=== PATIENT | male | born 1945 | race Caucasian/White ===

== ENCOUNTER → 2016-12-20 | Outpatient (CLI) | payer BC ==
[~2016-12-20] MED LIST: ASCO500T16 PO; ASPI-435 PO; ATV5X PO; CALC600T36 PO; CINN500T PO; CLON0.3D5 TOP; CTP/1 PO; CYAN100020 PO; FLUO10TA3 PO; ISOS60TA25 PO; KLN5X PO; KRIL1000 PO; LPT/20 PO; LSX40 PO; MELA1TAB54; MINO1TAB PO; MULTTAB58 PO; NTRGSL/4 UT; PROB1TAB16 PO; PRT/40 PO; SAW450CA5 PO; [UNRECOGNIZED DRUG - CODE] PO; vit d PO
[2016-12-20 12:29] LABS: BLOOD UREA NITROGEN 12 mg/dl (7-18); CREATININE 0.85 mg/dl (0.60-1.40); GLUCOSE 96 mg/dl (70-99)
[2016-12-20 12:30] LABS: ALT/SGPT 38 U/L (12-78); BUN/CREATININE RATIO 14.2 (10-20); CALCIUM 9.4 mg/dl (8.5-10.1); CARBON DIOXIDE 26 mmol/L (21-32); CHLORIDE 99 mmol/L (98-107); POTASSIUM 4.3 mmol/L (3.5-5.1); SODIUM 131 mmol/L (136-145)
[2016-12-20 12:32] LABS: ALB/GLOB RATIO 1.1 (0.9-2); ALKALINE PHOSPHATASE 158 U/L (45-117); AST/SGOT 35 U/L (15-37)
== END | disposition home or self-care (01) ==
LOC: C.LAB1850 11:04
PROVIDERS: ATTEND Internal Medicine Cardiovascular Disease
DX: I25.10 Atherosclerotic heart disease of native coronary artery without angina pectoris (principal)

== ENCOUNTER 2016-12-29 11:30 | Observation (INO) | payer BC ==
[~2016-12-29] VITALS: Ht 162.6 cm; Wt 54.2 kg
[~2016-12-29 11:30] MED LIST changes: -CTP/1 PO; -KRIL1000 PO
--- NOTE | 2016-12-29 11:58 | DIAGNOSTIC IMAGING REPORT ---
CHEST ONE VIEW PORTABLE CLINICAL HISTORY: chest pain dyspnea COMPARISON STUDY: 09/04/2016 FINDINGS: Moderate stable cardiomegaly. Prior median sternotomy. Mild chronic elevation right hemidiaphragm. Lungs are clear. IMPRESSION: Chronic and postoperative change. No acute process. Electronically signed by: Marcin Najera M.D. 12/29/2016 11:57 AM Dictated Date/Time: 12/29/2016 11:56 AM
[2016-12-29 11:59] LABS: HEMATOCRIT 36.1 % (42-52); MEAN CELL VOLUME 84.3 fL (80-100); MEAN CORPUSCULAR HEMOGLOBIN 28.7 pg (25-34); MEAN CORPUSCULAR HGB CONC 34.1 g/dl (32-36); MEAN PLATELET VOLUME 9.8 fL (7.4-10.4); PLATELET COUNT 231 K/uL (130-400); RED BLOOD COUNT 4.28 M/uL (4.7-6.1); WHITE BLOOD COUNT 5.09 K/uL (4.8-10.8)
[2016-12-29] MEDS ORDERED: CTP/1 PO (12:19)
[2016-12-29] MEDS ORDERED: KRIL1000 PO (12:19)
--- NOTE | 2016-12-29 12:20 | EMERGENCY ROOM VISIT NOTE ---
History Report prepared by Marilyn: Mary Luis Under the Supervision of: Dr. Kalina Ghosh D.O. 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 Today he had an appt. with Brandie Matthews, his PCP for a scheduled appt. While there today, he c/o CP. 2/10. At the PCP they gave him 1 nitro, and 325 ASA. He states relief with that, and was 0/10 upon ALS arrival. Pt. denies any cardiac symptoms upon arrival. History of Present Illness The patient is a 71 year old male who presents to the Emergency Room with complaints of resolved chest pain that began this morning around 0700. He currently states that he is in minimal discomfort, but states that his pain was a 2/10 earlier today. The patient states that Monday he had his typical yearly check up with his barrer and tacker. He states that yesterday he did a lot of heavy lifting while volunteering. The patient states that this morning he noticed a light pressure around his heart. He states that he went back to rest after experiencing the pain. The patient states that he had an appointment today with his PCP at 0900 and states that he had an EKG done there. He notes that while at his PCP's office, he began to experience vision changes, lightheaded, and chest pain. The patient denies the pain radiating to his jaw, neck, arm or back. Per nursing notes, the patient was given 1 nitro and 325 of aspirin prior to arrival which alleviated his symptoms. The patient denies any worsening factors. He notes that he has had previous stress tests and echocardiograms. The patient notes that he is a previous smoker. He denies any numbness or tingling in his extremities, shortness of breath, diaphoresis, abdominal pain, or swelling to his lower extremities. The patient notes a family history of heart disease. He notes that he is a previous smoker. The patient notes that he has had previous acid reflux, but denies his symptoms today feeling similar. Source of History: patient, nursing staff Onset: 0700 this morning Position: chest Symptom Intensity: minimal Quality: pressure Timing: resolved Modifying Factors (Relieving): other (nitro and aspirin) Associated Symptoms: No SOB, No abdominal pain, No back pain, No diaphoresis , No neck pain, No numbness Note: Associated Symptoms: lightheaded, change in vision Review of Systems See HPI for pertinent positives & negatives. A total of 10 systems reviewed and were otherwise negative. 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 (13) Iron deficiency anemia (14) Light-headed (15) PANIC DISORDER WITHOUT AGORAPHOBIA (16) PURE HYPERCHOLESTEROLEM Family History Diabetes mellitus Heart disease Kidney disease Social History Smoking Status: Former Smoker Alcohol Use: none Drug Use: none Marital Status: Housing Status: lives with family Occupation Status: retired Current/Historical Medications Scheduled Ascorbic Acid (Ascorbic Acid), 500 MG PO QAM Aspirin (Aspirin 81), 81 MG PO BID Atorvastatin (Atorvastatin Calcium), 20 MG PO DAILY Calcium W/ Vitamin D (Calcium), 1 TAB PO BID Cinnamon (Cinnamon), 500 MG PO QAM Clonazepam (Clonazepam), 0.5 MG PO HS Clonidine Hcl (Clonidine Hcl), 1 PATCH TOP WK Clonidine Hcl (Catapres), 1-2 TAB PO HS Cyanocobalamin (Vitamin B12), 1,000 MCG PO DAILY Fluoxetine Hcl (Fluoxetine Hcl), 10 MG PO HS Furosemide (Furosemide), 40 MG PO DAILY Isosorbide Mononitrate Ext Rel (Imdur Ext Rel), 30 MG PO QAM Krill Oil (Krill Oil), Unknown Dose PO UD Minoxidil (Minoxidil), 10 MG PO QPM Minoxidil (Minoxidil), 5 MG PO QAM Multiple Vitamin (Multivitamin), 1 TAB PO DAILY Pantoprazole (Pantoprazole Sodium), 40 MG PO DAILY Saw [place] (Serenoa Repens) (Saw [place]), 900 MG PO BID [vit d], PO DAILY Scheduled PRN Nitroglycerin (Nitrostat), 0.4 MG UT UD PRN for Chest Pain Miscellaneous Medications Melatonin (Melatonin) Allergies Coded Allergies: Gluten (Verified Allergy, Unknown, CELIAC DISEASE, 12/29/16) Physical Exam Vital Signs Date Time Temp Pulse Resp B/P Pulse Ox O2 Delivery O2 Flow Rate FiO2 12/29/16 14:53 200/92 12/29/16 14:51 62 18 199/88 98 Room Air 12/29/16 14:20 54 19 96 12/29/16 14:15 53 16 95 12/29/16 14:10 51 18 12/29/16 14:05 52 19 12/29/16 14:00 50 18 145/71 12/29/16 13:55 60 19 12/29/16 13:50 58 10 12/29/16 13:45 74 18 12/29/16 13:40 50 17 96 12/29/16 13:35 53 22 97 12/29/16 13:30 55 15 163/78 93 12/29/16 13:25 55 14 12/29/16 13:20 51 17 98 12/29/16 13:15 53 17 98 12/29/16 13:10 54 17 98 12/29/16 13:08 184/82 12/29/16 12:35 61 15 12/29/16 12:30 56 17 162/73 96 12/29/16 12:25 56 13 98 12/29/16 12:20 51 14 97 12/29/16 12:15 52 13 151/67 12/29/16 12:10 52 19 97 12/29/16 12:05 51 16 97 12/29/16 12:00 50 19 136/64 12/29/16 11:59 55 12/29/16 11:55 50 17 97 12/29/16 11:50 61 19 12/29/16 11:48 184/84 12/29/16 11:47 16 98 Room Air 12/29/16 11:45 54 20 99 12/29/16 11:38 98 Room Air 12/29/16 11:38 36.6 54 18 179/83 100 Room Air 12/29/16 11:36 179/83 Physical Exam GENERAL: alert, well appearing, well nourished, no distress, non-toxic EYE EXAM: normal conjunctiva, PERRL and EOM's grossly intact OROPHARYNX: no exudate, no erythema, lips, buccal mucosa, and tongue normal and mucous membranes are moist NECK: supple, no nuchal rigidity, no adenopathy, non-tender CHEST WALL: No reproducible tenderness LUNGS: Clear to auscultation. Normal chest wall mechanics HEART: no murmurs, S1 normal and S2 normal ABDOMEN: abdomen soft, non-tender, normo-active bowel sounds, no masses, no rebound or guarding. BACK: Back is symmetrical on inspection and there is no deformity, no midline tenderness, no CVA tenderness. SKIN: no rashes and no bruising UPPER EXTREMITIES: upper extremities are grossly normal. LOWER EXTREMITIES: No pitting edema. NEURO EXAM: Normal sensorium, cranial nerves II-XII grossly intact, normal speech, no gross weakness of arms, no gross weakness of legs. Medical Decision & Procedures ER Provider Diagnostic Interpretation: Xray results per the radiologist and my interpretation. Other results have been interpreted by the radiologist and reviewed by me. CHEST ONE VIEW PORTABLE CLINICAL HISTORY: chest pain dyspnea COMPARISON STUDY: 09/04/2016 FINDINGS: Moderate stable cardiomegaly. Prior median sternotomy. Mild chronic elevation right hemidiaphragm. Lungs are clear. IMPRESSION: Chronic and postoperative change. No acute process. Electronically signed by: Marcin Najera M.D. 12/29/2016 11:57 AM Dictated Date/Time: 12/29/2016 11:56 AM Laboratory Results 12/29/16 11:30 12/29/16 11:30 Test 12/29/16 11:30 12/29/16 11:47 Red Blood Count 4.28 M/uL (4.7-6.1) Mean Corpuscular Volume 84.3 fL (80-100) Mean Corpuscular Hemoglobin 28.7 pg (25-34) Mean Corpuscular Hemoglobin Concent 34.1 g/dl (32-36) RDW Standard Deviation 42.4 fL (36.4-46.3) RDW Coefficient of Variation 13.7 % (11.5-14.5) Mean Platelet Volume 9.8 fL (7.4-10.4) Prothrombin Time 11.1 SECONDS (9.0-12.0) Prothromb Time International Ratio 1.0 (0.9-1.1) Activated Partial Thromboplast Time 26.1 SECONDS (21.0-31.0) Partial Thromboplastin Ratio 1.0 Anion Gap 8.0 mmol/L (3-11) Est Creatinine Clear Calc Drug Dose 57.9 ml/min Estimated GFR () 89.5 Estimated GFR (Non- 77.3 BUN/Creatinine Ratio 12.4 (10-20) Calcium Level 9.5 mg/dl (8.5-10.1) Total Bilirubin 0.6 mg/dl (0.2-1) Aspartate Amino Transf (AST/SGOT) 40 U/L (15-37) Alanine Aminotransferase (ALT/SGPT) 43 U/L (12-78) Alkaline Phosphatase 145 U/L (45-117) Total Creatine Kinase 187 U/L (39-308) Creatine Kinase MB 3.1 ng/ml (0.5-3.6) Creatine Kinase MB Ratio 1.7 (0-3.0) Total Protein 7.5 gm/dl (6.4-8.2) Albumin 4.0 gm/dl (3.4-5.0) Globulin 3.5 gm/dl (2.5-4.0) Albumin/Globulin Ratio 1.1 (0.9-2) Bedside Troponin I 0.010 ng/ml (0-0.045) Laboratory results per my review. ECG Indication: chest pain Rate (beats per minute): 53 Rhythm: sinus bradycardia Findings: 1st degree AV block, no ectopy, other (normal axis, normal intervals) Comparison ECG Date: 09/04/16 Change: no significant change ED Course 1223: The patient was evaluated in room C12B. A complete history and physical examination was performed. 1300: Upon reevaluation, the patient is resting comfortably.I discussed my findings with the patient and he understands and agrees with the treatment plan. Based on the patients age, coexisting illnesses, exam and lab findings the decision to treat as an inpatient was made. The patient remained stable while under my care. The patient will be evaluated for further management. 1447: I discussed the patients case with CEDRIC Garcia. He is going to evaluate the patient for further treatment. Medical Decision The patient is a 71 year old male who presents to the ED with complaints of resolved chest pain. Differential diagnosis include ACS, CHF, anxiety, pneumonia, GERD, dissection. Patient with prior history of ACS in the status post CABG. Despite recent routine cardiology evaluation, patient now with no concerning symptoms given age, prior history, risk factors. No evidence to suggest pneumonia/effusion. No widening mediastinum suggestive of dissection on chest x-ray and patient's symptoms had resolved by the time of my evaluation. Patient with underlying history of anxiety as well as reflux although states presentation today not consistent with those. Patient's well- appearing here and vital signs stable. EKG unchanged from prior. Patient noted for continued monitoring, serial cardiac enzymes, possible cardiology evaluation. Consults Time Called: 1321 Consulting Physician: CEDRIC Garcia Returned Call: [phone] I discussed the patients case with CEDRIC Garcia. He is going to evaluate the patient for further treatment. Impression Primary Impression: Left sided chest pain Additional Impression: Dizziness Scribe Attestation The scribe's documentation has been prepared under my direction and personally reviewed by me in its entirety. I confirm that the note above accurately reflects all work, treatment, procedures, and medical decision making performed by me. Departure Information Dispostion Being Evaluated By Hospitalist Referrals Brandie Matthews D.O. (PCP) Problem Qualifiers
[2016-12-29 12:34] LABS: PROTHROMBIN TIME (PATIENT) 11.1 SECONDS (9.0-12.0)
[2016-12-29 12:38] LABS: BUN/CREATININE RATIO 12.4 (10-20); CALCIUM 9.5 mg/dl (8.5-10.1); CREATININE 0.98 mg/dl (0.60-1.40); POTASSIUM 3.9 mmol/L (3.5-5.1)
[2016-12-29 12:42] LABS: ALB/GLOB RATIO 1.1 (0.9-2); CKMB/CK RATIO 1.7 (0-3.0)
[2016-12-29] MEDS ORDERED: NITROGLYCERIN 0.4 MG SL PER TAB CHARGE SL PRN (14:30)
[2016-12-29] MEDS ORDERED: MoRPHine SULFATE 2 MG/ML CARP IV PRN (14:30)
[2016-12-29] MEDS ORDERED: POLYETHYLENE (MIRALAX) 17 GM PACK PO PRN (14:30)
[2016-12-29] MEDS ORDERED: ALUMINUM/MAGNESIUM/SIMETH (MAALOX MAX) 30 ML UDC PO PRN (14:30)
[2016-12-29] MEDS ORDERED: ONDANSETRON INJ 2 MG/ML 2 ML VIAL IV PRN (14:30)
[2016-12-29] MEDS ORDERED: ACETAMINOPHEN 325 MG TAB PO PRN (14:30)
[2016-12-29] MEDS ORDERED: MAGNESIUM HYDROXIDE SUSP 30 ML UDC PO PRN (14:30)
[2016-12-29] MEDS ORDERED: IV FLUIDS COMPLETED PRN (15:15)
--- NOTE | 2016-12-29 15:53 | History and Physical ---
History & Physical Date & Time of Service: Dec 29, 2016 at 15:09 Chief Complaint: Chest Pain Primary Care Physician: Brandie Matthews D.O. History of Present Illness Source: patient 71 y/o M Hx CAD, HTN, Hpl. Pt had an episode of CP this AM which resolved spontaneously. He was then at his MDs office and again developed some central CP - this time accompanied by light-headedness and what he describes as "visual dimming". He was instructed to attend the ER therefore. His chest pain was described as central tightness. He was mildly SOB and denied nausea/vomiting or diaphoresis. The pt was admitted for syncope and a troponin elevation 09/07 attributed to demand ischemia. He has known labile hypertension and his BP has ranged from 165 - 200 systolic while in the ER. He is CP-free at the time of admission. Past Medical/Surgical History Medical Problems: (1) AC MYOCARDIAL INFARCT,SUBENDO INFARCT,INITIAL EPIS Status: Chronic (2) ANXIETY STATE NOS Status: Chronic (3) AORTOCORONARY BYPASS Permanent Comment: Oct 14 1999 CABG x3 @ [facility] [place] Status: Chronic (4) ASTHMA, UNSPECIFIED Status: Chronic (5) B12 deficiency Status: Chronic (6) CALCULUS OF KIDNEY Status: Chronic (7) CORONARY ATHEROSCLEROSIS OF [place] CORONARY VESSEL Status: Chronic (8) ESOPHAGEAL REFLUX Status: Chronic (9) HYPERLIPIDEMIA NEC/NOS Status: Chronic (10) HYPERTENSION NOS Status: Chronic (11) HYPERTROPHY (BENIGN) OF PROSTATE W/O URINARY OBST & OTH LUTS Status: Chronic (12) Iron deficiency anemia Status: Chronic (13) PANIC DISORDER WITHOUT AGORAPHOBIA Status: Chronic (14) PURE HYPERCHOLESTEROLEM Status: Chronic Family History Diabetes mellitus Heart disease Kidney disease Social History Quit smoking over 40 yrs ago - no ETOH Smoking Status: Former Smoker Drug Use: none Marital Status: Housing status: lives with family Occupational Status: retired Immunizations History of Influenza Vaccine: Yes History of Tetanus Vaccine?: Unk History of Pneumococcal: No History of Hepatitis B Vaccine: No Multi-Drug Resistant Organisms History of MDRO: No Allergies Coded Allergies: Gluten (Verified Allergy, Unknown, CELIAC DISEASE, 12/29/16) Home Medications Scheduled Ascorbic Acid (Ascorbic Acid), 500 MG PO QAM Aspirin (Aspirin 81), 81 MG PO BID Atorvastatin (Atorvastatin Calcium), 20 MG PO DAILY Calcium W/ Vitamin D (Calcium), 1 TAB PO BID Cinnamon (Cinnamon), 500 MG PO QAM Clonazepam (Clonazepam), 0.5 MG PO HS Clonidine Hcl (Clonidine Hcl), 1 PATCH TOP WK Clonidine Hcl (Catapres), 1-2 TAB PO HS Cyanocobalamin (Vitamin B12), 1,000 MCG PO DAILY Fluoxetine Hcl (Fluoxetine Hcl), 10 MG PO HS Furosemide (Furosemide), 40 MG PO DAILY Isosorbide Mononitrate Ext Rel (Imdur Ext Rel), 30 MG PO QAM Krill Oil (Krill Oil), Unknown Dose PO UD Minoxidil (Minoxidil), 10 MG PO QPM Minoxidil (Minoxidil), 5 MG PO QAM Multiple Vitamin (Multivitamin), 1 TAB PO DAILY Pantoprazole (Pantoprazole Sodium), 40 MG PO DAILY Saw [place] (Serenoa Repens) (Saw [place]), 900 MG PO BID [vit d], PO DAILY Scheduled PRN Nitroglycerin (Nitrostat), 0.4 MG UT UD PRN for Chest Pain Miscellaneous Medications Melatonin (Melatonin) Review of Systems Constitutional: No chills, No fever, No sweats Eyes: + worsening of vision, No eye pain ENT: No hearing loss, No nasal symptoms, No unusual epistaxis Respiratory: No cough, No sputum, No wheezing Cardiovascular: + chest pain, No PND, No orthopnea Abdomen: No nausea, No pain, No vomiting Musculoskeletal: No joint pain, No muscle pain Genitourinary - Male: No dysuria, No hematuria, No urinary frequency, No urinary urgency Neurologic: + problem reported (Light-headed with visual changes), No memory loss, No paralysis, No weakness Psychiatric: No depression symptoms Endocrine: No fatigue Hematologic / Lymphatic: No abnormal bleeding/bruising Integumentary: No rash Allergic / Immunologic: No environmental allergies, No seasonal allergies Physical Exam Vital Signs Date Time Temp Pulse Resp B/P Pulse Ox O2 Delivery O2 Flow Rate FiO2 12/29/16 14:53 200/92 12/29/16 14:51 62 18 199/88 98 Room Air 12/29/16 14:20 54 19 96 12/29/16 14:15 53 16 95 12/29/16 14:10 51 18 12/29/16 14:05 52 19 12/29/16 14:00 50 18 145/71 12/29/16 13:55 60 19 12/29/16 13:50 58 10 12/29/16 13:45 74 18 12/29/16 13:40 50 17 96 12/29/16 13:35 53 22 97 12/29/16 13:30 55 15 163/78 93 12/29/16 13:25 55 14 12/29/16 13:20 51 17 98 12/29/16 13:15 53 17 98 12/29/16 13:10 54 17 98 12/29/16 13:08 184/82 12/29/16 12:35 61 15 12/29/16 12:30 56 17 162/73 96 12/29/16 12:25 56 13 98 12/29/16 12:20 51 14 97 12/29/16 12:15 52 13 151/67 12/29/16 12:10 52 19 97 12/29/16 12:05 51 16 97 12/29/16 12:00 50 19 136/64 12/29/16 11:59 55 12/29/16 11:55 50 17 97 12/29/16 11:50 61 19 12/29/16 11:48 184/84 12/29/16 11:47 16 98 Room Air 12/29/16 11:45 54 20 99 12/29/16 11:38 98 Room Air 12/29/16 11:38 36.6 54 18 179/83 100 Room Air 12/29/16 11:36 179/83 General Appearance: WD/WN, no apparent distress Head: normocephalic, atraumatic Eyes: normal inspection, PERRL, EOMI ENT: normal ENT inspection, hearing grossly normal, TMs normal, pharynx normal Neck: supple, no JVD Respiratory/Chest: chest non-tender, lungs clear, normal breath sounds Cardiovascular: regular rate, rhythm, no edema, no gallop, + systolic murmur Abdomen/GI: normal bowel sounds, non tender, soft Back: normal inspection, no CVA tenderness, no muscle spasm Extremities/Musculoskelatal: normal inspection, no calf tenderness, normal capillary refill, no pedal edema, normal range of motion Neurologic/Psych: manager car II-XII nml as tested, no motor/sensory deficits, alert, normal mood/affect, normal reflexes, oriented x 3 Skin: normal color, warm/dry, no rash Diagnostics Laboratory Results Results Past 24 Hours Test 12/29/16 11:30 12/29/16 11:47 Range/Units White Blood Count 5.09 4.8-10.8 K/uL Red Blood Count 4.28 4.7-6.1 M/uL Hemoglobin 12.3 14.0-18.0 g/dL Hematocrit 36.1 42-52 % Mean Corpuscular Volume 84.3 80-100 fL Mean Corpuscular Hemoglobin 28.7 25-34 pg Mean Corpuscular Hemoglobin Concent 34.1 32-36 g/dl RDW Standard Deviation 42.4 36.4-46.3 fL RDW Coefficient of Variation 13.7 11.5-14.5 % Platelet Count 231 130-400 K/uL Mean Platelet Volume 9.8 7.4-10.4 fL Prothrombin Time 11.1 9.0-12.0 SECONDS Prothromb Time International Ratio 1.0 0.9-1.1 Activated Partial Thromboplast Time 26.1 21.0-31.0 SECONDS Partial Thromboplastin Ratio 1.0 Sodium Level 134 136-145 mmol/L Potassium Level 3.9 3.5-5.1 mmol/L Chloride Level 100 98-107 mmol/L Carbon Dioxide Level 26 21-32 mmol/L Anion Gap 8.0 3-11 mmol/L Blood Urea Nitrogen 12 7-18 mg/dl Creatinine 0.98 0.60-1.40 mg/dl Est Creatinine Clear Calc Drug Dose 57.9 ml/min Estimated GFR () 89.5 Estimated GFR (Non- 77.3 BUN/Creatinine Ratio 12.4 10-20 Random Glucose 113 70-99 mg/dl Calcium Level 9.5 8.5-10.1 mg/dl Total Bilirubin 0.6 0.2-1 mg/dl Aspartate Amino Transf (AST/SGOT) 40 15-37 U/L Alanine Aminotransferase (ALT/SGPT) 43 12-78 U/L Alkaline Phosphatase 145 45-117 U/L Total Creatine Kinase 187 39-308 U/L Creatine Kinase MB 3.1 0.5-3.6 ng/ml Creatine Kinase MB Ratio 1.7 0-3.0 Total Protein 7.5 6.4-8.2 gm/dl Albumin 4.0 3.4-5.0 gm/dl Globulin 3.5 2.5-4.0 gm/dl Albumin/Globulin Ratio 1.1 0.9-2 Bedside Troponin I 0.010 0-0.045 ng/ml EKG Sinus evelyn 53BPM - 1st ' AV - no change from a geo EKG Impression Assessment and Plan 71 y/o M Hx CAD, HTN, Hpl. Pt had an episode of CP this AM which resolved spontaneously. He was then at his MDs office and again developed some central CP - this time accompanied by light-headedness and what he describes as "visual dimming". His chest pain was described as central tightness. He was mildly SOB and denied nausea/vomiting or diaphoresis. He has known labile hypertension and his BP has ranged from 165 - 200 systolic while in the ER. 1) CP w/neuro symptoms - Will monitor on telemetry and trend troponin levels. As pt had a syncopal episode with troponin elevation 09/07 and neuro symptoms with his CP today, he may benefit from ambulatory monitoring. He has requested to see his lockstitch sleeve setter so we will defer the decision on further workup to their service. He had a normal echo 09/07 which did not show any significant valvular disease despite a loud systolic murmur on exam. Cont ASA, Atorvastatin , Imdur - HR would not tolerate a B teresa 2) HTN - has been difficult to manage per pt - we will continue his Clonidine and Minoxidil and may supplement with NTG and Hydralazine if needed. 3) HPL - cont statin Full code - Heparin prophylaxis Total time for this admit including review of labs, EKG, medications and records - discussion with pt and ER MD - 36 min Level of Care Telemetry Resuscitation Status FULL RESUSCITATION VTE Prophylaxis VTE Risk Assessment Done? Y/N: Yes Risk Level: Moderate Given or contraindicated: Unfractionated heparin SQ
[2016-12-29 16:00] VITALS: BP 208/84; PULSE 59; TEMP 36.9; O2SAT 98; Ht 162.6 cm; Wt 54.2 kg
[2016-12-29] MEDS: CHECK CLONIDINE PATCH PLACEMENT SCH ×2 (16:34→23:42)
[2016-12-29] MEDS ORDERED: CLONAZEPAM 0.5 MG TAB PO SCH ×2 (17:00→21:00)
[2016-12-29] MEDS ORDERED: FLUOXETINE HCL 10 MG CAP PO SCH ×2 (17:00→21:00)
[2016-12-29] MEDS ORDERED: HydrALAZINE HCL 20 MG/ML VIAL IV. ONE (17:00)
[2016-12-29] MEDS ORDERED: MINOXIDIL 2.5 MG TAB PO SCH ×2 (17:00→21:00)
[2016-12-29] MEDS ORDERED: NITROGLYCERIN 0.4 MG/HR PATCH TD SCH (17:30)
[2016-12-29 18:00] VITALS: BP 219/90
[2016-12-29 18:01] VITALS: BP 219/81
[2016-12-29 18:02] VITALS: BP 221/92
[2016-12-29 19:07] VITALS: BP 205/86; PULSE 61; TEMP 37.2; O2SAT 98
[2016-12-29] MEDS ORDERED: ATORVASTATIN 20 MG TAB PO SCH (21:00)
[2016-12-29] MEDS ORDERED: ASPIRIN 81 MG ECTAB PO SCH (21:00)
[2016-12-29] MEDS: ASPIRIN 81 MG ECTAB PO SCH (22:05)
[2016-12-29] MEDS: HEPARIN SOD 5000 UNIT/0.5 ML CARP SQ SCH (22:06)
[2016-12-29 23:34] VITALS: BP 179/84; PULSE 63; TEMP 36.4; O2SAT 96
[2016-12-30 03:57] VITALS: BP 145/75; PULSE 59; TEMP 36.7; O2SAT 97
[2016-12-30] MEDS: HEPARIN SOD 5000 UNIT/0.5 ML CARP SQ SCH ×2 (06:25→13:22)
[2016-12-30 08:26] VITALS: BP 184/82; PULSE 70; TEMP 36.4; O2SAT 96
[2016-12-30] MEDS: CHECK CLONIDINE PATCH PLACEMENT SCH (08:26)
[2016-12-30] MEDS: ASPIRIN 81 MG ECTAB PO SCH (08:28)
[2016-12-30] MEDS ORDERED: NURSING VERBAL MED ORDER ONE (08:45)
[2016-12-30] MEDS ORDERED: CLONIDINE HCL 0.1 MG TAB PO SCH (09:00)
[2016-12-30] MEDS ORDERED: ISOSORBIDE MONONITRATE 30 MG TABCR PO SCH (09:00)
[2016-12-30] MEDS ORDERED: CLONAZEPAM 0.5 MG TAB PO SCH (09:00)
[2016-12-30] MEDS ORDERED: MINOXIDIL 2.5 MG TAB PO SCH (09:00)
[2016-12-30] MEDS ORDERED: PANTOprazole SOD 40 MG TAB PO SCH (09:00)
[2016-12-30] MEDS ORDERED: ATORVASTATIN 20 MG TAB PO SCH (09:00)
[2016-12-30] MEDS ORDERED: CYANOCOBALAMIN 500 MCG TAB (VIT B-12) PO SCH (09:00)
[2016-12-30] MEDS ORDERED: FUROSEMIDE 40 MG TAB PO SCH (09:00)
--- NOTE | 2016-12-30 12:19 | Discharge Instructions ---
Discharge Instructions Date of Service Dec 30, 2016. Admission Reason for Admission: Chest Pain Discharge Discharge Diagnosis / Problem: Chest pain Discharge Goals Goal(s): Decrease discomfort, Improve function, Diagnostic testing, Therapeutic intervention Activity Recommendations Activity Limitations: resume your previous activity . Instructions / Follow-Up Instructions / Follow-Up You were admitted to the hospital for overnight observation with chest pain and lightheadedness. Your symptoms did spontaneously resolve. You were admitted for a cardiac work up to rule out any acute event. Cardiac monitoring showed that you remained in a regular, sinus rhythm overnight. Your cardiac enzymes, which become elevated when there is damage to your heart, were all negative. You recently had an echocardiogram (ultrasound of the heart) in August of 2016 , which was normal. You were seen by Dr. Gaviria from cardiology, and he has cleared you for discharge. Medications: *You have been given a prescription for Diprolene cream to apply to your ankle rash twice a day as needed for itching. *Please resume all of your home medications as prescribed. Follow up: *Please follow up with your primary care provider in 1 week regarding your hospital stay. *Please continue your routine cardiology follow ups with Dr. Ramos. Please seek medical attention if you experience fevers, chills, sweats, lightheadedness, loss of consciousness, changes in vision, chest pain, shortness of breath, nausea, vomiting, numbness or tingling. Current Hospital Diet Patient's current hospital diet: Gluten Free Diet Discharge Diet Recommended Diet: Gluten Free Diet Pending Studies Studies pending at discharge: no Medical Emergencies . Who to Call and When: Medical Emergencies: If at any time you feel your situation is an emergency, please call 911 immediately. . Non-Emergent Contact Non-Emergency issues call your: Primary Care Provider, Nail Assembly Machine Operator Call Non-Emergent contact if: you have a fever, your pain is worsening, your pain is unusual for you, your pain is concerning you, you have any medication questions . Past History Medical & Surgical History: (1) Chest pain (2) Light-headed . "Provider Documentation" section prepared by Claire Newby. VTE Core Measure Inpt VTE Proph given/why not?: Unfractionated heparin SQ, T.E.D. Stockings, SCD 's
[2016-12-30 12:23] VITALS: BP 168/76; PULSE 94; TEMP 36.7; O2SAT 94
[2016-12-30 12:41] VITALS: BP 168/76; PULSE 94; TEMP 36.7; O2SAT 94
--- NOTE | 2016-12-30 13:06 | Discharge Summary ---
Discharge Summary Date of Service Dec 30, 2016. (Claire Newby PA-C) Discharge Summary Admission Date: Dec 29, 2016 at 14:24 Discharge Date: Dec 30, 2016 Discharge Disposition: Home Principal Diagnosis: Chest pain Immunizations: Have You Had Influenza Vaccine: Yes History of Tetanus Vaccine?: Unk History of Pneumococcal: No History of Hepatitis B Vaccine: No (Claire Newby PA-C) Medication Reconciliation Continued Medications: Ascorbic Acid (Ascorbic Acid) 500 Mg Tab 500 MG PO QAM, TAB Aspirin (Aspirin 81) 81 Mg Tab 81 MG PO BID Atorvastatin (Atorvastatin Calcium) 20 Mg Tab 20 MG PO DAILY Calcium W/ Vitamin D (Calcium) 1 Tab Tab 1 TAB PO BID Cinnamon (Cinnamon) 500 Mg Tab 500 MG PO QAM Clonazepam (Clonazepam) 0.5 Mg Tab 0.5 MG PO HS Clonidine Hcl (Clonidine Hcl) 0.3 Mg/24 Hr Dis 1 PATCH TOP WK CHANGE PATCH EVERY MONDAY. Clonidine Hcl (Catapres) 0.1 Mg Tab 1-2 TAB PO HS, TAB Cyanocobalamin (Vitamin B12) 1,000 Mcg Tab 1000 MCG PO DAILY Fluoxetine Hcl (Fluoxetine Hcl) 10 Mg Tab 10 MG PO HS Furosemide (Furosemide) 40 Mg Tab 40 MG PO DAILY Isosorbide Mononitrate Ext Rel (Imdur Ext Rel) 60 Mg Ertab 30 MG PO QAM Krill Oil (Krill Oil) 1 Cap Cap Unknown Dose PO UD Melatonin (Melatonin) 5 Mg Tab Minoxidil (Minoxidil) 10 Mg Tab 10 MG PO QPM, 0 Refills Minoxidil (Minoxidil) 10 Mg Tab 5 MG PO QAM Multiple Vitamin (Multivitamin) 1 Tab Tab 1 TAB PO DAILY, TAB Nitroglycerin (Nitrostat) 0.4 Mg Tab 0.4 MG UT UD PRN for Chest Pain, [address] ONE TABLET UNDER THE TONGUE EVERY 5 MINUTES FOR UP TO 3 DOSES IF NEEDED FOR CHEST PAIN. Pantoprazole (Pantoprazole Sodium) 40 Mg Tab 40 MG PO DAILY TAKE THIS MEDICATION ONCE DAILY 30 MINUTES BEFORE FIRST MEAL OF THE DAY. Saw Vickery (Serenoa Repens) (Saw Vickery) 450 Mg Cap 900 MG PO BID [vit d] () PO DAILY Referrals At Discharge Follow up Referrals: Physician Referral - Within 1 Week with Grine, Brandie M.,D.O. Discharge Exam Patient reports feeling well. His chest pain, lightheadedness, shortness of breath and vision changes have resolved. He has been cleared for discharge by cardiology. The patient denies fevers, chills, sweats, chest pain, palpitations , claudication, cough, wheezing, shortness of breath, nausea, vomiting, abdominal pain, dysuria, hematuria, urinary retention, paralysis, weakness, numbness and tingling. Review of Systems: Constitutional: No chills, No fever, No sweats Eyes: No diplopia, No eye pain, No worsening of vision ENT: No hearing loss, No sore throat, No trouble swallowing Respiratory: No cough, No shortness of breath, No wheezing Cardiovascular: No chest pain, No claudication, No palpitations Abdomen: No nausea, No pain, No vomiting Musculoskeletal: No calf pain, No joint pain, No muscle pain Genitourinary - Male: No dysuria, No hematuria, No urinary retention Neurologic: No numbness/tingling, No paralysis, No weakness Integumentary: + rash (dry scaly rash on medial aspect of left ankle), No color change, No itch Physical Exam: General Appearance: WD/WN, no apparent distress Eyes: normal inspection, PERRL, EOMI ENT: normal ENT inspection, hearing grossly normal, pharynx normal Neck: supple, no JVD, trachea midline Respiratory/Chest: lungs clear, normal breath sounds, no respiratory distress Cardiovascular: regular rate, rhythm, no gallop, + systolic murmur Abdomen / GI: normal bowel sounds, non tender, soft Extremities: normal inspection, no calf tenderness, no pedal edema Neurologic/Psychiatric: alert, normal mood/affect, oriented x 3 Skin: normal color, warm/dry, + rash (dry scaly hyperpigemented rash on medial aspect left ankle) (Claire Newby, ROCKY) Hospital Course 71 y/o male with a history of CAD, CABG in 1998, h/o [place], labile HTN, HLD, anxiety, BPH, and GERD who presented to the ED with chest pain prior to arrival that had spontaneously resolved. The patient then went to see his doctor and developed chest pain again, along with lightheadedness, changes in vision and shortness of breath. The patient was recently hospitalized in August 2016 for syncope which was felt to be vasovagal and an elevated troponin which was felt to be secondary to demand ischemia. Patient arrived to the ED hypertensive , however, he is noted to have labile hypertension which has been difficult to control. EKG showed no acute ischemic changes. CXR showed no acute disease. First set cardiac enzymes negative. Chest pain with lightheadedness and changes in vision--symptoms have resolved by themselves. Patient reports having a bowel movement shortly after onset of symptoms. May be related to a vasovagal episode -Admitted to telemetry for cardiac monitoring. No events overnight, patient remained in sinus bradycardia with first-degree AV block -Normal echocardiogram August 2016 -Cardiology consulted: Dr. Gaviria has cleared patient for discharge -Serial troponins negative 3 CAD -Continue ASA 81 mg PO qd and isosorbide 30 mg PO qd HTN--labile with SBP ranging from 130s to 200s -Continue clonidine 0.1 mg PO qhs, clonidine patch, and minoxidil 5 mg PO qam and 10 mg PO qhs -Pt follows regularly with Dr. Ramos HLD -Continue atorvastatin 20 mg PO qd Anxiety -Continue fluoxetine 10 mg PO qd GERD -Continue pantoprazole 40 mg PO qd Ankle rash--pt reports persistent dry, scaly, hyperpigmented rash on ankles that seems to respond to steroid cream -Diprolene cream BID prn itching DVT prophylaxis -Heparin 5000 units SC q8h -JOSR mcdowell and SCDs Code Status -Level I, FULL RESUSCITATION STATUS Dispo -Pt medically stable for discharge per cardiology -F/u with PCP in 1 week Total Time Spent: Greater than 30 minutes This includes examination of the patient, discharge planning, medication reconciliation, and communication with other providers. (Claire Newby ., PA-C) I personally evaluated this patient and performed a physical exam. I reviewed the medications. I read this note performed by Claire Newby PA-C and agree with its contents. (Ravi Macias, DO) Discharge Instructions Please refer to the electronic Patient Visit Report (Discharge Instructions) for additional information. (Claire Newby, KAREEMC) Additional Copies To Brandie Matthews D.O.
--- NOTE | 2016-12-30 15:02 | CARDIOLOGY CONSULTATION ---
DATE OF CONSULTATION: 12/30/2016 PERTINENT HISTORY: Mr. Rolle is a 71-year-old white male, admitted yesterday with a chest pain syndrome. This consultation was ordered to assist in his cardiac management. Of note, the patient follows with Dr. Ramos in the outpatient setting. The patient was in his usual state of health until Monday, when he was seen in a cardiology appointment by Dr. Ramos. The patient was doing well at that time and no changes were made in his medical regimen. The following day, December 28, the patient worked vigorously at the [employer], lifting and moving many heavy boxes. While working, he said that his "body told him to stop." He had no exertional angina pectoris during that activity. However, several hours later, he noticed a vague sensation in his mid chest. There was no tenderness to palpation. There are no other associated symptoms such as radiation of discomfort, nausea, vomiting, diaphoresis, or shortness of breath. His symptoms continued throughout the night on the . He was seen on December 29 by Sarah Loo. He mentioned the vague sensation in his chest. She obtained the EKG, which was unchanged from prior tracings. However, he began to complain of some visual changes and looked pale according to his report. He was then sent to the Emergency Room for further care. The patient has a longstanding history of coronary artery disease and underwent a 3-vessel bypass in September 1999. Unfortunately, this revascularization improved his left ventricular systolic function from a previously noted ischemic cardiomyopathy. The patient did have a Cardiolite stress test performed in October 2014, which noted an inferior and inferolateral infarction with some emilee-infarction ischemia. The patient has had a hospitalization in August 2016 after an episode of vasovagal syncope. An echocardiogram performed during that hospitalization noted normal biventricular systolic function. He had mild mitral and tricuspid regurgitation. There was borderline left ventricular hypertrophy. Currently, the patient is resting comfortably in bed without complaints. PAST MEDICAL HISTORY: 1. Coronary artery disease. 2. Status post CABG x3 - September 1999. 3. Ischemic cardiomyopathy - resolved. 4. Hypertension. 5. Hypercholesterolemia. 6. Mild mitral regurgitation. 7. Mild tricuspid regurgitation. 8. Borderline left ventricular hypertrophy. 9. GERD. 10. Nephrolithiasis. 11. Celiac disease. 12. Sjogren syndrome. 13. BPH. 14. Anxiety. ALLERGIES: GLUTEN. MEDICATIONS: 1. Minoxidil 5 mg q.a.m. 2. Clonidine 0.1 mg daily. 3. Imdur 30 mg per day. 4. Lasix 40 mg daily. 5. Clonidine patch 0.3 mg per 24 hours every Monday. 6. Heparin 5000 units subQ q. 8 hours. 7. Protonix 40 mg per day. 8. Klonopin 0.5 mg b.i.d. 9. Vitamin B12, 1000 mcg daily. 10. Lipitor 20 mg at bedtime. 11. Aspirin 81 mg per day. 12. Prozac 10 mg daily. 13. Minoxidil 10 mg at bedtime. SOCIAL HISTORY: The patient is and lives with his . He stopped tobacco use 40 years ago. Does not use alcohol. FAMILY HISTORY: No early coronary artery disease. REVIEW OF SYSTEMS: Ten-point review of systems is negative except for that described above. PHYSICAL EXAMINATION: GENERAL: This is a well-developed and well-nourished white male in no acute distress. VITAL SIGNS: Blood pressure is 145/75 with a regular pulse of 70 and respiratory is 18. The patient is afebrile at 36.4 degree Celsius. Saturation is 96% on room air. HEENT: Negative. NECK: Supple with full carotid upstrokes. There are no carotid bruits. Jugular venous pressure is flat at 90 degrees. There is no thyromegaly. CARDIOVASCULAR: Reveals a regular rhythm with normal S1 and S2. A 2/6 systolic murmur is heard along the left sternal border. A 1/6 apical holosystolic murmur is also noted. No S3 or S4. LUNGS: Clear without rales, rhonchi, or wheeze. ABDOMEN: Soft and nontender without bruits. EXTREMITIES: Reveal intact radial artery pulses and posterior tibial pulses bilaterally. There is no peripheral edema. DATA: CBC notes hemoglobin of 13.3, hematocrit 36.1, white count 5.0, and platelet count 231,000. Electrolytes note a sodium of 134, potassium 3.9, chloride 100, bicarbonate 26, BUN 12, creatinine 0.9, and glucose 113. Initial troponin was 0.01 with a followup value of 0.039 and 0.039 again. CK is 187 with a normal MB fraction of 3.1. INR is normal at 1.0. EKG notes sinus bradycardia with first degree AV block and a prominent U wave. This is unchanged from tracings done on 12/29/2016 and 09/04/2016. Chest x-ray shows no acute disease. IMPRESSION: Mr. Rolle was admitted with atypical chest discomfort. I suspect this was musculoskeletal in origin, although symptoms are not reproduced at this time. He gives no history consistent with classic exertional angina pectoris. The patient's cardiac enzymes are normal and his EKG shows no acute changes and stable compared to prior tracings. No need for stress testing at this time. PLAN: 1. Continue usual outpatient cardiac medications. 2. Would ambulate in the hallways. 3. Stable, could discharge from hospital later today. 4. No need for stress testing at this time.
[2016-12-31] MEDS ORDERED: CLONIDINE HCL 0.3 MG/24 HR TRANSDERM SYS TD SCH (09:00)
== END 2016-12-30 14:16 | disposition home or self-care (01) ==
LOC: ENRESERVTM → ENRESERVDT → EDBD 11:30 → C.EDC 11:32 → C.2T 14:24
PROVIDERS: ADMIT Internal Medicine; ATTEND Internal Medicine
DX: R07.89 Other chest pain (principal); R42 Dizziness and giddiness; I25.10 Atherosclerotic heart disease of native coronary artery without angina pectoris; I10 Essential (primary) hypertension; E78.00 Pure hypercholesterolemia, unspecified; I08.1 Rheumatic disorders of both mitral and tricuspid valves; K21.9 Gastro-esophageal reflux disease without esophagitis; N40.0 Benign prostatic hyperplasia without lower urinary tract symptoms; J45.909 Unspecified asthma, uncomplicated; I44.0 Atrioventricular block, first degree; K90.0 Celiac disease; M35.00 Sjogren syndrome, unspecified; I25.2 Old myocardial infarction; Z95.1 Presence of aortocoronary bypass graft; Z79.82 Long term (current) use of aspirin; Z87.891 Personal history of nicotine dependence; Z82.49 Family history of ischemic heart disease and other diseases of the circulatory system; Z83.3 Family history of diabetes mellitus; Z84.1 Family history of disorders of kidney and ureter

== ENCOUNTER → 2017-02-08 | Outpatient (CLI) | payer BC ==
[~2017-02-08] MED LIST changes: -ATV5X PO; +CTP/1 PO; +KRIL1000 PO; +PANT40TA2 PO; -PROB1TAB16 PO; -PRT/40 PO
== END | disposition home or self-care (01) ==
LOC: C.LAB 14:19
PROVIDERS: ATTEND Urology
DX: Z12.5 Encounter for screening for malignant neoplasm of prostate (principal); N20.0 Calculus of kidney

== ENCOUNTER → 2017-08-14 | Outpatient (CLI) | payer BC ==
[2017-08-14 10:36] LABS: BASO % 0.2 %; BASO ABS # 0.01 K/uL (0-0.2); EOS % 2.1 %; HEMATOCRIT 37.5 % (42-52); LYMPH % 18.5 %; MEAN CELL VOLUME 85.6 fL (80-100); MEAN CORPUSCULAR HEMOGLOBIN 29.2 pg (25-34); MEAN PLATELET VOLUME 9.8 fL (7.4-10.4); MONO % 12.9 %; NEUT % 66.3 %; PLATELET COUNT 216 K/uL (130-400); RED BLOOD COUNT 4.38 M/uL (4.7-6.1); WHITE BLOOD COUNT 4.87 K/uL (4.8-10.8)
[2017-08-14 11:00] LABS: ALB/GLOB RATIO 1.1 (0.9-2); ALKALINE PHOSPHATASE 151 U/L (45-117); ALT/SGPT 39 U/L (12-78); AST/SGOT 38 U/L (15-37); BLOOD UREA NITROGEN 9 mg/dl (7-18); BUN/CREATININE RATIO 10.6 (10-20); CALCIUM 9.6 mg/dl (8.5-10.1); CARBON DIOXIDE 29 mmol/L (21-32); CHLORIDE 101 mmol/L (98-107); CREATININE 0.89 mg/dl (0.60-1.40); GLUCOSE 119 mg/dl (70-99); POTASSIUM 4.1 mmol/L (3.5-5.1); SODIUM 135 mmol/L (136-145)
[2017-08-14 11:06] LABS: COMPLETE YES; MEAN CORPUSCULAR HGB CONC 34.1 g/dl (32-36)
[2017-08-15 11:49] LABS: C-REACTIVE PROT HIGHSEN 0.7 MG/L
--- NOTE | 2017-08-18 11:36 | CODING QUERY MEDICAL NECESSITY ---
SUPPORTING DIAGNOSIS NEEDED A supporting diagnosis is required for the test/procedure performed on this patient in order for us to be reimbursed by the patient's insurance. Please provide a supporting diagnosis for the following test/procedure listed below next to the test name along with your signature. *If there is no additional diagnosis for this patient that would support the following test/procedure please document that below next to the test/procedure. Test(s)/Procedure(s) that require a supporting diagnosis: * C-REACT PROT HIGHSENS (CARDIO) DIAGNOSIS: Provider Signature: Date: Thank you Renae Success [employer] Information Management Once completed, please kindly fax back to [phone] For questions please call [phone]
== END | disposition home or self-care (01) ==
LOC: C.LAB1850 10:00
PROVIDERS: ATTEND Student in an Organized Health Care Education/Training Program
DX: R07.9 Chest pain, unspecified (principal)

== ENCOUNTER → 2017-10-12 | Outpatient (CLI) | payer BC ==
--- NOTE | 2017-10-12 10:59 | DIAGNOSTIC IMAGING REPORT ---
ABDOMINAL ULTRASOUND, RIGHT UPPER QUADRANT HISTORY: Elevated alkaline phosphatase. COMPARISON: CT of the abdomen and pelvis January 13, 2014. FINDINGS: The liver is sonographically normal. There is no biliary ductal dilatation. Common bile measures 5 mm in caliber. The gallbladder is normal. There are no gallstones. The pancreatic body is normal. The head and tail are partially obscured. There is no right hydronephrosis. There is no right upper quadrant ascites. IMPRESSION: No significant abnormality within the right upper quadrant by sonography. No gallstones or biliary ductal dilatation. Electronically signed by: Alex Calhoun M.D. 10/12/2017 10:58 AM Dictated Date/Time: 10/12/2017 10:56 AM
== END | disposition home or self-care (01) ==
LOC: C.ULTR 10:15
PROVIDERS: ATTEND Internal Medicine Gastroenterology
DX: R74.8 Abnormal levels of other serum enzymes (principal)

== ENCOUNTER 2018-01-14 11:18 | Emergency (ER) | payer BC ==
[~2018-01-14] VITALS: Ht 152.4 cm; Wt 60.0 kg
[~2018-01-14 11:18] MED LIST changes: -LPT/20 PO; +LPT20 PO
[2018-01-14 11:23] VITALS: TEMP 36.9; Ht 152.4 cm; Wt 60.0 kg
[2018-01-14] MEDS ORDERED: SODIUM CHLORIDE 0.9% 1000ML 1,000 ML IV STA (11:36)
[2018-01-14] MEDS ORDERED: KETOROLAC TROMETHAMINE 30 MG/ML VIAL IV STA (11:36)
[2018-01-14] MEDS ORDERED: ONDANSETRON INJ 2 MG/ML 2 ML VIAL IV STA (11:36)
[2018-01-14 12:03] LABS: BASO % 0.3 %; BASO ABS # 0.02 K/uL (0-0.2); HEMATOCRIT 38.2 % (42-52); HEMOGLOBIN 13.3 g/dL (14.0-18.0); IG# 0.01 K/uL (0.00-0.02); LYMPH % 11.1 %; LYMPH ABS # 0.76 K/uL (1.2-3.4); MEAN CELL VOLUME 84.3 fL (80-100); MEAN CORPUSCULAR HEMOGLOBIN 29.4 pg (25-34); MEAN CORPUSCULAR HGB CONC 34.8 g/dl (32-36); MEAN PLATELET VOLUME 9.4 fL (7.4-10.4); MONO % 10.8 %; MONO ABS # 0.74 K/uL (0.11-0.59); NEUT % 77.7 %; NEUT ABS # 5.32 K/uL (1.4-6.5); PLATELET COUNT 237 K/uL (130-400); RED CELL DISTRIBUTION WIDTH SD 42.9 fL (36.4-46.3); WHITE BLOOD COUNT 6.85 K/uL (4.8-10.8)
[2018-01-14] MEDS ORDERED: FLUO20CA35 PO (12:05)
[2018-01-14] MEDS ORDERED: POLYSOL4 OP (12:05)
[2018-01-14 12:13] LABS: PTT PATIENT 26.6 SECONDS (21.0-31.0)
--- NOTE | 2018-01-14 12:19 | DIAGNOSTIC IMAGING REPORT ---
CHEST ONE VIEW PORTABLE CLINICAL HISTORY: 72 years-old Male presenting with ABDOMINAL PAIN/GI. TECHNIQUE: Portable upright AP view of the chest was obtained. COMPARISON: 12/29/2016. FINDINGS: Median sternotomy wires and mediastinal surgical clips unchanged. Atherosclerosis of aortic arch. Vertex silhouette mildly enlarged, unchanged. Mild prominence of pulmonary vasculature, unchanged. Eventration or elevation of the right hemidiaphragm, which is chronic. No focal opacity. No large effusion or pneumothorax. Degenerative changes of the thoracic spine. Surgical clips project over the epigastrium. IMPRESSION: 1. Cardiomegaly with possible mild volume overload. No ishaan pulmonary edema or other convincing evidence of acute cardiopulmonary disease. Electronically signed by: Clayton Ceja M.D. 01/14/2018 12:18 PM Dictated Date/Time: 01/14/2018 12:16 PM
[2018-01-14 12:32] LABS: ALBUMIN 4.5 gm/dl (3.4-5.0); CALCIUM 10.1 mg/dl (8.5-10.1); CREATININE 0.93 mg/dl (0.60-1.40)
[2018-01-14 12:38] LABS: TOTAL PROTEIN 8.6 gm/dl (6.4-8.2)
--- NOTE | 2018-01-14 13:14 | EMERGENCY ROOM VISIT NOTE ---
History Report prepared by Marilyn: Abel Blackmon Under the Supervision of: Dr. Hernesto Baeza D.O. First contact with patient: 11:25 Chief Complaint: ABDOMINAL PAIN Stated Complaint: HEAD AND STOMACH UPSET Nursing Triage Summary: abdominal pain intermittent x3 days History of Present Illness The patient is a 72 year old male who presents to the Emergency Room with complaints of intermittent abdominal pain beginning four to five days ago. The patient states he developed abdominal pain the other day after eating bologna and hot pepper sausage. He reports he used to be able to eat jalapeno peppers and other spicy foods when he was younger, but now he develops diarrhea. The patient notes he experienced diarrhea after eating the food and expected his pain to be resolved. He states his diarrhea has resolved but his abdominal pain has not. The patient reports he has been drinking water and milk to try and alleviate his symptoms. He notes he was moving sawdust around his house yesterday for 30 minutes and developed a sudden sweating episode and a tingling sensation in his head and neck. The patient states his sweating episode and tingling resolved. He reports he was in taoism this morning and started sweating , experiencing abdominal pain, and experiencing his tingling sensation again. The patient notes he had three bowel movements this morning that were soft but not diarrhea. He currently denies nausea. Source of History: patient Onset: four to five days ago Position: abdomen Timing: intermittent Associated Symptoms: + diarrhea (resolved), No nausea Note: Associated symptoms: sweating, tingling to the head and neck Review of Systems See HPI for pertinent positives & negatives. A total of 10 systems reviewed and were otherwise negative. Past Medical & Surgical Medical Problems: (1) AC MYOCARDIAL INFARCT,SUBENDO INFARCT,INITIAL EPIS (2) ANXIETY STATE NOS (3) AORTOCORONARY BYPASS (4) ASTHMA, UNSPECIFIED (5) B12 deficiency (6) CALCULUS OF KIDNEY (7) CORONARY ATHEROSCLEROSIS OF [place] CORONARY VESSEL (8) elevated tn, near syncope (9) ESOPHAGEAL REFLUX (10) HYPERLIPIDEMIA NEC/NOS (11) HYPERTENSION NOS (12) HYPERTROPHY (BENIGN) OF PROSTATE W/O URINARY OBST & OTH LUTS (13) Iron deficiency anemia (14) Light-headed (15) PANIC DISORDER WITHOUT AGORAPHOBIA (16) PURE HYPERCHOLESTEROLEM Family History Diabetes mellitus Heart disease Kidney disease Social History Smoking Status: Former Smoker Alcohol Use: none Drug Use: none Marital Status: Housing Status: lives with family Occupation Status: retired Current/Historical Medications Scheduled Ascorbic Acid (Ascorbic Acid), 500 MG PO QAM Aspirin (Aspirin 81), 81 MG PO BID Atorvastatin (Lipitor), 20 MG PO DAILY Calcium W/ Vitamin D (Calcium), 1 TAB PO BID Cinnamon (Cinnamon), 500 MG PO QAM Clonazepam (Clonazepam), 0.5 MG PO HS Clonidine Hcl (Catapres), 1-2 TAB PO HS Cyanocobalamin (Vitamin B12), 1,000 MCG PO DAILY Fluoxetine (Prozac), 20 MG PO HS Furosemide (Furosemide), 40 MG PO DAILY Isosorbide Mononitrate Ext Rel (Imdur Ext Rel), 30 MG PO QAM Krill Oil (Krill Oil), Unknown Dose PO UD Minoxidil (Minoxidil), 10 MG PO QPM Minoxidil (Minoxidil), 5 MG PO QAM Multiple Vitamin (Multivitamin), 1 TAB PO DAILY Pantoprazole (Pantoprazole Sodium), 40 MG PO DAILY Polyethylene Glycol-Propylene (Systane), 1 DROPS OP QID [place] ([place]) ([place]), 900 MG PO BID [vit d], PO DAILY Scheduled PRN Nitroglycerin (Nitrostat), 0.4 MG UT UD PRN for Chest Pain Miscellaneous Medications Melatonin (Melatonin) Allergies Coded Allergies: Gluten (Verified Allergy, Unknown, CELIAC DISEASE, 12/29/16) Heparin (Unverified Adverse Reaction, Intermediate, BURNING SENSATION, ) Physical Exam Vital Signs Date Time Temp Pulse Resp B/P (MAP) Pulse Ox O2 Delivery O2 Flow Rate FiO2 01/14/18 12:42 69 18 180/81 96 Room Air 01/14/18 11:23 36.9 65 18 199/87 95 Room Air Physical Exam CONSTITUTIONAL/VITAL SIGNS: Reviewed / noted above. GENERAL: Non-toxic in appearance. INTEGUMENTARY: Warm, dry, and [place]. HEAD: Normocephalic. EYES: without scleral icterus or trauma. ENT/OROPHARYNX: clear and moist. LYMPHADENOPATHY/NECK: Is supple without lymphadenopathy or meningismus. RESPIRATORY: Lungs clear and equal. CARDIOVASCULAR: Regular rate and rhythm. GI/ABDOMEN: Soft and nontender. No organomegaly or pulsatile mass. No rebound or guarding. Normal bowel sounds. EXTREMITIES: Warm and well perfused. BACK: No CVA tenderness. NEUROLOGICAL: Intact without focal deficits. PSYCHIATRIC: normal affect. MUSCULOSKELETAL: Normally developed with good muscle tone. Medical Decision & Procedures ER Provider Diagnostic Interpretation: X ray results and stated below per my interpretation and radiology interpretation. CHEST ONE VIEW PORTABLE CLINICAL HISTORY: 72 years-old Male presenting with ABDOMINAL PAIN/GI. TECHNIQUE: Portable upright AP view of the chest was obtained. COMPARISON: 12/29/2016. FINDINGS: Median sternotomy wires and mediastinal surgical clips unchanged. Atherosclerosis of aortic arch. Vertex silhouette mildly enlarged, unchanged. Mild prominence of pulmonary vasculature, unchanged. Eventration or elevation of the right hemidiaphragm, which is chronic. No focal opacity. No large effusion or pneumothorax. Degenerative changes of the thoracic spine. Surgical clips project over the epigastrium. IMPRESSION: 1. Cardiomegaly with possible mild volume overload. No ishaan pulmonary edema or other convincing evidence of acute cardiopulmonary disease. Electronically signed by: Clayton Ceja M.D. 01/14/2018 12:18 PM Dictated Date/Time: 01/14/2018 12:16 PM Laboratory Results 01/14/18 11:55 Red Blood Count 4.53, Mean Corpuscular Volume 84.3, Mean Corpuscular Hemoglobin 29.4, Mean Corpuscular Hemoglobin Concent 34.8, Mean Platelet Volume 9.4, Neutrophils (%) (Auto) 77.7, Lymphocytes (%) (Auto) 11.1, Monocytes (%) (Auto) 10.8, Eosinophils (%) (Auto) 0.0, Basophils (%) (Auto) 0.3, Neutrophils # (Auto ) 5.32, Lymphocytes # (Auto) 0.76, Monocytes # (Auto) 0.74, Eosinophils # (Auto ) 0.00, Basophils # (Auto) 0.02 01/14/18 11:55 Test 01/14/18 11:53 01/14/18 11:55 Urine Color YELLOW Urine Appearance CLEAR (CLEAR) Urine pH 5.5 (4.5-7.5) Urine Specific [place] 1.014 (1.000-1.030) Urine Protein 1+ (NEG) Urine Glucose (UA) NEG (NEG) Urine Ketones NEG (NEG) Urine Occult Blood 1+ (NEG) Urine Nitrite NEG (NEG) Urine Bilirubin NEG (NEG) Urine Urobilinogen NEG (NEG) Urine Leukocyte Esterase NEG (NEG) Urine WBC (Auto) 1-5 /hpf (0-5) Urine RBC (Auto) 0-4 /hpf (0-4) Urine Hyaline Casts (Auto) 1-5 /lpf (0-5) Urine Epithelial Cells (Auto) 0-5 /lpf (0-5) Urine Bacteria (Auto) NEG (NEG) White Blood Count 6.85 K/uL (4.8-10.8) Red Blood Count 4.53 M/uL (4.7-6.1) Hemoglobin 13.3 g/dL (14.0-18.0) Hematocrit 38.2 % (42-52) Mean Corpuscular Volume 84.3 fL (80-100) Mean Corpuscular Hemoglobin 29.4 pg (25-34) Mean Corpuscular Hemoglobin Concent 34.8 g/dl (32-36) Platelet Count 237 K/uL (130-400) Mean Platelet Volume 9.4 fL (7.4-10.4) Neutrophils (%) (Auto) 77.7 % Lymphocytes (%) (Auto) 11.1 % Monocytes (%) (Auto) 10.8 % Eosinophils (%) (Auto) 0.0 % Basophils (%) (Auto) 0.3 % Neutrophils # (Auto) 5.32 K/uL (1.4-6.5) Lymphocytes # (Auto) 0.76 K/uL (1.2-3.4) Monocytes # (Auto) 0.74 K/uL (0.11-0.59) Eosinophils # (Auto) 0.00 K/uL (0-0.5) Basophils # (Auto) 0.02 K/uL (0-0.2) RDW Standard Deviation 42.9 fL (36.4-46.3) RDW Coefficient of Variation 14.0 % (11.5-14.5) Immature Granulocyte % (Auto) 0.1 % Immature Granulocyte # (Auto) 0.01 K/uL (0.00-0.02) Prothrombin Time 10.9 SECONDS (9.0-12.0) Prothromb Time International Ratio 1.0 (0.9-1.1) Activated Partial Thromboplast Time 26.6 SECONDS (21.0-31.0) Partial Thromboplastin Ratio 1.0 Anion Gap 10.0 mmol/L (3-11) Est Creatinine Clear Calc Drug Dose 50.8 ml/min Estimated GFR () 94.7 Estimated GFR (Non- 81.7 BUN/Creatinine Ratio 11.6 (10-20) Calcium Level 10.1 mg/dl (8.5-10.1) Total Bilirubin 0.6 mg/dl (0.2-1) Direct Bilirubin 0.2 mg/dl (0-0.2) Aspartate Amino Transf (AST/SGOT) 40 U/L (15-37) Alanine Aminotransferase (ALT/SGPT) 44 U/L (12-78) Alkaline Phosphatase 141 U/L (45-117) Troponin I 0.030 ng/ml (0-0.045) Total Protein 8.6 gm/dl (6.4-8.2) Albumin 4.5 gm/dl (3.4-5.0) Lipase 121 U/L (73-393) Laboratory results as stated above per my review. Medications Administered Medications (Trade) Dose Ordered Sig/Nelly Route Start Time Stop Time Status Last Admin Dose Admin Sodium Chloride 1,000 ml @ 999 mls/hr Q1H1M STAT IV 01/14/18 11:36 01/14/18 12:36 DC 01/14/18 11:44 999 MLS/HR Ondansetron HCl (Zofran Inj) 4 mg NOW STAT IV 01/14/18 11:36 01/14/18 11:39 DC 01/14/18 11:44 4 MG Ketorolac Tromethamine (Toradol Inj) 15 mg NOW STAT IV 01/14/18 11:36 01/14/18 11:39 DC 01/14/18 11:44 15 MG ECG Per My Interpretation Indication: abdominal pain Rate (beats per minute): 69 Rhythm: sinus rhythm Findings: PVC, other (No ST elevation) ED Course 1128: Previous medical records were reviewed. The patient was evaluated in room B08. A complete history and physical examination was performed. 1136: Ordered Ketorolac Tromethamine 15mg IV, Ondansetron HCl 4mg IV, Sodium Chloride 1000 ml @ 999 mls/hr IV 1315: On reevaluation, the patient is resting comfortably. I discussed the results and findings with the patient. He verbalized agreement of the treatment plan. The patient was discharged home. Medical Decision Differential considered: pancreatitis, hepatitis, or acute cholecystitis, AAA, UTI, pyelonephritis, kidney stones, appendicitis, diverticulitis, shingles, bowel obstruction mesenteric ischemia, intussusception,hernia, testicular torsion. This is a 72-year-old male who presents to the ED with a chief complaint of some abdominal discomfort that started after eating some hot sausage yesterday. He reported having some diarrhea yesterday and 3 soft bowel movements today. The patient reports some mild discomfort in the lower abdomen. He also reported having a slight headache yesterday after moving some sawdust for about 30 minutes. The patient denies any chest pains or shortness of breath. He has not had a fever. No urinary symptoms. The patient's CBC is normal, chest x- ray was negative for acute disease. Cardiomegaly was noted. Urine reveals 1+ blood. Complete metabolic panel was unremarkable, lipase was negative, troponin was negative. The patient's exam did not reveal any significant tenderness or CVA tenderness. He was told the results of the test. He was treated with IV fluids, IV Toradol IV Zofran. He is felt to be stable for discharge. Medication Reconcilliation Current Medication List: was personally reviewed by me Blood Pressure Screening Patient's blood pressure: Elevated blood pressure Blood pressure disposition: Referred to PCP Impression Primary Impression: Abdominal pain Scribe Attestation The scribe's documentation has been prepared under my direction and personally reviewed by me in its entirety. I confirm that the note above accurately reflects all work, treatment, procedures, and medical decision making performed by me. Departure Information Dispostion Home / Self-Care Referrals Sarah Loo, C.R.N.P. (PCP) Forms Call Back Authorization, HOME CARE DOCUMENTATION FORM, IMPORTANT VISIT INFORMATION Patient Instructions My [facility] Additional Instructions Follow-up with your doctor for further care and evaluation in 1-2 days. Return to the emergency department for worsening or new symptoms or any concerns. You have been examined and treated today on an emergency basis only. This is not a substitute for, or an effort to provide, complete comprehensive medical care. It is impossible to recognize and treat all injuries or illnesses in a single emergency department visit. It is therefore important that you follow up closely with your doctor. Call as soon as possible for an appointment.
[2018-01-14 14:25] VITALS: BP 176/88; PULSE 65; O2SAT 100
== END 2018-01-14 14:26 | disposition home or self-care (01) ==
LOC: C.EDB 11:19
DX: R10.30 Lower abdominal pain, unspecified (principal); R31.9 Hematuria, unspecified; R19.7 Diarrhea, unspecified; R51 Headache; J45.909 Unspecified asthma, uncomplicated; K21.9 Gastro-esophageal reflux disease without esophagitis; I11.9 Hypertensive heart disease without heart failure; E78.5 Hyperlipidemia, unspecified; F41.9 Anxiety disorder, unspecified; Z79.82 Long term (current) use of aspirin; Z87.891 Personal history of nicotine dependence; Z91.018 Allergy to other foods; Z88.8 Allergy status to other drugs, medicaments and biological substances; Z83.3 Family history of diabetes mellitus; Z82.49 Family history of ischemic heart disease and other diseases of the circulatory system; Z84.1 Family history of disorders of kidney and ureter

== ENCOUNTER 2018-01-19 10:58 | Emergency (ER) | payer BC ==
[~2018-01-19] VITALS: Ht 165.1 cm; Wt 59.0 kg
[~2018-01-19 10:58] MED LIST changes: -CLON0.3D5 TOP; -FLUO10TA3 PO; +FLUO20CA35 PO; -MELA1TAB54; +MELA1TAB54 PO; +POLYSOL4 OP
[2018-01-19 11:01] VITALS: TEMP 36.7; Ht 165.1 cm; Wt 59.0 kg
[2018-01-19] MEDS ORDERED: ONDANSETRON INJ 2 MG/ML 2 ML VIAL IV STA (11:22)
[2018-01-19] MEDS ORDERED: OPTIRAY 320 IV PRN (11:30)
[2018-01-19] MEDS ORDERED: RANI150T3 PO (11:31)
[2018-01-19 11:55] LABS: BASO % 0.4 %; BASO ABS # 0.02 K/uL (0-0.2); EOS % 0.4 %; EOS ABS # 0.02 K/uL (0-0.5); HEMATOCRIT 38.2 % (42-52); HEMOGLOBIN 13.8 g/dL (14.0-18.0); LYMPH % 14.4 %; MEAN CELL VOLUME 82.3 fL (80-100); MEAN CORPUSCULAR HEMOGLOBIN 29.7 pg (25-34); MEAN CORPUSCULAR HGB CONC 36.1 g/dl (32-36); MEAN PLATELET VOLUME 9.6 fL (7.4-10.4); MONO % 14.4 %; NEUT % 70.4 %; NEUT ABS # 3.42 K/uL (1.4-6.5); PLATELET COUNT 242 K/uL (130-400); RED CELL DISTRIBUTION WIDTH CV 13.5 % (11.5-14.5); RED CELL DISTRIBUTION WIDTH SD 40.8 fL (36.4-46.3); WHITE BLOOD COUNT 4.86 K/uL (4.8-10.8)
[2018-01-19 12:14] LABS: ALBUMIN 4.8 gm/dl (3.4-5.0); CREATININE 0.98 mg/dl (0.60-1.40); POTASSIUM 4.1 mmol/L (3.5-5.1)
[2018-01-19 12:17] LABS: TOTAL PROTEIN 8.5 gm/dl (6.4-8.2)
--- NOTE | 2018-01-19 14:09 | DIAGNOSTIC IMAGING REPORT ---
ABD/PELVIS IV AND ORAL CONT CLINICAL HISTORY: 72 years-old Male presenting with lower abd pain, concern for diverticulitis. TECHNIQUE: Multidetector CT of the abdomen and pelvis was performed after the administration of oral and intravenous contrast. IV contrast: 121 mL of Optiray 320. A dose lowering technique was used consistent with the principles of ALARA (as low as reasonably achievable). COMPARISON: 01/13/2014. CT DOSE (mGy.cm): The estimated cumulative dose is 298.62 mGycm. 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 Lung bases: Trace emphysematous changes. Mild multichamber enlargement of the heart. Coronary artery calcification. No pericardial or pleural effusion. Liver: Normal morphology. No liver lesion. Patent hepatic vasculature. Biliary: No intrahepatic or extrahepatic biliary ductal dilatation. Normal gallbladder. Pancreas: Normal. Spleen: Normal. Adrenal glands: Normal. Kidneys and ureters: Normal. No hydronephrosis. Ureters poorly visualized. Bladder: Incompletely evaluated secondary to underdistention. Pelvic organs: Prostate enlargement likely secondary to benign prostatic hyperplasia. Bowel: Few diverticula noted at the junction of the descending and sigmoid colon. No pericolonic fat stranding. Oral contrast has transited to the splenic flexure. No bowel obstruction. The appendix is normal. Peritoneal cavity: No free fluid or intraperitoneal gas. Lymph nodes: No enlarged lymph nodes in the abdomen or pelvis. Vasculature: Atherosclerosis of the normal caliber abdominal aorta. IVC patent. Varicocele suggested bilaterally. Abdominal wall: Normal. Musculoskeletal: Degenerative changes of the spine. Osteopenia. Bilateral pars defects of L5 with anterolisthesis of L5 on S1. IMPRESSION: 1. Few diverticula of the junction of the descending and sigmoid colon without evidence of diverticulitis. No convincing evidence of acute intra-abdominal pathology. 2. Bilateral varicoceles suggested. 3. Emphysema. 4. Cardiomegaly. Electronically signed by: Clayton Ceja M.D. 01/19/2018 2:08 PM Dictated Date/Time: 01/19/2018 2:00 PM
[2018-01-19 14:20] VITALS: BP 170/84; PULSE 63; O2SAT 96
--- NOTE | 2018-01-19 17:36 | EMERGENCY ROOM VISIT NOTE ---
History Report prepared by Marilyn: Maria D Cordero Under the Supervision of: Dr. Jacinto Beal M.D. First contact with patient: 11:08 Chief Complaint: ABDOMINAL PAIN Stated Complaint: ABD PAIN Nursing Triage Summary: pt reports he was seen here last monday after sx started last week after eating hot sausage . believes it had gluten in it is celiacs disease. pain is lower bilat abd. diarrhea yesterday, today formed stool no vomiting has acid reflux History of Present Illness The patient is a 72 year old male who presents to the Emergency Room with complaints of persistent abdominal pain since January 14, 2018. He was recently seen in the ED at that time for similar symptoms. He notes that his served him spicy bologna last week and two days later he developed diarrhea. He notes that he had another two pieces two days prior to his ED visit and his diarrhea worsened. He notes that his abdominal pain felt like a burning sensation. He reports having acid reflux and an acidic feeling in his bowels while passing stools. He states that his abdominal pain has improved since his ED visit, though it is still present. He reports becoming overheated from wearing too many clothes January 15, 2018. He denies recording his temperature at that time. He states that he still feels increased warmth in his head on occasion. He states that his bowel movements have become more formed and less loose. He denies any urinary symptoms. He denies any vomiting. He denies any bloody stools. He denies any chest pain or shortness of breath. Source of History: patient Onset: January 14, 2018 Position: abdomen Quality: burning Timing: other (persistent) Associated Symptoms: + vomiting, + diarrhea, No fevers, No urinary symptoms Note: He notes increased warmth in his head. He denies any bloody stools. Review of Systems See HPI for pertinent positives & negatives. A total of 10 systems reviewed and were otherwise negative. Past Medical & Surgical Medical Problems: (1) AC MYOCARDIAL INFARCT,SUBENDO INFARCT,INITIAL EPIS (2) ANXIETY STATE NOS (3) AORTOCORONARY BYPASS (4) ASTHMA, UNSPECIFIED (5) B12 deficiency (6) CALCULUS OF KIDNEY (7) CORONARY ATHEROSCLEROSIS OF [place] CORONARY VESSEL (8) elevated tn, near syncope (9) ESOPHAGEAL REFLUX (10) HYPERLIPIDEMIA NEC/NOS (11) HYPERTENSION NOS (12) HYPERTROPHY (BENIGN) OF PROSTATE W/O URINARY OBST & OTH LUTS (13) Iron deficiency anemia (14) Light-headed (15) PANIC DISORDER WITHOUT AGORAPHOBIA (16) PURE HYPERCHOLESTEROLEM Family History Diabetes mellitus Heart disease Kidney disease Social History Smoking Status: Never Smoker Alcohol Use: none Drug Use: none Marital Status: Housing Status: lives with family Occupation Status: retired Current/Historical Medications Scheduled Ascorbic Acid (Ascorbic Acid), 500 MG PO QAM Aspirin (Aspirin 81), 81 MG PO BID Atorvastatin (Lipitor), 20 MG PO DAILY Calcium W/ Vitamin D (Calcium), 1 TAB PO BID Cinnamon (Cinnamon), 500 MG PO QAM Clonazepam (Clonazepam), 0.5 MG PO HS Clonidine Hcl (Catapres), 1-2 TAB PO HS Cyanocobalamin (Vitamin B12), 1,000 MCG PO DAILY Fluoxetine (Prozac), 20 MG PO HS Furosemide (Furosemide), 40 MG PO DAILY Isosorbide Mononitrate Ext Rel (Imdur Ext Rel), 30 MG PO QAM Krill Oil (Krill Oil), Unknown Dose PO UD Minoxidil (Minoxidil), 10 MG PO QPM Minoxidil (Minoxidil), 5 MG PO QAM Multiple Vitamin (Multivitamin), 1 TAB PO DAILY Pantoprazole (Pantoprazole Sodium), 40 MG PO DAILY Polyethylene Glycol-Propylene (Systane), 1 DROPS OP QID Ranitidine Hcl (Zantac), 150 MG PO BID [place] ([place]) (Saw [place]), 900 MG PO BID [vit d], PO DAILY Scheduled PRN Nitroglycerin (Nitrostat), 0.4 MG UT UD PRN for Chest Pain Miscellaneous Medications Melatonin (Melatonin) Allergies Coded Allergies: Gluten (Verified Allergy, Unknown, CELIAC DISEASE, 01/19/18) Heparin (Unverified Adverse Reaction, Intermediate, BURNING SENSATION, ) Physical Exam Vital Signs Date Time Temp Pulse Resp B/P (MAP) Pulse Ox O2 Delivery O2 Flow Rate FiO2 01/19/18 14:20 63 18 170/84 96 Room Air 01/19/18 12:37 64 16 189/93 01/19/18 12:14 60 01/19/18 11:01 36.7 65 18 216/89 99 Room Air Physical Exam Constitutional: Vital signs reviewed. Eyes: Pupils are equal round reactive to light. Conjunctiva are noninjected. ENT: Pharynx is clear without erythema or exudate. Mucous membranes are moist. Neck supple without meningeal signs. Respiratory: Clear to auscultation bilaterally. Breath sounds are equal bilaterally. Cardiovascular: Regular rate and rhythm. No rubs or gallops. GI: Soft, nondistended and nontender. Bowel sounds are present. Musculoskeletal: No peripheral edema. No CVA tenderness. Integumentary: No cyanosis. Neurological: The patient is awake and alert. No focal deficits. Psychiatric: Normal affect. Medical Decision & Procedures ER Provider Diagnostic Interpretation: Radiology results as stated below per my review and the radiologist's interpretation: ABD/PELVIS IV AND ORAL CONT CLINICAL HISTORY: 72 years-old Male presenting with lower abd pain, concern for diverticulitis. TECHNIQUE: Multidetector CT of the abdomen and pelvis was performed after the administration of oral and intravenous contrast. IV contrast: 121 mL of Optiray 320. A dose lowering technique was used consistent with the principles of ALARA (as low as reasonably achievable). COMPARISON: 01/13/2014. CT DOSE (mGy.cm): The estimated cumulative dose is 298.62 mGycm. FINDINGS: Residential [employer] topogram: Median sternotomy wires noted. Lung bases: Trace emphysematous changes. Mild multichamber enlargement of the heart. Coronary artery calcification. No pericardial or pleural effusion. Liver: Normal morphology. No liver lesion. Patent hepatic vasculature. Biliary: No intrahepatic or extrahepatic biliary ductal dilatation. Normal gallbladder. Pancreas: Normal. Spleen: Normal. Adrenal glands: Normal. Kidneys and ureters: Normal. No hydronephrosis. Ureters poorly visualized. Bladder: Incompletely evaluated secondary to underdistention. Pelvic organs: Prostate enlargement likely secondary to benign prostatic hyperplasia. Bowel: Few diverticula noted at the junction of the descending and sigmoid colon. No pericolonic fat stranding. Oral contrast has transited to the splenic flexure. No bowel obstruction. The appendix is normal. Peritoneal cavity: No free fluid or intraperitoneal gas. Lymph nodes: No enlarged lymph nodes in the abdomen or pelvis. Vasculature: Atherosclerosis of the normal caliber abdominal aorta. IVC patent. Varicocele suggested bilaterally. Abdominal wall: Normal. Musculoskeletal: Degenerative changes of the spine. Osteopenia. Bilateral pars defects of L5 with anterolisthesis of L5 on S1. IMPRESSION: 1. Few diverticula of the junction of the descending and sigmoid colon without evidence of diverticulitis. No convincing evidence of acute intra-abdominal pathology. 2. Bilateral varicoceles suggested. 3. Emphysema. 4. Cardiomegaly. Electronically signed by: Clayton Ceja M.D. 01/19/2018 2:08 PM Dictated Date/Time: 01/19/2018 2:00 PM Laboratory Results 01/19/18 11:40 Red Blood Count 4.64, Mean Corpuscular Volume 82.3, Mean Corpuscular Hemoglobin 29.7, Mean Corpuscular Hemoglobin Concent 36.1, Mean Platelet Volume 9.6, Neutrophils (%) (Auto) 70.4, Lymphocytes (%) (Auto) 14.4, Monocytes (%) (Auto) 14.4, Eosinophils (%) (Auto) 0.4, Basophils (%) (Auto) 0.4, Neutrophils # (Auto ) 3.42, Lymphocytes # (Auto) 0.70, Monocytes # (Auto) 0.70, Eosinophils # (Auto ) 0.02, Basophils # (Auto) 0.02 01/19/18 11:40 Test 01/19/18 11:40 01/19/18 13:27 White Blood Count 4.86 K/uL (4.8-10.8) Red Blood Count 4.64 M/uL (4.7-6.1) Hemoglobin 13.8 g/dL (14.0-18.0) Hematocrit 38.2 % (42-52) Mean Corpuscular Volume 82.3 fL (80-100) Mean Corpuscular Hemoglobin 29.7 pg (25-34) Mean Corpuscular Hemoglobin Concent 36.1 g/dl (32-36) Platelet Count 242 K/uL (130-400) Mean Platelet Volume 9.6 fL (7.4-10.4) Neutrophils (%) (Auto) 70.4 % Lymphocytes (%) (Auto) 14.4 % Monocytes (%) (Auto) 14.4 % Eosinophils (%) (Auto) 0.4 % Basophils (%) (Auto) 0.4 % Neutrophils # (Auto) 3.42 K/uL (1.4-6.5) Lymphocytes # (Auto) 0.70 K/uL (1.2-3.4) Monocytes # (Auto) 0.70 K/uL (0.11-0.59) Eosinophils # (Auto) 0.02 K/uL (0-0.5) Basophils # (Auto) 0.02 K/uL (0-0.2) RDW Standard Deviation 40.8 fL (36.4-46.3) RDW Coefficient of Variation 13.5 % (11.5-14.5) Immature Granulocyte % (Auto) 0.0 % Immature Granulocyte # (Auto) 0.00 K/uL (0.00-0.02) Anion Gap 5.0 mmol/L (3-11) Est Creatinine Clear Calc Drug Dose 56.9 ml/min Estimated GFR () 88.9 Estimated GFR (Non- 76.7 BUN/Creatinine Ratio 8.0 (10-20) Calcium Level 10.0 mg/dl (8.5-10.1) Total Bilirubin 0.8 mg/dl (0.2-1) Direct Bilirubin 0.2 mg/dl (0-0.2) Aspartate Amino Transf (AST/SGOT) 47 U/L (15-37) Alanine Aminotransferase (ALT/SGPT) 50 U/L (12-78) Alkaline Phosphatase 140 U/L (45-117) Total Protein 8.5 gm/dl (6.4-8.2) Albumin 4.8 gm/dl (3.4-5.0) Lipase 157 U/L (73-393) Urine Color YELLOW Urine Appearance CLEAR (CLEAR) Urine pH 7.0 (4.5-7.5) Urine Specific [place] 1.006 (1.000-1.030) Urine Protein NEG (NEG) Urine Glucose (UA) NEG (NEG) Urine Ketones NEG (NEG) Urine Occult Blood TRACE (NEG) Urine Nitrite NEG (NEG) Urine Bilirubin NEG (NEG) Urine Urobilinogen NEG (NEG) Urine Leukocyte Esterase NEG (NEG) Urine WBC (Auto) 0 /hpf (0-5) Urine RBC (Auto) 0-4 /hpf (0-4) Urine Hyaline Casts (Auto) 0 /lpf (0-5) Urine Epithelial Cells (Auto) 0-5 /lpf (0-5) Urine Bacteria (Auto) NEG (NEG) Laboratory results as reviewed by me. ED Course 1114: The patient was evaluated in room B11B. A complete history and physical exam was performed. 1122: Ordered Zofran 4 mg IV 1323: I went to reassess the patient, though he is not currently in the room. 1335: I reassessed the patient at this time. He states that he has been drinking an excess of 10 glasses of water a day. 1415: I reassessed the patient at this time. His blood pressure has improved spontaneously, though is still elevated. I discussed the results and treatment plan with the patient. I informed the patient to cut his water intake in half. I answered all pertaining questions that he had. He expressed understanding and verbalized agreement. The patient will be discharged home. Medical Decision This is a 72-year-old male who presents with lower abdominal pain and diarrhea. Differential diagnosis includes colitis, diverticulitis, appendicitis, irritable bowel syndrome, reflux. I did perform a limited focused review of portions of the patient's old chart on the electronic medical record. The patient was seen January 14, 2018 for abdominal pain. He had blood work and was treated with Toradol and discharged home. I did evaluate the patient as noted above. He is presenting with persistent lower abdominal pain. He states his diarrhea is improved. IV access was established. I did treat him with Zofran IV. I did order and personally review the patient's urine analysis as described above. I did order and review the patient's blood work as noted in the electronic medical record. He has worsening hyponatremia. On questioning the patient states that he has been drinking an excess of over 10 glasses of water or almond milk a day. I did advise him to restrict his free water intake and had a long discussion about this with him. I did order a CT of the abdomen and pelvis. I did review the images myself as well as the radiology report as described above. There is no evidence of diverticulitis or acute appendicitis or any other acute process. I did discuss the test results with the patient. He does have an appointment in 3 days to see his regular physician. I did ask him to discuss his low sodium with him at that time so that he can arrange for appropriate recheck of his blood work. He was told to stay on a bland diet and again to restrict his free water intake. The patient was discharged in good condition. Medication Reconcilliation Current Medication List: was personally reviewed by me Blood Pressure Screening Patient's blood pressure: Elevated blood pressure Blood pressure disposition: Referred to PCP Impression Primary Impression: Lower abdominal pain Additional Impression: Hyponatremia Scribe Attestation The scribe's documentation has been prepared under my direct and personally reviewed by me in its entirety. I confirm that the note above accurately reflects all work, treatment, procedures, and medical decision making performed by me. Departure Information Dispostion Home / Self-Care Referrals No Doctor, Assigned (PCP) Forms Call Back Authorization, HOME CARE DOCUMENTATION FORM, IMPORTANT VISIT INFORMATION Patient Instructions ED Abdominal Pain Unkn Cause Male, ED Hyponatremia, My [facility] Additional Instructions You have been examined and treated today on an emergency basis only. This is not a substitute for, or an effort to provide, complete comprehensive medical care. It is impossible to recognize and treat all injuries or illnesses in a single emergency department visit. It is therefore important that you follow up closely with your physician on Monday per your appointment. Return for worsening symptoms or if you develop fever, vomiting, or any other concerning symptoms. Problem Qualifiers
== END 2018-01-19 14:45 | disposition home or self-care (01) ==
LOC: C.EDB 10:59
DX: E87.1 Hypo-osmolality and hyponatremia (principal); R19.7 Diarrhea, unspecified; I10 Essential (primary) hypertension; J45.909 Unspecified asthma, uncomplicated; E78.5 Hyperlipidemia, unspecified; E78.00 Pure hypercholesterolemia, unspecified; K21.9 Gastro-esophageal reflux disease without esophagitis; F41.0 Panic disorder [episodic paroxysmal anxiety]; E53.8 Deficiency of other specified B group vitamins; I25.10 Atherosclerotic heart disease of native coronary artery without angina pectoris; Z79.82 Long term (current) use of aspirin; I25.2 Old myocardial infarction; Z95.1 Presence of aortocoronary bypass graft; Z91.018 Allergy to other foods; Z88.8 Allergy status to other drugs, medicaments and biological substances

== ENCOUNTER 2018-01-24 02:59 | Emergency (ER) | payer BC ==
[~2018-01-24] VITALS: Ht 165.1 cm; Wt 58.3 kg
[~2018-01-24 02:59] MED LIST changes: +RANI150T3 PO
[2018-01-24 03:02] VITALS: TEMP 36.5; Ht 165.1 cm; Wt 58.3 kg
--- NOTE | 2018-01-24 03:50 | EMERGENCY ROOM VISIT NOTE ---
History Report prepared by Marilyn: Marie Aviles Under the Supervision of: Dr. Kalina Ghosh D.O. First contact with patient: 03:31 Chief Complaint: ABDOMINAL PAIN Stated Complaint: ABDOMINAL PAIN History of Present Illness The patient is a 72 year old male who presents to the Emergency Room with complaints of persistent abdominal pain that started 5 days ago. The patient rates his pain a 4/10 in severity. He states this all started when he ate a spicy piece of sausage 5 days ago. He notes that he was resting when his came home around 3pm yesterday. She gave him a glass of lactate-free milk but it did not help his stomach. He notes the pain feels like acid/sourness in his stomach. He states he took a couple of tums after dinner last night. He notes he had several episodes of diarrhea several days ago. He denies any black or bloody stools. He states this problem is fairly persistent for him. The patient has a history of acid reflux. He notes he takes pantoprazole. He denies any fevers. The patient notes he has chills. Patient states he has been seen here twice previously with similar episodes. Source of History: patient Onset: 5 days ago Position: abdomen Symptom Intensity: 4/10 Timing: other (persistent) Associated Symptoms: + chills, + diarrhea, No fevers Review of Systems See HPI for pertinent positives & negatives. A total of 10 systems reviewed and were otherwise negative. 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 (13) Iron deficiency anemia (14) Light-headed (15) PANIC DISORDER WITHOUT AGORAPHOBIA (16) PURE HYPERCHOLESTEROLEM Family History Diabetes mellitus Heart disease Kidney disease Social History Smoking Status: Never Smoker Alcohol Use: none Drug Use: none Marital Status: Housing Status: lives with family Occupation Status: retired Current/Historical Medications Scheduled Ascorbic Acid (Ascorbic Acid), 500 MG PO QAM Aspirin (Aspirin 81), 81 MG PO BID Atorvastatin (Lipitor), 20 MG PO DAILY Calcium W/ Vitamin D (Calcium), 1 TAB PO BID Cinnamon (Cinnamon), 500 MG PO QAM Clonazepam (Clonazepam), 0.5 MG PO HS Clonidine Hcl (Catapres), 0.05 MG PO HS Clonidine Hcl ([id number]-Wpy-1), 1 PATCH TD WK Cyanocobalamin (Vitamin B12), 1,000 MCG PO DAILY Fluoxetine (Prozac), 20 MG PO HS Furosemide (Furosemide), 40 MG PO DAILY Isosorbide Mononitrate Ext Rel (Imdur Ext Rel), 30 MG PO QAM Krill Oil (Krill Oil), 1 CAP PO DAILY Melatonin (Melatonin), 5 MG PO HS Minoxidil (Minoxidil), 10 MG PO QPM Minoxidil (Minoxidil), 5 MG PO QAM Multiple Vitamin (Multivitamin), 1 TAB PO DAILY Pantoprazole (Pantoprazole Sodium), 40 MG PO DAILY Polyethylene Glycol-Propylene (Systane), 1 DROPS OP QID Ranitidine Hcl (Zantac), 150 MG PO BID [place] ([place]) (S[place]), 900 MG PO BID Scheduled PRN Nitroglycerin (Nitrostat), 0.4 MG UT UD PRN for Chest Pain Allergies Coded Allergies: Gluten (Verified Allergy, Unknown, CELIAC DISEASE, 01/24/18) Heparin (Verified Adverse Reaction, Intermediate, BURNING SENSATION, ) Physical Exam Vital Signs Date Time Temp Pulse Resp B/P (MAP) Pulse Ox O2 Delivery O2 Flow Rate FiO2 01/24/18 08:01 66 20 168/85 96 01/24/18 06:09 64 16 181/76 99 Room Air 01/24/18 05:01 65 18 164/71 97 Room Air 01/24/18 03:02 36.5 66 20 191/86 97 Room Air Physical Exam GENERAL: alert, anxious appearing, well nourished, no distress, non-toxic EYE EXAM: normal conjunctiva, PERRL and EOM's grossly intact OROPHARYNX: no exudate, no erythema, lips, buccal mucosa, and tongue normal and mucous membranes are moist NECK: supple, no nuchal rigidity, no adenopathy, non-tender LUNGS: Clear to auscultation. Normal chest wall mechanics HEART: no murmurs, S1 normal and S2 normal ABDOMEN: abdomen soft, non-tender, normo-active bowel sounds, no masses, no rebound or guarding. BACK: Back is symmetrical on inspection and there is no deformity, no midline tenderness, no CVA tenderness. SKIN: no rashes and no bruising UPPER EXTREMITIES: upper extremities are grossly normal. LOWER EXTREMITIES: No pitting edema. NEURO EXAM: Normal sensorium, normal speech, no [gross] weakness of arms, no [ gross] weakness of legs. Medical Decision & Procedures ER Provider Diagnostic Interpretation: Radiology results have been interpreted by the radiologist and reviewed by me. CHEST XRAY: No cardiomegaly. No effusions. No wide mediastinum. No focal consolidation. Sternotomy wires noted. ABDOMINAL XRAY: Scattered air and stool. No definite SBO. No free air. US RUQ: No gallstones. No evidence of GB wall thickening or pericholecystic fluid. Sonographic Long's sign is reported to be absent. No biliary dilation. Liver, right kidney unremarkable. No free fluid. Laboratory Results 01/24/18 04:05 Red Blood Count 4.72, Mean Corpuscular Volume 82.4, Mean Corpuscular Hemoglobin 28.6, Mean Corpuscular Hemoglobin Concent 34.7, Mean Platelet Volume 10.0, Neutrophils (%) (Auto) 65.7, Lymphocytes (%) (Auto) 16.4, Monocytes (%) (Auto) 16.7, Eosinophils (%) (Auto) 0.7, Basophils (%) (Auto) 0.3, Neutrophils # (Auto ) 3.93, Lymphocytes # (Auto) 0.98, Monocytes # (Auto) 1.00, Eosinophils # (Auto ) 0.04, Basophils # (Auto) 0.02 01/24/18 04:05 Test 01/24/18 04:05 01/24/18 06:10 01/24/18 07:12 01/24/18 07:20 White Blood Count 5.98 K/uL (4.8-10.8) Red Blood Count 4.72 M/uL (4.7-6.1) Hemoglobin 13.5 g/dL (14.0-18.0) Hematocrit 38.9 % (42-52) Mean Corpuscular Volume 82.4 fL (80-100) Mean Corpuscular Hemoglobin 28.6 pg (25-34) Mean Corpuscular Hemoglobin Concent 34.7 g/dl (32-36) Platelet Count 240 K/uL (130-400) Mean Platelet Volume 10.0 fL (7.4-10.4) Neutrophils (%) (Auto) 65.7 % Lymphocytes (%) (Auto) 16.4 % Monocytes (%) (Auto) 16.7 % Eosinophils (%) (Auto) 0.7 % Basophils (%) (Auto) 0.3 % Neutrophils # (Auto) 3.93 K/uL (1.4-6.5) Lymphocytes # (Auto) 0.98 K/uL (1.2-3.4) Monocytes # (Auto) 1.00 K/uL (0.11-0.59) Eosinophils # (Auto) 0.04 K/uL (0-0.5) Basophils # (Auto) 0.02 K/uL (0-0.2) RDW Standard Deviation 40.5 fL (36.4-46.3) RDW Coefficient of Variation 13.3 % (11.5-14.5) Immature Granulocyte % (Auto) 0.2 % Immature Granulocyte # (Auto) 0.01 K/uL (0.00-0.02) Prothrombin Time 10.7 SECONDS (9.0-12.0) Prothromb Time International Ratio 1.0 (0.9-1.1) Est Creatinine Clear Calc Drug Dose 59.8 ml/min Estimated GFR () 96.0 Estimated GFR (Non- 82.8 BUN/Creatinine Ratio 13.3 (10-20) Calcium Level 10.1 mg/dl (8.5-10.1) Magnesium Level 2.1 mg/dl (1.8-2.4) Total Bilirubin 0.6 mg/dl (0.2-1) Aspartate Amino Transf (AST/SGOT) 43 U/L (15-37) Alanine Aminotransferase (ALT/SGPT) 55 U/L (12-78) Alkaline Phosphatase 135 U/L (45-117) Total Protein 8.0 gm/dl (6.4-8.2) Albumin 4.3 gm/dl (3.4-5.0) Globulin 3.7 gm/dl (2.5-4.0) Albumin/Globulin Ratio 1.2 (0.9-2) Lipase 203 U/L (73-393) Troponin I 0.021 ng/ml (0-0.045) Bedside Lactic Acid Venous 0.64 mmol/L (0.90-1.70) Bedside Hemoglobin 14.3 g/dl (14.0-18.0) Bedside Hematocrit 42 % (42-52) Bedside Sodium 129 mEq/L (135-144) Bedside Potassium 4.3 mEq/L (3.3-5.0) Bedside Chloride 91 mEq/L (101-112) Bedside Total CO2 26 mEq/l (24-31) Anion Gap 18.0 mmol/L (16-25) Bedside Blood Urea Nitrogen 10 mg/dl (7-18) Bedside Creatinine 0.8 mg/dl (0.6-1.3) Bedside Glucose (other) 127 mg/dl (70-99) Bedside Ionized Calcium (Cara) 1.27 mmol/l (1.12-1.32) Laboratory results per my review. Medications Administered Medications (Trade) Dose Ordered Sig/Nelly Route Start Time Stop Time Status Last Admin Dose Admin Al Hydroxide/Mg Hydroxide (Maalox Susp) 30 ml STK-MED ONCE .ROUTE 01/24/18 04:21 01/24/18 04:22 DC 01/24/18 04:31 30 ML Lidocaine HCl (Viscous Lidocaine 2% Soln) 20 ml STK-MED ONCE .ROUTE 01/24/18 04:21 01/24/18 04:22 DC 01/24/18 04:31 20 ML Sodium Chloride 500 ml @ 999 mls/hr Q31M STAT IV 01/24/18 04:54 01/24/18 05:24 DC 01/24/18 04:59 999 MLS/HR ECG Per My Interpretation Indication: abdominal pain Rate (beats per minute): 62 Rhythm: sinus rhythm Findings: PVC, no acute ischemic change, other (normal axis, normal intervals) ED Course 0331: The patient was evaluated in room B3B. A complete history and physical exam was performed. 0353: GI Cocktail 24 ml PO. 0421: Lidocaine HCl 20 ml .ROUTE, Maalox Susp 30 ml .ROUTE. 0454: Sodium Chloride 500 ml @ 999 mls/hr IV. 0640: Rechecked the patient and he is resting comfortable. I updated him on his results. He states he feels back to normal now. 0723: Repeat Na istat after NSS IVF was 129. Medical Decision Differential diagnosis: Etiologies such as appendicitis, diverticulitis, PUD, biliary pathology, UTI, pancreatitis, obstruction, mesenteric ischemia, aortic pathology, infections, inflammatory bowel disease, renal colic, as well as others were entertained. Patient seen here now for the third time regarding abdominal pain which he attributes to his reflux. States this feels the same as prior episodes as well as his prior visits to the emergency room. Patient did follow-up with his family doctor who did not feel he needed GI evaluation. Patient states he is taking pantoprazole daily. Was recommended to him to take Zantac however he had opted not to do so. On review of patient's dietary intake over the last week with him it seems that some of his reflux may be exacerbated by dietary choices. Also discussed with patient his persistent low sodium. Pt without any neuro symptoms. While sodium has chronically been low according to EMR, it was found to be disproportionately low at his last visit. It is only mildly improved here tonight. Following administration of IV fluids, repeat sodium was improved. Patient states that his family doctor did send him for repeat blood work to recheck this however he had not known the results yet, and there have been no other discussion in his office visit regarding additional evaluation of the hyponatremia. Patient stated that his his perception of his visits suggest that he was drinking too much water and was diluting his sodium. Patient with no prior history of adrenal gland disorder, kidney disease. No recent medication changes. I do not suspect ACS, dissection, PE. Doubt GI bleed, perforation, mesenteric ischemia, bowel obstruction, volvulus, colitis. Patient symptoms consistent with prior episodes of reflux and symptoms resolved here with GI cocktail. I do not feel patient warranted repeat CAT scan of his abdomen and pelvis given recurrent similar symptoms and a recent negative CAT scan. Ultrasound was pursued as a better imaging modality given the patient still has a gallbladder, this was found to be negative also. Patient well- appearing at time of discharge, agreeable with plan for follow-up, discussed symptoms to watch and return for, he verbalized understanding and was agreeable. Medication Reconcilliation Current Medication List: was personally reviewed by me Blood Pressure Screening Patient's blood pressure: Elevated blood pressure Blood pressure disposition: Referred to PCP Impression Primary Impression: Abdominal pain Additional Impressions: Hyponatremia GERD (gastroesophageal reflux disease) Anxiety Scribe Attestation The scribe's documentation has been prepared under my direction and personally reviewed by me in its entirety. I confirm that the note above accurately reflects all work, treatment, procedures, and medical decision making performed by me. Departure Information Dispostion Home / Self-Care Referrals No Doctor, Assigned (PCP) Patient Instructions My [facility] Additional Instructions Please follow-up with your family doctor for additional recheck of your sodium. Please continue taking your stomach medicine as prescribed. Please avoid drinking alcohol, soda, coffee, tomato based products, or citrus fruits. Please discuss with your family doctor possible GI evaluation and endoscopy given your persistence of reflux symptoms despite your daily acid reducing medication. If you develop worsening pain, fevers/chills, chest pain, trouble breathing, vomiting, have black or bloody stools, develop dizziness, numbness/ tingling, weakness, or you have any other new or concerning symptoms, please return to the emergency room. Problem Qualifiers Primary Impression: Abdominal pain Abdominal location: upper abdomen, unspecified Qualified Codes: R10.10 - Upper abdominal pain, unspecified Additional Impressions: GERD (gastroesophageal reflux disease) Esophagitis presence: esophagitis presence not specified Qualified Codes: K21.9 - Gastro-esophageal reflux disease without esophagitis
[2018-01-24] MEDS ORDERED: GI COCKTAIL PO STA (03:53)
[2018-01-24] MEDS ORDERED: CLON0.3D4 TD (04:09)
[2018-01-24] MEDS ORDERED: ISOS30TA3 PO (04:09)
[2018-01-24] MEDS ORDERED: ALUMINUM/MAGNESIUM SUSP 30 ML UDC ONE (04:21)
[2018-01-24] MEDS ORDERED: LIDOCAINE HCL 2% VISC SOLN 20 ML UDC ONE (04:21)
[2018-01-24 04:29] LABS: BASO % 0.3 %; BASO ABS # 0.02 K/uL (0-0.2); EOS % 0.7 %; EOS ABS # 0.04 K/uL (0-0.5); HEMATOCRIT 38.9 % (42-52); HEMOGLOBIN 13.5 g/dL (14.0-18.0); IG# 0.01 K/uL (0.00-0.02); LYMPH % 16.4 %; LYMPH ABS # 0.98 K/uL (1.2-3.4); MEAN CELL VOLUME 82.4 fL (80-100); MEAN CORPUSCULAR HEMOGLOBIN 28.6 pg (25-34); MEAN CORPUSCULAR HGB CONC 34.7 g/dl (32-36); MONO % 16.7 %; NEUT % 65.7 %; NEUT ABS # 3.93 K/uL (1.4-6.5); PLATELET COUNT 240 K/uL (130-400); RED CELL DISTRIBUTION WIDTH CV 13.3 % (11.5-14.5); RED CELL DISTRIBUTION WIDTH SD 40.5 fL (36.4-46.3); WHITE BLOOD COUNT 5.98 K/uL (4.8-10.8)
[2018-01-24 04:46] LABS: ALBUMIN 4.3 gm/dl (3.4-5.0); CALCIUM 10.1 mg/dl (8.5-10.1); CREATININE 0.92 mg/dl (0.60-1.40); POTASSIUM 4.1 mmol/L (3.5-5.1)
[2018-01-24] MEDS ORDERED: SODIUM CHLORIDE 0.9% 500ML 500 ML IV STA (04:54)
--- NOTE | 2018-01-24 06:52 | DIAGNOSTIC IMAGING REPORT ---
GALLBLADDER-ABD LIMITED CLINICAL HISTORY: 72 years-old Male presenting with epigastric pain. TECHNIQUE: Real-time grayscale and limited color Doppler ultrasound imaging of the abdomen limited to the right upper quadrant was performed. COMPARISON: Ultrasound from 10/12/[address] from 01/19/2018. FINDINGS: Pancreas: Heterogeneity of pancreatic parenchyma, which is poorly visualized secondary to bowel gas. Pancreatic duct is not significantly dilated. Liver: Normal echogenicity and echotexture. The liver measures 15.1 cm in maximal sagittal dimension. No sonographic evidence of hepatic mass. Main portal vein patent with normal directional flow. Biliary: No intrahepatic biliary ductal dilatation. Common bile duct measures up to 4 mm in diameter. Gallbladder: No evidence of gallstones, gallbladder wall thickening, gallbladder distention, or pericholecystic fluid or inflammatory change. Sonographic Long's sign negative. Right kidney: Normal in appearance. No hydronephrosis. Ascites: None. Other: None. IMPRESSION: 1. No cholelithiasis or biliary ductal dilatation. 2. Suggestion of heterogeneity of the pancreatic parenchyma though the pancreas is poorly visualized secondary to bowel gas. Correlate with lipase to exclude pancreatitis. Electronically signed by: Clayton Ceja M.D. 01/24/2018 6:51 AM Dictated Date/Time: 01/24/2018 6:48 AM
--- NOTE | 2018-01-24 06:53 | DIAGNOSTIC IMAGING REPORT ---
ABDOMEN 2VIEW W/PA CHEST RTN CLINICAL HISTORY: epigastric pain COMPARISON STUDY: Chest x-ray dated 01/14/2018 FINDINGS: The cardiac and mediastinal contours remain stable. There are postsurgical changes of midline sternotomy. There is no free intraperitoneal air. There is no focal pulmonary consolidation. Erect and supine views the abdomen reveal scattered stool within the colon. There are no abnormally dilated loops of large or small bowel. There are no transition zones to indicate a bowel obstruction. IMPRESSION: No evidence of bowel obstruction. No evidence of free air. Electronically signed by: Tanner Omalley M.D. 01/24/2018 6:52 AM Dictated Date/Time: 01/24/2018 6:51 AM
[2018-01-24 08:01] VITALS: BP 168/85; PULSE 66; O2SAT 96
[2018-01-24 08:01] LABS: ISTAT CREATININE 0.8 mg/dl (0.6-1.3); ISTAT IONIZED CALCIUM 1.27 mmol/l (1.12-1.32); ISTAT POTASSIUM 4.3 mEq/L (3.3-5.0)
== END 2018-01-24 08:11 | disposition home or self-care (01) ==
LOC: C.EDB 03:00
DX: R10.10 Upper abdominal pain, unspecified (principal); E87.1 Hypo-osmolality and hyponatremia; K21.9 Gastro-esophageal reflux disease without esophagitis; F41.9 Anxiety disorder, unspecified; I25.2 Old myocardial infarction; J45.909 Unspecified asthma, uncomplicated; E53.8 Deficiency of other specified B group vitamins; I25.10 Atherosclerotic heart disease of native coronary artery without angina pectoris; E78.5 Hyperlipidemia, unspecified; I10 Essential (primary) hypertension; N40.0 Benign prostatic hyperplasia without lower urinary tract symptoms; D50.9 Iron deficiency anemia, unspecified; F41.0 Panic disorder [episodic paroxysmal anxiety]; E78.00 Pure hypercholesterolemia, unspecified; Z79.82 Long term (current) use of aspirin; Z91.018 Allergy to other foods; Z88.8 Allergy status to other drugs, medicaments and biological substances

== ENCOUNTER 2018-02-03 21:03 | Emergency (ER) | payer BC ==
[~2018-02-03] VITALS: Ht 165.1 cm; Wt 57.7 kg
[~2018-02-03 21:03] MED LIST changes: +CLON0.3D4 TD; +ISOS30TA3 PO; -ISOS60TA25 PO; -vit d PO
[2018-02-03 21:05] VITALS: TEMP 36.9; Ht 165.1 cm; Wt 57.7 kg
[2018-02-03] MEDS ORDERED: HYDROCORTISONE HC 2.5% CRM 30GM TUBE EXT ONE (22:00)
--- NOTE | 2018-02-03 22:05 | EMERGENCY ROOM VISIT NOTE ---
History Report prepared by Marilyn: Lissa Guadarrama Under the Supervision of: Dr. Kalina Ghosh D.O. First contact with patient: 21:39 Chief Complaint: RECTAL PAIN Stated Complaint: HEMORROID Nursing Triage Summary: Patient states "I have issues with inflammation in my bowels. I take Bentyl for the abdominal cramping that I get. I had a little bit of a difficult bowel movement earlier today. I had a second bowel movement around 2030. I have hemorrhoid and I think a piece of it is sticking out. I am afraid of what to do with it." History of Present Illness The patient is a 72 year old male who presents to the Emergency Room with complaints of persistent rectal pain and sense of "something sticking out" starting earlier today. The patient has a history of hemorrhoids. He had a hard bowel movement around 1600 today. He had some blood at that time. At 2030, he had a second bowel movement. He saw some blood with he wiped. He feels like a part of the inside came out. States he does have history of hemorrhoids and will intermittently see bright red blood with wiping following a bowel movement. States he has not noticed any darker stools, maroon colored stools, or other blood with a bowel movement other than on his toilet tissue. He has tried hemorrhoid creams in the past. He often strains to have bowel movement. He reports some irritation in his bowels for which he follows with Dr. Tovar. Patient denies fevers or chills, abdominal pain, nausea or vomiting. No change in urine or urinary habits. Source of History: patient Onset: earlier today Position: other (rectal) Quality: other (hemorrhoid pain) Timing: other (persistent) Note: Pt reports hard stool, blood when wiping. Review of Systems See HPI for pertinent positives & negatives. A total of 10 systems reviewed and were otherwise negative. Past Medical & Surgical Medical Problems: (1) AC MYOCARDIAL INFARCT,SUBENDO INFARCT,INITIAL EPIS (2) ANXIETY STATE NOS (3) AORTOCORONARY BYPASS (4) ASTHMA, UNSPECIFIED (5) B12 deficiency (6) CALCULUS OF KIDNEY (7) CORONARY ATHEROSCLEROSIS OF [place] CORONARY VESSEL (8) elevated tn, near syncope (9) ESOPHAGEAL REFLUX (10) HYPERLIPIDEMIA NEC/NOS (11) HYPERTENSION NOS (12) HYPERTROPHY (BENIGN) OF [place] W/O URINARY OBST & OTH LUTS (13) Iron deficiency anemia (14) Light-headed (15) PANIC DISORDER WITHOUT AGORAPHOBIA (16) PURE HYPERCHOLESTEROLEM Family History Diabetes mellitus Heart disease Kidney disease Social History Smoking Status: Never Smoker Alcohol Use: none Drug Use: none Marital Status: Housing Status: lives with family Occupation Status: retired Current/Historical Medications Scheduled Ascorbic Acid (Ascorbic Acid), 500 MG PO QAM Aspirin (Aspirin 81), 81 MG PO BID Atorvastatin (Lipitor), 20 MG PO DAILY Calcium W/ Vitamin D (Calcium), 1 TAB PO BID Cinnamon (Cinnamon), 500 MG PO QAM Clonazepam (Clonazepam), 0.5 MG PO HS Clonidine Hcl (Catapres), 0.05 MG PO HS Clonidine Hcl ([id number]), 1 PATCH TD WK Cyanocobalamin (Vitamin B12), 1,000 MCG PO DAILY Fluoxetine (Prozac), 20 MG PO HS Furosemide (Furosemide), 40 MG PO DAILY Isosorbide Mononitrate Ext Rel (Imdur Ext Rel), 30 MG PO QAM Krill Oil (Krill Oil), 1 CAP PO DAILY Melatonin (Melatonin), 5 MG PO HS Minoxidil (Minoxidil), 10 MG PO QPM Minoxidil (Minoxidil), 5 MG PO QAM Multiple Vitamin (Multivitamin), 1 TAB PO DAILY Pantoprazole (Pantoprazole Sodium), 40 MG PO DAILY Polyethylene Glycol-Propylene (Systane), 1 DROPS OP QID Ranitidine Hcl (Zantac), 150 MG PO BID [place] ([place]) ([place]aw [place]), 900 MG PO BID Scheduled PRN Nitroglycerin (Nitrostat), 0.4 MG UT UD PRN for Chest Pain Allergies Coded Allergies: Gluten (Verified Allergy, Unknown, CELIAC DISEASE, 01/24/18) Heparin (Verified Adverse Reaction, Intermediate, BURNING SENSATION, ) Physical Exam Vital Signs Date Time Temp Pulse Resp B/P (MAP) Pulse Ox O2 Delivery O2 Flow Rate FiO2 02/03/18 22:20 68 16 186/73 98 Room Air 02/03/18 21:05 36.9 68 18 207/86 99 Room Air Physical Exam GENERAL: alert, well appearing, well nourished, no distress, non-toxic EYE EXAM: normal conjunctiva, PERRL and EOM's grossly intact OROPHARYNX: no exudate, no erythema, lips, buccal mucosa, and tongue normal and mucous membranes are moist NECK: supple, no nuchal rigidity, no adenopathy, non-tender LUNGS: Clear to auscultation. Normal chest wall mechanics HEART: no murmurs, S1 normal and S2 normal ABDOMEN: abdomen soft, non-tender, normo-active bowel sounds, no masses, no rebound or guarding. BACK: Back is symmetrical on inspection and there is no deformity, no midline tenderness, no CVA tenderness. RECTAL: Small hemorrhoid noted, not thrombosed, no active bleeding, no anal fissure, no evidence of perirectal abscess. SKIN: no rashes and no bruising UPPER EXTREMITIES: upper extremities are grossly normal. LOWER EXTREMITIES: No pitting edema. NEURO EXAM: Normal sensorium, cranial nerves II-XII grossly intact, normal speech, no gross weakness of arms, no gross weakness of legs. Medical Decision & Procedures Medications Administered Medications (Trade) Dose Ordered Sig/Nelly Route Start Time Stop Time Status Last Admin Dose Admin Hydrocortisone (Proctozone Hc 2.5% Crm) 1 appln NOW ONCE EXT 02/03/18 22:00 02/03/18 22:01 DC 02/03/18 22:00 1 APPLN ED Course 2142: The patient was evaluated in room A11B. A complete history and physical exam was performed. I discussed the findings and the treatment plan with the patient. He verbalizes agreement and understanding. He was discharged home. 2199: Hydrocortisone 1 appln EXT. Medical Decision Differential diagnosis: Etiologies such as diverticulosis, AVM, coagulopathy, colitis, inflammatory bowel disease, malignancy, Sherie-Zuniga tear, esophagitis, peptic ulcer disease , variceal bleed, gastritis, epistaxis, fissure, hemorrhoids, as well as others were entertained. Patient well-appearing here and likely small protruding hemorrhoid was the cause of his discomfort and sense of something sticking out. Patient with no active bleeding, no evidence of thrombosed hemorrhoid requiring incision and drainage. Patient's abdomen is soft and nontender, no nausea vomiting patient afebrile. Discussed with patient treatment of steroids, symptoms to watch and return for, continued follow-up with his GI specialist and family doctor for his ongoing medical problems and other GI issues in the past, he verbalized understanding was agreeable with plan. Patient well-appearing at discharge, tolerating p.o., ambulate with a steady gait. Medication Reconcilliation Current Medication List: was personally reviewed by me Blood Pressure Screening Patient's blood pressure: Elevated blood pressure Blood pressure disposition: Elevated BP felt to be situational Impression Primary Impression: Hemorrhoids Additional Impression: Rectal bleed Scribe Attestation The scribe's documentation has been prepared under my direction and personally reviewed by me in its entirety. I confirm that the note above accurately reflects all work, treatment, procedures, and medical decision making performed by me. Departure Information Dispostion Home / Self-Care Referrals Sarah Loo, C.R.N.P. (PCP) Patient Instructions My [facility] Additional Instructions Please drink adequate water to stay well-hydrated. Please consider taking an [id number] stool softener daily to prevent hard stools which lead to pushing and straining which can exacerbate her hemorrhoids. Please do not sit for prolonged periods of time the toilet in order to have a bowel movement. Please do not attempt to push the hemorrhoid back in. Please be careful with cleaning after having a bowel movement as this can lead to additional bleeding. If you have any worsening bleeding, feel that the hemorrhoid is larger sticking out further, have worsening pain, develop worsening abdominal pain, fevers, vomiting, noticed black or bloody stools, you have any other new concerns, please return the emergency room. Problem Qualifiers Primary Impression: Hemorrhoids Hemorrhoid type: unspecified Qualified Codes: K64.9 - Unspecified hemorrhoids
[2018-02-03 22:20] VITALS: BP 186/73; PULSE 68; O2SAT 98
--- NOTE | 2018-02-05 11:32 | Pharmacy Progress Note ---
ED Pharmacist Counseling Note Date of Service: Feb 05, 2018. Patient called and requested clarification on the number of daily doses and the length of therapy for hydrocortisone cream. * Counseled that he should use the cream BID * Counseled that he should follow-up with his PCP for recommendation on duration of use. Patient reports he has an appointment tomorrow and will ask. He also noted that he is using docusate for a stool softener and asked how often to take it. * Counseled that he should take the docusate BID * Counseled that this should be ongoing (unless he develops diarrhea)
== END 2018-02-03 22:23 | disposition home or self-care (01) ==
LOC: C.EDB 21:04 → C.EDA 22:23
DX: K64.9 Unspecified hemorrhoids (principal); K62.5 Hemorrhage of anus and rectum; Z86.73 Personal history of transient ischemic attack (TIA), and cerebral infarction without residual deficits; F41.9 Anxiety disorder, unspecified; J45.909 Unspecified asthma, uncomplicated; E78.5 Hyperlipidemia, unspecified; I10 Essential (primary) hypertension; N40.0 Benign prostatic hyperplasia without lower urinary tract symptoms; Z79.82 Long term (current) use of aspirin; Z79.899 Other long term (current) drug therapy; Z91.018 Allergy to other foods; Z88.8 Allergy status to other drugs, medicaments and biological substances

== ENCOUNTER → 2018-02-07 | Outpatient (CLI) | payer BC | END | disposition home or self-care (01) | LOC: C.LAB1850 15:10 | PROVIDERS: ATTEND Urology | DX: N20.0 Calculus of kidney (principal) ==

== ENCOUNTER → 2018-06-05 | Outpatient (CLI) | payer BC ==
--- NOTE | 2018-06-05 13:40 | DIAGNOSTIC IMAGING REPORT ---
CHEST 2 VIEWS ROUTINE CLINICAL HISTORY: 72 years-old Male presenting with R63.4 shortness of breath. TECHNIQUE: PA and lateral views of the chest were obtained. COMPARISON: 01/24/2018. FINDINGS: Median sternotomy wires and mediastinal surgical clips again noted. Atherosclerosis of the aortic arch. Main pulmonary artery slightly enlarged as on prior exam. Cardiac silhouette top normal in size, unchanged. Lungs and pleural spaces clear. Dextroscoliotic curvature and degenerative change of the spine. Upper abdomen normal. IMPRESSION: 1. No acute cardiopulmonary disease. Electronically signed by: Clayton Ceja M.D. 06/05/2018 1:39 PM Dictated Date/Time: 06/05/2018 1:38 PM
== END | disposition home or self-care (01) ==
LOC: C.RAD1850 13:14
PROVIDERS: ATTEND Nurse Practitioner Family
DX: R63.4 Abnormal weight loss (principal); Z88.8 Allergy status to other drugs, medicaments and biological substances; Z91.018 Allergy to other foods

== ENCOUNTER 2019-02-01 10:14 | Observation (INO) ==
[2019-02-01] MEDS ORDERED: LORazepam 1 MG/2 ML VIAL IV STA (10:35)
[2019-02-01 10:51] LABS: Basophils # (auto) 0.02 K/uL (0-0.2); Basophils % (auto) 0.3 %; Eosinophils % (auto) 3.4 %; Hematocrit (blood only) 38.5 % (42-52); Hemoglobin 13.5 g/dL (14.0-18.0); Immature Granulocytes # (auto) 0.01 K/uL (0.00-0.02); Immature Granulocytes % (auto) 0.2 %; Lymphocytes % (auto) 27.2 %; Mean Corpuscular Hgb Conc 35.1 g/dL (32-36); Mean Corpuscular Volume 88.3 fL (80-100); Monocytes # (auto) 0.56 K/uL (0.11-0.59); Monocytes % (auto) 9.5 %; Neutrophils % (auto) 59.4 %; Platelet Count 191 K/uL (130-400); RDW Coefficient of Variation 13.9 % (11.5-14.5); RDW Standard Deviation 45.3 fL (36.4-46.3); Red Blood Count 4.36 M/uL (4.7-6.1); White Blood Count 5.89 K/uL (4.8-10.8)
--- NOTE | 2019-02-01 10:52 | XRay Report ---
XR chest 1V portable CLINICAL HISTORY: Atypical chest pain COMPARISON STUDY: 01/24/2018 FINDINGS: The heart is enlarged. There are postsurgical changes of a midline sternotomy. There is no failure. There is no focal pulmonary consolidation. There are no pleural effusions.[ IMPRESSION: Cardiomegaly. No acute findings. Electronically signed by: Tanner Omalley M.D. 02/01/2019 10:51 AM
[2019-02-01 11:19] LABS: BUN Creatinine Ratio 13.8 (10-20); Calcium 9.6 mg/dl (8.5-10.1); Est GFR (African American) 91.7; Est GFR (Non-African American) 79.1
[2019-02-01 11:25] LABS: Troponin I 0.047 ng/ml (0-0.045)
--- NOTE | 2019-02-01 11:35 | CT Scan Report ---
CT head/brain wo con CLINICAL HISTORY: 73 years-old Male presenting with head pressure and dizziness, concern for hemorrha ge. TECHNIQUE: Multidetector CT imaging of the head was performed without the use of intravenous contrast . IV contrast: None. One or more dose lowering techniques were used consistent with the principles of ALARA (as low as reasonably achievable), including automatic exposure control, mA or kV adjustment t o individual patient size, and/or use of iterative reconstruction. COMPARISON: None. CT DOSE (mGy.cm): The estimated cumulative dose is 537.48 mGy.cm. FINDINGS: Configuration Management Architect topogram: Unremarkable. Ventricles and sulci normal in size. No hemorrhage. Brain parenchyma normal in appearance with preser piotr monte-white differentiation. No acute territorial infarct. No mass effect or midline shift. No ext ra-axial fluid collection. Paranasal sinuses and mastoid air cells clear. Calvarium intact. IMPRESSION: 1. No acute intracranial abnormality. Electronically signed by: Clayton Ceja M.D. 02/01/2019 11:34 AM
--- NOTE | 2019-02-01 14:12 | History & Physical Report ---
Date of Service February 01, 2019 Assessment & Plan (1) Elevated troponin: 71 y/o M Hx CAD, Sjogren's, HLD, resistant/labile HTN. The pt developed pressure in his head and diaphoresis this AM. He checked his BP and noted that it was as high as 240 systolic. he called his primary MD and was instructed to attend the hospital. An SBP of 240 was confirmed on arrival to the ER. An astute ER attending noted that there was a stressful interaction between the pt and his which appeared to be contributing to his symptoms. He treated the pt with Ativan only and upon his 's departure his SBP had come down to 150 systolic. Initial labs are notable for a marginally elevated troponin. The pt was admitted for syncope and a troponin elevation 09/07 attributed to demand ischemia. On review of prior troponin levels, it is noted that a few have been borderline after 2015, although they had not crossed over into the red. The pt has known labile hypertension and is treated with such medications as Clonidine and Minoxidil daily. He denies any CP, SOB, lightheadedness or vomiting. An initial EKG did not support acute ischemia and a CT head was negative for acute findings. 1) HTN urgency - SBP has normalized at time of admission so that he is essentially admitted to r/o an VT considering his CAD, diaphoresis and marginally elevated troponin. related symptoms of pressure in head and diaphoresis have resolved. We will continue his current regimen of Clonidine, Minoxidil, Imdur, Lasix. He is also placed on PRN Hydralazine for an SBP of over 175. HR would currently preclude treatment with a B teresa 2) CAD/elevated trop - Likely attributable to an HTN urgency. Considering his history and diaphoresis, if his trop trends upward, we would choose to order an echo and check for related wall motion abnormalities. His signal circuit designer should be contacted as well. For the time being, as he has previously elevated his troponins without an VT diagnosis, we would choose to hold off on an extensive workup. Will continue ASA,a statin and HTN meds as above. 3) Sjogren's - eye drops provided Full code - Lovenox prophylaxis Total time for this admit including review of labs, meds, imaging, records - discussion with pt and ER attending Present on Admission?: Yes (2) Hypertensive urgency: History of Present Illness Chief Complaint: Pressure in head and diaphoresis Primary Care Provider: LUIS Greene 71 y/o M Hx CAD, Sjogren's, HLD, resistant/labile HTN. The pt developed pressure in his head and diaphoresis this AM. He checked his BP and noted that it was as high as 240 systolic. he called his primary MD and was instructed to attend the hospital. An SBP of 240 was confirmed on arrival to the ER. An astute ER attending noted that there was a stressful interaction between the pt and his which appeared to be contributing to his symptoms. He treated the pt with Ativan only and upon his 's departure his SBP had come down to 150 systolic. Initial labs are notable for a marginally elevated troponin. The pt was admitted for syncope and a troponin elevation 09/07 attributed to demand ischemia. On review of prior troponin levels, it is noted that a few have been borderline after 2015, although they had not crossed over into the red. The pt has known labile hypertension and is treated with such medications as Clonidine and Minoxidil daily. He denies any CP, SOB, lightheadedness or vomiting. An initial EKG did not support acute ischemia and a CT head was negative for acute findings. PMH: 1) HTN - previous admission for HTN urgency 2) CAD - 3 vessel CABG 1998 3) HLD 4) Asthma 5) B12 deficiency 6) Iron-deficient anemia 7) Sjogren's 8) Sytolic murmur described on prior exams - Echo 2015 - mild MR, mild TR - LV 65%, hypertrophy Surgical: CABG 1998 Social: Distant smoking history, rarely drinks. He [facility]ils from the [facility]. Family: Father due to prostate CA Mother after falling into a diabetic coma Allergies Allergy/AdvReac Type Severity Reaction Status Date / Time gluten Allergy Unknown CELIAC Verified 02/01/19 11:31 DISEASE heparin AdvReac Intermediate BURNING Verified 02/01/19 11:31 SENSATION Home Medications Home Medications Medication Instructions Recorded Confirmed Type ascorbic acid (vitamin C) [Vitamin 500 mg PO QAM 02/01/19 02/01/19 History C] aspirin 81 mg PO BID 02/01/19 02/01/19 History atorvastatin 20 mg PO QAM 02/01/19 02/01/19 History calcium carbonate-vitamin D3 1 tab PO BID 02/01/19 02/01/19 History [Caltrate 600 + D] cholecalciferol (vitamin D3) 2,000 unit PO QAM 02/01/19 02/01/19 History [Vitamin D3] clonidine 0.3 mg TRANSDERMAL WK 02/01/19 02/01/19 History clonidine HCl 0.1 mg PO HS 02/01/19 02/01/19 History clonidine HCl 0.1 mg PO UD PRN 02/01/19 02/01/19 History cyanocobalamin (vitamin B-12) 1,000 mcg PO QAM 02/01/19 02/01/19 History [Vitamin B-12] fluoxetine 10 mg PO QAM 02/01/19 02/01/19 History furosemide 40 mg PO QAM 02/01/19 02/01/19 History isosorbide mononitrate 30 mg PO QAM 02/01/19 02/01/19 History [id number]-ast 1 cap PO QAM 02/01/19 02/01/19 History [krill oil] melatonin 5 mg PO HS PRN 02/01/19 02/01/19 History minoxidil 5 mg PO BID 02/01/19 02/01/19 History multivitamin 1 tab PO QAM 02/01/19 02/01/19 History nitroglycerin 0.4 mg SUBLINGUAL UD 02/01/19 02/01/19 History pantoprazole 40 mg PO QAM 02/01/19 02/01/19 History peg 400-propylene glycol [Systane 1 drp OPHTHALMIC (EYE) QID 02/01/19 02/01/19 History (propylene glycol)] saw palmetto fruit 900 mg PO BID 02/01/19 02/01/19 History Past Med/Surg History Medical History No pertinent family history B12 deficiency (Chronic) CAD (coronary artery disease) (Acute 11/04/14) Chest pain (Acute) Dizziness (Acute) Hyponatremia (Acute) Iron deficiency anemia (Chronic) Light-headed Lower abdominal pain (Acute) Medication refill (Acute) Vomiting (Acute) Vomiting and diarrhea (Acute) Surgical History S/P triple vessel bypass Social History Preferred Language: Welsh Communication Ability: Effective Visual Impairment: No Limitations Hearing Ability: Normal Feels Safe at Home: Yes Smoking Status: Former smoker Review of Systems Gen: Denies fevers, night sweats, rigors, fatigue, malaise, weight loss/gain, + diaphoresis ENT: Denies congestion, throat pain, hearing loss Eyes: Denies acute visual changes CV: Denies CP, palpitations Pulmonary: Denies SOB, cough, wheezing GI: Denies N/V, diarrhea, constipation Neuro: Denies acute or unilateral weakness, acute gait impairment, describes pressure in head without a headache Musculoskeletal: Denies joint pain, inflammation Endocrine: Denies polydipsia, polyuria Skin: Denies acute rashes or ulcers Physical Exam Vital Signs (Past 24 Hours): Last Vital Signs Temp 37.2 C 02/01/19 10:16 Pulse 57 L 02/01/19 14:11 Resp 17 02/01/19 14:11 BP 149/57 H 02/01/19 14:11 Pulse Ox 99 02/01/19 14:11 Physical Exam: General: Pleasant, elderly M, AAO x 3, no distress ENT: No erythema or exudates, no thrush Eyes: HORTENCIA, EOMI Head and neck: Normocephalic, atraumatic, No JVD, neck is supple. Chest/heart: Nontender, S1,2, 2-3/6 systolic murmur noted - this is described on cardio consult 2016 Lungs: CTAB, no wheezing or crackles Abdomen: Nontender, nondistended, BS+ Neuro: AAO x 3, speech is clear, no unilateral weakness or loss of sensation, coordination intact Musculoskeletal: No joint inflammation, muscle tenderness, FROM Skin: No acute rashes or ulcers Extremities: No clubbing, cyanosis, edema
--- NOTE | 2019-02-01 14:28 | Emergency Department Note ---
Entered by Patti Newberry acting as a scribe for History of Present Illness General Chief complaint: Hypertension Stated complaint: HIGH BLOOD PRESSURE Time Seen by Provider: 02/01/19 10:29 Source: patient Mode of arrival: ambulatory Limitations: no limitations History of Present Illness Onset (ago): day(s) (today) Location: head and ears Pain Consistency: + other (episode) Quality: + other (heaviness, shakiness.) Associated symptoms: + other (The patient complains of heaviness in his head, ringing in his ears, and shakiness.); no chest pain and no shortness of breath The patient is a 73 year old male with a history of triple bypass and a hernia who presents to the ED with complaints of elevated blood pressure that onset today. The patient was sent in by Dr. Montelongo, oncology, the patient was be evaluated at the infusion center for an iron transfusion. He has a history of anemia. The patient complains of heaviness in his head, ringing in his ears, and shakiness. The patient denies fever, hematuria, melena, hematochezia, chest pain, and shortness of breath. Home Medications Home Medications Medication Instructions Recorded Confirmed Type ascorbic acid (vitamin C) [Vitamin 500 mg PO QAM 02/01/19 02/01/19 History C] aspirin 81 mg PO BID 02/01/19 02/01/19 History atorvastatin 20 mg PO QAM 02/01/19 02/01/19 History calcium carbonate-vitamin D3 1 tab PO BID 02/01/19 02/01/19 History [Caltrate 600 + D] cholecalciferol (vitamin D3) 2,000 unit PO QAM 02/01/19 02/01/19 History [Vitamin D3] clonidine 0.3 mg TRANSDERMAL WK 02/01/19 02/01/19 History clonidine HCl 0.1 mg PO HS 02/01/19 02/01/19 History clonidine HCl 0.1 mg PO UD PRN 02/01/19 02/01/19 History cyanocobalamin (vitamin B-12) 1,000 mcg PO QAM 02/01/19 02/01/19 History [Vitamin B-12] fluoxetine 10 mg PO QAM 02/01/19 02/01/19 History furosemide 40 mg PO QAM 02/01/19 02/01/19 History isosorbide mononitrate 30 mg PO QAM 02/01/19 02/01/19 History [id number]-ast 1 cap PO QAM 02/01/19 02/01/19 History [krill oil] melatonin 5 mg PO HS PRN 02/01/19 02/01/19 History minoxidil 5 mg PO BID 02/01/19 02/01/19 History multivitamin 1 tab PO QAM 02/01/19 02/01/19 History nitroglycerin 0.4 mg SUBLINGUAL UD 02/01/19 02/01/19 History pantoprazole 40 mg PO QAM 02/01/19 02/01/19 History peg 400-propylene glycol [Systane 1 drp OPHTHALMIC (EYE) QID 02/01/19 02/01/19 History (propylene glycol)] saw palmetto fruit 900 mg PO BID 02/01/19 02/01/19 History Allergies Allergy/AdvReac Type Severity Reaction Status Date / Time gluten Allergy Unknown CELIAC Verified 02/01/19 11:31 DISEASE heparin AdvReac Intermediate BURNING Verified 02/01/19 11:31 SENSATION Past Med/Surg History Medical History No pertinent family history B12 deficiency (Chronic) CAD (coronary artery disease) (Acute 11/04/14) Chest pain (Acute) Dizziness (Acute) Hyponatremia (Acute) Iron deficiency anemia (Chronic) Light-headed Lower abdominal pain (Acute) Medication refill (Acute) Vomiting (Acute) Vomiting and diarrhea (Acute) Surgical History S/P triple vessel bypass Social History Preferred Language: Greenlandic Communication Ability: Effective Visual Impairment: No Limitations Hearing Ability: Normal Feels Safe at Home: Yes Smoking Status: Former smoker Review of Systems See HPI for pertinent positives & negatives. and A total of 10 systems reviewed and were otherwise negative Physical Exam Vital Signs Vital Signs - 24 hr 02/01/19 10:16 02/01/19 11:13 02/01/19 11:28 Temperature 37.2 C Temperature Source Oral Sepsis Recent Fever Within 48 Hours No Sepsis New/Unexplained Change in Mental Status No Sepsis Action Taken by Nursing No Action Required Pulse Rate 69 Pulse Rate [Apical] 64 Pulse Rhythm [Apical] Regular Pulse Strength [Apical] Normal Respiratory Rate 18 18 Respiratory Effort / Characteristics Non-Labored Non-Labored Spontaneous Respiratory Depth Normal Normal Respiratory Pattern Regular Regular Blood Pressure 238/109 H Blood Pressure [Left Arm] 167/81 H Blood Pressure Mean 152 Blood Pressure Mean [Left Arm] 109 Blood Pressure Position Sitting Blood Pressure Position [Left Arm] Lying Pulse Oximetry 98 98 96 Oxygen Delivery Method Room Air Room Air Room Air 02/01/19 12:35 02/01/19 14:11 Temperature Temperature Source Sepsis Recent Fever Within 48 Hours Sepsis New/Unexplained Change in Mental Status Sepsis Action Taken by Nursing Pulse Rate Pulse Rate [Apical] 66 57 L Pulse Rhythm [Apical] Regular Pulse Strength [Apical] Normal Respiratory Rate 16 17 Respiratory Effort / Characteristics Non-Labored Spontaneous Non-Labored Respiratory Depth Normal Normal Respiratory Pattern Regular Regular Blood Pressure Blood Pressure [Left Arm] 173/76 H 149/57 H Blood Pressure Mean Blood Pressure Mean [Left Arm] 108 87 Blood Pressure Position Blood Pressure Position [Left Arm] Lying Lying Pulse Oximetry 98 99 Oxygen Delivery Method Room Air Room Air GENERAL: He is oriented to person, place, and time. He appears well-developed and well-nourished. He does not appear distressed. HENT: Exam performed. Head: Normocephalic and atraumatic. Right Ear: External ear normal. No mastoid tenderness. Left Ear: External ear normal. No mastoid tenderness. Mouth/Throat: The oropharynx is clear and moist. No trismus in the jaw. No dental abscesses or uvula swelling. No oropharyngeal exudate or tonsillar abscesses. EYES: Conjunctivae and EOM are normal. Pupils are equal, round, and reactive to light. Right eye exhibits no discharge. Left eye exhibits no discharge. No scleral icterus. NECK: Normal range of motion. Neck supple. No JVD present. No spinous process tenderness present. No carotid bruit present. No rigidity. No tracheal deviation and normal range of motion present. No Brudzinski's sign and no Kernig's sign noted. CV: Normal rate, regular rhythm, normal heart sounds and intact distal pulses. There is no peripheral edema. Palpable radial pulses bue. PULM/CHEST: Effort normal and breath sounds normal. No respiratory distress. No stridor. He has no wheezes. He has no rales. Chest Wall: He exhibits no tenderness. ABD: The abdomen is soft. Bowel sounds are normal. He has no distension. No mass is present. There is no tenderness. There is no rebound, no guarding, no Long's sign and no tenderness at McBurney's point. Rovsig negative MUSC/SKEL: Normal range of motion. There is no peripheral edema, tenderness or deformity. LYMPH: No cervical adenopathy. NEURO: He is alert and oriented to person, place, and time. He has normal strength. No cranial nerve deficit or sensory deficit. Coordination and gait normal. GCS eye subscore is 4. GCS verbal subscore is 5. GCS motor subscore is 6. cerbellar tests wnl. SKIN: Skin is warm and dry. He is not diaphoretic. PSYCH: He has a normal mood and affect. His behavior is normal. Judgment and thought content normal. Anxious appearing. Course 1030: Past medical records reviewed. The patient was evaluated in room B03B, and a complete history and physical examination were performed. 1149: Vital signs improved status post Ativan in the emergency department. Labs within normal limits with the exception of a mildly elevated troponin. I reviewed the patient's case with Dr. Goff - [employer]. He agrees that the patients elevated troponin is less likely to be due to an ischemic heart disease given that the patient has no chest pain or difficulty breathing. He states that an elevated blood pressure is more likely. He notes to not begin any anticoagulants and to trend the troponins. He will see the patient on consult when he is admitted to hospitalist services. 1150: The hospitalist team was notified. Dr. Donna Martin [facility] will evaluate the patient for further management. 1306: I reviewed the patient's case with Dr. Donna Martin [facility]. He will evaluate the patient for further management. Consultations Consultation #1: 1149: I reviewed the patient's case with Dr. Denver Holcomb rdiologist. He agrees that the patients elevated troponin is less likely to be due to an ischemic heart disease given that the patient has no chest pain or difficulty breathing. He states that an elevated blood pressure is more likely. He notes to not begin any anticoagulants and to trend the troponins. He will see the patient on consult when he is admitted to hospitalist services. Time: 11:49 Consultation #2: 1150: The hospitalist team was notified. Dr. Donna Martin [facility] will evaluate the patient for further management. Time: 11:50 Consultation #3: [id number]: I reviewed the patient's case with Dr. Donna Franks - [facility]. He will evaluate the patient for further management. Time: 13:06 Administered Medications Discontinued Medications Lorazepam (Ativan) 1 mg in 2 mls @ 2 mls/min IV NOW STA Stop: 02/01/19 10:36 Last Admin: 02/01/19 10:56 Dose: 2 mls/min Documented by: [id number] Medical Decision Making Medical Records Attestation: I reviewed the patient's medical records. Home Medications Current Medication List: was personally reviewed by me Laboratory Data Attestation: I reviewed the patient's lab results. Result diagrams: 02/01/19 10:43 02/01/19 10:43 Lab Results 02/01/19 02/01/19 Range/Units 10:43 10:43 WBC 5.89 (4.8-10.8) K/uL RBC 4.36 L (4.7-6.1) M/uL Hgb 13.5 L (14.0-18.0) g/dL Hct 38.5 L (42-52) % MCV 88.3 (80-100) fL MCH 31.0 (25-34) pg MCHC 35.1 (32-36) g/dL RDW Std Deviation 45.3 (36.4-46.3) fL RDW Coeff of Gurvinder 13.9 (11.5-14.5) % Plt Count 191 (130-400) K/uL MPV 10.0 (7.4-10.4) fL Immature Gran % (Auto) 0.2 % Neut % (Auto) 59.4 % Lymph % (Auto) 27.2 % [place]ville % (Auto) 9.5 % Eos % (Auto) 3.4 % Baso % (Auto) 0.3 % Immature Gran # (Auto) 0.01 (0.00-0.02) K/uL Neut # (Auto) 3.50 (1.4-6.5) K/uL Lymph # (Auto) 1.60 (1.2-3.4) K/uL [place]ville # (Auto) 0.56 (0.11-0.59) K/uL Eos # (Auto) 0.20 (0-0.5) K/uL Baso # (Auto) 0.02 (0-0.2) K/uL Sodium 134 L (136-145) mmol/L Potassium 4.0 (3.5-5.1) mmol/L Chloride 103 (98-107) mmol/L Carbon Dioxide 27 (21-32) mmol/L Anion Gap 4.0 (3-11) BUN 13 (7-18) mg/dl Creatinine 0.95 (0.6-1.4) mg/dl Est Cr Clr Drug Dosing 58.0 ml/min Est GFR ( Amer) 91.7 Est GFR (Non-Af Amer) 79.1 BUN/Creatinine Ratio 13.8 (10-20) Glucose 111 H (70-99) mg/dl Calcium 9.6 (8.5-10.1) mg/dl Troponin I 0.047 H* (0-0.045) ng/ml Imaging Data Radiologist's Impression: Radiology results as stated below per my review and the radiologist's interpretation: CT head/brain wo con CLINICAL HISTORY: 73 years-old Male presenting with head pressure and dizziness, concern for hemorrhage. TECHNIQUE: Multidetector CT imaging of the head was performed without the use of intravenous contrast. IV contrast: None. One or more dose lowering techniques were used consistent with the principles of ALARA (as low as reasonably achievable), including automatic exposure control, mA or kV adjustment to indivi dual patient size, and/or use of iterative reconstruction. COMPARISON: None. CT DOSE (mGy.cm): The estimated cumulative dose is 537.48 mGy.cm. FINDINGS: Dramatic Teacher topogram: Unremarkable. Ventricles and sulci normal in size. No hemorrhage. Brain parenchyma normal in appearance with preserved monte-white differentiation. No acute territorial infarct. No mass effect or midline shift. No extra-axial fluid collection. Paranasal sinuses and mastoid air cells clear. Calvarium intact. IMPRESSION: 1. No acute intracranial abnormality. Electronically signed by: Clayton Ceja M.D. 02/01/2019 11:34 AM Dictated: 02/01/19 1128 Transcribed: 02/01/19 1129 XR chest 1V portable CLINICAL HISTORY: Atypical chest pain COMPARISON STUDY: 01/24/2018 FINDINGS: The heart is enlarged. There are postsurgical changes of a midline sternotomy. There is no failure. There is no focal pulmonary consolidation. There are no pleural effusions.[ IMPRESSION: Cardiomegaly. No acute findings. Electronically signed by: Tanner Omalley M.D. 02/01/2019 10:51 AM Dictated: 02/01/19 1050 Transcribed: 02/01/19 1050 ECG Data Attestation: I personally reviewed and interpreted this ECG as follows: Indication: other (hypertesion) Rate (beats per minute): 67 Rhythm: sinus rhythm Findings: + other (TX, QRS, QTC within normal limits.); no ST depression and no ST elevation Blood Pressure Blood Pressure Findings: Elevated blood pressure Blood Pressure Disposition: further management by hospitalist [facility] Narrative 1030: Past medical records reviewed. The patient was evaluated in room B03B, and a complete history and physical examination were performed. 1149: Vital signs improved status post Ativan in the emergency department. Labs within normal limits with the exception of a mildly elevated troponin. I reviewed the patient's case with Dr. Goff - [employer]. He agrees that the patients elevated troponin is less likely to be due to an ischemic heart disease given that the patient has no chest pain or difficulty breathing. He states that an elevated blood pressure is more likely. He notes to not begin any anticoagulants and to trend the troponins. He will see the patient on consult when he is admitted to hospitalist services. 1150: The hospitalist team was notified. Dr. Donna Franks - [facility] will evaluate the patient for further management. 1306: I reviewed the patient's case with Dr. Donna Martin [facility]. He will evaluate the patient for further management. Impression & Plan Elevated troponin, Hypertensive urgency Discharge Plan Visit Data Chief Complaint: Hypertension Stated Complaint: HIGH BLOOD PRESSURE ED Provider: Mesfin Langston Discharge Problem: Elevated troponin, Hypertensive urgency Forms Stand Alone Forms: My [facility] Access [employer] Prescriptions Prescriptions: No Action multivitamin Tablet 1 tab PO QAM RF: 0 furosemide 40 mg tablet 40 mg PO QAM RF: 0 clonidine HCl 0.1 mg tablet 0.1 mg PO HS RF: 0 clonidine HCl 0.1 mg tablet 0.1 mg PO UD PRN (Reason: elevated blood pressure) RF: 0 atorvastatin 20 mg tablet 20 mg PO QAM RF: 0 isosorbide mononitrate 30 mg tablet extended release 24 hr 30 mg PO QAM RF: 0 fluoxetine 10 mg tablet 10 mg PO QAM RF: 0 cyanocobalamin (vitamin B-12) [Vitamin B-12] 1,000 mcg Tablet 1,000 mcg PO QAM RF: 0 aspirin 81 mg Tablet,Delayed Release (Dr/Ec) 81 mg PO BID RF: 0 ascorbic acid (vitamin C) [Vitamin C] 500 mg Tablet 500 mg PO QAM RF: 0 pantoprazole 40 mg tablet,delayed release (DR/EC) 40 mg PO QAM RF: 0 minoxidil 10 mg tablet 5 mg PO BID RF: 0 nitroglycerin 0.4 mg tablet, sublingual 0.4 mg sublingual UD RF: 0 clonidine 0.3 mg/24 hr patch weekly 0.3 mg transdermal WK RF: 0 Systane (propylene glycol) 0.4-0.3 % Drops 1 drp OPHTHALMIC (EYE) QID RF: 0 saw palmetto fruit 450 mg Capsule 900 mg PO BID RF: 0 melatonin 5 mg Tablet 5 mg PO HS PRN (Reason: Sleep) RF: 0 cholecalciferol (vitamin D3) [Vitamin D3] 2,000 unit Capsule 2,000 unit PO QAM RF: 0 Caltrate 600 + D 600 mg (1,500 mg)-800 unit Tablet,Chewable 1 tab PO BID RF: 0 [id number]-ast [krill oil] 1,587-729-85-80 mg Capsule 1 cap PO QAM RF: 0 The scribe's documentation has been prepared under my direction and personally reviewed by me in its entirety. I confirm that the note above accurately reflects all work, treatment, procedures, and medical decision making performed by me.
[2019-02-01] MEDS ORDERED: POLYETHYLENE (MIRALAX) 17 GM PACK PO PRN (16:19)
[2019-02-01] MEDS ORDERED: NITROGLYCERIN SL 0.4 MG/TAB TAB SL PRN (16:19)
[2019-02-01] MEDS ORDERED: ONDANSETRON INJ 2 MG/ML 2 ML VIAL IV PRN (16:19)
[2019-02-01] MEDS ORDERED: MAGNESIUM HYDROXIDE SUSP 30 ML UDC PO PRN (16:19)
[2019-02-01] MEDS ORDERED: ALUMINUM/MAGNESIUM SUSP 30 ML UDC PO PRN (16:19)
[2019-02-01] MEDS ORDERED: NON-FORMULARY MEDICATION (Melatonin 5 MG) PO PRN (16:19)
[2019-02-01] MEDS ORDERED: ACETAMINOPHEN 325 MG TAB PO PRN (16:19)
[2019-02-01] MEDS ORDERED: HydrALAZINE HCL 20 MG/ML VIAL IV PRN (16:19)
[2019-02-01 18:11] LABS: Prothrombin Time 10.5 Seconds (9.0-12.0)
[2019-02-01] MEDS: ARTIFICIAL TEARS OP SCH ×2 (18:47→20:08)
[2019-02-01] MEDS: ASPIRIN 81 MG ECTAB PO SCH (20:07)
[2019-02-01] MEDS: ENOXAPARIN INJ 40 MG/0.4 ML SYR SQ SCH ×2 (20:07→20:12)
[2019-02-01] MEDS: cloNIDine HCl 0.1 MG TAB PO SCH (20:07)
[2019-02-01] MEDS: MINOXIDIL 2.5 MG TAB PO SCH (21:09)
[2019-02-01] MEDS: HydrALAZINE HCL 20 MG/ML VIAL IV PRN (23:45)
[2019-02-01] MEDS: CHECK CLONIDINE PATCH PLACEMENT SCH (23:45)
[2019-02-02] MEDS: HydrALAZINE HCL 20 MG/ML VIAL IV PRN ×3 (07:43→16:32)
[2019-02-02] MEDS: CHECK CLONIDINE PATCH PLACEMENT SCH ×3 (08:04→22:17)
[2019-02-02] MEDS: FLUOXETINE HCL 10 MG CAP PO SCH (08:34)
[2019-02-02] MEDS: ATORVASTATIN 20 MG TAB PO SCH ×2 (08:34→19:40)
[2019-02-02] MEDS: PANTOprazole 40 MG TAB PO SCH (08:34)
[2019-02-02] MEDS: ISOSORBIDE MONO EXTENDED REL 30 MG TABCR PO SCH (08:35)
[2019-02-02] MEDS: FUROSEMIDE 40 MG TAB PO SCH (08:35)
[2019-02-02] MEDS: MINOXIDIL 2.5 MG TAB PO SCH ×2 (08:35→19:42)
[2019-02-02] MEDS: ASPIRIN 81 MG ECTAB PO SCH ×2 (08:35→19:42)
[2019-02-02] MEDS: ARTIFICIAL TEARS OP SCH ×4 (08:36→19:39)
[2019-02-02] MEDS ORDERED: cloNIDine HCL 0.3 MG/24 HR TRANSDERM SYS TD SCH (09:00)
[2019-02-02 09:40] LABS: Hematocrit (blood only) 44.8 % (42-52); Hemoglobin 15.7 g/dL (14.0-18.0); Mean Corpuscular Volume 88.7 fL (80-100); Mean Platelet Volume 10.1 fL (7.4-10.4); Platelet Count 225 K/uL (130-400); RDW Coefficient of Variation 14.1 % (11.5-14.5); RDW Standard Deviation 45.7 fL (36.4-46.3); Red Blood Count 5.05 M/uL (4.7-6.1)
[2019-02-02 10:01] LABS: BUN Creatinine Ratio 12.7 (10-20); Calcium 9.8 mg/dl (8.5-10.1); Creatinine Clr Calc Pharmacy 55.1 ml/min; Est GFR (African American) 86.2; Est GFR (Non-African American) 74.3; Potassium 3.7 mmol/L (3.5-5.1)
[2019-02-02 10:08] LABS: Troponin I 0.047 ng/ml (0-0.045)
[2019-02-02] MEDS: ENOXAPARIN INJ 40 MG/0.4 ML SYR SQ SCH (19:39)
[2019-02-02] MEDS: cloNIDine HCl 0.1 MG TAB PO SCH (19:41)
[2019-02-02] MEDS ORDERED: LISINOPRIL 10 MG TAB PO SCH (21:00)
--- NOTE | 2019-02-02 22:38 | Hospitalist Progress Note ---
Date of Service February 02, 2019 Assessment & Plan (1) Elevated troponin: 71 y/o M Hx CAD, Sjogren's, HLD, resistant/labile HTN. The pt developed pressure in his head and diaphoresis this AM. He checked his BP and noted that it was as high as 240 systolic. he called his primary MD and was instructed to attend the hospital. An SBP of 240 was confirmed on arrival to the ER. An astute ER attending noted that there was a stressful interaction between the pt and his which appeared to be contributing to his symptoms. He treated the pt with Ativan only and upon his 's departure his SBP had come down to 150 systolic. Initial labs are notable for a marginally elevated troponin. The pt was admitted for syncope and a troponin elevation 09/07 attributed to demand ischemia. On review of prior troponin levels, it is noted that a few have been borderline after 2015, although they had not crossed over into the red. The pt has known labile hypertension and is treated with such medications as Clonidine and Minoxidil daily. He denies any CP, SOB, lightheadedness or vomiting. An initial EKG did not support acute ischemia and a CT head was negative for acute findings. 1) HTN urgency BP continues to be elevated. Patient placed on lisinopril. Gave first dose in afternoon, will closely montior bP. Systolic was above 190 prior to lisinopril dose, and patient has required multiple hydralazine doses during this stay.l We will continue his current regimen of Clonidine, Minoxidil, Imdur, Lasix in addition to the anu inhibitor (That was previosuly mentioned). He will continue also on PRN Hydralazine for an SBP of over 175. HR would currently preclude treatment with a B teresa 2) CAD/elevated trop - Likely attributable to an HTN urgency. Considering his history and diaphoresis, itrop peakedat 0.05; we would choose to order an echo and check for related wall motion abnormalities. His lab head should be contacted as well. For the time being, as he has previously elevated his troponins without an ME diagnosis, we would choose to hold off on an extensive workup. Will continue ASA,a statin and HTN meds as above. 3) Sjogren's - eye drops provided Full code - Lovenox prophylaxis Spent 35 minutes in management of patient. (2) Hypertensive urgency: Subjective Patient reports feeling better today. HE CURRENTLY DENIES ANY CHEST PAIN, nausea, vomting, diarrhea. Review of Systems All systems reviewed & are unremarkable except as noted in HPI & below Physical Exam Vital Signs (Past 24 Hours): Last Vital Signs Temp 36.7 C 02/02/19 15:35 Pulse 67 02/02/19 15:35 Resp 18 02/02/19 15:35 BP 193/88 H 02/02/19 15:35 Pulse Ox 97 02/02/19 15:35 Physical Exam: General: Pleasant, elderly M, AAO x 3, no distress ENT: No erythema or exudates, no thrush Eyes: HORTENCIA, EOMI Head and neck: Normocephalic, atraumatic, No JVD, neck is supple. Chest/heart: Nontender, S1,2, 2-3/6 systolic murmur noted - this is described on cardio consult 2016 Lungs: CTAB, no wheezing or crackles Abdomen: Nontender, nondistended, BS+ Neuro: AAO x 3, speech is clear, no unilateral weakness or loss of sensation, coordination intact Musculoskeletal: No joint inflammation, muscle tenderness, FROM Skin: No acute rashes or ulcers Extremities: No clubbing, cyanosis, edema
[2019-02-03] MEDS: CHECK CLONIDINE PATCH PLACEMENT SCH (07:56)
[2019-02-03] MEDS: FLUOXETINE HCL 10 MG CAP PO SCH (08:44)
[2019-02-03] MEDS: PANTOprazole 40 MG TAB PO SCH (08:44)
[2019-02-03] MEDS: ISOSORBIDE MONO EXTENDED REL 30 MG TABCR PO SCH (08:44)
[2019-02-03] MEDS: ASPIRIN 81 MG ECTAB PO SCH (08:45)
[2019-02-03] MEDS: FUROSEMIDE 40 MG TAB PO SCH (08:45)
[2019-02-03] MEDS: MINOXIDIL 2.5 MG TAB PO SCH (08:45)
[2019-02-03] MEDS: ARTIFICIAL TEARS OP SCH ×2 (08:45→12:40)
[2019-02-03] MEDS ORDERED: LISINOPRIL 20 MG TAB PO ONE (13:13)
--- NOTE | 2019-02-03 15:24 | Discharge Summary ---
Date of Service February 03, 2019 Admission HPI Per Admitting Provider 71 y/o M Hx CAD, Sjogren's, HLD, resistant/labile HTN. The pt developed pressure in his head and diaphoresis this AM. He checked his BP and noted that it was as high as 240 systolic. he called his primary MD and was instructed to attend the hospital. An SBP of 240 was confirmed on arrival to the ER. An astute ER attending noted that there was a stressful interaction between the pt and his which appeared to be contributing to his symptoms. He treated the pt with Ativan only and upon his 's departure his SBP had come down to 150 systolic. Initial labs are notable for a marginally elevated troponin. The pt was admitted for syncope and a troponin elevation 09/07 attributed to demand ischemia. On review of prior troponin levels, it is noted that a few have been borderline after 2016, although they had not crossed over into the red. The pt has known labile hypertension and is treated with such medications as Clonidine and Minoxidil daily. He denies any CP, SOB, lightheadedness or vomiting. An initial EKG did not support acute ischemia and a CT head was negative for acute findings. PMH: 1) HTN - previous admission for HTN urgency 2) CAD - 3 vessel CABG 1998 3) HLD 4) Asthma 5) B12 deficiency 6) Iron-deficient anemia 7) Sjogren's 8) Sytolic murmur described on prior exams - Echo 2015 - mild MR, mild TR - LV 65%, hypertrophy Surgical: CABG 1998 Social: Distant smoking history, rarely drinks. He hails from the [facility]. Family: Father due to prostate CA Mother after falling into a diabetic coma Admission Exam Per Admitting Provider General: Pleasant, elderly M, AAO x 3, no distress ENT: No erythema or exudates, no thrush Eyes: HORTENCIA, EOMI Head and neck: Normocephalic, atraumatic, No JVD, neck is supple. Chest/heart: Nontender, S1,2, 2-3/6 systolic murmur noted - this is described on cardio consult 2017 Lungs: CTAB, no wheezing or crackles Abdomen: Nontender, nondistended, BS+ Neuro: AAO x 3, speech is clear, no unilateral weakness or loss of sensation, coordination intact Musculoskeletal: No joint inflammation, muscle tenderness, FROM Skin: No acute rashes or ulcers Extremities: No clubbing, cyanosis, edema Principal Diagnosis Hypertensive urgency Discharge Exam Constitutional WD/WN, vitals as above Eyes PERRL, conjunctivae normal, anicteric sclerae ENMT external ear and nose normal, oropharynx normal Neck trachea midline, no thyromegaly Respiratory normal respiratory effort, lungs clear to auscultation Cardiovascular RRR, no murmur, no edema Gastrointestinal (Abdomen) normal bowel sounds, soft, nontender, no hepatosplenomegaly Musculoskeletal no cyanosis or clubbing, extremities motor strength 5/5 Skin no rashes, warm and dry Neurologic patellar DTR's 2+ bilat, sensation intact and PERRL, EOMI, accommodation nl, no face palsy, no dysarthria Psychiatric A+Ox3, euthymic affect Lymphatic no cervical or axillary lymphadenopathy Discharge Data Allergies Allergy/AdvReac Type Severity Reaction Status Date / Time gluten Allergy Unknown CELIAC Verified 02/01/19 11:31 DISEASE heparin AdvReac Intermediate BURNING Verified 02/01/19 11:31 SENSATION Consultations 02/01/19 11:51 ED Decision to Admit Stat Ordered Studies 02/01/19 10:36 CT head/brain wo con Stat Hospital Course (1) Elevated troponin: Troponin was minimally elevated at 0.04 for three consecutive sets no rise and fall to suggest damage to myocardium no changes on EKG bump in troponin was likely due to uncontrolled blood pressure can follow up with cardiology in the future for consideration of stress testing h/o CABG (2) Hypertensive urgency: blood pressure much better after starting Lisinopril 10mg, systolic pressure 150-160 will increase Lisinopril to 20mg daily on discharge continue on Clonidine, Imdur, Minoxidil no evidence of organ damage follow up with PCP this week for blood pressure check (3) B12 deficiency: continue supplementation (4) S/P triple vessel bypass: see above no evidence of cardiac ischemia follow up with Dr. Thomas as previously scheduled (5) CAD (coronary artery disease): see above (6) Iron deficiency anemia: Hb stable (7) Depression: continue on Fluoxetine 10mg daily slowly tapering, will follow up with PCP this week Total Time Total Time Spent Total Time Spent (In Minutes): 35 minutes Total Time Includes: Examination of the Patient, Discharge Planning and Medication Reconciliation Discharge Plan Discharge Items Patient Disposition: Home - Self-Care Reason For Visit: HTN URGENCY Discharge Diagnosis: Hypertensive urgency Condition: Good Discharge Goals: Improve disease control and Improve function Activity: Resume your previous activity Driving/Machine Use: No limitations Non-emergency contact: Primary Care Provider and Poultry Scientist Call non-emergency contact if: you have any medication questions and your symptoms worsen Follow-up/Referrals: Sarah Loo CRNP [Primary Care Provider] - Diet: Heart Healthy Addtl Provider Instructions: Medications: - LISINOPRIL: 20mg every evening, next dose is due this evening, this is new blood pressure medication - FLUOXETINE: continue to take the 10mg tablets until you see Sarah Loo Hypertensive urgency: uncontrolled blood pressure but no signs of organ damage blood pressure better controlled with the addition of Lisinopril, 10mg yesterday pressures 150-160's systolic today, room to increase Lisinopril to 20mg daily, start this evening please follow up closely with Sarah Loo on Monday as scheduled for blood pressure check Chest tightness, minimally elevated troponin no evidence of heart attack troponin (heart enzyme) was minimally elevated three sets, not indicative of anything acute Dr. Ramos assured you that heart is okay could consider stress testing in the future but can discuss with Dr. Ramos Prescriptions: New lisinopril 20 mg tablet 20 mg PO HS Qty: 30 RF: 0 Continued multivitamin Tablet 1 tab PO QAM RF: 0 furosemide 40 mg tablet 40 mg PO QAM RF: 0 clonidine HCl 0.1 mg tablet 0.1 mg PO HS RF: 0 clonidine HCl 0.1 mg tablet 0.1 mg PO UD PRN (Reason: elevated blood pressure) RF: 0 atorvastatin 20 mg tablet 20 mg PO QAM RF: 0 isosorbide mononitrate 30 mg tablet extended release 24 hr 30 mg PO QAM RF: 0 fluoxetine 10 mg tablet 10 mg PO QAM RF: 0 cyanocobalamin (vitamin B-12) [Vitamin B-12] 1,000 mcg Tablet 1,000 mcg PO QAM RF: 0 aspirin 81 mg Tablet,Delayed Release (Dr/Ec) 81 mg PO BID RF: 0 ascorbic acid (vitamin C) [Vitamin C] 500 mg Tablet 500 mg PO QAM RF: 0 pantoprazole 40 mg tablet,delayed release (DR/EC) 40 mg PO QAM RF: 0 minoxidil 10 mg tablet 5 mg PO BID RF: 0 nitroglycerin 0.4 mg tablet, sublingual 0.4 mg sublingual UD RF: 0 clonidine 0.3 mg/24 hr patch weekly 0.3 mg transdermal WK RF: 0 Systane (propylene glycol) 0.4-0.3 % Drops 1 drp OPHTHALMIC (EYE) QID RF: 0 saw palmetto fruit 450 mg Capsule 900 mg PO BID RF: 0 melatonin 5 mg Tablet 5 mg PO HS PRN (Reason: Sleep) RF: 0 cholecalciferol (vitamin D3) [Vitamin D3] 2,000 unit Capsule 2,000 unit PO QAM RF: 0 Caltrate 600 + D 600 mg (1,500 mg)-800 unit Tablet,Chewable 1 tab PO BID RF: 0 [id number]-ast [krill oil] 1,844-100-42-80 mg Capsule 1 cap PO QAM RF: 0 Stand-Alone Forms: [facility] Discharge Orders: Discharge Order (Routine); Ordered 02/03/19 Ordered By: Alberto Casey Admission Data Admit Date/Time: 02/01/19 14:41 Attending Provider: Alberto Casey Admit Provider: Preet Thompson Primary Care Provider: Sarah Loo Other Providers: Sam Montelongo Roy Service: Telemetry Other Interventions: Discharge Summary Assessment (RN) Last Done: 02/03/19 13:23 DC Date/Time DO NOT enter until pt leaves facility: 02/03/19 14:04
--- OUTSIDE RECORDS SUMMARY | 2019-02-18 13:48 | External Medical Summary | Continuity of Care Document ---
:1945 Author Name Say Bhat, Provider Address Unavailable Unavailable , Care Team Providers Name Role Phone Richard Bhat, [email or web address] Roxana CHAPMAN Unavailable Unavailable Unavailable Unavailable Unavailable Problems Encounter for screening for malignant neoplasm of prostate ( V76.44) (Z12.5) Weight disorder (783.9) (R63.8) Celiac disease (579.0) (K90.0) Nephrolithiasis (592.0) (N20.0) Esophageal reflux (530.81) (K21.9) Near syncope (780.2) (R55) Dermatitis (692.9) (L30.9) Enlarged prostate with lower urinary tract symptoms (LUTS) ( 600.01) (N40.1) Nephrolithiasis (592.0) (N20.0) Benign hypertrophy of prostate (600.00) (N40.0) Dyslipidemia (272.4) (E78.5) CAD (coronary artery disease) (414.00) (I25.10) Anxiety (300.00) (F41.9) Hypertension (401.9) (I10) Gastroesophageal reflux disease (530.81) (K21.9) Atherosclerosis of coronary artery (414.00) (I25.10) Benign prostatic hyperplasia (600.00) (N40.0) Vitamin B12 nutritional deficiency (266.2) (E53.8) Anemia (285.9) (D64.9) Acute venous stasis dermatitis (454.1) (I87.2) Hydronephrosis (591) (N13.30) Former smoker (V15.82) (Z87.891) Atypical chest pain (786.59) (R07.89) Tinea pedis (110.4) (B35.3) Sjogren's syndrome (710.2) (M35.00) Seborrheic dermatitis (690.10) (L21.9) Seasonal affective disorder (296.99) (F33.8) Sjogrens syndrome (710.2) (M35.00) Allergies and Adverse Reactions Zoloft (Allergy) Gluten (Allergy) Medications Isosorbide Mononitrate ER 30 MG Oral Tab let Extended Release 24 Hour; take 1 tablet by mouth once daily Home Ramos Start: 23-Aug-2018 Quantity: 90 Refills: 3 Aspirin 81 MG TABS; Take 1 tablet twice daily Refills: 0 Melatonin 5 MG Oral Tablet; TAKE DIRECTED. Refills: 0 Vitamin B-12 TABS; TAKE 1 TABLET DAILY. Refills: 0 Multi-Vitamin TABS Refills: 0 Pantoprazole Sodium 40 MG Oral Tablet Delayed Release; TAKE 1 TABLET DAILY. Home Ramos Start: 03-Oct-2018 Quantity: 30 Refills: 5 Nitroglycerin 0.4 MG Sublingual Tablet S ublingual; PLACE 1 TABLET UNDER THE TONGUE EVERY 5 MINUTES FOR UP TO 3 DOSES NEEDED FOR CHEST PAIN.CALL 911 IF PAIN PERSISTS. Home Ramos Quantity: 25 Refills: 6 cloNIDine HCl - 0.1 MG Oral Tablet; TAKE 1 TABLET BY MOUTH AT BEDTIME WITH AN EXTRA TABLET DAILY NEEDED FOR ELEVATED BLOOD PRESSURE Home Ramos Quantity: 180 Refills: 3 Minoxidil 10 MG Oral Tablet; Take one ferrera lf pill in the morning and one at night. Home Ramos Quantity: 135 Refills: 3 Vitamin D3 2000 UNIT Oral Tablet; Take 1 tablet daily Refills: 0 Atorvastatin Calcium 20 MG Oral Tablet; take 1 tablet by mouth once daily Home Ramos Start: 02-Aug-2012 Quantity: 90 Refills: 3 Vitamin C 500 MG Oral Capsule; TAKE 1 CAPSULE DAILY. Refills: 0 Furosemide 40 MG Oral Tablet; Take 1 tablet daily Janeth Ramos Refills: 0 Calcium TABS Refills: 0 Krill Oil CAPS Refills: 0 FLUoxetine HCl TABS; TAKE 30 MG BY MOUTH ONCE DAILY AT BEDTI ME Refills: 0 Lisinopril 40 MG Oral Tablet; TAKE 1 TABLET DAILY. Home Ramos Quantity: 30 Refills: 6 CloNIDine HCl 0.3 MG/24HR PTWK; apply 1 patch every week - APPOINTMENT NEEDED FOR REFILLS Home Ramos Start: 04-Jul-2018 Quantity: 4 Refills: 5 Saw [place] TABS; 900MG TWICE DAILY Refills: 0 cloNIDine 0.3 MG/24HR Transdermal Patch Weekly; apply 1 patch every week Home Ramos Start: 19-Dec-2018 Quantity: 4 Refills: 5 Procedures History of Thyroid Surgery Status: Compl eted History of CABG Status: Completed Immunizations Immunizations not documented Family History Father Family history of Father At Age ___ Status: Active Mother Family history of Mother At Age ___ Status: Active Unknown Family Member Family history of Heart Disease (V17.49) Status: Active Comments: Family History Family history of Diabetes Mellitus (V18.0) Status: Active Comments: Family History Family history of Hypertension (V17.49) Status: Active Comments: Family History Family history of Nephrolithiasis Status: Active Commen ts: Family History natural son Family history of Autism spectrum disorder (299.00) (F84.0) Status: Active Social History - Smoking Status Former smoker Plan of Treatment Planned Encounters Appointment; Lon Ramos M.D. Start: 02-Apr-2019 10:00 Request Planned Observations Planned Goals not documented Results CT Head w/o Contrast Laboratory: [facility] Diagnostic (Pending) Imaging [address] [facility] 01-Feb-2019 11:28 CT HEAD WITHOUT CONTRAST [place], [place] [phone] CT Scan Report Patient: KIA OWENS Admit Date: 02/01 MR#: [id number] Address1: [address] [place] [address] Acct ID:[id number] Address2: Date: 1945 [facility] Zip: [place] [address] Age: 73 Location: ED Sex: M Room/Bed: Att Phy: Diagnosis: HIGH BLOOD PRESSURE Giselle Phy: Sarah Chapman CRNP Service Date : 02/01/19 Fam Phy: Lon Ramos MD Interpreting Phy: Clayton Ceja MD Admit Phy: Ordering Phy: Mesfin Langston M.D. cc: CT head/brain wo con CLINICAL HISTORY: 73 years-old Male presenting with head pressure and dizziness, concern for hemorrhage. TECHNIQUE: Multidetector CT imaging of the head was performed without the use of intravenous contrast. IV contrast: None. One or more dose lowering techniques were used consistent with the principles of ALARA (as low as reasonably achievable), including automatic exposure control, mA or kV adjustment to individual patient size, and/or use of iterative reconstruction. COMPARISON: None. CT DOSE (mGy.cm): The estimated cumulative dose is 537.48 mGy.cm. FINDINGS: Quality Improvement Coordinator (Rn) topogram: Unremarkable. Ventricles and sulci normal in size. No hemorrhage. Brain parenchyma normal in appearance with preserved monte-white differentiation. No acute territorial infarct. No mass effect or midline shift.No extra-axial fluid collection. Paranasal sinuses and mastoid air cells clear. Calvarium intact. IMPRESSION: 1. No acute intracranial abnormality. Electronically signed by: Clayton Ceja M.D. 02/01/2019 11:34 AM Dictated: 02/01/19 1128 Transcribed: 02/01/19 1129 Troponin I (Pending) Laboratory: [facility] Laboratory [address] [place] [address] tel: 01-Feb-2019 16:36 TROPONIN (cTnI) 0.043 ng/ml Range: 0-0. 045 ng/ml PT/INR (Pending) Laboratory: [facility] Laboratory Comments: C omment Note: february [address] [facility] obtain from [facility] [address] blood if OK tel: 01-Feb-2019 10:43 Prothrombin Time 10.5 Range: 9.0-12.0 S econds {Seconds} INR 1.0 Range: 0.9-1.1 Troponin I (Pending) Laboratory: [facility] Laboratory [address] [place] [address] tel: 01-Feb-2019 22:08 TROPONIN (cTnI) 0.050 ng/ml Range: 0-0. 045 ng/ml (Critical High) Comments: Kathie bailon called to BERNADINE Stover 02/01/19 at 2236 by Jr ricardo Lozano were verbalized back.--- 02/01/19 2238 ---Trop I previously reported as: ng/mlCritical result called to BERNADINE Stover 01/21 12/11 at 2236 by Jr ricardo Lozano were verbalized back.Levels of 0.046 to 0.599 suggests onset of myocardialdamage.Levels of 0.6 - 1.5 suggests the presence of AMI. CBC No Diff (Pending) Laboratory: [facility] [address] [facility] [facility] [address] tel: 02-Feb-2019 9:23 WBC 6.70 K/uL Range: 4.8-10.8 K/u L RBC 5.05 {M/uL} Range: 4.7-6.1 M/uL HEMOGLOBIN 15.7 g/dL Range: 14.0-18.0 g /dL HEMATOCRIT 44.8 % Range: 42-52 % MCV 88.7 fL Range: 80-100 fL MCH 31.1 pg Range: 25-34 pg MEAN CORPUSCULAR HGB CONC 35.0 Range: 3 2-36 g/dL g/dL RED CELL DISTRIBUTION WIDTH SD Range: 3 6.4-46.3 fL 45.7 fL RED CELL DISTRIBUTION WIDTH CV Range: 1 1.5-14.5 % 14.1 % PLATELET COUNT 225 K/uL Range: 130-400 K/uL MEAN PLATELET VOLUME 10.1 fL Range: 7.4 -10.4 fL Basic Metabolic Panel Laboratory: [facility] Laboratory (Pending) [address] [facility]. [facility] [address] tel: 02-Feb-2019 9:23 SODIUM 132 mmol/L (below low Range: 136 -145 mmol/L threshold) POTASSIUM 3.7 mmol/L Range: 3.5-5.1 mmo l/L CHLORIDE 101 mmol/L Range: 98-107 mmol/ L CARBON DIOXIDE 27 mmol/L Range: 21-32 m mol/L ANION GAP 4.0 Range: 3-11 BLOOD UREA NITROGEN 13 mg/dl Range: 7-1 8 mg/dl CREATININE 1.00 mg/dl Range: 0.6-1.4 mg /dl Estimated Creatinine Clearance Range: m l/min 55.1 ml/min Comments: Est. Creat inine Clearance (Mod Cockcroft-Gault) for pharmacydosing purposes. Estimated GFR ( Comments: Units: ml/min per Iranian) 86.2 1.73 meters squaredT he estimated GFR (CKD-E PI equation) has not be en validatedfor inpatie nt settings and may not be an accurate reflectiono f renal function in critical ly ill patients or those wi thrapidly changing renal funct ion (e.g. KINA). Estimated GFR (Non- Comments: Uni ts: ml/min per Iranian) 74.3 1.73 meters squaredT he estimated GFR (CKD-E PI equation) has not be en validatedfor inpatie nt settings and may not be an accurate reflectiono f renal function in critical ly ill patients or those wi thrapidly changing renal funct ion (e.g. KINA). BUN/CREATININE RATIO 12.7 Range: 10-20 GLUCOSE 110 mg/dl (above high Range: 70 -99 mg/dl threshold) CALCIUM 9.8 mg/dl Range: 8.5-10.1 mg/ dl Troponin I (Pending) Laboratory: [facility] Laboratory [address] [facility] [address] tel: 02-Feb-2019 9:23 TROPONIN (cTnI) 0.047 ng/ml Range: 0-0. 045 ng/ml (Critical High) Comments: Levels of 0.046 to 0.599 suggests onset of myocardialdamage.Levels of 0.6 - 1.5 suggests the presence of AMI. Encounters Appointment; Lon Ramos M.D. 18-Dec-2018 10:00 Encounter Diagnosis: Problem not documented Appointment; Lon Ramos M.D. 20-Nov-2018 9:45 Encounter Diagnosis: Problem not documented Appointment; Lon Ramos M.D. 05-Jun-2018 13:45 Encounter Diagnosis: Problem not documented Appointment; Semaj Morales M.D. 13-Feb-2018 14:00 Encounter Diagnosis: Problem not documented Appointment; Lon Ramos M.D. 01-Sep-2017 10:00 Encounter Diagnosis: Problem not documented Appointment; Yifan Lyle PA-C 24-Aug-2017 10:30 Encounter Diagnosis: Problem not documented Appointment; Lon Ramos M.D. 02-Apr-2019 10:00 Encounter Diagnosis: Problem not documented
== END 2019-02-03 14:04 | disposition home or self-care (01) ==
LOC: 2S 10:14 → ED 10:14 → SUATTDRO 14:41 → 2S 15:47

== ENCOUNTER 2020-09-29 14:26 | Observation (INO) ==
[2020-09-29] MEDS ORDERED: LORazepam 1 MG/2 ML VIAL IV STA (14:36)
[2020-09-29] MEDS ORDERED: NITROGLYCERIN SL 0.4 MG/TAB TAB SL PRN (14:36)
--- NOTE | 2020-09-29 14:53 | Emergency Department Note ---
Impression & Plan Chest pain, Abnormal ECG ED Provider Note NAME: KIA OWENS AGE: 75 SEX: M : 1945 ARRIVES VIA: Ambulance INFORMANT: Patient, prehospital personnel ED PROVIDER(S): Melchor Cunha DO CHIEF COMPLAINT: Chest pain HPI: The patient is a 75-year-old male who presented to the emergency department for an evaluation of chest pain. The patient has a history of coronary artery disease. He has a history of coronary artery bypass 20 years ago. The patient started having left-sided chest discomfort while walking. The patient started noticing radiation of the pain to the left arm. At that time he decided to call 911. The patient arrived at the emergency department via ambulance. He was made a prehospital notification prior to arrival because of ST segment abnormalities and concern for acute MD. I did review the patient's prehospital EKGs. At this time the patient states his pain is significantly improved. He s tates the pain is very mild at this time. He states that he was given aspirin prior to arrival which significantly improved his symptoms. The patient also was noted to have very elevated blood pressure. He does have a note from his primary hvac residential service technician that states that he has very bad anxiety and his blood pressure should not be treated with antihypertensive medication unless it is very high. He states that he has been compliant with his medications. He denies having any lower extremity swelling or pain. ROS: See above HPI for pertinent positives & negatives. A total of 10 systems reviewed and were otherwise negative. PAST MEDICAL HISTORY: See Below PAST SURGICAL HISTORY: See Below FAMILY HISTORY: See Below SOCIAL HISTORY: See Below HOME MEDICATIONS: See Below ALLERGIES: See Below VITALS: See Below PHYSICAL EXAMINATION: GENERAL: The patient is awake and alert. The patient is somewhat anxious appearing but overall comfortable. EYES: The conjunctivae are clear. The pupils are round and reactive. EARS, NOSE, MOUTH AND THROAT: The nose is without any evidence of any deformity. Mucous membranes are moist. Tongue is midline. NECK: The neck is nontender and supple. RESPIRATORY: Normal respiratory effort is noted there is no evidence of wheezing rhonchi or rales CARDIOVASCULAR: Regular rate and rhythm noted there no murmurs rubs or gallops normal S1 normal S2. GASTROINTESTINAL: The abdomen is soft. Abdomen is nontender. MUSCULOSKELETAL/EXTREMITIES: There is no evidence of gross deformity full range of motion is noted in the hips and shoulders. SKIN: There is no obvious evidence of any rash. Trace pedal edema was noted bilaterally. NEUROLOGIC: Patient is awake alert and oriented x3. MEDICAL DECISION MAKING: The patient is a 75-year-old male who presented to the emergency department for an evaluation of chest pain. The patient was out walking when he developed chest pain. The patient states he was not overly exerting himself when he was walking but he developed left-sided chest pain. He called 911 and the patient was brought to the emergency department. The patient had very abnormal EKGs prior to arrival. Previous EKG showed that these changes were new. Upon arrival to the emergency department after receiving aspirin the patient was feeling much better. Repeat EKG at that time showed resolution of the previously noted ST segment abnormalities. I do feel this may represent dynamic EKG changes. For this reason I feel the patient may require further inpatient management to further evaluate the cause of his symptoms. At this time the patient is still pain-free. He was treated with some Ativan because the patient does have significant anxiety issues. The patient was reevaluated multiple times. The [facility] hospitalist was notified about the patient. Triage Nursing notes reviewed. Prior medical records reviewed Vital Signs: reviewed and remarkable for elevated blood pressure. Differential diagnosis: Cardiac ischemia, aortic dissection, pulmonary embolism, pneumothorax, pneumonia, pericarditis, myocarditis, esophageal rupture, GERD, cholecystitis, pancreatitis, musculoskeletal, as well as other pathologies. ER treatment provided: See below Diagnostics interpreted by me: ECG: EKG was obtained in the emergency department. My interpretation is normal sinus rhythm at 72 bpm. There was no ectopy. There is no acute ST segment abnormalities noted. Anterior Q waves were noted. This was compared to a tracing from July 152018. No significant changes were noted. Prehospital EKGs were also reviewed in the emergency department. The initial EKG reveals normal sinus rhythm at 74 bpm. There was no ectopy. Significant inferior and low lateral ST depressions with T wave inversions were also noted. A second EKG was obtained prehospital. My interpretation is sinus rhythm at 70 bpm. There is no ectopy. Minimal improvement was noted of the previously mentioned lateral and inferior ST depressions. Cardiac Monitoring: An order was placed for continuous cardiac monitoring. The monitor shows a rate of 75 bpm with sinus rhythm. Laboratory studies: As stated above and show below. Imaging studies: See below Consultation(s): The [facility] hospitalist, Dr. Guzman was notified about the patient. Past Med/Surg History Medical History Anxiety BPH (benign prostatic hyperplasia) BPH w urinary obs/LUTS (12/15/12) Celiac disease Depression GERD (gastroesophageal reflux disease) (12/15/12) Hearing problem Hepatitis C History of heart attack 1998 HTN (hypertension) (12/15/12) Panic disorder without agoraphobia (12/15/12) Pre-diabetes Scoliosis MILD Surgical History History of cataract surgery left History of colonoscopy and endoscopy - celiac dx History of heart bypass surgery (1998) 3 vessel History of hernia repair History of prostate surgery TUNA Family History Mother Family history of diabetes mellitus Heart disease Son Family history of diabetes mellitus Sister Family history of diabetes mellitus Hypertension Denies family history of Hearing loss Allergies Bleeding disorder Cancer Stroke Asthma Social History Smoking Status: Former smoker Second Hand Exposure: No; Hx Alcohol Use: No Hx Substance Use: No Preferred Language: Georgian Communication Ability: Effective Visual Impairment: No Limitations Hearing Ability: Normal Behavioral Instructor Required: No Beliefs That Will Affect Care: None marital status: Current Living Situation: Spouse current occupational status: retired Feels Safe at Home: Yes Assistive Devices: Glasses Allergies Allergies Allergy/AdvReac Type Severity Reaction Status Date / Time gluten Allergy Unknown CELIAC Verified 09/29/20 16:52 DISEASE heparin AdvReac Unknown BURNING Verified 09/29/20 16:52 SENSATION sertraline [From Zoloft] AdvReac Unknown SUICIDAL Verified 09/29/20 16:52 THOUGHTS-FELT WEIRD Home Meds Home Medications Medication Instructions Recorded Confirmed Caltrate 600 plus D 1 tab PO BID 02/01/19 09/29/20 ascorbic acid (vitamin C) [Vitamin 500 mg PO QAM 02/01/19 09/29/20 C] aspirin 81 mg PO BID 02/01/19 09/29/20 cholecalciferol (vitamin D3) 2,000 unit PO QAM 02/01/19 09/29/20 [Vitamin D3] cyanocobalamin (vitamin B-12) 2,000 mcg PO QAM 02/01/19 09/29/20 [Vitamin B-12] melatonin 10 mg PO HS 02/01/19 09/29/20 multivitamin 1 tab PO QAM 02/01/19 09/29/20 saw palmetto 450 mg PO QPM 02/01/19 09/29/20 omega 0-qcx-juo-fish oil [Fish Oil] 1 cap PO QPM 03/22/19 09/29/20 Previous Rx's Medication Instructions Recorded atorvastatin 20 mg tablet 20 mg PO HS #90 tab 09/17/19 clonidine HCl 0.1 mg tablet 0.1 mg PO BID #180 tab 12/17/19 pantoprazole 40 mg tablet,delayed 40 mg PO QAM #90 tab 01/17/20 release minoxidil 10 mg tablet 10 mg PO BID #180 tab 01/22/20 nitroglycerin 0.4 mg sublingual 0.4 mg SUBLINGUAL UD PRN #15 tab 03/26/20 tablet furosemide 40 mg tablet 40 mg PO Q OTHER DAY #30 tab 04/15/20 clonidine 0.3 mg/24 hr weekly 0.3 mg TRANSDERMAL SA #4 ea 06/30/20 transdermal patch isosorbide mononitrate 30 mg 30 mg PO QAM #90 tab 08/18/20 tablet,extended release 24 hr valsartan 160 mg tablet 160 mg PO DAILY #90 tab 09/21/20 Results & Data (ED) Vital Signs Vital Signs - 24 hr 09/29/20 14:30 09/29/20 14:33 09/29/20 15:00 Temperature 36.9 C Temperature Source Oral Pulse Rate 73 64 Pulse Rate from SpO2 Sensor 72 61 Pulse Rhythm Regular Pulse Strength Normal Respiratory Rate 15 17 Respiratory Effort / Characteristics Non-Labored Spontaneous Respiratory Depth Normal Respiratory Pattern Regular Blood Pressure 218/112 H 218/112 H 170/80 H Blood Pressure Mean 147 156 92 Blood Pressure Position Lying Pulse Oximetry 97 98 96 Oxygen Delivery Method Room Air Sepsis Recent Fever Within 48 Hours No Sepsis New/Unexplained Change in Mental Status N/A Sepsis Action Taken by Nursing No Action Required 09/29/20 16:19 Temperature Temperature Source Pulse Rate 66 Pulse Rate from SpO2 Sensor 65 Pulse Rhythm Pulse Strength Respiratory Rate 24 Respiratory Effort / Characteristics Respiratory Depth Respiratory Pattern Blood Pressure 160/80 H Blood Pressure Mean 86 Blood Pressure Position Pulse Oximetry 96 Oxygen Delivery Method Sepsis Recent Fever Within 48 Hours Sepsis New/Unexplained Change in Mental Status Sepsis Action Taken by Group Home Medications Current Medication List: was personally reviewed by me Laboratory Data Attestation: I reviewed the patient's lab results. Result diagrams: 09/29/20 14:42 09/29/20 14:42 Lab Results 09/29/20 09/29/20 09/29/20 Range/Units 14:42 14:42 14:42 WBC 5.66 (4.8-10.8) K/uL RBC 4.15 L (4.7-6.1) M/uL Hgb 13.0 L (14.0-18.0) g/dL Hct 37.8 L (42-52) % MCV 91.1 (80-100) fL MCH 31.3 (25-34) pg MCHC 34.4 (32-36) g/dL RDW Std Deviation 44.2 (36.4-46.3) fL RDW Coeff of Gurvinder 13.2 (11.5-14.5) % Plt Count 224 (130-400) K/uL MPV 10.2 (7.4-10.4) fL Immature Gran % (Auto) 0.2 % Neut % (Auto) 73.7 % Lymph % (Auto) 11.8 % Morris % (Auto) 12.7 % Eos % (Auto) 1.2 % Baso % (Auto) 0.4 % Neut # (Auto) 4.17 (1.4-6.5) K/uL Lymph # (Auto) 0.67 L (1.2-3.4) K/uL Morris # (Auto) 0.72 H (0.11-0.59) K/uL Eos # (Auto) 0.07 (0-0.5) K/uL Baso # (Auto) 0.02 (0-0.2) K/uL Immature Gran # (Auto) 0.01 (0.00-0.02) K/uL PT 10.3 (9.0-12.0) Seconds INR 1.0 (0.9-1.1) APTT 26.8 (21.0-31.0) Seconds PTT Ratio 1.0 Sodium 129 L (136-145) mmol/L Potassium 4.6 (3.5-5.1) mmol/L Chloride 99 (98-107) mmol/L Carbon Dioxide 28 (21-32) mmol/L Anion Gap 2.0 L (3-11) BUN 16 (7-18) mg/dl Creatinine 0.90 (0.6-1.4) mg/dl Est Cr Clr Drug Dosing Not Reportable Est GFR ( Amer) 96.5 Est GFR (Non-Af Amer) 83.3 BUN/Creatinine Ratio 17.4 (10-20) Glucose 123 H (70-99) mg/dl Calcium 9.7 (8.5-10.1) mg/dl Total Bilirubin 0.5 (0.2-1) mg/dl AST 25 (15-37) U/L ALT 31 (12-78) U/L Alkaline Phosphatase 127 H (45-117) U/L Troponin I 0.039 (0-0.045) ng/ml Total Protein 7.6 (6.4-8.2) gm/dl Albumin 4.0 (3.4-5.0) gm/dl Globulin 3.6 (2.5-4.0) gm/dl Albumin/Globulin Ratio 1.1 (0.9-2) Lipase 142 (73-393) U/L Specimen Hemolysis SARS-CoV-2 Ag (Rapid) (Negative) 09/29/20 Range/Units Unknown WBC (4.8-10.8) K/uL RBC (4.7-6.1) M/uL Hgb (14.0-18.0) g/dL Hct (42-52) % MCV (80-100) fL MCH (25-34) pg MCHC (32-36) g/dL RDW Std Deviation (36.4-46.3) fL RDW Coeff of Gurvinder (11.5-14.5) % Plt Count (130-400) K/uL MPV (7.4-10.4) fL Immature Gran % (Auto) % Neut % (Auto) % Lymph % (Auto) % Morris % (Auto) % Eos % (Auto) % Baso % (Auto) % Neut # (Auto) (1.4-6.5) K/uL Lymph # (Auto) (1.2-3.4) K/uL Morris # (Auto) (0.11-0.59) K/uL Eos # (Auto) (0-0.5) K/uL Baso # (Auto) (0-0.2) K/uL Immature Gran # (Auto) (0.00-0.02) K/uL PT (9.0-12.0) Seconds INR (0.9-1.1) APTT (21.0-31.0) Seconds PTT Ratio Sodium (136-145) mmol/L Potassium (3.5-5.1) mmol/L Chloride (98-107) mmol/L Carbon Dioxide (21-32) mmol/L Anion Gap (3-11) BUN (7-18) mg/dl Creatinine (0.6-1.4) mg/dl Est Cr Clr Drug Dosing Est GFR ( Amer) Est GFR (Non-Af Amer) BUN/Creatinine Ratio (10-20) Glucose (70-99) mg/dl Calcium (8.5-10.1) mg/dl Total Bilirubin (0.2-1) mg/dl AST (15-37) U/L ALT (12-78) U/L Alkaline Phosphatase (45-117) U/L Troponin I (0-0.045) ng/ml Total Protein (6.4-8.2) gm/dl Albumin (3.4-5.0) gm/dl Globulin (2.5-4.0) gm/dl Albumin/Globulin Ratio (0.9-2) Lipase (73-393) U/L Specimen Hemolysis SARS-CoV-2 Ag (Rapid) Negative (Negative) Administered Medications Discontinued Medications Lorazepam (Ativan) 1 mg in 2 mls @ 2 mls/min IV NOW STA Stop: 09/29/20 14:37 Last Admin: 09/29/20 15:15 Dose: 2 mls/min Documented by: [id number] Labetalol HCl (Labetalol Hcl Iv 5 Mg/Ml 20ml) 10 mg IV NOW STA Stop: 09/29/20 16:15 Last Admin: 09/29/20 17:21 Dose: Not Given Documented by: [id number] Imaging Data Radiologist's Impression: Patient: KIA OWENS Admit Date: 09/29/20 MR#: [id number] Address1: [address] [place] [address] Acct ID:[id number] Address2: Date: 1945 [facility] Zip: [place] [address] Age: 75 Location: ED Sex: M Room/Bed: Att Phy: Diagnosis: Chest pain Giselle Phy: Sarah Loo CRNP Service Date: 09/29/20 [facility] Phy: Interpreting Phy: Pola Isaacs Admit Phy: Ordering Phy: Melchor Cunha DO cc: ~ XR chest 1V portable HISTORY: 75 years-old Male Chest Pain acute atypical chest pain COMPARISON: Chest radiograph 02/12/2019 TECHNIQUE: Portable AP view of the chest FINDINGS: Prior median sternotomy and CABG with moderate cardiomegaly. Calcific plaque of the thoracic aorta. Unchanged right hemidiaphragmatic elevation. No pneumothorax, pleural effusion or overt pulmonary edema. Bones appear grossly intact. IMPRESSION: No acute process. ACT 112: Negative or not required by law. The above report was generated using voice recognition software. It may contain grammatical, syntax or spelling errors. Electronically signed by: Sammy Isaacs M.D. 09/29/2020 2:53 PM Dictated: 09/29/20 1450 Transcribed: 09/29/20 1450 Blood Pressure Blood Pressure Findings: Elevated blood pressure Blood Pressure Disposition: further management by hospitalist Discharge Plan Visit Data Chief Complaint: Chest Pain Stated Complaint: Chest pain ED Provider: Melchor Cunha Discharge Problem: Chest pain, Abnormal ECG Patient Disposition: Being Evaluated by Hospitalist Condition: Good Forms Stand Alone Forms: My [facility] [employer] Prescriptions Prescriptions: No Action atorvastatin 20 mg tablet 20 mg PO HS Qty: 90 RF: 3 clonidine HCl 0.1 mg tablet 0.1 mg PO BID Qty: 180 RF: 3 pantoprazole 40 mg tablet,delayed release (DR/EC) 40 mg PO QAM Qty: 90 RF: 3 minoxidil 10 mg tablet 10 mg PO BID Qty: 180 RF: 3 furosemide 40 mg tablet 40 mg PO Q OTHER DAY Qty: 30 RF: 0 clonidine 0.3 mg/24 hr patch weekly 0.3 mg transdermal SA Qty: 4 RF: 3 isosorbide mononitrate 30 mg tablet extended release 24 hr 30 mg PO QAM Qty: 90 RF: 3 valsartan 160 mg tablet 160 mg PO DAILY Qty: 90 RF: 3 nitroglycerin 0.4 mg tablet, sublingual 0.4 mg sublingual UD PRN (Reason: Chest Pain) Qty: 15 RF: 1 multivitamin Tablet 1 tab PO QAM RF: 0 cyanocobalamin (vitamin B-12) [Vitamin B-12] 1,000 mcg Tablet 2,000 mcg PO QAM RF: 0 aspirin 81 mg Tablet,Delayed Release (Dr/Ec) 81 mg PO BID RF: 0 ascorbic acid (vitamin C) [Vitamin C] 500 mg Tablet 500 mg PO QAM RF: 0 saw palmetto 450 mg Capsule 450 mg PO QPM RF: 0 melatonin 5 mg Tablet 10 mg PO HS RF: 0 cholecalciferol (vitamin D3) [Vitamin D3] 2,000 unit Capsule 2,000 unit PO QAM RF: 0 Caltrate 600 plus D 600 mg (1,500 mg)-800 unit Tablet,Chewable 1 tab PO BID RF: 0 omega 6-xmy-pzb-fish oil [Fish Oil] 1,000 mg (120 mg-180 mg) Capsule 1 cap PO QPM RF: 0 Referrals Referrals: Sarah Loo CRNP [Primary Care Provider] - Discharge Problem: Chest pain Qualifiers: Chest pain type: unspecified Qualified Code(s): R07.9 - Chest pain, unspecified
--- NOTE | 2020-09-29 14:54 | XRay Report ---
XR chest 1V portable HISTORY: 75 years-old Male Chest Pain acute atypical chest pain COMPARISON: Chest radiograph 02/12/2019 TECHNIQUE: Portable AP view of the chest FINDINGS: Prior median sternotomy and CABG with moderate cardiomegaly. Calcific plaque of the thoracic aorta. U nchanged right hemidiaphragmatic elevation. No pneumothorax, pleural effusion or overt pulmonary zahida a. Bones appear grossly intact. IMPRESSION: No acute process. ACT 112: Negative or not required by law. The above report was generated using voice recognition software. It may contain grammatical, syntax o r spelling errors. Electronically signed by: Sammy Isaacs M.D. 09/29/2020 2:53 PM
[2020-09-29 15:08] LABS: Basophils # (auto) 0.02 K/uL (0-0.2); Basophils % (auto) 0.4 %; Eosinophils # (auto) 0.07 K/uL (0-0.5); Eosinophils % (auto) 1.2 %; Hematocrit (blood only) 37.8 % (42-52); Immature Granulocytes # (auto) 0.01 K/uL (0.00-0.02); Immature Granulocytes % (auto) 0.2 %; Lymphocytes # (auto) 0.67 K/uL (1.2-3.4); Lymphocytes % (auto) 11.8 %; Mean Corpuscular Hemoglobin 31.3 pg (25-34); Mean Corpuscular Hgb Conc 34.4 g/dL (32-36); Mean Corpuscular Volume 91.1 fL (80-100); Mean Platelet Volume 10.2 fL (7.4-10.4); Monocytes # (auto) 0.72 K/uL (0.11-0.59); Monocytes % (auto) 12.7 %; Neutrophils # (auto) 4.17 K/uL (1.4-6.5); Neutrophils % (auto) 73.7 %; Platelet Count 224 K/uL (130-400); RDW Coefficient of Variation 13.2 % (11.5-14.5); RDW Standard Deviation 44.2 fL (36.4-46.3); Red Blood Count 4.15 M/uL (4.7-6.1); White Blood Count 5.66 K/uL (4.8-10.8)
[2020-09-29 15:24] LABS: Partial Thromboplastin Time 26.8 Seconds (21.0-31.0); Prothrombin Time 10.3 Seconds (9.0-12.0)
--- NOTE | 2020-09-29 15:43 | Electrocardiogram Report ---
Test Reason : Blood Pressure : / mmHG Vent. Rate : 072 BPM Atrial Rate : 072 BPM P-R Int : 206 ms QRS Dur : 112 ms QT Int : 360 ms P-R-T Axes : 055 021 031 degrees QTc Int : 394 ms Normal sinus rhythm Possible Left atrial enlargement Septal infarct , age undetermined Abnormal ECG When compared with ECG of 15-JUL-2019 14:10, Premature ventricular complexes are no longer Present Septal infarct is now Present Confirmed by Melchor Gaviria ([id number]) on 09/29/2020 3:43:26 PM Referred By: REFERRED SELF Confirmed By:Melchor Gaviria
[2020-09-29 15:48] LABS: Alanine Aminotransferase 31 U/L (12-78); Albumin Globulin Ratio 1.1 (0.9-2); Alkaline Phosphatase 127 U/L (45-117); Aspartate Aminotransferase 25 U/L (15-37); BUN Creatinine Ratio 17.4 (10-20); Bilirubin,Total 0.5 mg/dl (0.2-1); Blood Urea Nitrogen 16 mg/dl (7-18); Calcium 9.7 mg/dl (8.5-10.1); Carbon Dioxide 28 mmol/L (21-32); Chloride 99 mmol/L (98-107); Est GFR (African American) 96.5; Est GFR (Non-African American) 83.3; Globulin 3.6 gm/dl (2.5-4.0); Glucose 123 mg/dl (70-99); Lipase 142 U/L (73-393); Potassium 4.6 mmol/L (3.5-5.1); Sodium 129 mmol/L (136-145); Total Protein 7.6 gm/dl (6.4-8.2); Troponin I 0.039 ng/ml (0-0.045)
[2020-09-29] MEDS ORDERED: LABETALOL HCL IV 5 MG/ML 20ML IV STA (16:14)
[2020-09-29] MEDS ORDERED: ONDANSETRON INJ 2 MG/ML 2 ML VIAL IV PRN (18:03)
[2020-09-29] MEDS ORDERED: SODIUM CHLORIDE 0.9% 1000ML 1,000 ML IV SCH (18:15)
--- NOTE | 2020-09-29 18:17 | History & Physical Report ---
Date of Service September 29, 2020 Assessment & Plan (1) Chest pain: Mr. Rolle is a 75 yo M with a PMHX of CAD (s/p triple bypass graft 20 years ago) who experienced exertional left sided chest discomfort today. He is being admitted for acute coronary syndrome rule out. - HEART score 4 on admission - risk factors include hx CAD, HTN and prediabetes - EKG on admission without ST segment changes - initial troponin detectable but not elevated at 0.039 - trend trops q6 hr - echo in AM - cardiology consult (2) Labile hypertension: - patient is on valsartan, minoxidil and clonidine (3rd line agents) as well as furosemide 40mg, every other day - sys > 200, diastolic > 110 on arrival. BP down to 160/80 at the time of admission (3) CAD (coronary artery disease): - history of triple bypass 20 years ago - follows with [facility] - continue atorvastatin 20mg and daily baby ASA - blood pressure management as above - patient is a non-smoker (4) Dyslipidemia: - continue home atorvastatin - lipid panel in am (5) Pre-diabetes: - HbA1c 6.0 from 09/02/20 - at goal for age; recommend against adding pharmacotherapy Diet: Heart Healthy, NPO after midnight in the event of a cath tomorrow DVT ppx: SCDs Dispo: Med/Surg with tele Code: DNR/DNI History of Present Illness Primary Care Provider: LUIS Greene Mr. Rolle is a 75 yo male with a PMHx of CAD (history of 3 vessel bypass graft 20 years ago) who came in the emergency department for evaluation of left sided chest pain. He first noticed the pain when out for his daily walk this morning - it came on when he began ascending a hill in his neighborhood. The pain radiated down his left arm. He was sweaty in his underarms, but not diffusely diaphoretic. He denies any associated nausea or shortness of breath. He was able to walk the rest of the way home and the pain abated after 20-30 minutes. He did not need to take a nitroglycerin. Mr. Rolle does have a history of anxiety, but he denies any acute worsening of symptoms, his stress level is normal. He follows with Dr. Ramos in [facility] given his history of CAGB - last visit was 08/2020. In addition to his history of triple bypass, his other CAD risk factors include HTN and prediabetes. He is a non-smoker. In the ED, his EKG was normal sinus rhythm at 72 bpm without ectopy or ST segment changes; Q waves visualized in anterior leads. Trop was detectable but not elevated at 0.039. CXR showing no active disease. Lipase not elevated. Allergies Allergy/AdvReac Type Severity Reaction Status Date / Time gluten Allergy Unknown CELIAC Verified 09/29/20 16:52 DISEASE heparin AdvReac Unknown BURNING Verified 09/29/20 16:52 SENSATION sertraline [From Zoloft] AdvReac Unknown SUICIDAL Verified 09/29/20 16:52 THOUGHTS-FELT WEIRD Home Medications Medication Instructions Recorded Confirmed Type Caltrate 600 plus D 1 tab PO BID 02/01/19 09/29/20 History ascorbic acid (vitamin C) [Vitamin 500 mg PO QAM 02/01/19 09/29/20 History C] aspirin 81 mg PO BID 02/01/19 09/29/20 History cholecalciferol (vitamin D3) 2,000 unit PO QAM 02/01/19 09/29/20 History [Vitamin D3] cyanocobalamin (vitamin B-12) 2,000 mcg PO QAM 02/01/19 09/29/20 History [Vitamin B-12] melatonin 10 mg PO HS 02/01/19 09/29/20 History multivitamin 1 tab PO QAM 02/01/19 09/29/20 History saw palmetto 450 mg PO QPM 02/01/19 09/29/20 History omega 5-wkk-cue-fish oil [Fish Oil] 1 cap PO QPM 03/22/19 09/29/20 History atorvastatin 20 mg tablet 20 mg PO HS #90 tab 09/17/19 09/29/20 Rx clonidine HCl 0.1 mg tablet 0.1 mg PO BID #180 tab 12/17/19 09/29/20 Rx pantoprazole 40 mg tablet,delayed 40 mg PO QAM #90 tab 01/17/20 09/29/20 Rx release minoxidil 10 mg tablet 10 mg PO BID #180 tab 01/22/20 09/29/20 Rx nitroglycerin 0.4 mg sublingual 0.4 mg SUBLINGUAL UD PRN #15 tab 03/26/20 09/29/20 Rx tablet furosemide 40 mg tablet 40 mg PO Q OTHER DAY #30 tab 04/15/20 09/29/20 Rx clonidine 0.3 mg/24 hr weekly 0.3 mg TRANSDERMAL SA #4 ea 06/30/20 09/29/20 Rx transdermal patch isosorbide mononitrate 30 mg 30 mg PO QAM #90 tab 08/18/20 09/29/20 Rx tablet,extended release 24 hr valsartan 160 mg tablet 160 mg PO DAILY #90 tab 09/21/20 09/29/20 Rx Past Med/Surg History Medical History (Updated 09/30/20 @ 09:51 by Yifan Lyle PA-C) Anxiety BPH (benign prostatic hyperplasia) BPH w urinary obs/LUTS (12/15/12) Celiac disease Depression GERD (gastroesophageal reflux disease) (12/15/12) Hearing problem Hepatitis C History of heart attack 1998 HTN (hypertension) (12/15/12) Panic disorder without agoraphobia (12/15/12) Pre-diabetes Scoliosis MILD Surgical History History of cataract surgery left History of colonoscopy and endoscopy - celiac dx History of heart bypass surgery (1998) 3 vessel History of hernia repair History of prostate surgery TUNA Family History Mother Family history of diabetes mellitus Heart disease Son Family history of diabetes mellitus Sister Family history of diabetes mellitus Hypertension Denies family history of Hearing loss Allergies Bleeding disorder Cancer Stroke Asthma Social History Smoking Status: Former smoker Cigarettes Per Day: Pt states "few"; Second Hand Exposure: No; Hx Alcohol Use: No Hx Substance Use: No Preferred Language: Macanese Communication Ability: Effective Visual Impairment: No Limitations Hearing Ability: Normal 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 Required: No Beliefs That Will Affect Care: None marital status: Current Living Situation: Spouse current occupational status: retired Other Information That Helps Us Care for You: No Feels Safe at Home: Yes Safety Concerns: Feels Safe At This Time Assistive Devices: None Review of Systems Cardiovascular: + chest pain with activity; no dyspnea on exertion Physical Exam Constitutional: WD/WN, vitals as above cooperative; no acute distress Eyes: + anicteric sclerae ENMT: external ear and nose normal, oropharynx normal Neck: normal visual inspection and trachea midline Respiratory: normal respiratory effort, lungs clear to auscultation no cough Auscultation: no crackles, no rales, no rhonchi and no wheezes Cardiovascular: Rate/Rhythm: regular rate and regular rhythm Heart Sounds: normal S1, normal S2 and + murmur (systolic ejection, radiates to neck, 2/6) Vessels: normal carotid upstroke; no JVD and no carotid bruit Extremities: no pedal edema Gastrointestinal (Abdomen): normal bowel sounds, soft, nontender, no hepatosplenomegaly Skin: no rashes, warm and dry Psychiatric: A+Ox3, euthymic affect Results & Data Results & Data ([facility]) Vital Signs (Past 12 Hours) Vital Signs Temp Pulse Resp BP Pulse Ox 09/29/20 16:19 66 24 160/80 H 96 09/29/20 15:00 64 17 170/80 H 96 09/29/20 14:33 218/112 H 98 09/29/20 14:30 36.9 C 73 15 218/112 H 97 Supervising Physician Co-Signing Physician Notes I personally saw and examined the patient. I verified all villagomez points and agree with resident physician With the following exceptions and/or additions: 75-year-old male with known coronary artery disease s/p bypass. Exertional chest pain lasting for 20 to 30 minutes which she continued to work through but did not immediately go away with rest. O/E HS1+2 , RRR, no murmurs, Chest CTAB Chest pain r/o DE - given duration of 20-30 minutes and no previous stable angina recommend observation overnight with serial troponins and cardiology consult in AM. NPO after midnight. Hypertensive urgency - known labile BP will continue his usual antihypertensive medication with additional clonidine as needed Resident Activity Tracking Resident Involvement: Resident Care Provided Care Provided: Adult Hospital Medicine (1) Chest pain Chest pain type: unspecified Qualified Code(s): R07.9 - Chest pain, unspecifi ed
[2020-09-29] MEDS: cloNIDine HCL 0.1 MG TAB PO SCH (20:51)
[2020-09-29] MEDS ORDERED: MELATONIN 3 MG TAB PO SCH (21:00)
[2020-09-30] MEDS ORDERED: SODIUM CHLORIDE 0.9% 1000ML 1,000 ML IV SCH
[2020-09-30] MEDS: minoxidiL 2.5 MG TAB PO SCH ×2 (01:02→09:19)
[2020-09-30] MEDS: cloNIDine HCL 0.1 MG TAB PO SCH (07:40)
[2020-09-30] MEDS ORDERED: CHECK CLONIDINE PATCH PLACEMENT SCH (08:00)
[2020-09-30 08:42] LABS: BUN Creatinine Ratio 16.7 (10-20); Calcium 10.3 mg/dl (8.5-10.1); Creatinine Clr Calc Pharmacy 79.2 ml/min; Est GFR (African American) 103.4; Est GFR (Non-African American) 89.2; Potassium 4.3 mmol/L (3.5-5.1)
[2020-09-30] MEDS ORDERED: CHOLECALCIFEROL 1,000 UNITS 25 MCG TAB PO SCH (09:00)
[2020-09-30] MEDS ORDERED: ISOSORBIDE MONO EXTENDED REL 30 MG TABCR PO SCH (09:00)
[2020-09-30] MEDS ORDERED: PANTOprazole 40 MG TAB PO SCH (09:00)
[2020-09-30] MEDS ORDERED: VALSARTAN 80 MG TAB PO SCH (09:00)
[2020-09-30] MEDS ORDERED: MULTIVITAMIN TAB PO SCH (09:00)
[2020-09-30] MEDS ORDERED: FUROSEMIDE 40 MG TAB PO SCH (09:00)
[2020-09-30] MEDS ORDERED: CYANOCOBALAMIN 500 MCG TABLET (VITAMIN B-12) PO SCH (09:00)
[2020-09-30] MEDS ORDERED: ASPIRIN 81 MG ECTAB PO SCH (09:00)
--- NOTE | 2020-09-30 09:34 | Cardiology Consultation ---
Date of Consultation September 30, 2020 Assessment & Plan (1) Chest pain, exertional: Mr. Rolle is a 75-year-old male with a history of CAD s/p CABG 1998, resolved Cardiomyopathy, Anxiety, Prediabetes, Dyslipidemia, Chronically Abnormal EKG (ST elevations in leads V1, V2), and Labile HTN who presented to [facility] ER on 09/29/2020 after having an episode of Exertional Left Sided Chest Pain -- which may have represented Angina -- that occurred while walking through his neighborhood, lasting approximately 5 to 10 minutes, and he felt that it may have radiated to his left arm. He did not have any associated symptoms -- and he specifically denies any associated nausea, vomiting, diaphoresis, or dyspnea. He did not take anything for his chest pain, it resolved spontaneously. Patient subsequently called 911 and was brought in. He has not had any recurrent symptoms since he was brought into the hospital. He has been walking in his room and denies any recurrent chest discomfort. His Troponin I levels are 0.041 and 0.043 ng/ml thus far. EKG on admission shows chronic ST elevations in V1 and V2. No significant change compared to 07/15/2019 tracing. Recommend the following: -- Obtain 3rd Troponin I level -- if it is within normal limits we will do a stress echocardiogram. -- Continue Aspirin 81 mg daily. -- Continue Atorvastatin 20 mg daily. -- Continue Imdur ER 30 mg daily. -- Continue Valsartan 160 mg daily. -- Continue [place] 3 Fish Oil Capsules daily. (2) CAD (coronary artery disease): -- Continue Aspirin 81 mg daily. -- Continue Atorvastatin 20 mg daily. -- Continue Imdur ER 30 mg daily. -- Continue Valsartan 160 mg daily. -- Continue Gum [place] 3 Fish Oil Capsules daily. (3) Labile hypertension: -- Continue Minoxidil 10 mg daily. -- Continue Lasix 40 mg every other day. -- Continue Clonidine Transdermal Clonidine 0.3 mg/24hours every week. -- Continue Clonidine 0.1 mg b.i.d.. -- Continue Valsartan 160 mg daily. (4) Abnormal ECG: -- Chronically abnormal EKG showing ST elevation in leads V1 and V2. -- EKG tracing is stable. (5) Dyslipidemia: -- Cholesterol medications as outlined above. History of Present Illness Reason for Consultation: -- Exertional Chest Pain. Requesting Physician: Rodolfo Shipman Attending Physician: Melchor Gaviria MD History of Present Illness Mr. Rolle is a 75-year-old male with a history of CAD s/p CABG 1998, resolved Cardiomyopathy, Anxiety, Prediabetes, Dyslipidemia, Chronically Abnormal EKG (ST elevations in leads V1, V2), and Labile HTN who presented to [facility] ER on 09/29/2020 after having an episode of Exertional Left Sided Chest Pain while walking through his neighborhood that lasted approximately 5 to 10 minutes, and he felt that it may have radiated to his left arm. He did not have any associated symptoms -- and he specifically denies any associated nausea, vomiting, diaphoresis, or dyspnea. He did not take anything for his chest pain, it resolved spontaneously. Patient subsequently called 911 and was brought in. He has not had any recurrent symptoms since he was brought into the hospital. He has been walking in his room and denies any recurrent chest discomfort. His Troponin I levels are 0.041 and 0.043 ng/ml thus far. EKG on admission shows chronic ST elevations in V1 and V2. No significant change compared to 07/15/2019 tracing. Allergies Allergy/AdvReac Type Severity Reaction Status Date / Time gluten Allergy Unknown CELIAC Verified 09/29/20 16:52 DISEASE heparin AdvReac Unknown BURNING Verified 09/29/20 16:52 SENSATION sertraline [From Zoloft] AdvReac Unknown SUICIDAL Verified 09/29/20 16:52 THOUGHTS-FELT WEIRD Home Medications Medication Instructions Recorded Confirmed Type Caltrate 600 plus D 1 tab PO BID 02/01/19 09/29/20 History ascorbic acid (vitamin C) [Vitamin 500 mg PO QAM 02/01/19 09/29/20 History C] aspirin 81 mg PO BID 02/01/19 09/29/20 History cholecalciferol (vitamin D3) 2,000 unit PO QAM 02/01/19 09/29/20 History [Vitamin D3] cyanocobalamin (vitamin B-12) 2,000 mcg PO QAM 02/01/19 09/29/20 History [Vitamin B-12] melatonin 10 mg PO HS 02/01/19 09/29/20 History multivitamin 1 tab PO QAM 02/01/19 09/29/20 History saw palmetto 450 mg PO QPM 02/01/19 09/29/20 History omega 0-oij-oha-fish oil [Fish Oil] 1 cap PO QPM 03/22/19 09/29/20 History atorvastatin 20 mg tablet 20 mg PO HS #90 tab 09/17/19 09/29/20 Rx clonidine HCl 0.1 mg tablet 0.1 mg PO BID #180 tab 12/17/19 09/29/20 Rx pantoprazole 40 mg tablet,delayed 40 mg PO QAM #90 tab 01/17/20 09/29/20 Rx release minoxidil 10 mg tablet 10 mg PO BID #180 tab 01/22/20 09/29/20 Rx nitroglycerin 0.4 mg sublingual 0.4 mg SUBLINGUAL UD PRN #15 tab 03/26/20 09/29/20 Rx tablet furosemide 40 mg tablet 40 mg PO Q OTHER DAY #30 tab 04/15/20 09/29/20 Rx clonidine 0.3 mg/24 hr weekly 0.3 mg TRANSDERMAL SA #4 ea 06/30/20 09/29/20 Rx transdermal patch isosorbide mononitrate 30 mg 30 mg PO QAM #90 tab 08/18/20 09/29/20 Rx tablet,extended release 24 hr valsartan 160 mg tablet 160 mg PO DAILY #90 tab 09/21/20 09/29/20 Rx Patient History Medical History (Updated 09/30/20 @ 09:51 by Yifan Lyle PA-C) Anxiety BPH (benign prostatic hyperplasia) BPH w urinary obs/LUTS (12/15/12) Celiac disease Depression GERD (gastroesophageal reflux disease) (12/15/12) Hearing problem Hepatitis C History of heart attack 1998 HTN (hypertension) (12/15/12) Panic disorder without agoraphobia (12/15/12) Pre-diabetes Scoliosis MILD Surgical History History of cataract surgery left History of colonoscopy and endoscopy - celiac dx History of heart bypass surgery (1998) 3 vessel History of hernia repair History of prostate surgery TUNA Family History Mother Family history of diabetes mellitus Heart disease Son Family history of diabetes mellitus Sister Family history of diabetes mellitus Hypertension Denies family history of Hearing loss Allergies Bleeding disorder Cancer Stroke Asthma Social History Smoking Status: Former smoker Cigarettes Per Day: Pt states "few"; Second Hand Exposure: No; Hx Alcohol Use: No Hx Substance Use: No Preferred Language: Greek Communication Ability: Effective Visual Impairment: No Limitations Hearing Ability: Normal Acoustical Installer Required: No Beliefs That Will Affect Care: None marital status: Current Living Situation: Spouse current occupational status: retired Other Information That Helps Us Care for You: No Feels Safe at Home: Yes Safety Concerns: Feels Safe At This Time Assistive Devices: None Physical Exam Physical Exam: General: Patient in no acute distress. HEENT: Head is atraumatic, normocephalic. EOMs intact. Sclera anicteric. Facies symmetric. No perioral cyanosis. Neck: No JVD. Carotid upstrokes are +2 bilaterally without bruits. JVP is at the level of the clavicle sitting upright. Chest and Lungs: Clear to auscultation throughout all lung acosta, no wheezes, rales, or rhonchi. CVS: S1 and S2 are regular with a grade 2/6 systolic murmur at the left upper sternal border. No gallops or rubs. PMI is nondisplaced. No lifts, heaves, or thrills. No abdominal aortic or renal bruits. Abdominal Exam: Bowel sounds present. No masses, organomegaly, or tenderness. Extremities: No clubbing, cyanosis, or edema. Intact posterior tibial pulses. Normal right radial artery pulsation. Left radial artery is surgically absent. Neurologic Exam: Patient is awake, alert, and oriented. Pleasant and cooperative. Answers questions appropriately. Speech is clear. Results & Data ([facility]) Vital Signs (Past 12 Hours) Vital Signs Temp Pulse Pulse Resp BP Pulse Ox 09/30/20 07:51 36.7 C 66 20 175/81 H 95 09/30/20 07:00 64 09/30/20 03:03 36.9 C 56 L 18 161/77 H 96 09/30/20 00:38 68 09/29/20 22:59 37.0 C 65 18 193/81 H 97 09/29/20 21:35 64 Laboratory Results Laboratory Results - last 24 hr 09/29/20 09/29/20 09/29/20 14:42 14:42 14:42 WBC 5.66 RBC 4.15 L Hgb 13.0 L Hct 37.8 L MCV 91.1 MCH 31.3 MCHC 34.4 RDW Std Deviation 44.2 RDW Coeff of Gurvinder 13.2 Plt Count 224 MPV 10.2 Immature Gran % (Auto) 0.2 Neut % (Auto) 73.7 Lymph % (Auto) 11.8 [place] % (Auto) 12.7 Eos % (Auto) 1.2 Baso % (Auto) 0.4 Neut # (Auto) 4.17 Lymph # (Auto) 0.67 L [place] # (Auto) 0.72 H Eos # (Auto) 0.07 Baso # (Auto) 0.02 Immature Gran # (Auto) 0.01 PT 10.3 INR 1.0 APTT 26.8 PTT Ratio 1.0 Sodium 129 L Potassium 4.6 Chloride 99 Carbon Dioxide 28 Anion Gap 2.0 L BUN 16 Creatinine 0.90 Est Cr Clr Drug Dosing Not Reportable Est GFR ( Amer) 96.5 Est GFR (Non-Af Amer) 83.3 BUN/Creatinine Ratio 17.4 Glucose 123 H Calcium 9.7 Total Bilirubin 0.5 AST 25 ALT 31 Alkaline Phosphatase 127 H Troponin I 0.039 Total Protein 7.6 Albumin 4.0 Globulin 3.6 Albumin/Globulin Ratio 1.1 Triglycerides Cholesterol LDL Cholesterol, Calc VLDL Cholesterol, Calc HDL Cholesterol Cholesterol/HDL Ratio Lipase 142 Specimen Hemolysis SARS-CoV-2 Ag (Rapid) 09/29/20 09/29/20 09/30/20 23:40 Unknown 07:45 WBC RBC Hgb Hct MCV MCH MCHC RDW Std Deviation RDW Coeff of Gurvinder Plt Count MPV Immature Gran % (Auto) Neut % (Auto) Lymph % (Auto) [place] % (Auto) Eos % (Auto) Baso % (Auto) Neut # (Auto) Lymph # (Auto) [place] # (Auto) Eos # (Auto) Baso # (Auto) Immature Gran # (Auto) PT INR APTT PTT Ratio Sodium 135 L Potassium 4.3 Chloride 104 Carbon Dioxide 26 Anion Gap 5.0 BUN 13 Creatinine 0.76 Est Cr Clr Drug Dosing 79.2 Est GFR ( Amer) 103.4 Est GFR (Non-Af Amer) 89.2 BUN/Creatinine Ratio 16.7 Glucose 102 H Calcium 10.3 H Total Bilirubin AST ALT Alkaline Phosphatase Troponin I 0.041 Total Protein Albumin Globulin Albumin/Globulin Ratio Triglycerides 71 Cholesterol 134 LDL Cholesterol, Calc 45 VLDL Cholesterol, Calc 14 HDL Cholesterol 75 Cholesterol/HDL Ratio 2 Lipase Specimen Hemolysis SARS-CoV-2 Ag (Rapid) Negative 09/30/20 07:45 WBC RBC Hgb Hct MCV MCH MCHC RDW Std Deviation RDW Coeff of Gurvinder Plt Count MPV Immature Gran % (Auto) Neut % (Auto) Lymph % (Auto) [place] % (Auto) Eos % (Auto) Baso % (Auto) Neut # (Auto) Lymph # (Auto) [place] # (Auto) Eos # (Auto) Baso # (Auto) Immature Gran # (Auto) PT INR APTT PTT Ratio Sodium Potassium Chloride Carbon Dioxide Anion Gap BUN Creatinine Est Cr Clr Drug Dosing Est GFR ( Amer) Est GFR (Non-Af Amer) BUN/Creatinine Ratio Glucose Calcium Total Bilirubin AST ALT Alkaline Phosphatase Troponin I 0.043 Total Protein Albumin Globulin Albumin/Globulin Ratio Triglycerides Cholesterol LDL Cholesterol, Calc VLDL Cholesterol, Calc HDL Cholesterol Cholesterol/HDL Ratio Lipase Specimen Hemolysis SARS-CoV-2 Ag (Rapid) Medications Administered Active Medications Generic Name Dose Route Start Last Admin Trade Name Freq PRN Reason Stop Dose Admin Aspirin 81 mg 09/30/20 09:00 09/30/20 09:19 Aspirin 81 Mg Ectab PO 10/30/20 08:59 81 mg BID NINFA Administration Atorvastatin Calcium 20 mg 09/30/20 21:00 Atorvastatin 20 Mg Tab PO 10/30/20 20:59 HS NINFA Clonidine HCl 0.1 mg 09/29/20 21:00 09/30/20 07:40 Clonidine Hcl 0.1 Mg Tab PO 10/29/20 20:59 0.1 mg BID NINFA Administration Clonidine HCl 1 patch 10/03/20 09:00 Clonidine Hcl 0.3 Mg/24 Hr Transderm Sys TD 11/02/20 08:59 Sa@0900 NINFA Cyanocobalamin 2,000 mcg 09/30/20 09:00 09/30/20 09:20 Cyanocobalamin 500 Mcg Tablet (Vitamin B-12) PO 10/30/20 08:59 Not Given QAM NINFA Furosemide 40 mg 09/30/20 09:00 09/30/20 07:42 Furosemide 40 Mg Tab PO 10/30/20 08:59 40 mg Q2D@0900 NINFA Administration Sodium Chloride 1,000 mls @ 75 mls/hr 09/30/20 00:00 09/30/20 01:03 Nss 1000ml IV 10/30/20 00:00 75 mls/hr .[id number] NINFA Administration Isosorbide Mononitrate 30 mg 09/30/20 09:00 09/30/20 07:41 Isosorbide [place] Extended Rel 30 Mg Tabcr PO 10/30/20 08:59 30 mg QAM NINFA Administration Melatonin 9 mg 09/29/20 21:00 09/29/20 22:14 Melatonin 3 Mg Tab PO 10/29/20 20:59 9 mg HS NINFA Administration Minoxidil 10 mg 09/30/20 00:15 09/30/20 09:19 Minoxidil 2.5 Mg Tab PO 10/30/20 00:14 10 mg BID NINFA Administration Miscellaneous 1 ea 10/03/20 08:59 Remove Clonidine Patch N/A 11/02/20 08:58 Sa@0859 NINFA Miscellaneous 1 ea 09/30/20 08:00 09/30/20 07:57 Check Clonidine Patch Placement N/A 10/30/20 07:59 1 ea QS NINFA Administration Multivitamins 1 tab 09/30/20 09:00 09/30/20 09:19 Multivitamin Tab PO 10/30/20 08:59 Not Given QAM NINFA Nitroglycerin 0.4 mg 09/29/20 14:36 Nitroglycerin Sl 0.4 Mg/Tab Tab SL 10/29/20 14:35 UD PRN Chest Pain Ondansetron HCl 4 mg 09/29/20 18:03 Ondansetron Inj 2 Mg/Ml 2 Ml Vial IV 10/29/20 18:02 Q6H PRN Nausea Pantoprazole Sodium 40 mg 09/30/20 09:00 09/30/20 09:20 Pantoprazole 40 Mg Tab PO 10/30/20 08:59 Not Given QAM NINFA Valsartan 160 mg 09/30/20 09:00 09/30/20 07:45 Valsartan 80 Mg Tab PO 10/30/20 08:59 160 mg DAILY NINFA Administration Vitamin D 2,000 units 09/30/20 09:00 09/30/20 09:20 Cholecalciferol 1,000 Units 25 Mcg Tab PO 10/30/20 08:59 Not Given QAM NINFA PG Care Time/CCT Total # of Minutes Spent Total Time Spent with Patient: Total time spent is greater than 50% in coordination of care (as documented) at patient's floor/unit and/or counseling patient:35 Coding Level of Care Code 10411 Initial Inpt Care Lvl 3 Diagnoses Chest pain, exertional R07.9 CAD (coronary artery disease) I25.10 Labile hypertension R09.89 Abnormal ECG R94.31 Dyslipidemia E78.5
--- NOTE | 2020-09-30 10:42 | Billing Data ---
Date of Service September 29, 2020 Coding Level of Care Code 16980 OBS Care - Level 2
--- NOTE | 2020-09-30 15:22 | XCELERA ---
[id number] \\[id number]
--- NOTE | 2020-09-30 15:26 | XCELERA ---
[id number] \\[id number]
[2020-09-30] MEDS ORDERED: NON-FORMULARY MEDICATION (Saw Palmetto 450 mg Capsule) PO SCH (21:00)
[2020-09-30] MEDS ORDERED: ATORVASTATIN 20 MG TAB PO SCH (21:00)
--- NOTE | 2020-10-01 13:45 | Discharge Summary ---
Date of Service September 30, 2020 Admission HPI Per Admitting Provider Mr. Rolle is a 75 yo male with a PMHx of CAD (history of 3 vessel bypass graft 20 years ago) who came in the emergency department for evaluation of left sided chest pain. He first noticed the pain when out for his daily walk this morning - it came on when he began ascending a hill in his neighborhood. The pain radiated down his left arm. He was sweaty in his underarms, but not diffusely diaphoretic. He denies any associated nausea or shortness of breath. He was able to walk the rest of the way home and the pain abated after 20-30 minutes. He did not need to take a nitroglycerin. Mr. Rolle does have a h istory of anxiety, but he denies any acute worsening of symptoms, his stress level is normal. He follows with Dr. Ramos in [facility] given his history of CAGB - last visit was 08/2020. In addition to his history of triple bypass, his other CAD risk factors include HTN and prediabetes. He is a non-smoker. In the ED, his EKG was normal sinus rhythm at 72 bpm without ectopy or ST segment changes; Q waves visualized in anterior leads. Trop was detectable but not elevated at 0.039. CXR showing no active disease. Lipase not elevated. Principal Diagnosis chest pain Discharge Exam Constitutional: WD/WN, vitals as above cooperative; no acute distress Eyes: + anicteric sclerae ENMT: external ear and nose normal, oropharynx normal Neck: normal visual inspection and trachea midline Respiratory: normal respiratory effort, lungs clear to auscultation no cough Auscultation: no crackles, no rales, no rhonchi and no wheezes Cardiovascular: Rate/Rhythm: regular rate and regular rhythm Heart Sounds: normal S1, normal S2 and + murmur (systolic ejection, radiates to neck, 2/6) Vessels: normal carotid upstroke; no JVD and no carotid bruit Extremities: no pedal edema Gastrointestinal (Abdomen): normal bowel sounds, soft, nontender, no hepatosplenomegaly Skin: no rashes, warm and dry Psychiatric: A+Ox3, euthymic affect Discharge Data Allergies Allergy/AdvReac Type Severity Reaction Status Date / Time gluten Allergy Unknown CELIAC Verified 09/29/20 16:52 DISEASE heparin AdvReac Unknown BURNING Verified 09/29/20 16:52 SENSATION sertraline [From Zoloft] AdvReac Unknown SUICIDAL Verified 09/29/20 16:52 THOUGHTS-FELT WEIRD Consultations 09/29/20 16:55 ED Decision to Admit Stat 09/29/20 18:03 Consult Cardiology Routine Hospital Course (1) Chest pain: Mr. Rolle is a 75 yo M with a PMHX of CAD (s/p triple bypass graft 20 years ago) who experienced exertional left sided chest discomfort today. He is being admitted for acute coronary syndrome rule out. - HEART score 4 on admission - risk factors include hx CAD, HTN and prediabetes - EKG on admission without ST segment changes - initial troponin detectable but not elevated at 0.039 -Patient ferrera da negative stress test. -d/w CARDIO, NO FURTHER WORKUP REQUIRED AT THIS TIME. (2) Labile hypertension: patient is on valsartan, minoxidil and clonidine (3rd line agents) as well as furosemide 40mg, every other day - sys > 200, diastolic > 110 on arrival. BP down to 160/80 at the time of admission. BP has been elevated, however may be due to being in hospital.. will recommend close followup with PCP and cardio as outpatient (3) CAD (coronary artery disease): - history of triple bypass 20 years ago - follows with [facility] - continue atorvastatin 20mg and daily baby ASA - blood pressure management as above - patient is a non-smoker (4) Dyslipidemia: - continue home atorvastatin (5) Pre-diabetes: - HbA1c 6.0 from 09/02/20 - at goal for age; recommend against adding pharmacotherapy Total Time Total Time Spent Total Time Spent (In Minutes): 32 Discharge Plan Discharge Items Patient Disposition: Home - Self-Care Reason For Visit: Chest pain Discharge Diagnosis: chest pain Condition on Discharge: Good Activity: Resume your previous activity Non-emergency contact: Primary Care Provider Call non-emergency contact if: you have any medication questions Follow-up/Referrals: Sarah Loo CRNP [Primary Care Provider] - 10/08/20 11:10 am Diet: Heart Healthy Addtl Attending Provider Instructions: You have been hospitalized for chest pain. You were seen by cardiology, in which you had a negative stress test. Medications were used to bring your condition under control and your discharge instructions will include directions for any medications you should take after leaving the hospital. Please make sure you see your Primary Care Provider as part of your follow up plan. Pending Studies at Discharge: No Stand-Alone Forms: My [facility] [address], Smoking Cessation Medications and DC Order Prescriptions: Continued atorvastatin 20 mg tablet 20 mg PO HS Qty: 90 RF: 3 clonidine HCl 0.1 mg tablet 0.1 mg PO BID Qty: 180 RF: 3 pantoprazole 40 mg tablet,delayed release (DR/EC) 40 mg PO QAM Qty: 90 RF: 3 minoxidil 10 mg tablet 10 mg PO BID Qty: 180 RF: 3 furosemide 40 mg tablet 40 mg PO Q OTHER DAY Qty: 30 RF: 0 clonidine 0.3 mg/24 hr patch weekly 0.3 mg transdermal SA Qty: 4 RF: 3 isosorbide mononitrate 30 mg tablet extended release 24 hr 30 mg PO QAM Qty: 90 RF: 3 valsartan 160 mg tablet 160 mg PO DAILY Qty: 90 RF: 3 nitroglycerin 0.4 mg tablet, sublingual 0.4 mg sublingual UD PRN (Reason: Chest Pain) Qty: 15 RF: 1 multivitamin Tablet 1 tab PO QAM RF: 0 cyanocobalamin (vitamin B-12) [Vitamin B-12] 1,000 mcg Tablet 2,000 mcg PO QAM RF: 0 aspirin 81 mg Tablet,Delayed Release (Dr/Ec) 81 mg PO BID RF: 0 ascorbic acid (vitamin C) [Vitamin C] 500 mg Tablet 500 mg PO QAM RF: 0 saw palmetto 450 mg Capsule 450 mg PO QPM RF: 0 melatonin 5 mg Tablet 10 mg PO HS RF: 0 cholecalciferol (vitamin D3) [Vitamin D3] 2,000 unit Capsule 2,000 unit PO QAM RF: 0 Caltrate 600 plus D 600 mg (1,500 mg)-800 unit Tablet,Chewable 1 tab PO BID RF: 0 omega 8-[id number]-fish oil [Fish Oil] 1,000 mg (120 mg-180 mg) Capsule 1 cap PO QPM RF: 0 Discharge Orders: Discharge Order (Routine); Ordered 09/30/20 Ordered By: Rodolfo Shipman Admission Data Admit Date/Time: 09/29/20 18:18 Attending Provider: Rodolfo Shipman Admit Provider: Corin Garcia Primary Care Provider: Sarah Loo Other Providers: Waqar Guzman ; Melchor Gaviria Other Interventions: Discharge Summary Assessment (RN) Last Done: 09/30/20 14:56 Coding Level of Care Code D/C Day Management >30 mins Diagnoses Chest pain R07.9 Chest pain type: unspecified Labile hypertension R09.89 CAD (coronary artery disease) I25.10 Dyslipidemia E78.5 Pre-diabetes R73.03
[2020-10-03] MEDS ORDERED: cloNIDine HCL 0.3 MG/24 HR TRANSDERM SYS TD SCH (09:00)
== END 2020-09-30 16:00 | disposition home or self-care (01) ==
LOC: ED 14:26 → 2N 18:18 → INTOOBSV 18:18 → SUATTDRO 18:18 → 2N 19:39

== ENCOUNTER 2020-10-19 22:51 | Inpatient (IN) ==
[2020-10-19] MEDS ORDERED: MECLIZINE HCL 25 MG TAB PO STA (23:12)
[2020-10-19] MEDS ORDERED: SODIUM CHLORIDE 0.9% 500 ML IV ONE (23:12)
[2020-10-19] MEDS ORDERED: LORazepam 0.5 MG/1 ML VIAL IV STA (23:12)
--- NOTE | 2020-10-19 23:17 | Emergency Department Note ---
Impression & Plan Acute hyponatremia, Vertigo ED Provider Note Name: KIA OWENS Age: 75 Sex: M Arrives Via: Walk-In Informant: Patient ED Provider: Minesh Ruth MD Chief Complaint: Dizziness Impression: Acute Hyponatremia Vertigo Medical Decision Makin yr old male with extensive PMH including CAD s/p bypass, GERD, Hypertension, Sjogrens amongst others in addition to anxiety disorder arrives for acute vertigo in setting of not feeling well recently and lack of appetite. Exam other than some horizontal nystagmus and some dehydrated otherwise benign. Give meclizine/ativan with resolution of verigo and some IV fluids for dehydration. He was found to have acute hyponatremia which he believes has happened previously as well. Given further fluids and given degree hyponatremia hospitalist consulted for further management. Without neuro deficits, headache, and fact this is recurrent vertigo issue will hold off on neuro imaging at this time. Prior Medical Record and Triage/Nursing Notes reviewed by Me Additional history obtained from chart Differentials:Benign positional vertigo, dehydration, hypovolemia, anemia, tumor, infection, hypoglycemia, electrolyte abnormalities, cardiac sources, intracerebral event, toxicologic, neurologic, as well as other pathologies. Vital Signs: reviewed and remarkable for HTN Interventions: saline lock, nss bolus, ativan 0.5mg iv, meclizine 25mg po Labs:Reviewed and remarkable for hyponatremia EKG:Per My Interpretation: Indication Vertigo: NSR 61 bpm with 1st av block, qtc 404. No Ectopy. No Ischemia. Compared to EKG 09/29/20, no significant changes. Cardiac/Tele Monitoring: Cardiac Monitoring: An Order was placed for continuous cardiac monitoring. The monitor shows a rate of 60 with a normal sinus rhythm. Consults:Dr Alvin HARRIS Hospitalist Plan: Disposition:Hospitalization. Condition: Good History of Present Illness:75 yr old male arrives for evaluation of vertigo. Patient notes 10 years of periodic episodes of vertigo. This morning noted sp inning after getting up out of bed. On and off throughout the day. Worse with sitting up, better with staying still. Notes he has taken no medications for this. Associated with nausea and vomiting. This evening put his head back to put in eye drops and developed severe symptoms. Symptoms gradually improving over the last hour though still periodic vomiting. No headache, neck pain, fevers, chills, weakness, palpitations, sob, cough, abdominal pain, back pain, urinary symptoms, bowel changes, leg swelling, rashes, chest pain, nor other symptoms. This is similar to previous episodes. No recent trauma nor injuries. ROS: See above HPI for pertinent positives & negatives. A total of 10 systems reviewed and were otherwise negative. Past Medical History:See Below Past Surgical History:See Below Family History:See Below Social History:See Below Home Medications:See Below Allergies:See Below Vitals:Blood Pressure: 219/102, Pulse 66, RR 18, T 36.5C, O2 95% on RA Physical Exam: GENERAL: Patient is very anxious appearing and in mild distress. Dehydrated appearing EYES: No scleral icterus, unremarkable pupils. ENT: Mucous membranes dry, no nasal congestion. Bilateral TMs normal NECK: No masses appreciated, nomeningismus, trachea is midline. RESPIRATORY: No dyspnea. Clear to auscultation and equal bilaterally. No wheeze, no rhonchi. CARDIOVASCULAR: Regular rate and rhythm.No murmurs, rubs, gallops appreciated. GASTROINTESTINAL: Abdomen soft, non-tender, no peritonitis.Bowel sounds positive.No masses appreciated. BACK: No midline tenderness, no CVA tenderness EXTREMITIES: Normal motion all extremities, no cyanosis, no edema. NEUROLOGIC: Alert and oriented, no acute motor or sensory deficits, no focal weakness, cranial nerves grossly intact. SKIN: No rash, no jaundice, no diaphoresis. PSYCH: Appropriate GCS: 15 ED Course: Times/Reassessments: Much improved vertigo, a bit somnolent but answers all questions, agreeable to hospitalization Minesh Ruth MD Past Med/Surg History Medical History (Updated 10/20/20 @ 03:53 by Minesh Ruth MD) Anxiety BPH (benign prostatic hyperplasia) BPH w urinary obs/LUTS (12/15/12) Celiac disease Depression GERD (gastroesophageal reflux disease) (12/15/12) Hearing problem Hepatitis C History of heart attack 1998 HTN (hypertension) (12/15/12) Panic disorder without agoraphobia (12/15/12) Pre-diabetes Scoliosis MILD Surgical History History of cataract surgery left History of colonoscopy and endoscopy - celiac dx History of heart bypass surgery (1998) 3 vessel History of hernia repair History of prostate surgery TUNA Family History Mother Family history of diabetes mellitus Heart disease Son Family history of diabetes mellitus Sister Family history of diabetes mellitus Hypertension Denies family history of Hearing loss Allergies Bleeding disorder Cancer Stroke Asthma Social History Smoking Status: Never smoker Cigarettes Per Day: Pt states "few"; Second Hand Exposure: No; Hx Alcohol Use: No Hx Substance Use: No Preferred Language: [place] Communication Ability: Effective Visual Impairment: No Limitations Hearing Ability: Normal [place]b[employer] Peeler Required: No Beliefs That Will Affect Care: None marital status: Current Living Situation: Spouse current occupational status: retired Feels Safe at Home: Yes Assistive Devices: None Allergies Allergies Allergy/AdvReac Type Severity Reaction Status Date / Time gluten Allergy Unknown CELIAC Verified 10/20/20 01:04 DISEASE heparin AdvReac Unknown BURNING Verified 10/20/20 01:04 SENSATION sertraline [From Zoloft] AdvReac Unknown SUICIDAL Verified 10/20/20 01:04 THOUGHTS-FELT WEIRD Home Meds Home Medications Medication Instructions Recorded Confirmed Caltrate 600 plus D 1 tab PO BID 02/01/19 10/20/20 ascorbic acid (vitamin C) [Vitamin 500 mg PO QAM 02/01/19 10/20/20 C] aspirin 81 mg PO BID 02/01/19 10/20/20 cholecalciferol (vitamin D3) 2,000 unit PO QAM 02/01/19 10/20/20 [Vitamin D3] cyanocobalamin (vitamin B-12) 2,000 mcg PO QAM 02/01/19 10/20/20 [Vitamin B-12] melatonin 10 mg PO HS 02/01/19 10/20/20 multivitamin 1 tab PO QAM 02/01/19 10/20/20 saw palmetto 450 mg PO QPM 02/01/19 10/20/20 omega 3-vcp-kqb-fish oil [Fish Oil] 1 cap PO QPM 03/22/19 10/20/20 furosemide 40 mg PO DAILY 10/20/20 10/20/20 Previous Rx's Medication Instructions Recorded clonidine HCl 0.1 mg tablet 0.1 mg PO BID #180 tab 12/17/19 pantoprazole 40 mg tablet,delayed 40 mg PO QAM #90 tab 01/17/20 release minoxidil 10 mg tablet 10 mg PO BID #180 tab 01/22/20 nitroglycerin 0.4 mg sublingual 0.4 mg SUBLINGUAL UD PRN #15 tab 03/26/20 tablet isosorbide mononitrate 30 mg 30 mg PO QAM #90 tab 08/18/20 tablet,extended release 24 hr valsartan 160 mg tablet 160 mg PO DAILY #90 tab 09/21/20 atorvastatin 20 mg tablet 20 mg PO HS #90 tab 10/06/20 clonidine 0.3 mg/24 hr weekly 0.3 mg TRANSDERMAL SA #4 ea 10/19/20 transdermal patch Results & Data (ED) Vital Signs Vital Signs - 24 hr 10/19/20 22:53 10/20/20 00:00 10/20/20 01:00 Temperature 36.5 C Temperature Source Temporal Artery Scan Pulse Rate 66 Pulse Rate [Apical] 54 L 58 L Respiratory Rate 18 16 14 Respiratory Depth Normal Normal Blood Pressure 219/102 H Blood Pressure [Left Arm] 143/63 H 117/64 Blood Pressure Mean 141 Blood Pressure Mean [Left Arm] 89 81 Pulse Oximetry 95 95 97 Oxygen Delivery Method Room Air Room Air Sepsis Recent Fever Within 48 Hours No Sepsis New/Unexplained Change in Mental Status No Sepsis Action Taken by Nursing No Action Required 10/20/20 02:00 Temperature Temperature Source Pulse Rate Pulse Rate [Apical] 52 L Respiratory Rate 18 Respiratory Depth Normal Blood Pressure Blood Pressure [Left Arm] 138/62 Blood Pressure Mean Blood Pressure Mean [Left Arm] 87 Pulse Oximetry 95 Oxygen Delivery Method Room Air Sepsis Recent Fever Within 48 Hours Sepsis New/Unexplained Change in Mental Status Sepsis Action Taken by Nursing Laboratory Data Result diagrams: 10/19/20 23:36 10/20/20 03:12 Lab Results 10/19/20 10/19/20 10/20/20 Range/Units 23:36 23:36 00:53 WBC 7.80 (4.8-10.8) K/uL RBC 4.15 L (4.7-6.1) M/uL Hgb 13.2 L (14.0-18.0) g/dL Hct 36.3 L (42-52) % MCV 87.5 (80-100) fL MCH 31.8 (25-34) pg MCHC 36.4 H (32-36) g/dL RDW Std Deviation 39.8 (36.4-46.3) fL RDW Coeff of Gurvinder 12.3 (11.5-14.5) % Plt Count 207 (130-400) K/uL MPV 9.9 (7.4-10.4) fL Immature Gran % (Auto) 0.3 % Neut % (Auto) 80.1 % Lymph % (Auto) 7.7 % [place] % (Auto) 11.5 % Eos % (Auto) 0.1 % Baso % (Auto) 0.3 % Neut # (Auto) 6.25 (1.4-6.5) K/uL Lymph # (Auto) 0.60 L (1.2-3.4) K/uL [place] # (Auto) 0.90 H (0.11-0.59) K/uL Eos # (Auto) 0.01 (0-0.5) K/uL Baso # (Auto) 0.02 (0-0.2) K/uL Immature Gran # (Auto) 0.02 (0.00-0.02) K/uL Sodium 123 L (136-145) mmol/L Potassium 3.9 (3.5-5.1) mmol/L Chloride 91 L (98-107) mmol/L Carbon Dioxide 26 (21-32) mmol/L Anion Gap 6.0 (3-11) BUN 8 (7-18) mg/dl Creatinine 0.92 (0.6-1.4) mg/dl Est Cr Clr Drug Dosing 58.1 ml/min Est GFR ( Amer) 94.0 Est GFR (Non-Af Amer) 81.1 BUN/Creatinine Ratio 8.6 L (10-20) Glucose 124 H (70-99) mg/dl Calcium 10.0 (8.5-10.1) mg/dl Magnesium 2.2 (1.8-2.4) mg/dl Total Bilirubin 1.0 (0.2-1) mg/dl AST 33 (15-37) U/L ALT 36 (12-78) U/L Alkaline Phosphatase 118 H (45-117) U/L Total Protein 7.4 (6.4-8.2) gm/dl Albumin 4.3 (3.4-5.0) gm/dl Globulin 3.1 (2.5-4.0) gm/dl Albumin/Globulin Ratio 1.4 (0.9-2) SARS-CoV-2 Ag (Rapid) Negative (Negative) Administered Medications Discontinued Medications Lorazepam (Ativan) 0.5 mg in 1 mls @ 1 mls/min IV NOW STA Stop: 10/19/20 23:13 Last Admin: 10/19/20 23:35 Dose: 1 mls/min Documented by: [id number] Sodium Chloride (Nss) 500 mls @ 999 mls/hr IV .Q31M ONE Stop: 10/19/20 23:42 Last Infusion: 10/20/20 00:06 Dose: 0 mls/hr Documented by: [id number] Admin: 10/19/20 23:35 Dose: 999 mls/hr Documented by: [id number] Sodium Chloride (Nss 1000ml) 1,000 mls @ 125 mls/hr IV .Q8H NINFA Stop: 11/19/20 00:29 Last Infusion: 10/20/20 03:09 Dose: 0 mls/hr Documented by: [id number] Admin: 10/20/20 00:43 Dose: 125 mls/hr Documented by: [id number] Meclizine HCl (Meclizine Hcl 25 Mg Tab) 25 mg PO NOW STA Stop: 10/19/20 23:13 Last Admin: 10/19/20 23:35 Dose: 25 mg Documented by: [id number] Discharge Plan Visit Data Chief Complaint: Vertigo Stated Complaint: VERTIGO ED Provider: Minesh Ruth Discharge Problem: Acute hyponatremia, Vertigo Patient Disposition: Admitted As Inpatient Discharge Instructions Interventions: ED Discharge Assessment Last Done: 10/20/20 02:36
[2020-10-19 23:50] LABS: Basophils # (auto) 0.02 K/uL (0-0.2); Basophils % (auto) 0.3 %; Eosinophils # (auto) 0.01 K/uL (0-0.5); Eosinophils % (auto) 0.1 %; Hematocrit (blood only) 36.3 % (42-52); Hemoglobin 13.2 g/dL (14.0-18.0); Immature Granulocytes # (auto) 0.02 K/uL (0.00-0.02); Immature Granulocytes % (auto) 0.3 %; Lymphocytes % (auto) 7.7 %; Mean Corpuscular Hemoglobin 31.8 pg (25-34); Mean Corpuscular Hgb Conc 36.4 g/dL (32-36); Mean Corpuscular Volume 87.5 fL (80-100); Mean Platelet Volume 9.9 fL (7.4-10.4); Monocytes % (auto) 11.5 %; Neutrophils # (auto) 6.25 K/uL (1.4-6.5); Neutrophils % (auto) 80.1 %; Platelet Count 207 K/uL (130-400); RDW Coefficient of Variation 12.3 % (11.5-14.5); RDW Standard Deviation 39.8 fL (36.4-46.3); Red Blood Count 4.15 M/uL (4.7-6.1)
[2020-10-20 00:12] LABS: Albumin Level 4.3 gm/dl (3.4-5.0); BUN Creatinine Ratio 8.6 (10-20); Creatinine Clr Calc Pharmacy 58.1 ml/min; Est GFR (Non-African American) 81.1; Magnesium 2.2 mg/dl (1.8-2.4); Potassium 3.9 mmol/L (3.5-5.1)
[2020-10-20 00:15] LABS: Albumin Globulin Ratio 1.4 (0.9-2); Globulin 3.1 gm/dl (2.5-4.0); Total Protein 7.4 gm/dl (6.4-8.2)
[2020-10-20] MEDS ORDERED: SODIUM CHLORIDE 0.9% 1000ML 1,000 ML IV SCH (00:30)
[2020-10-20] MEDS ORDERED: ONDANSETRON INJ 2 MG/ML 2 ML VIAL IV PRN (03:07)
[2020-10-20] MEDS ORDERED: ACETAMINOPHEN 325 MG TAB PO PRN (03:07)
[2020-10-20] MEDS ORDERED: NITROGLYCERIN SL 0.4 MG/TAB TAB SL PRN (03:07)
[2020-10-20] MEDS ORDERED: POLYETHYLENE (MIRALAX) 17 GM PACK PO PRN (03:07)
[2020-10-20 03:44] LABS: BUN Creatinine Ratio 8.5 (10-20); Calcium 9.7 mg/dl (8.5-10.1); Creatinine Clr Calc Pharmacy 56.3 ml/min; Est GFR (African American) 90.4; Potassium 4.1 mmol/L (3.5-5.1)
[2020-10-20 03:55] LABS: Thyroid Stimulating Hormone 1.58 uIu/ml (0.300-4.500)
--- NOTE | 2020-10-20 05:02 | History & Physical Report ---
Date of Service October 20, 2020 Assessment & Plan (1) Vertigo: Esa Rolle is a 75 year old man with a past medical history of CAD, anxiety, BPPV who we are admitting with hyponatremia Hyponatremia Chronicity unclear of this most recent episode, patient was recently hospitalized and discharged from hospital on 10/01 after a negative chest pain rule out admission and Na was 135 at that time. Today 123. Patient's history of polydipsia and Low BUN creatinine ratio lead me to believe this is most likely euvolemic hyponatremia and I will stop the fluids that he has been getting in ED for hypovolemic hypernatremia. Patient's sodium has routinely been low previously, very well could have some degree of SIADH Will get serum and urine osms as well as urine sodium, TSH, and AM cortisol level to further evaluate his hyponatremia Will stop IV fluids and fluid restrict with q4h BMP;s Vertigo Meclizine PRN Hypertension Continuing patient's home antihypertensive regime of hydralazine, clonidine, furosemide, minoxidil and valsartan CAD Continuing home statin, antihypertensives, and daily asa 81 Stable DVT PPx: Lovenox F/E/N: Fluid restricted heart healthy diet Dispo: Admit for further workup of hyponatremia and fluid restriction for asymptomatic/mildly symptomatic, euvolemic, moderate hyponatremia Full Code (2) Labile hypertension: (3) Anxiety: (4) S/P triple vessel bypass: (5) Hyponatremia: History of Present Illness Chief Complaint: Vertigo, Hyponatremia Primary Care Provider: LUIS Greene Esa Rolle is a 75 year old man with a past medical history significant for CAD, anxiety, depression , vertigo presented to ED today with episode of vertigo. Patient was given meclizine and ativan and symptoms mostly resolved. Vital stable throughout. While in ED he had labwork which was significant for moderate hyponatremia with sodium of 123. He admits he has had a bit of a stomach ache lately and his PO intake has been quite poor. He tells me the one thing he has done is had a lot of water. He is unable to estimate how much he has had to drink but he says it has been a lot of plain water. He says he has run into problems with hyponatremia in the past but in my review of the chart while I do see many lab results of hyponatremia I do not see any workup for it. Denies recent fevers, chills, sweats, shortness of breath, chest pain, cough, has had indigestion and stomach ache which has hampered his appetite but he does not have that now. Has had intermittent fatigue and sluggishness. Lives with his , no other acute concerns. Full Code Allergies Allergy/AdvReac Type Severity Reaction Status Date / Time gluten Allergy Unknown CELIAC Verified 10/20/20 01:04 DISEASE heparin AdvReac Unknown BURNING Verified 10/20/20 01:04 SENSATION sertraline [From Zoloft] AdvReac Unknown SUICIDAL Verified 10/20/20 01:04 THOUGHTS-FELT WEIRD Home Medications Medication Instructions Recorded Confirmed Type Caltrate 600 plus D 1 tab PO BID 02/01/19 10/20/20 History ascorbic acid (vitamin C) [Vitamin 500 mg PO QAM 02/01/19 10/20/20 History C] aspirin 81 mg PO BID 02/01/19 10/20/20 History cholecalciferol (vitamin D3) 2,000 unit PO QAM 02/01/19 10/20/20 History [Vitamin D3] cyanocobalamin (vitamin B-12) 2,000 mcg PO QAM 02/01/19 10/20/20 History [Vitamin B-12] melatonin 10 mg PO HS 02/01/19 10/20/20 History multivitamin 1 tab PO QAM 02/01/19 10/20/20 History saw palmetto 450 mg PO QPM 02/01/19 10/20/20 History omega 0-hhb-upj-fish oil [Fish Oil] 1 cap PO QPM 03/22/19 10/20/20 History clonidine HCl 0.1 mg tablet 0.1 mg PO BID #180 tab 12/17/19 10/20/20 Rx pantoprazole 40 mg tablet,delayed 40 mg PO QAM #90 tab 01/17/20 10/20/20 Rx release minoxidil 10 mg tablet 10 mg PO BID #180 tab 01/22/20 10/20/20 Rx nitroglycerin 0.4 mg sublingual 0.4 mg SUBLINGUAL UD PRN #15 tab 03/26/20 10/20/20 Rx tablet isosorbide mononitrate 30 mg 30 mg PO QAM #90 tab 08/18/20 10/20/20 Rx tablet,extended release 24 hr valsartan 160 mg tablet 160 mg PO DAILY #90 tab 09/21/20 10/20/20 Rx atorvastatin 20 mg tablet 20 mg PO HS #90 tab 10/06/20 10/20/20 Rx clonidine 0.3 mg/24 hr weekly 0.3 mg TRANSDERMAL SA #4 ea 10/19/20 10/20/20 Rx transdermal patch furosemide 40 mg PO DAILY 10/20/20 10/20/20 History Past Med/Surg History Medical History (Updated 10/20/20 @ 05:40 by Michael De Leon MD) Anxiety BPH (benign prostatic hyperplasia) BPH w urinary obs/LUTS (12/15/12) Celiac disease Depression GERD (gastroesophageal reflux disease) (12/15/12) Hearing problem Hepatitis C History of heart attack 1998 HTN (hypertension) (12/15/12) Panic disorder without agoraphobia (12/15/12) Pre-diabetes Scoliosis MILD Surgical History History of cataract surgery left History of colonoscopy and endoscopy - celiac dx History of heart bypass surgery (1998) 3 vessel History of hernia repair History of prostate surgery TUNA Family History Mother Family history of diabetes mellitus Heart disease Son Family history of diabetes mellitus Sister Family history of diabetes mellitus Hypertension Denies family history of Hearing loss Allergies Bleeding disorder Cancer Stroke Asthma Social History Smoking Status: Former smoker Cigarettes Per Day: Pt states "few"; Second Hand Exposure: No; Do You Dip or Chew Tobacco: No; Tobacco Cessation Education Requested by Patient: No Hx Alcohol Use: No Hx Substance Use: No Preferred Language: Estonian Communication Ability: Effective Visual Impairment: No Limitations Hearing Ability: Normal Guest Service Supervisor Required: No Beliefs That Will Affect Care: None marital status: Current Living Situation: Spouse current occupational status: retired Other Information That Helps Us Care for You: No Feels Safe at Home: Yes Safety Concerns: Feels Safe At This Time Assistive Devices: Glasses Review of Systems Review of Systems: All systems reviewed & are unremarkable except as noted in HPI & below Physical Exam Physical Exam: Constitutional: Well appearing, no acute distress, cooperative and comfortable Eyes: PERRLA, patient with horizontal nystagmus Respiratory: No increased work of breathing, lung sounds vesicular throughout Cardiovascular: Regular rate and rhythm no mumurs rubs skips or gallops GI: Abdomen Soft/non tender. MSK: NAD Results & Data Results & Data ([facility]) Vital Signs (Past 12 Hours) Vital Signs Temp Pulse Pulse Resp BP BP Pulse Ox 10/20/20 02:00 52 L 18 138/62 95 10/20/20 01:00 58 L 14 117/64 97 10/20/20 00:00 54 L 16 143/63 H 95 10/19/20 22:53 36.5 C 66 18 219/102 H 95 Supervising Physician Co-Signing Physician Notes Patient seen and examined, chart reviewed, case discussed with Dr. De Leon and I agree with his assessment and plan as documented above. Patinent is a 75yo C male presenting with hyponatremia, Hw=555, history of the same. He has no neurological deficits associated with his hyponatremia. No seizure. On exam patient is afebrile, HD stable, NAD. He appears to be euvolemic SKin - no rash HEENT - NC/AT, PERRL, EOMI Heart - +S1/S2, regular Lungs - CTA Abd - +BS, soft, NT/ND Ext - No edema Labs and images reviewed Assessment/Plan: Workup for hyponatremia, ?SIADH vs low solute/polydipsia -Fluid restriction for now -Patient reports frequent thirst, urination and occasional blurry vision following meals - HgbA1C from 09/02/20 = 6 -Remainder of plan as above Resident Activity Tracking Resident Involvement: Resident Care Provided Care Provided: [facility]
[2020-10-20] MEDS ORDERED: cloNIDine HCL 0.3 MG/24 HR TRANSDERM SYS TD SCH (06:15)
[2020-10-20] MEDS: PANTOprazole 40 MG TAB PO SCH (08:16)
[2020-10-20] MEDS: cloNIDine HCL 0.1 MG TAB PO SCH ×2 (08:16→20:28)
[2020-10-20] MEDS: ISOSORBIDE MONO EXTENDED REL 30 MG TABCR PO SCH (08:17)
[2020-10-20] MEDS: FUROSEMIDE 40 MG TAB PO SCH (08:17)
[2020-10-20] MEDS: ASCORBIC ACID 500 MG TAB PO SCH (08:17)
[2020-10-20] MEDS: CALCIUM 600MG + VIT D 400 IU TAB PO SCH ×3 (08:17→20:31)
[2020-10-20] MEDS: MULTIVITAMIN TAB PO SCH (08:17)
[2020-10-20] MEDS: CYANOCOBALAMIN 500 MCG TABLET (VITAMIN B-12) PO SCH (08:17)
[2020-10-20] MEDS: ASPIRIN 81 MG ECTAB PO SCH ×2 (08:17→20:29)
[2020-10-20] MEDS: VALSARTAN 80 MG TAB PO SCH (08:17)
[2020-10-20] MEDS: CHOLECALCIFEROL 1,000 UNITS 25 MCG TAB PO SCH (08:18)
[2020-10-20] MEDS ORDERED: minoxidiL 2.5 MG TAB PO SCH (09:00)
[2020-10-20 11:27] LABS: BUN Creatinine Ratio 7.7 (10-20); Calcium 10.1 mg/dl (8.5-10.1); Creatinine Clr Calc Pharmacy 51.9 ml/min; Est GFR (African American) 78.3; Est GFR (Non-African American) 67.5; Potassium 4.3 mmol/L (3.5-5.1)
--- NOTE | 2020-10-20 11:51 | Nephrology Consultation ---
Date of Consultation October 20, 2020 Assessment & Plan (1) Hyponatremia: * Hypoosmolar hyponatremia. No osmolar gap * Chronic finding dating back to at least 2018, mild, asymptomatic * Clinically euvolemic. Normal thyroid, renal, hepatic function. AM cortisol within normal limits * Agree w/ 1200 cc oral fluid restriction/day * Continue low dose Furosemide * Await urine osmolality * Monitor serum sodium (2) Labile hypertension: * Patient on multidrug regimen most of which are vasodilators * Stop Minoxidil as this may be contributing to fluid retention and chronic hyponatremia * Start Spironolactone 25 mg daily. Monitor BP and serum K closely * If BP improves w/ Spironolactone will consider tapering Clonidine/Catapress to off as this is likely causing dry mouth and stimulating thirst * Continue Valsartan, Furosemide and Isosorbide * Will order renal US w/ arterial doppler * 2019 urine collection for catecholamines was negative History of Present Illness Reason for Consultation: hyponatremia, hypertensive urgency Attending Physician: Mary Esquivel DO History of Present Illness Mr. Rolle is a 75 year old male who is seen at the request of Guilherme Srinivasan MD for evaluation of hyponatremia and hypertensive urgency. Medical records in the EMR were reviewed today and are summarized as follows: Mr. Rolle has ASCVD s/p CABG x3, iron deficiency anemia (managed by Dr. Montelongo), GERD, BPH w/ LUTS, Sjogrens syndrome and labile hypertension. Home BP regimen has consisted of Catapress TTS-3 weekly, Clonidine 0.1 mg po BID, Isosorbide 30 mg po qD, Furosemide 40 mg po daily, Valsartan 160 mg daily, and Minoxidil 10 mg BID. He also has chronic hyponatremia w/ serum sodium 125 - 135 mmol/L dating back to 2018 in EMR. Mr. Rolle presented to the ED yesterday w/ complaints of vertigo. He was found to have horizontal nystagmus, clinical dehydration, h ypertensive urgency (BP 219/102) and serum sodium of 123 mmol/L. He was given meclizine, ativan, IV hydration and admitted to the hospitalist service for ongoing medical management. Hyponatremia evaluation has revealed serum osmolality 259 (256), normal thyroid/renal/hepatic testing, normal am cortisol. 24 hour urine catecholamines was negative in 2019 Allergies Allergy/AdvReac Type Severity Reaction Status Date / Time gluten Allergy Unknown CELIAC Verified 10/20/20 01:04 DISEASE heparin AdvReac Unknown BURNING Verified 10/20/20 01:04 SENSATION sertraline [From Zoloft] AdvReac Unknown SUICIDAL Verified 10/20/20 01:04 THOUGHTS-FELT WEIRD Home Medications Medication Instructions Recorded Confirmed Type Caltrate 600 plus D 1 tab PO BID 02/01/19 10/20/20 History ascorbic acid (vitamin C) [Vitamin 500 mg PO QAM 02/01/19 10/20/20 History C] aspirin 81 mg PO BID 02/01/19 10/20/20 History cholecalciferol (vitamin D3) 2,000 unit PO QAM 02/01/19 10/20/20 History [Vitamin D3] cyanocobalamin (vitamin B-12) 2,000 mcg PO QAM 02/01/19 10/20/20 History [Vitamin B-12] melatonin 10 mg PO HS 02/01/19 10/20/20 History multivitamin 1 tab PO QAM 02/01/19 10/20/20 History saw palmetto 450 mg PO QPM 02/01/19 10/20/20 History omega 4-osw-ppn-fish oil [Fish Oil] 1 cap PO QPM 03/22/19 10/20/20 History clonidine HCl 0.1 mg tablet 0.1 mg PO BID #180 tab 12/17/19 10/20/20 Rx pantoprazole 40 mg tablet,delayed 40 mg PO QAM #90 tab 01/17/20 10/20/20 Rx release minoxidil 10 mg tablet 10 mg PO BID #180 tab 01/22/20 10/20/20 Rx nitroglycerin 0.4 mg sublingual 0.4 mg SUBLINGUAL UD PRN #15 tab 03/26/20 10/20/20 Rx tablet isosorbide mononitrate 30 mg 30 mg PO QAM #90 tab 08/18/20 10/20/20 Rx tablet,extended release 24 hr valsartan 160 mg tablet 160 mg PO DAILY #90 tab 09/21/20 10/20/20 Rx atorvastatin 20 mg tablet 20 mg PO HS #90 tab 10/06/20 10/20/20 Rx clonidine 0.3 mg/24 hr weekly 0.3 mg TRANSDERMAL SA #4 ea 10/19/20 10/20/20 Rx transdermal patch furosemide 40 mg PO DAILY 10/20/20 10/20/20 History Patient History Medical History (Updated 10/20/20 @ 05:40 by Michael De Leon MD) Anxiety BPH (benign prostatic hyperplasia) BPH w urinary obs/LUTS (12/15/12) Celiac disease Depression GERD (gastroesophageal reflux disease) (12/15/12) Hearing problem Hepatitis C History of heart attack 1998 HTN (hypertension) (12/15/12) Panic disorder without agoraphobia (12/15/12) Pre-diabetes Scoliosis MILD Surgical History History of cataract surgery left History of colonoscopy and endoscopy - celiac dx History of heart bypass surgery (1998) 3 vessel History of hernia repair History of prostate surgery TUNA Family History Mother Family history of diabetes mellitus Heart disease Son Family history of diabetes mellitus Sister Family history of diabetes mellitus Hypertension Denies family history of Hearing loss Allergies Bleeding disorder Cancer Stroke Asthma Social History Smoking Status: Former smoker Cigarettes Per Day: Pt states "few"; Second Hand Exposure: No; Do You Dip or Chew Tobacco: No; Tobacco Cessation Education Requested by Patient: No Hx Alcohol Use: No Hx Substance Use: No Preferred Language: Tamazight Communication Ability: Effective Visual Impairment: No Limitations Hearing Ability: Normal Vacuum 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 Person Required: No Beliefs That Will Affect Care: None marital status: Current Living Situation: Spouse current occupational status: retired Other Information That Helps Us Care for You: No Feels Safe at Home: Yes Safety Concerns: Feels Safe At This Time Assistive Devices: Glasses Review of Systems Constitutional: + weakness; no fever Eyes: no problem reported Ear, Nose, Mouth, Throat: no problem reported Respiratory: no cough and no dyspnea Cardiovascular: no chest pain, no palpitations and no edema Gastrointestinal: + nausea and + vomiting; no abdominal pain and no diarrhea/loose stools Genitourinary: no dysuria, no urinary hesitancy and no hematuria Musculoskeletal: no back pain Integumentary: no rash Neurologic: + dizziness; no falls and no confusion Physical Exam Constitutional: not in distress Eyes: PERRL, conjunctivae normal, anicteric sclerae ENMT: external ear and nose normal, oropharynx normal Neck: trachea midline, no thyromegaly Respiratory: normal respiratory effort, lungs clear to auscultation Cardiovascular: Rate/Rhythm: regular rate and regular rhythm Heart Sounds: + murmur Gastrointestinal (Abdomen): normal bowel sounds, soft, nontender, no hepatosplenomegaly Musculoskeletal: Extremities: no cyanosis Skin: no rashes, warm and dry Neurologic: awake; not confused Cranial Nerves: no nystagmus Results & Data ([facility]) Vital Signs (Past 12 Hours) Vital Signs Temp Pulse Pulse Pulse Resp BP BP 10/20/20 11:22 36.9 C 59 L 16 116/47 L 10/20/20 09:37 55 L 10/20/20 08:24 36.9 C 72 16 174/73 H 10/20/20 04:07 68 10/20/20 02:36 53 L 18 138/62 10/20/20 02:00 52 L 18 138/62 10/20/20 01:00 58 L 14 117/64 10/20/20 00:00 54 L 16 143/63 H Pulse Ox 10/20/20 11:22 95 10/20/20 09:37 10/20/20 08:24 92 10/20/20 04:07 10/20/20 02:36 95 10/20/20 02:00 95 10/20/20 01:00 97 10/20/20 00:00 95 Laboratory Results Laboratory Tests 10/19/20 10/20/20 10/20/20 23:36 03:12 07:23 WBC 7.80 Hgb 13.2 L Hct 36.3 L Plt Count 207 Sodium Potassium Chloride Carbon Dioxide BUN Creatinine Glucose TSH 1.580 Cortisol AM Sample 11.93 10/20/20 10:52 WBC Hgb Hct Plt Count Sodium 127 L Potassium 4.3 Chloride 93 L Carbon Dioxide 30 BUN 8 Creatinine 1.07 Glucose 107 H TSH Cortisol AM Sample Diagnostic Findings 09/30/20 Echo: LVEF 60 - 65%, atrial septal aneurysm w/ small shunt, mild MR, borderline LVH PG Care Time/CCT Total # of Minutes Spent Total Time Spent with Patient: Total time spent is greater than 50% in coordination of care (as documented) at patient's floor/unit and/or counseling patient: Coding Level of Care Code 54852 Inpt Consult Level 5 Diagnoses Hyponatremia E87.1 Labile hypertension R09.89
--- NOTE | 2020-10-20 11:58 | Hospitalist Progress Note ---
Date of Service October 20, 2020 Assessment & Plan (1) Vertigo: Esa Rolle is a 75 year old man with a past medical history of CAD, anxiety, BPPV admitted with dizziness found to have hyponatremia Hyponatremia Chronicity unclear of this most recent episode, patient was recently hospitalized and discharged from hospital on 10/01 after a negative chest pain rule out admission and Na was 135 at that time. Today 123. Historically between approx. 125-135. Patient's history of polydipsia and Low BUN creatinine ratio lead me to believe this is most likely euvolemic hyponatremia and I will stop the fluids that he has been getting in ED for hypovolemic hypernatremia. 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 Vertigo Meclizine PRN Hypertension Continuing patient's home antihypertensive regime of hydralazine, clonidine, furosemide, minoxidil and valsartan CAD Continuing home statin, antihypertensives, and daily asa 81 Stable DVT PPx: Lovenox F/E/N: Fluid restricted (1200mL) heart healthy diet Dispo: Admit for further workup of hyponatremia and fluid restriction for asymptomatic/mildly symptomatic, euvolemic, moderate hyponatremia Full Code Admission and Anticipated Discharge Date Admission Date: October 20, 2020 Supervising Physician Co-Signing Physician Notes I also saw the patient with the resident physician and confirmed villagomez portions of the history and physical examination. I agree with the impression and plan as noted in the resident documentation. Its not quite clear the sequence of events that led to his ED presentation. He describes increasing his water intake because he had an " upset stomach" and since he could not eat, he wanted to consume more fluids. He also describes thalia e vertigo, and this further seemingly encouraged him to increase his fluids. But I cannot tell is if the vertigo was related to hyponatremia, or if they were related to some other etiology and it was in fact the increased fluid intake which cause the hyponatremia. In any event, the vertigo seems to have resolved as has the upset stomach. In the emergency department, he did receive 2 L of fluid -so well we have fluid restricted him since admission, he probably is still plus in terms of fluids over the last 24 hours. Exam Pleasant. Alert. No acute distress. Cardiovascular regular Lungs clear Extremities without edema Data White blood cell 7.8, hemoglobin 13.2 Sodium 128, potassium 4.2, BUN 10, creatinine 1.13 TSH 1.58, a.m. cortisol 11.93 Serum osmolality is low (259), Urine osmolality is low (130), and urine sodium is high (32). ASSESSMENT Hyponatremia Hypertension Appreciate nephrology consultation Continue fluid restriction Trend serum sodium Follow blood pressures Subjective Mr. Esa Rolle was doing, "okay" this morning. He did bring up that over the last month he had been drinking more water, unclear the amount but he thought around 2 liters a day. When asked about weight loss he brought up that over the last 1 week he has lost 4 lbs but prior to this he was gaining weight. Review of Systems Review of Systems: Constitional: denies fevers, chills Cardiac: denies chest pain, palpitations Pulm: admits chronic cough Physical Exam Constitutional: WD/WN, vitals as above Eyes: PERRL, did not appreciate nystagmus on exam of EOM ENMT: external ear and nose normal, oropharynx normal Neck: normal visual inspection Respiratory: normal respiratory effort, lungs clear to auscultation Cardiovascular: RRR, no murmur, no edema Gastrointestinal (Abdomen): abdomen soft NTTP Results & Data Results & Data ([facility]) Vital Signs (Past 12 Hours) Vital Signs Temp Pulse Pulse Pulse Resp BP BP 10/20/20 11:22 36.9 C 59 L 16 116/47 L 10/20/20 09:37 55 L 10/20/20 08:24 36.9 C 72 16 174/73 H 10/20/20 04:07 68 10/20/20 02:36 53 L 18 138/62 10/20/20 02:00 52 L 18 138/62 10/20/20 01:00 58 L 14 117/64 10/20/20 00:00 54 L 16 143/63 H Pulse Ox 10/20/20 11:22 95 10/20/20 09:37 10/20/20 08:24 92 10/20/20 04:07 10/20/20 02:36 95 10/20/20 02:00 95 10/20/20 01:00 97 10/20/20 00:00 95 CBC Results Results Complete Blood Count Results: RBC 4.15 M/uL (4.7-6.1) L 10/19/20 WBC 7.80 K/uL (4.8-10.8) 10/19/20 Hgb 13.2 g/dL (14.0-18.0) L 10/19/20 Hct 36.3 % (42-52) L 10/19/20 Plt Count 207 K/uL (130-400) 10/19/20 Chemistry (BMP) Results BMP Results: Sodium 127 mmol/L (136-145) L 10/20/20 Potassium 4.1 mmol/L (3.5-5.1) 10/20/20 Chloride 93 mmol/L (98-107) L 10/20/20 BUN 11 mg/dl (7-18) 10/20/20 Creatinine 1.20 mg/dl (0.6-1.4) 10/20/20 Glucose 130 mg/dl (70-99) H 10/20/20 Resident Activity Tracking Resident Involvement: Resident Care Provided Care Provided: Adult [facility]
--- NOTE | 2020-10-20 12:48 | Electrocardiogram Report ---
Test Reason : Blood Pressure : / mmHG Vent. Rate : 061 BPM Atrial Rate : 061 BPM P-R Int : 218 ms QRS Dur : 114 ms QT Int : 402 ms P-R-T Axes : 034 033 014 degrees QTc Int : 404 ms Sinus rhythm with 1st degree A-V block Possible Left atrial enlargement Nonspecific T wave abnormality Abnormal ECG When compared with ECG of 29-SEP-2020 14:32, Nonspecific T wave abnormality now evident in Lateral leads Confirmed by Alberto Alexander ([id number]) on 10/20/2020 12:48:31 PM Referred By: REFERRED SELF Confirmed By:Sagar Alexander
--- NOTE | 2020-10-20 14:02 | Billing Data ---
Date of Service October 20, 2020 Coding Level of Care Code 59928 Initial Inpt Care Lvl 3
--- NOTE | 2020-10-20 14:58 | Ultrasound Report ---
US renal/blad retro comp HISTORY: 75 years-old Male hypertensive urgency COMPARISON: CT abdomen pelvis 06/26/2018 TECHNIQUE: Multiple real-time sonographic images of the kidneys and urinary bladder were obtained ass essing grayscale appearance and color flow FINDINGS: Right kidney measures 10.6 cm in length. The left kidney measures 10.1 cm in length. No renal calculi , hydronephrosis or suspicious mass lesions. Cortical medullary differentiation is preserved bilatera lly. Moderate bladder wall thickening. Enlarged prostate extends into the base of the urinary bladder. IMPRESSION: 1. No renal calculi or hydronephrosis. 2. Prostamegaly with urinary bladder wall thickening and trabeculation suggestive of chronic bladder outlet obstruction. Correlate with urinalysis. ACT 112: Negative or not required by law. The above report was generated using voice recognition software. It may contain grammatical, syntax o r spelling errors. Electronically signed by: Sammy Isaacs M.D. 10/20/2020 2:56 PM
--- NOTE | 2020-10-20 15:00 | Ultrasound Report ---
DOPPLER ULTRASOUND OF THE RENAL ARTERIES CLINICAL HISTORY: Hypertensive urgency. COMPARISON STUDY: Abdominal CT dated 06/26/2018. Renal ultrasound performed concurrently on 10/20/2020 TECHNIQUE: Doppler sonography of the renal arteries was performed to assess renal artery stenosis. Im ages are reviewed in the transverse and longitudinal planes. FINDINGS: The kidneys appear normal in size and echotexture. There is no hydronephrosis. On the right, intrarenal arterial resistive indices range from 0.67 to 0.80. Intrarenal arterial wave forms are normal with brisk upstrokes. The right renal arterial waveform is normal, and velocities wi thin the right renal artery measure up to 68 cm/sec. The right renal vein is patent. On the left, intrarenal arterial resistive indices range from 0.72 to 0.74. Intrarenal arterial wave forms are normal with brisk upstrokes. The left renal arterial waveform is normal, and velocities wit hin the left renal artery measure up to 83 cm/sec. The left renal vein is patent. The abdominal aorta is patent. Velocities within the abdominal aorta measure up to 184 cm/s. IMPRESSION: There is no sonographic evidence of renal artery stenosis. ACT 112: Negative or not required by law. Electronically signed by: Mike Holt M.D. 10/20/2020 2:58 PM
[2020-10-20 15:22] LABS: Calcium 10.1 mg/dl (8.5-10.1); Creatinine Clr Calc Pharmacy 49.1 ml/min; Est GFR (African American) 73.3; Est GFR (Non-African American) 63.2; Potassium 4.2 mmol/L (3.5-5.1)
[2020-10-20] MEDS: CHECK CLONIDINE PATCH PLACEMENT SCH ×2 (15:33→23:57)
[2020-10-20 19:42] LABS: BUN Creatinine Ratio 8.8 (10-20); Calcium 9.7 mg/dl (8.5-10.1); Creatinine Clr Calc Pharmacy 46.3 ml/min; Est GFR (African American) 68.1; Est GFR (Non-African American) 58.8; Potassium 4.1 mmol/L (3.5-5.1)
[2020-10-20] MEDS: OMEGA-3 (PURIFIED FISH OIL) 1 GM CAP PO SCH ×2 (20:28→20:31)
[2020-10-20] MEDS ORDERED: ATORVASTATIN 20 MG TAB PO SCH (21:00)
[2020-10-20] MEDS ORDERED: NON-FORMULARY MEDICATION (Saw Palmetto 450 mg Capsule) PO SCH (21:00)
[2020-10-20] MEDS ORDERED: MELATONIN 3 MG TAB PO SCH (21:00)
--- NOTE | 2020-10-21 06:30 | Hospitalist Progress Note ---
Date of Service October 21, 2020 Assessment & Plan Admission and Anticipated Discharge Date Admission Date: October 20, 2020 Esa Rolle is a 75 year old man with a past medical history of CAD, anxiety, BPPV admitted with dizziness found to have hyponatremia Hyponatremia Chronicity unclear of this most recent episode, patient was recently hospitalized and discharged from hospital on 10/01 after a negative chest pain rule out admission and Na was 135 at that time. Today 123. Historically between approx. 125-135. Patient's history of polydipsia and Low BUN creatinine ratio lead me to believe this is most likely euvolemic hyponatremia and I will stop the fluids that he has been getting in ED for hypovolemic hypernatremia. 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 renal losses stopped IV fluids on admission and fluid restricted with q4h BMP;s - 123 - - - - -> 128 consulted nephrology Vertigo resolved Meclizine PRN Hypertension Continuing patient's home antihypertensive regime of hydralazine, clonidine, furosemide, minoxidil and valsartan CAD Continuing home statin, antihypertensives, and daily asa 81 Stable DVT PPx: Lovenox F/E/N: Fluid restricted (1200mL) heart healthy diet Dispo: Admit for further workup of hyponatremia and fluid restriction for asymptomatic/mildly symptomatic, euvolemic, moderate hyponatremia Full Code Results & Data Results & Data ([facility]) Vital Signs (Past 12 Hours) Vital Signs Temp Pulse Pulse Pulse Resp BP BP 10/21/20 04:00 36.7 C 55 L 18 128/66 10/20/20 23:54 63 10/20/20 23:06 36.9 C 72 18 115/58 L 10/20/20 19:45 36.7 C 62 18 158/79 H Pulse Ox 10/21/20 04:00 97 10/20/20 23:54 10/20/20 23:06 94 10/20/20 19:45 93
[2020-10-21 07:11] LABS: Basophils # (auto) 0.03 K/uL (0-0.2); Basophils % (auto) 0.7 %; Eosinophils # (auto) 0.09 K/uL (0-0.5); Hematocrit (blood only) 37.6 % (42-52); Hemoglobin 13.4 g/dL (14.0-18.0); Immature Granulocytes # (auto) 0.01 K/uL (0.00-0.02); Immature Granulocytes % (auto) 0.2 %; Lymphocytes # (auto) 1.19 K/uL (1.2-3.4); Lymphocytes % (auto) 26.6 %; Mean Corpuscular Hemoglobin 31.7 pg (25-34); Mean Corpuscular Hgb Conc 35.6 g/dL (32-36); Mean Corpuscular Volume 88.9 fL (80-100); Mean Platelet Volume 10.8 fL (7.4-10.4); Monocytes # (auto) 0.79 K/uL (0.11-0.59); Monocytes % (auto) 17.7 %; Neutrophils # (auto) 2.36 K/uL (1.4-6.5); Neutrophils % (auto) 52.8 %; Platelet Count 210 K/uL (130-400); RDW Coefficient of Variation 12.5 % (11.5-14.5); RDW Standard Deviation 40.1 fL (36.4-46.3); Red Blood Count 4.23 M/uL (4.7-6.1); White Blood Count 4.47 K/uL (4.8-10.8)
[2020-10-21 07:37] LABS: BUN Creatinine Ratio 10.5 (10-20); Calcium 9.6 mg/dl (8.5-10.1); Creatinine Clr Calc Pharmacy 52.9 ml/min; Est GFR (African American) 80.1; Est GFR (Non-African American) 69.1
[2020-10-21] MEDS: ASPIRIN 81 MG ECTAB PO SCH (07:52)
[2020-10-21] MEDS: ISOSORBIDE MONO EXTENDED REL 30 MG TABCR PO SCH (07:54)
[2020-10-21] MEDS: PANTOprazole 40 MG TAB PO SCH (07:55)
[2020-10-21] MEDS: cloNIDine HCL 0.1 MG TAB PO SCH (07:55)
[2020-10-21] MEDS: CALCIUM 600MG + VIT D 400 IU TAB PO SCH (07:55)
[2020-10-21] MEDS: FUROSEMIDE 40 MG TAB PO SCH (07:56)
[2020-10-21] MEDS: MULTIVITAMIN TAB PO SCH (07:56)
[2020-10-21] MEDS: VALSARTAN 80 MG TAB PO SCH (07:56)
[2020-10-21] MEDS: ASCORBIC ACID 500 MG TAB PO SCH (07:56)
[2020-10-21] MEDS: CYANOCOBALAMIN 500 MCG TABLET (VITAMIN B-12) PO SCH (07:56)
[2020-10-21] MEDS: CHECK CLONIDINE PATCH PLACEMENT SCH (07:56)
[2020-10-21] MEDS: CHOLECALCIFEROL 1,000 UNITS 25 MCG TAB PO SCH (07:56)
[2020-10-21] MEDS ORDERED: SPIRONOLACTONE 25 MG TAB PO SCH (09:00)
--- NOTE | 2020-10-21 10:31 | Nephrology Progress Note ---
Date of Service October 21, 2020 Assessment & Plan (1) Hyponatremia: * Hypoosmolar hyponatremia. No osmolar gap * Serum sodium has improved to 127 mmol/L this am. Has been 125 - 135 mmol/L dating back to at least 2018 * Clinically euvolemic. Normal thyroid, renal, hepatic function. AM cortisol within normal limits * Agree w/ 1200 cc oral fluid restriction/day * Continue low dose Furosemide * Urine osmolality appropriately dilute * If discharge is anticipated, please have patient follow up in my office within 2 weeks for ongoing management ([phone]) (2) Labile hypertension: * Patient on multidrug regimen most of which are vasodilators * Stop Minoxidil as this may be contributing to fluid retention and chronic hyponatremia * Continue Spironolactone 25 mg daily. Monitor BP and serum K closely * If BP improves w/ Spironolactone will consider tapering Clonidine/Catapress to off as this is likely causing dry mouth and stimulating thirst * Continue Valsartan, Furosemide and Isosorbide * Renal US w/ 10.5 cm kidneys, no hydronephrosis. Renal artery doppler negative for stenosis * 2018 urine collection for catecholamines was negative Admission and Anticipated Discharge Date Admission Date: October 20, 2020 Subjective Mr. Rolle was seen & examined in his hospital room this morning. He c/o vertigo but was able to ambulate without difficulty. His primary concern is dry mouth and thirst Review of Systems Constitutional: + weakness; no fever Gastrointestinal: no abdominal pain, no nausea and no diarrhea/loose stools Neurologic: + dizziness; no falls and no confusion Physical Exam Constitutional: not in distress Eyes: PERRL, conjunctivae normal, anicteric sclerae ENMT: external ear and nose normal, oropharynx normal Neck: trachea midline, no thyromegaly Respiratory: normal respiratory effort, lungs clear to auscultation Cardiovascular: Rate/Rhythm: regular rate and regular rhythm Heart Sounds: + murmur Gastrointestinal (Abdomen): normal bowel sounds, soft, nontender, no hepatosplenomegaly Musculoskeletal: Extremities: no cyanosis Skin: no rashes, warm and dry Neurologic: awake; not confused Cranial Nerves: no nystagmus Results & Data ([facility]) Vital Signs (Past 12 Hours) Vital Signs Temp Pulse Pulse Resp BP Pulse Ox 10/21/20 09:50 54 L 10/21/20 07:48 36.9 C 61 16 163/79 H 97 10/21/20 04:00 36.7 C 55 L 18 128/66 97 10/20/20 23:54 63 10/20/20 23:06 36.9 C 72 18 115/58 L 94 Laboratory Tests 10/21/20 10/21/20 06:21 06:21 WBC 4.47 L Hgb 13.4 L Hct 37.6 L Plt Count 210 Sodium 127 L Potassium 4.0 Chloride 93 L Carbon Dioxide 29 BUN 11 Creatinine 1.05 Glucose 99 Calcium 9.6 PG Care Time/CCT Total # of Minutes Spent Total Time Spent with Patient: Total time spent is greater than 50% in coordination of care (as documented) at patient's floor/unit and/or counseling patient: Coding Level of Care Code 23166 Subseq Hosp Care Lvl 3 Diagnoses Hyponatremia E87.1 Labile hypertension R09.89
--- NOTE | 2020-10-21 10:54 | Discharge Summary ---
Date of Service October 21, 2020 Admission HPI Per Admitting Provider Esa Rolle is a 75 year old man with a past medical history significant for CAD, anxiety, depression , vertigo presented to ED today with episode of vertigo. Patient was given meclizine and ativan and symptoms mostly resolved. Vital stable throughout. While in ED he had labwork which was significant for moderate hyponatremia with sodium of 123. He admits he has had a bit of a stomach ache lately and his PO intake has been quite poor. He tells me the one thing he has done is had a lot of water. He is unable to estimate how much he has had to drink but he says it has been a lot of plain water. He says he has run into problems with hyponatremia in the past but in my review of the chart while I do see many lab results of hyponatremia I do not see any workup for it. Denies recent fevers, chills, sweats, shortness of breath, chest pain, cough, has had indigestion and stomach ache which has hampered his appetite but he does not have that now. Has had intermittent fatigue and sluggishness. Lives with his , no other acute concerns. Full Code Admission Exam Per Admitting Provider Constitutional: Well appearing, no acute distress, cooperative and comfortable Eyes: PERRLA, patient with horizontal nystagmus Respiratory: No increased work of breathing, lung sounds vesicular throughout Cardiovascular: Regular rate and rhythm no mumurs rubs skips or gallops GI: Abdomen Soft/non tender. MSK: NAD Principal Diagnosis vertigo hyponatremia Discharge Exam Constitutional: WD/WN, vitals as above cooperative; no acute distress Eyes: + anicteric sclerae ENMT: external ear and nose normal, oropharynx normal Neck: normal visual inspection and trachea midline Respiratory: normal respiratory effort, lungs clear to auscultation no cough Auscultation: no crackles, no rales, no rhonchi and no wheezes Cardiovascular: Rate/Rhythm: regular rate and regular rhythm Heart Sounds: RRR no m/r/g no pedal edema Gastrointestinal (Abdomen): normal bowel sounds, soft, nontender, no hepatosplenomegaly Skin: no rashes, warm and dry Psychiatric: A+Ox3, euthymic affect Discharge Data Allergies Allergy/AdvReac Type Severity Reaction Status Date / Time gluten Allergy Unknown CELIAC Verified 10/20/20 01:04 DISEASE heparin AdvReac Unknown BURNING Verified 10/20/20 01:04 SENSATION sertraline [From Zoloft] AdvReac Unknown SUICIDAL Verified 10/20/20 01:04 THOUGHTS-FELT WEIRD Consultations 10/20/20 00:30 ED Decision to Admit Stat 10/20/20 10:29 Consult Nephrology Routine Ordered Studies 10/20/20 14:00 US renal/blad retro comp Routine 10/20/20 14:30 US duplex renal artery Routine Hospital Course (1) Vertigo: Esa Rolle is a 75 year old man with a past medical history of CAD, anxiety, BPPV admitted with dizziness found to have hyponatremia Hyponatremia Chronicity unclear of this most recent episode, patient was recently hospitalized and discharged from hospital on 10/01 after a negative chest pain rule out admission and Na was 135 at that time. Sodium on admission was 123. Historically between approx. 125-135. Patient's history of polydipsia and Low BUN creatinine ratio lead me to believe this is most likely euvolemic hyponatremia Patient's sodium has routinely been low previously, very well could have some degree of SIADH -TSH nl at 1.58 -labs consistent w/ polydipsia vs. SIADH -fluid restricted --> sodium responded with improvement to 128 prior to discharge consulted nephrology, and he will have follow up to discuss adjustment of his BP medications going forward - discontinued Minoxidil started spironolactone 25 mg -continue to restrict fluid intake Vertigo -patient will need referral to [facility] for vertigo Hypertension Continuing patient's home antihypertensive regime of hydralazine, clonidine, furosemide, minoxidil and valsartan CAD Continuing home statin, antihypertensives, and daily asa 81 Stable Incidental finding on renal ultrasound - chronic wall thickening concerning for chronic bladder outlet - consider outpatient urology f/u F/E/N: Fluid restricted heart healthy diet Total Time Total Time Spent Total Time Spent (In Minutes): I spent 35 minutes seeing the patient, reviewing laboratory data, discussing the case with nephrology. Discharge Plan Discharge Items Patient Disposition: Home - Self-Care Reason For Visit: HYPONATREMIA, VERTIGO Discharge Diagnosis: Hyponatremia vertigo Activity: Per Instructions section Non-emergency contact: Primary Care Provider and Solution Consultant Call non-emergency contact if: your symptoms worsen Follow-up/Referrals: Romeo Bhatia MD [Physician] - 11/10/20 11:30 am (You have an appt with Dr. Bhatia on at 11:30a. Please arrive 15 minutes prior to your appt. If it important that you keep this appt, if for some reason you can not make this appt, please call [phone] to reschedule. ) Sarah Loo CRNP [Primary Care Provider] - 10/26/20 2:50 pm (You have an appt with your PCP, on Thursday 10/26 at 2:50pm. Please arrive 15 minutes prior to your appt. It is important that you keep this appt. If for some reason you can not make this appt, please call [phone]. ) Diet: Regular Addtl Attending Provider Instructions: Dizziness (vertigo) You have a history of dizziness and worsening of this prior to coming in to the hospital. The dizziness could be made worse from the low sodium level. You would likely benefit from going back to [facility] for PT. low sodium (Hyponatremia) When you came to the hospital you were noted to have a low sodium level. This is thought to be due to you increasing the amount of water that you are drinking. We would like for you to limit the amount of water you are drinking to 2 of the cups (hospital cup) that the siebel architect had instructed you. We will want you to have your sodium level checked in the next couple days after leaving the hospital. You will need to see your primary care doctor, you will also need to follow up with nephrology. Return Precaution If you are experiencing increased need to urinate, muscle cramps, headaches, confusion, altered mentation, and/or trouble staying awake during the day this may be related to low sodium. You should call or come in to get evaluated if you are having these symptoms. Pending Studies at Discharge: No Stand-Alone Forms: My [employer], Smoking Cessation Medications and DC Order Prescriptions: New spironolactone 25 mg tablet 25 mg PO QAM Qty: 30 RF: 3 Continued clonidine HCl 0.1 mg tablet 0.1 mg PO BID Qty: 180 RF: 3 pantoprazole 40 mg tablet,delayed release (DR/EC) 40 mg PO QAM Qty: 90 RF: 3 isosorbide mononitrate 30 mg tablet extended release 24 hr 30 mg PO QAM Qty: 90 RF: 3 valsartan 160 mg tablet 160 mg PO DAILY Qty: 90 RF: 3 atorvastatin 20 mg tablet 20 mg PO HS Qty: 90 RF: 3 clonidine 0.3 mg/24 hr patch weekly 0.3 mg transdermal SA Qty: 4 RF: 3 nitroglycerin 0.4 mg tablet, sublingual 0.4 mg sublingual UD PRN (Reason: Chest Pain) Qty: 15 RF: 1 multivitamin Tablet 1 tab PO QAM RF: 0 cyanocobalamin (vitamin B-12) [Vitamin B-12] 1,000 mcg Tablet 2,000 mcg PO QAM RF: 0 aspirin 81 mg Tablet,Delayed Release (Dr/Ec) 81 mg PO BID RF: 0 ascorbic acid (vitamin C) [Vitamin C] 500 mg Tablet 500 mg PO QAM RF: 0 saw palmetto 450 mg Capsule 450 mg PO QPM RF: 0 melatonin 5 mg Tablet 10 mg PO HS RF: 0 cholecalciferol (vitamin D3) [Vitamin D3] 2,000 unit Capsule 2,000 unit PO QAM RF: 0 Caltrate 600 plus D 600 mg (1,500 mg)-800 unit Tablet,Chewable 1 tab PO BID RF: 0 omega [id number] oil [Fish Oil] 1,000 mg (120 mg-180 mg) Capsule 1 cap PO QPM RF: 0 furosemide 40 mg tablet 40 mg PO DAILY RF: 0 Discontinued minoxidil 10 mg tablet 10 mg PO BID Qty: 180 RF: 3 Discharge Orders: Discharge Order (Routine); Ordered 10/21/20 Ordered By: Guilherme Barboza/Other Patient Handouts: Hyponatremia Dc, Benign Prostatic Hyperplasia Admission Data Admit Date/Time: 10/20/20 02:21 Attending Provider: Nima Cam Admit Provider: Michael De Leon Primary Care Provider: Sarah Loo Other Providers: Mary Esquivel ; Romeo Bhatia. Supervising Physician Co-Signing Physician Notes I also saw the patient with the resident physician and confirmed villagomez portions of the history and physical examination. Also discussed the case with nephrology. I agree with the impression and plan as noted in the resident discharge note and as summarized below. Mr. Rolle was without complaints today. He was concerned about the vertigo that he had been experiencing and we discussed some techniques to prevent; he has had previously and had success with outpatient physical therapy/vestibular rehabilitation and we will arrange this upon discharge. His serum sodium has improved to 127 this morning, his range has been between 125 and 135 dating back about two years. Medication changes as recommended by nephrology including stopping minoxidil, adding spironolactone, and continuing home doses of valsartan, furosemide, clonidine/Catapres, and isosorbide. Ultimately the outpatient plan would be to taper the clonidine/Catapres as this may be causing a dry mouth and stimulating thirst/worsening the hyponatremia. Medication changes were discussed with the patient and he was understanding. Follow-up will be with both nephrology and primary care in the next 1 to 2 weeks. Resident Activity Tracking Resident Involvement: Resident Care Provided Care Provided: [facility] Medicine CBC Results Results Complete Blood Count Results: RBC 4.23 M/uL (4.7-6.1) L 10/21/20 WBC 4.47 K/uL (4.8-10.8) L 10/21/20 Hgb 13.4 g/dL (14.0-18.0) L 10/21/20 Hct 37.6 % (42-52) L 10/21/20 Plt Count 210 K/uL (130-400) 10/21/20 Chemistry (BMP) Results BMP Results: Sodium 127 mmol/L (136-145) L 10/21/20 Potassium 4.0 mmol/L (3.5-5.1) 10/21/20 Chloride 93 mmol/L (98-107) L 10/21/20 BUN 11 mg/dl (7-18) 10/21/20 Creatinine 1.05 mg/dl (0.6-1.4) 10/21/20 Glucose 99 mg/dl (70-99) 10/21/20
[2020-10-21 11:04] LABS: Appearance Urine Clear (Clear); Bilirubin Urine Negative (Negative); Blood Urine Negative (Negative); Color Urine Yellow; Glucose Urine UA Negative (Negative); Ketones Urine Negative (Negative); Leukocyte Esterase Urine Negative (Negative); Nitrite Urine Negative (Negative); Protein Urine Negative (Negative); Specific Gravity Urine 1.011 (1.000-1.030); Urobilinogen Urine Negative (Negative); pH Urine 6.5 (4.5-7.5)
== END 2020-10-21 14:48 | disposition home or self-care (01) | DRG 641 ==
LOC: ED 22:51 → SUATTDRO 10-20 02:21 → 2N 10-20 02:21

== ENCOUNTER 2024-01-27 10:35 | Observation (INO) ==
--- NOTE | 2024-01-27 11:03 | Emergency Department Note ---
Impression & Plan Abdominal discomfort, Hypertension, Fatigue, Acute hyponatremia ED Provider Note Name: KIA OWENS Age: 78 Sex: Male Arrives Via: Walk-In Informant: Patient ED Provider: Minesh Ruth MD Chief Complaint: Headache and abdominal pain Impression: As per impressions above Medical Decision Making: Pleasant 78-year-old male arrives for evaluation of headache and abdominal pain on and off for the last few weeks sometimes with dizziness. Admits he is quite anxious about all of this. Given the worsening symptoms and some anxiety surround it he arrives to the ER for further evaluation. He is moderately hypertensive on arrival however he is adamant that this is not to be treated and produces a note from his gluing machine operator electronic stating the same effect. Patient's examination is relatively benign other than anxiety. No neurodeficits he is NIH of 0. Generalized weakness is reported but he is having 5 out of 5 strength. Laboratory workup obtained does show some moderate hyponatremia. Sounds like this is being managed by outpatient providers but continues to start trending down. A CT of the head was obtained given his significant hypertension and headache which is fortunately unremarkable. A CT of the abdomen pelvis was also obtained given the abdominal discomfort in the setting of hypertension which is fortunately unremarkable as well. Patient is feeling a bit better after some slight IV hydration. I discussed with the hospitalist service to possibly bring him in. They did evaluate the patient and further discussed with his gluing machine operator electronic. After thorough discussions they felt discharge is reasonable and patient was discharged home in stable condition. Plan to follow-up with gluing machine operator electronic. Triage/Nursing Notes reviewed by Me Differential:Infection, dehydration, metabolic abnormality, hypo/hyperglycemia, electrolyte disturbance, anemia, hypoxia, cardiac sources, intracerebral event, toxicologic, neurologic, as well as other pathologies. Vital Signs: reviewed and remarkable for hypertension Interventions: Normal Saline bolus Labs:ED labs Reviewed by me and remarkable for hyponatremia Imaging:CT of the head without contrast as per my informal interpretation reveals no intracranial hemorrhage or mass effect. Confirmed by radiologist. CT of the pelvis with IV contrast as per my informal interpretation reveals no bowel obstruction, free fluid, free air or other acute concerning findings. Confirmed radiologist. 1 view chest x-ray as per my interpretation reveals no infiltrate or effusion or significantly enlarged cardiac border. EKG:As per my interpretation. Indication hypertension. Sinus bradycardia at 49 bpm QTc 377. There is no ischemia. There is a left bundle branch block for significant ventricular hypertrophy. ST segments are not consistent with STEMI. Compared to EKG of December 09, 2021 there is no significant change. Ectopy noted with PVC. Cardiac/Tele Monitoring: Cardiac Monitoring: An Order was placed for continuous cardiac monitoring. The monitor shows a rate of [] with a [normal sinus] rhythm. Consults:Dr Megan HARRIS Hosptialist who evaluated patient after further evaluation and discussion plan will be to discharge to home. Plan: Disposition: Discharged. Escalation of Care Considered: Initial plan hospitalization for further monitoring and management. However after discussion with hospitalist who evaluated patient plan will be to discharge to home. Condition: Good Prescriptions:Continue current medication management but discussed with PCP in 3 days History of Present Illness: 78-year-old gentleman arrives for evaluation of both headache and abdominal pain. Patient notes on and off headache for the last few weeks. At times he feels a bit dizzy and diaphoretic. Seem to occur earlier today but has mostly resolved. Associated with anxiety at that time as well. Also notes that he has had several months of cramping abdominal pain which comes and goes. Nonspecific and no vomiting, diarrhea, fevers, flank pain or other concerning symptoms. Over the last week though the pain has gotten worse and is continuing to be diffuse. Denies any falls, trauma, injuries. Patient notes he has a history of labile hypertension. He states he is not to be treated with blood pressure medicines unless his blood pressure goes above 260 systolic or 110 diastolic. Past Medical History:See Below Home Medications:See Below Allergies:Heparin, sertraline, gluten Vitals:Blood Pressure: 229/93, Pulse 50, RR 16, T 36.5C, O2 97% on RA Physical Exam: GENERAL: Patient is anxious appearing and in mild distress. HEAD: AT/NC RESPIRATORY: No dyspnea. Clear to auscultation and equal bilaterally. CARDIOVASCULAR: Regular rate and rhythm.No murmur appreciated. GASTROINTESTINAL: Vague diffuse TTP, otherwise abdomen soft, no peritonitis. EXTREMITIES: Normal motion all extremities, no cyanosis, no edema. NEUROLOGIC: Alert and oriented. No focal neurologic deficits appreciated SKIN: No rash, no jaundice, no diaphoresis. PSYCH: Appropriate GCS: 15 ED Course: Times/Reassessments: Patient is stable throughout. Blood pressure is a bit labile but he has no further symptoms and is comfortable plan for discharge Minesh Ruth MD Past Med/Surg History Medical History Hypercalcemia Acute hyponatremia Scoliosis BPH (benign prostatic hyperplasia) Anxiety Hepatitis C Hearing problem Pre-diabetes History of heart attack Celiac disease GERD (gastroesophageal reflux disease) (12/15/12) HTN (hypertension) (12/15/12) BPH w urinary obs/LUTS (12/15/12) Panic disorder without agoraphobia (12/15/12) Depression Surgical History History of hernia repair History of cataract surgery History of prostate surgery History of heart bypass surgery (1998) History of colonoscopy Family History Mother Family history of diabetes mellitus Heart disease Son Family history of diabetes mellitus Sister Family history of diabetes mellitus Hypertension Denies family history of Hearing loss Allergies Bleeding disorder Cancer Stroke Asthma Social History Smoking Status: Never smoker Cigarettes Per Day: Pt states "few"; Second Hand Exposure: No; Do You Dip or Chew Tobacco: No; Hx Alcohol Use: No Hx Substance Use: No Preferred Language: German Communication Ability: Effective Communication Ability Comment: HARD OF HEARING Visual Impairment: No Limitations Hearing Ability: Normal Train Station Agent Required: No Beliefs That Will Affect Care: None marital status: Current Living Situation: Spouse current occupational status: retired Feels Safe at Home: Yes Assistive Devices: None Allergies Allergies Allergy/AdvReac Type Severity Reaction Status Date / Time gluten Allergy Unknown CELIAC Verified 01/11/24 10:33 DISEASE heparin AdvReac Unknown BURNING Verified 01/11/24 10:33 SENSATION sertraline [From Zoloft] AdvReac Unknown SUICIDAL Verified 01/11/24 10:33 THOUGHTS-FELT WEIRD Home Meds Home Medications Medication Instructions Recorded Confirmed melatonin 5 mg tablet 10 mg PO HS 02/01/19 01/11/24 garlic 300 mg capsule 400 mg PO DAILY 08/08/22 01/11/24 aspirin 81 mg tablet,delayed 81 mg PO BID 06/27/23 01/11/24 release cyanocobalamin (vitamin B-12) 500 mcg PO QAM 11/09/23 01/11/24 1,000 mcg tablet (Vitamin B-12) clonidine HCl 0.1 mg tablet 0.1 mg PO BID HTN 12/20/23 01/11/24 Previous Rx's Medication Instructions Recorded nitroglycerin 0.4 mg sublingual 0.4 mg sublingual UD PRN Chest 05/18/22 tablet Pain #15 tabs pantoprazole 40 mg tablet,delayed 40 mg PO DAILYBB #90 tabs 03/21/23 release minoxidil 2.5 mg tablet 5 mg (2 x 2.5 mg) PO DAILY #180 06/20/23 tabs metoprolol succinate 25 mg 25 mg PO QAM #30 tabs 06/27/23 tablet,extended release 24 hr valsartan 320 mg tablet 320 mg PO QAM #90 tabs 08/23/23 atorvastatin 20 mg tablet 20 mg PO HS #90 tabs 08/29/23 clonidine 0.1 mg/24 hr weekly 1 patch transdermal WK #4 ea 11/09/23 transdermal patch furosemide 40 mg tablet 40 mg PO QAM #90 tabs 11/16/23 isosorbide mononitrate 60 mg 60 mg PO QAM #90 tabs 11/16/23 tablet,extended release 24 hr Results & Data (ED) Vital Signs Vital Signs - 24 hr 01/27/24 10:39 01/27/24 11:13 01/27/24 11:37 Temperature 36.5 C Temperature Source Oral Pulse Rate 50 L 52 L Pulse Rate [Finger] 55 L Respiratory Rate 16 18 Respiratory Effort / Characteristics Non-Labored Non-Labored Spontaneous Respiratory Depth Normal Normal Respiratory Pattern Regular Blood Pressure 229/93 H Blood Pressure [Left Arm] 182/75 H Blood Pressure Mean 138 Blood Pressure Mean [Left Arm] 110 Blood Pressure Position [Left Arm] Sitting Pulse Oximetry 97 99 Oxygen Delivery Method Room Air Room Air Sepsis Recent Fever Within 48 Hours No Sepsis New/Unexplained Change in Mental Status N/A Sepsis Action Taken by Nursing No Action Required 01/27/24 13:00 01/27/24 13:33 Temperature Temperature Source Pulse Rate 58 L Pulse Rate [Finger] 72 Respiratory Rate 18 18 Respiratory Effort / Characteristics Respiratory Depth Respiratory Pattern Blood Pressure 200/87 H Blood Pressure [Left Arm] 170/79 H Blood Pressure Mean Blood Pressure Mean [Left Arm] 109 Blood Pressure Position [Left Arm] Pulse Oximetry 98 97 Oxygen Delivery Method Room Air Sepsis Recent Fever Within 48 Hours Sepsis New/Unexplained Change in Mental Status Sepsis Action Taken by Nursing Laboratory Data 01/27/24 11:00 01/27/24 11:00 Lab Results 01/27/24 01/27/24 01/27/24 Range/Units 11:00 11:05 11:35 WBC 9.55 (4.8-10.8) K/ul RBC 4.36 L (4.70-6.10) M/uL Hgb 13.7 L (14.0-18.0) g/dl POC Hgb 14.6 (14.0-18.0) g/dl Hct 38.1 L (42.0-52.0) % POC Hct 43 (42-52) % MCV 87.4 (80.0-100.0) fL MCH 31.4 (25.0-34.0) pg MCHC 36.0 (32.0-36.0) g/dL RDW Std Deviation 39.1 (36.4-46.3) fL RDW Coeff of Gurvinder 12.0 (11.5-14.5) % Plt Count 239 (130-400) K/uL MPV 10.5 (9.4-12.4) fL Immature Gran % (Auto) 0.3 % Neut % (Auto) 77.3 % Lymph % (Auto) 10.7 % [place] % (Auto) 9.6 % Eos % (Auto) 1.5 % Baso % (Auto) 0.6 % Neut # (Auto) 7.38 H (1.40-6.50) K/uL Lymph # (Auto) 1.02 L (1.20-3.40) K/uL [place] # (Auto) 0.92 H (0.11-0.59) K/uL Eos # (Auto) 0.14 (0.00-0.50) K/uL Baso # (Auto) 0.06 (0.00-0.20) K/uL Immature Gran # (Auto) 0.03 (0.01-0.20) K/uL POC Sodium 126 L (135-144) mmol/L Sodium 125 L (136-145) mmol/L POC Potassium 4.2 (3.3-5.0) mmol/L Potassium 4.2 (3.5-5.1) mmol/L POC Chloride 92 L (101-112) mmol/L Chloride 94 L (98-107) mmol/L Carbon Dioxide 26 (21-32) mmol/L POC Total CO2 26 (24-31) mmol/L Anion Gap 5 (3-11) POC Anion Gap 14.0 L (16-25) mmol/L POC BUN 17 (7-18) mg/dl BUN 18 (6-23) mg/dl Creatinine 0.97 (0.6-1.4) mg/dl POC Creatinine 1.0 (0.6-1.3) mg/dl Est Cr Clr Drug Dosing 48.5 ml/min Est GFR ( Amer) 86.3 ml/min Est GFR (Non-Af Amer) 74.5 ml/min BUN/Creatinine Ratio 18.6 (10-20) Glucose 117 H (70-99(Fasting)) mg/dl POC Glucose (other) 120 H (70-99) mg/dl Osmolality 269 L (280-300) mOsm/kg Calcium 10.5 H (8.6-10.3) mg/dl POC Ioniz Calcium Cara 1.35 H (1.12-1.32) mmol/l Magnesium 2.1 (1.7-2.4) mg/dl Total Bilirubin 0.8 (0.2-1.0) mg/dl Direct Bilirubin 0.2 (0-0.2) mg/dl AST 28 (13-39) U/L ALT 21 (7-52) U/L Alkaline Phosphatase 111 H (34-104) U/L Troponin I High Sens 18.9 (0-20) pg/ml Total Protein 7.9 (6.0-8.3) gm/dl Albumin 5.0 (3.4-5.0) gm/dl Lipase 17 (11-82) U/L Urine Color Yellow Urine Appearance Clear (Clear) Urine pH 6.5 (4.5-7.5) Ur Specific [place] 1.009 (1.000-1.030) Urine Protein Negative (Negative) Urine Glucose (UA) Negative (Negative) Urine Ketones Negative (Negative) Urine Blood Negative (Negative) Urine Nitrite Negative (Negative) Urine Bilirubin Negative (Negative) Urine Urobilinogen Negative (Negative) Ur Leukocyte Esterase Negative (Negative) Urine Osmolality 313 L (500-800) mOsm/kg Ur Random Sodium 62 mmol/L Administered Medications Discontinued Medications Sodium Chloride (Nss) 500 mls @ 999 mls/hr IV .Q31M ONE Stop: 01/27/24 11:30 Last Infusion: 01/27/24 12:00 Dose: Infused Documented By: Admin: 01/27/24 11:37 Dose: 999 mls/hr Documented By: TWIN Ioversol (Optiray 320 100ml) 93 ml IV ONCE ONE Stop: 01/27/24 11:21 Last Admin: 01/27/24 11:20 Dose: 93 ml Documented By: EDK Imaging Data Radiologist's Impression: Abdomen/Pelvis CT 01/27/24 11:00 CT abd pelvis IV con only CLINICAL HISTORY: diffuse abdominal pain, hypertension TECHNIQUE: Helical axial images of the abdomen and pelvis were obtained and displayed. Automated dose lowering techniques and/or adjustment according to patient size were utilized for this exam. This exam was performed with intravenous contrast. CT DOSE: 1205.26 mGy.cm COMPARISON: Comparison is made to CT abdomen pelvis 06/26/2018 FINDINGS: Lower chest: Cardiomegaly is seen. Multiple pulmonary cysts are seen with atelectasis versus scarring noted in the lung bases. Liver: Unremarkable. No focal lesions are seen. Gallbladder and biliary tree: No calcified gallstones. Normal caliber wall. No intra- or extrahepatic biliary ductal dilation. Pancreas: Unremarkable, no focal lesions. Spleen: Unremarkable. Adrenals: Unremarkable. Kidneys and ureters: Unremarkable. Bladder: Diffuse homogeneous wall thickening is seen. Reproductive organs: Unremarkable. Bowel: Diverticulosis is seen without diverticulitis. The appendix is normal. There is a small hiatal hernia. Lymph nodes Retroperitoneal: Unremarkable. Pelvic: Unremarkable. Mesenteric: Unremarkable. Peritoneum: Normal. Vessels: Atherosclerotic calcifications are seen. 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 Abdominal wall: A fat-containing umbilical hernia is seen. Bones: Vertebral plana of T12 is new from prior exam but appears chronic. IMPRESSION: No acute abnormalities are seen. Additional findings as above. ACT 112: Negative or not required by law. Electronically signed by: Alberto Segundo M.D. 01/27/2024 12:10 PM Chest X-Ray 01/27/24 11:00 XR chest 1V portable CLINICAL HISTORY: HTN TECHNIQUE: Single frontal radiograph of the chest was obtained. Comparison: Comparison is made to chest radiograph 12/09/2021 FINDINGS: Median sternotomy wires are unchanged. Cardiomegaly is noted. The lungs are clear. No evidence of pleural effusion or pneumothorax. IMPRESSION: No acute chest disease. ACT 112: Negative or not required by law. Electronically signed by: Alberto Segundo M.D. 01/27/2024 1:[address] 01/27/24 11:00 Exam(s): CT HEAD Without Contrast EXAM: CT Head Without Intravenous Contrast CLINICAL HISTORY: Reason for exam: headache, htn. TECHNIQUE: Axial computed tomography images of the head/brain without intravenous contrast. Axial images only. CTDI is 50.17 mGy and DLP is 1205.26 mGy- cm. Automated exposure control was utilized for the study. A dose lowering technique was utilized adhering to the principles of ALARA. COMPARISON: No relevant prior studies available. FINDINGS: Brain: No hemorrhage. No apparent acute cortical infarct. No mass lesion or midline shift. Ventricles: No hydrocephalus. Bones/joints: No acute fracture. Soft tissues: Unremarkable. Sinuses: No acute sinusitis. Mastoid air cells: No mastoid effusion. Orbits: No acute process. Cataract surgery. IMPRESSION: No acute intracranial process. Electronically signed by: Gavino Crain M.D. 01/27/24 11:29 AM Discharge Plan Visit Data Chief Complaint: Abdominal Pain Stated Complaint: ABDOMINAL PAIN ED Provider: Minesh Ruth Discharge Problem: Abdominal discomfort, Hypertension, Fatigue, Acute hyponatremia Patient Disposition: Home - Self-Care Condition: Fair Discharge Instructions Activity Restrictions/Additional Instructions: You were diagnosed with hyponatremia. Acutely this is due to a combination of high water intake with spironolactone recently started. Recommend stopping spironolactone and Dr Ramos has ordered a lab test to be taken on Monday to make sure this is coming back up. Please continue all your other medications other than spironolactone. No cause for your abdominal pain was found on imaging and was not reproducible on exam. Please follow up with your primary care physician for ongoing management for this if it continues. Interventions: ED Discharge Assessment Last Done: 01/27/24 13:33 Forms Stand Alone Forms: My [facility], Important Visit Information Prescriptions Prescriptions: Continued nitroglycerin 0.4 mg tablet, sublingual 0.4 mg sublingual UD PRN (Reason: Chest Pain) Qty: 15 1RF pantoprazole 40 mg tablet,delayed release (DR/EC) 40 mg PO DAILYBB Qty: 90 3RF minoxidil 2.5 mg tablet 5 mg PO DAILY Qty: 180 3RF metoprolol succinate 25 mg tablet extended release 24 hr 25 mg PO QAM Qty: 30 5RF valsartan 320 mg tablet 320 mg PO QAM Qty: 90 3RF atorvastatin 20 mg tablet 20 mg PO HS Qty: 90 3RF furosemide 40 mg tablet 40 mg PO QAM Qty: 90 3RF isosorbide mononitrate 60 mg tablet extended release 24 hr 60 mg PO QAM Qty: 90 3RF clonidine HCl 0.1 mg tablet 0.1 mg PO BID Rx Instructions: Use if BP is 260/120 or > use once and repeat if necessary in 1/2 hr clonidine 0.1 mg/24 hr patch weekly 1 patch transdermal WK Qty: 4 5RF garlic 300 mg capsule 400 mg PO DAILY melatonin 5 mg Tablet 10 mg PO HS aspirin 81 mg tablet,delayed release (DR/EC) 81 mg PO BID cyanocobalamin (vitamin B-12) [Vitamin B-12] 1,000 mcg tablet 500 mcg PO QAM Discontinued spironolactone 25 mg tablet 25 mg PO QAM Qty: 90 3RF Referrals Referrals: Sarah Loo CRNP [Primary Care Provider] -
[2024-01-27] MEDS: OPTIRAY 320 100ml IV ONE (11:20)
[2024-01-27 11:30] LABS: Basophils # (auto) 0.06 K/uL (0.00-0.20); Basophils % (auto) 0.6 %; Eosinophils # (auto) 0.14 K/uL (0.00-0.50); Eosinophils % (auto) 1.5 %; Hematocrit (blood only) 38.1 % (42.0-52.0); Hemoglobin 13.7 g/dl (14.0-18.0); Immature Granulocytes # (auto) 0.03 K/uL (0.01-0.20); Immature Granulocytes % (auto) 0.3 %; Lymphocytes # (auto) 1.02 K/uL (1.20-3.40); Lymphocytes % (auto) 10.7 %; Mean Corpuscular Hemoglobin 31.4 pg (25.0-34.0); Mean Corpuscular Volume 87.4 fL (80.0-100.0); Mean Platelet Volume 10.5 fL (9.4-12.4); Monocytes # (auto) 0.92 K/uL (0.11-0.59); Monocytes % (auto) 9.6 %; Neutrophils # (auto) 7.38 K/uL (1.40-6.50); Neutrophils % (auto) 77.3 %; Platelet Count 239 K/uL (130-400); RDW Standard Deviation 39.1 fL (36.4-46.3); Red Blood Count 4.36 M/uL (4.70-6.10); White Blood Count 9.55 K/ul (4.8-10.8)
--- NOTE | 2024-01-27 11:30 | CT Scan Report ---
Exam(s): CT HEAD Without Contrast EXAM: CT Head Without Intravenous Contrast CLINICAL HISTORY: Reason for exam: headache, htn. TECHNIQUE: Axial computed tomography images of the head/brain without intravenous contrast. Axial images only. CTDI is 50.17 mGy and DLP is 1205.26 mGy- cm. Automated exposure control was utilized for the study. A dose lowering technique was utilized adhering to the principles of ALARA. COMPARISON: No relevant prior studies available. FINDINGS: Brain: No hemorrhage. No apparent acute cortical infarct. No mass lesion or midline shift. Ventricles: No hydrocephalus. Bones/joints: No acute fracture. Soft tissues: Unremarkable. Sinuses: No acute sinusitis. Mastoid air cells: No mastoid effusion. Orbits: No acute process. Cataract surgery. IMPRESSION: No acute intracranial process. Electronically signed by: Gavino Crain M.D. 01/27/24 11:29 AM
[2024-01-27] MEDS: SODIUM CHLORIDE 0.9% 500 ML IV ONE (11:37)
[2024-01-27 11:45] LABS: Appearance Urine Clear (Clear); Bilirubin Urine Negative (Negative); Blood Urine Negative (Negative); Color Urine Yellow; Glucose Urine UA Negative (Negative); Ketones Urine Negative (Negative); Leukocyte Esterase Urine Negative (Negative); Nitrite Urine Negative (Negative); Protein Urine Negative (Negative); Specific Gravity Urine 1.009 (1.000-1.030); Urobilinogen Urine Negative (Negative); pH Urine 6.5 (4.5-7.5)
[2024-01-27 11:52] LABS: BUN Creatinine Ratio 18.6 (10-20); Bilirubin Direct 0.2 mg/dl (0-0.2); Bilirubin,Total 0.8 mg/dl (0.2-1.0); Calcium 10.5 mg/dl (8.6-10.3); Creatinine Clr Calc Pharmacy 48.5 ml/min; Est GFR (African American) 86.3 ml/min; Est GFR (Non-African American) 74.5 ml/min; Magnesium 2.1 mg/dl (1.7-2.4); Potassium 4.2 mmol/L (3.5-5.1); Total Protein 7.9 gm/dl (6.0-8.3)
[2024-01-27 11:55] LABS: Troponin I High Sensitivity 18.9 pg/ml (0-20)
--- NOTE | 2024-01-27 12:12 | CT Scan Report ---
CT abd pelvis IV con only CLINICAL HISTORY: diffuse abdominal pain, hypertension TECHNIQUE: Helical axial images of the abdomen and pelvis were obtained and displayed. Automated dose lowering techniques and/or adjustment according to patient size were utilized for this exam. This e xam was performed with intravenous contrast. CT DOSE: 1205.26 mGy.cm COMPARISON: Comparison is made to CT abdomen pelvis 06/26/2018 FINDINGS: Lower chest: Cardiomegaly is seen. Multiple pulmonary cysts are seen with atelectasis versus scarrin g noted in the lung bases. Liver: Unremarkable. No focal lesions are seen. Gallbladder and biliary tree: No calcified gallstones. Normal caliber wall. No intra- or extrahepatic biliary ductal dilation. Pancreas: Unremarkable, no focal lesions. Spleen: Unremarkable. Adrenals: Unremarkable. Kidneys and ureters: Unremarkable. Bladder: Diffuse homogeneous wall thickening is seen. Reproductive organs: Unremarkable. Bowel: Diverticulosis is seen without diverticulitis. The appendix is normal. There is a small hiatal hernia. Lymph nodes Retroperitoneal: Unremarkable. Pelvic: Unremarkable. Mesenteric: Unremarkable. Peritoneum: Normal. Vessels: Atherosclerotic calcifications are seen. 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 Abdominal wall: A fat-containing umbilical hernia is seen. Bones: Vertebral plana of T12 is new from prior exam but appears chronic. IMPRESSION: No acute abnormalities are seen. Additional findings as above. ACT 112: Negative or not required by law. Electronically signed by: Alberto Segundo M.D. 01/27/2024 12:10 PM
[2024-01-27 12:57] LABS: iSTAT Hemoglobin 14.6 g/dl (14.0-18.0); iSTAT Ionized Calcium 1.35 mmol/l (1.12-1.32); iSTAT Potassium 4.2 mmol/L (3.3-5.0)
--- NOTE | 2024-01-27 13:04 | XRay Report ---
XR chest 1V portable CLINICAL HISTORY: HTN TECHNIQUE: Single frontal radiograph of the chest was obtained. Comparison: Comparison is made to chest radiograph 12/09/2021 FINDINGS: Median sternotomy wires are unchanged. Cardiomegaly is noted. The lungs are clear. No evidence of ple ural effusion or pneumothorax. IMPRESSION: No acute chest disease. ACT 112: Negative or not required by law. Electronically signed by: Alberto Segundo M.D. 01/27/2024 1:03 PM
--- NOTE | 2024-01-27 13:34 | Hospitalist Consultation ---
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) Acutely this mainly appears to be from spironolactone as evidenced by recently started on 01/10 with slowly reducing sodium since with high urine sodium His urine osm at 313 suggests primary polydipsia is certainly playing a part of his chronically low sodium but no reason from history to suggest he has acutely changed his free water intake - he was advised, as he has been by his sql ssrs ssis developer in the past to restrict his free water intake Discussed with his sql ssrs ssis developer, Dr Ramos, who prescribed the spironolactone and will hold this moving forward Given he has a good reversible cause and asymptomatic (although notably difficult to get a good history from him) we discussed options of observation in hospital vs. home and he elected to be discharged at this time. Dr Ramos to arrange repeat labs next week. Return if symptomatic such as confusion, headache, nausea, dizziness, gait instability, tremor (2) Abdominal pain: No specific etiology for this but also not reproducible on my exam. Perhaps related to his hyponatremia and may be more nausea which he describes as pain. CT A/P without any acute findings. No further workup for this recommended at this time as his examination is normal History of Present Illness Reason for Consultation: Hyponatremia Attending Physician: Dr Ruth History of Present Illness Esa Rolle is a 78 year old male with severe anxiety, coronary artery disease, labile hypertension who presents to the ER with abdominal pain. Difficult to get an accurate history from the patient but he reports generalized abdominal pain constant for 1 week, no nausea, vomiting, diarrhea, constipation. No exacerbating factors, notably no worse on eating. No associated symptoms. In the ER he was noted to have a sodium 125. This is down from 127, 3 days previously. Chronically he runs 130-135 on furosemide. He had a previous episode of hyponatremia in 2019 with associated vertigo suspected to be from primary polydipsia and he was treated with fluid restriction which improved his sodium. Allergies Allergy/AdvReac Type Severity Reaction Status Date / Time gluten Allergy Unknown CELIAC Verified 01/11/24 10:33 DISEASE heparin AdvReac Unknown BURNING Verified 01/11/24 10:33 SENSATION sertraline [From Zoloft] AdvReac Unknown SUICIDAL Verified 01/11/24 10:33 THOUGHTS-FELT WEIRD Home Medications Medication Instructions Recorded Confirmed Type melatonin 5 mg tablet 10 mg PO HS 02/01/19 01/11/24 History nitroglycerin 0.4 mg sublingual 0.4 mg sublingual UD PRN Chest 05/18/22 01/11/24 Rx tablet Pain #15 tabs garlic 300 mg capsule 400 mg PO DAILY 08/08/22 01/11/24 History pantoprazole 40 mg tablet,delayed 40 mg PO DAILYBB #90 tabs 03/21/23 01/11/24 Rx release minoxidil 2.5 mg tablet 5 mg (2 x 2.5 mg) PO DAILY #180 06/20/23 01/11/24 Rx tabs aspirin 81 mg tablet,delayed 81 mg PO BID 06/27/23 01/11/24 History release metoprolol succinate 25 mg 25 mg PO QAM #30 tabs 06/27/23 01/11/24 Rx tablet,extended release 24 hr valsartan 320 mg tablet 320 mg PO QAM #90 tabs 08/23/23 01/11/24 Rx atorvastatin 20 mg tablet 20 mg PO HS #90 tabs 08/29/23 01/11/24 Rx clonidine 0.1 mg/24 hr weekly 1 patch transdermal WK #4 ea 11/09/23 01/11/24 Rx transdermal patch cyanocobalamin (vitamin B-12) 500 mcg PO QAM 11/09/23 01/11/24 History 1,000 mcg tablet (Vitamin B-12) furosemide 40 mg tablet 40 mg PO QAM #90 tabs 11/16/23 01/11/24 Rx isosorbide mononitrate 60 mg 60 mg PO QAM #90 tabs 11/16/23 01/11/24 Rx tablet,extended release 24 hr clonidine HCl 0.1 mg tablet 0.1 mg PO BID HTN 12/20/23 01/11/24 History Patient History Medical History Hypercalcemia Acute hyponatremia Scoliosis BPH (benign prostatic hyperplasia) Anxiety Hepatitis C Hearing problem Pre-diabetes History of heart attack Celiac disease GERD (gastroesophageal reflux disease) (12/15/12) HTN (hypertension) (12/15/12) BPH w urinary obs/LUTS (12/15/12) Panic disorder without agoraphobia (12/15/12) Depression Surgical History History of hernia repair History of cataract surgery History of prostate surgery History of heart bypass surgery (1998) History of colonoscopy Family History Mother Family history of diabetes mellitus Heart disease Son Family history of diabetes mellitus Sister Family history of diabetes mellitus Hypertension Denies family history of Hearing loss Allergies Bleeding disorder Cancer Stroke Asthma Social History Smoking Status: Never smoker Cigarettes Per Day: Pt states "few"; Second Hand Exposure: No; Do You Dip or Chew Tobacco: No; Hx Alcohol Use: No Hx Substance Use: No Preferred Language: Urdu Communication Ability: Effective Communication Ability Comment: HARD OF HEARING Visual Impairment: No Limitations Hearing Ability: Normal Bricklayer Required: No Beliefs That Will Affect Care: None marital status: Current Living Situation: Spouse current occupational status: retired Feels Safe at Home: Yes Assistive Devices: None Review of Systems Review of Systems: All systems reviewed & are unremarkable except as noted in HPI & below Physical Exam Constitutional: WD/WN, vitals as above Eyes: PERRL, conjunctivae normal, anicteric sclerae ENMT: external ear and nose normal, oropharynx normal Mouth: oral mucous membranes not dry Respiratory: normal respiratory effort, lungs clear to auscultation Cardiovascular: RRR, no murmur, no edema Gastrointestinal (Abdomen): normal bowel sounds, soft, nontender, no hepatosplenomegaly Musculoskeletal: no cyanosis or clubbing, extremities motor strength 5/5 Skin: no rashes, warm and dry normal turgor Neurologic: deep tendon reflexes 2+ bilaterally (knee, elbow), moves all extremities and awake; no focal motor deficits and not confused Speech / Cognition: normal speech Psychiatric: A+Ox3, euthymic affect Results & Data Results & Data Vital Signs (Past 12 Hours) Vital Signs Temp Pulse Pulse Resp BP BP Pulse Ox 01/27/24 11:37 55 L 18 182/75 H 99 01/27/24 11:13 52 L 01/27/24 10:39 36.5 C 50 L 16 229/93 H 97 O2 Del Method 01/27/24 11:37 Room Air 01/27/24 11:13 01/27/24 10:39 Room Air Laboratory Results Abnormal lab results 01/27/24 01/27/24 01/27/24 Range/Units 11:00 11:05 11:35 RBC 4.36 L (4.70-6.10) M/uL Hgb 13.7 L (14.0-18.0) g/dl Hct 38.1 L (42.0-52.0) % Neut # (Auto) 7.38 H (1.40-6.50) K/uL Lymph # (Auto) 1.02 L (1.20-3.40) K/uL [place] # (Auto) 0.92 H (0.11-0.59) K/uL POC Sodium 126 L (135-144) mmol/L Sodium 125 L (136-145) mmol/L POC Chloride 92 L (101-112) mmol/L Chloride 94 L (98-107) mmol/L POC Anion Gap 14.0 L (16-25) mmol/L Glucose 117 H (70-99(Fasting)) mg/dl POC Glucose (other) 120 H (70-99) mg/dl Osmolality 269 L (280-300) mOsm/kg Calcium 10.5 H (8.6-10.3) mg/dl POC Ioniz Calcium Cara 1.35 H (1.12-1.32) mmol/l Alkaline Phosphatase 111 H (34-104) U/L Urine Osmolality 313 L (500-800) mOsm/kg Diagnostic Findings CT Head Without Intravenous Contrast CLINICAL HISTORY: Reason for exam: headache, htn. TECHNIQUE: Axial computed tomography images of the head/brain without intravenous contrast. Axial images only. CTDI is 50.17 mGy and DLP is 1205.26 mGy-cm. Automated exposure control was utilized for the study. A dose lowering technique was utilized adhering to the principles of ALARA. COMPARISON: No relevant prior studies available. FINDINGS: Brain: No hemorrhage. No apparent acute cortical infarct. No mass lesion or midline shift. Ventricles: No hydrocephalus. Bones/joints: No acute fracture. Soft tissues: Unremarkable. Sinuses: No acute sinusitis. Mastoid air cells: No mastoid effusion. Orbits: No acute process. Cataract surgery. IMPRESSION: No acute intracranial process. XR chest 1V portable CLINICAL HISTORY: HTN TECHNIQUE: Single frontal radiograph of the chest was obtained. Comparison: Comparison is made to chest radiograph 12/09/2021 FINDINGS: Median sternotomy wires are unchanged. Cardiomegaly is noted. The lungs are clear. No evidence of pleural effusion or pneumothorax. IMPRESSION: No acute chest disease. CT abd pelvis IV con only CLINICAL HISTORY: diffuse abdominal pain, hypertension TECHNIQUE: Helical axial images of the abdomen and pelvis were obtained and displayed. Automated dose lowering techniques and/or adjustment according to patient size were utilized for this exam. This exam was performed with intravenous contrast. CT DOSE: 1205.26 mGy.cm COMPARISON: Comparison is made to CT abdomen pelvis 06/26/2018 FINDINGS: Lower chest: Cardiomegaly is seen. Multiple pulmonary cysts are seen with atelectasis versus scarring noted in the lung bases. Liver: Unremarkable. No focal lesions are seen. Gallbladder and biliary tree: No calcified gallstones. Normal caliber wall. No intra- or extrahepatic biliary ductal dilation. Pancreas: Unremarkable, no focal lesions. Spleen: Unremarkable. Adrenals: Unremarkable. Kidneys and ureters: Unremarkable. Bladder: Diffuse homogeneous wall thickening is seen. Reproductive organs: Unremarkable. Bowel: Diverticulosis is seen without diverticulitis. The appendix is normal. There is a small hiatal hernia. Lymph nodes Retroperitoneal: Unremarkable. Pelvic: Unremarkable. Mesenteric: Unremarkable. Peritoneum: Normal. Vessels: Atherosclerotic calcifications are seen. 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 Abdominal wall: A fat-containing umbilical hernia is seen. Bones: Vertebral plana of T12 is new from prior exam but appears chronic. IMPRESSION: No acute abnormalities are seen. Additional findings as above. PG Care Time/CCT Total # of Minutes Spent Total Time Spent: 70 Total Time Spent with Patient: Total time spent is greater than 50% in coordination of care (as documented) at patient's floor/unit and/or counseling patient: Coding Level of Care Code 10070 IN/OBS CONSULT LVL 4,60M Diagnoses Hyponatremia E87.1 Abdominal pain R10.9
--- NOTE | 2024-01-27 22:10 | Electrocardiogram Report ---
Test Reason : Blood Pressure : / mmHG Vent. Rate : 049 BPM Atrial Rate : 049 BPM P-R Int : 220 ms QRS Dur : 124 ms QT Int : 418 ms P-R-T Axes : 065 073 059 degrees QTc Int : 377 ms Sinus bradycardia with 1st degree A-V block with occasional Premature ventricular complexes Possible Left atrial enlargement Left ventricular hypertrophy with QRS widening Abnormal ECG When compared with ECG of 09-DEC-2021 09:52, Premature ventricular complexes are now Present ST elevation now present in Anterolateral leads T wave inversion no longer evident in Lateral leads Confirmed by Lj Goff ([id number]) on 01/27/2024 10:10:33 PM Referred By: REFERRED SELF Confirmed By:Lj Goff
== END 2024-01-27 13:34 | disposition home or self-care (01) ==
LOC: ED 10:35 → EDINP 10:35

== ENCOUNTER 2024-11-17 08:49 | Inpatient (IN) ==
--- NOTE | 2024-11-17 09:22 | XRay Report ---
XR chest 1V portable CLINICAL HISTORY: Dysrhythmia COMPARISON STUDY: 01/27/2024 FINDINGS: Stable CABG. Stable cardiomegaly without pulmonary vascular congestion. No effusion, consol idation, or pneumothorax. IMPRESSION: No acute findings. ACT 112: Negative or not required by law. Electronically signed by: Semaj Schreiber M.D. 11/17/2024 9:21 AM
[2024-11-17 09:43] LABS: Basophils # (auto) 0.05 K/uL (0.00-0.20); Basophils % (auto) 0.9 %; Eosinophils # (auto) 0.07 K/uL (0.00-0.50); Eosinophils % (auto) 1.2 %; Hematocrit (blood only) 31.5 % (42.0-52.0); Hemoglobin 11.1 g/dl (14.0-18.0); Immature Granulocytes # (auto) 0.02 K/uL (0.01-0.20); Immature Granulocytes % (auto) 0.3 %; Lymphocytes # (auto) 1.19 K/uL (1.20-3.40); Lymphocytes % (auto) 20.4 %; Mean Corpuscular Hemoglobin 30.7 pg (25.0-34.0); Mean Corpuscular Hgb Conc 35.2 g/dL (32.0-36.0); Mean Platelet Volume 9.6 fL (9.4-12.4); Monocytes # (auto) 0.89 K/uL (0.11-0.59); Monocytes % (auto) 15.3 %; Neutrophils % (auto) 61.9 %; Platelet Count 234 K/uL (130-400); RDW Coefficient of Variation 12.4 % (11.5-14.5); RDW Standard Deviation 39.8 fL (36.4-46.3); Red Blood Count 3.62 M/uL (4.70-6.10); White Blood Count 5.82 K/ul (4.8-10.8)
[2024-11-17 10:03] LABS: Albumin Globulin Ratio 1.8 (0.9-2); Albumin Level 4.2 gm/dl (3.4-5.0); BUN Creatinine Ratio 19.4 (10-20); Bilirubin,Total 0.6 mg/dl (0.2-1.0); Calcium 9.8 mg/dl (8.6-10.3); Creatinine Clr Calc Pharmacy 47.2 ml/min; Globulin 2.3 gm/dl (2.5-4.0); Magnesium 1.9 mg/dl (1.7-2.4); Potassium 3.8 mmol/L (3.5-5.1); Total Protein 6.5 gm/dl (6.0-8.3)
[2024-11-17 10:10] LABS: Troponin I High Sensitivity 16.2 pg/ml (0-20)
[2024-11-17 10:13] LABS: Appearance Urine Clear (Clear); Bilirubin Urine Negative (Negative); Blood Urine Negative (Negative); Color Urine Yellow; Glucose Urine UA Negative (Negative); Ketones Urine Negative (Negative); Leukocyte Esterase Urine Negative (Negative); Nitrite Urine Negative (Negative); Protein Urine Negative (Negative); Specific Gravity Urine 1.012 (1.000-1.030); Urobilinogen Urine Negative (Negative)
[2024-11-17 10:19] LABS: Thyroid Stimulating Hormone 3.831 uIu/ml (0.300-4.500)
--- NOTE | 2024-11-17 10:48 | Emergency Department Note ---
Impression & Plan Syncope and collapse, Acute hyponatremia, Acute upper abdominal pain ED Provider Note NAME: KIA OWENS AGE: 79 SEX: Male INFORMANT: Patient ED PROVIDER(S): Moshe Hernandez MD CHIEF COMPLAINT: Syncope PLAN: Disposition: Admitted Outpatient prescription management: none Referral: None MEDICAL DECISION MAKING: Patient presented because of a syncopal episode. He was doing much better after receiving fluids prehospital. Blood work revealed the presence of hyponatremia. ECG was unremarkable. The patient has a mild enteritis on CT imaging. Overall he is doing very well. I discussed conservative management in the hospital and patient is in agreement. Consultation was made with [facility] service. He was evaluated in the ER and admitted for further management. I refer you to the EMR for further details. Care/management discussed with: appraisal manager Level of care consideration(s): After review of the information above and other included data, I feel the patient requires escalation of care to admission Triage Nursing notes: reviewed and agree them. Vital Signs: reviewed and remarkable for no significant abnormalities Additional History obtained from: none Chronic Medical/Social Conditions affecting care: none Prior/ Outside/ External records reviewed: none Differential Diagnosis: Vasovagal event, infection, dehydration, metabolic abnormality, hypo/hyperglycemia, electrolyte disturbance, anemia, hypoxia, cardiac sources, intracerebral event, toxicologic, neurologic, as well as other pathologies. Diagnostics, independently interpreted by me: ECG: Twelve-lead ECG reveals sinus rhythm with first-degree block PVC at [address] elevation. Cardiac Monitoring: Cardiac monitoring ordered by me: The patient was placed on continuous cardiac monitoring and observed. It revealed a sinus rhythm at 62 bpm. Medical decision rules: none Imaging studies: chest x-ray. Findings: A chest x-ray was performed and revealed no pneumothorax, effusion, infiltrate, pulmonary edema, free air under the diaphragm, or wide mediastinum. Impression: No acute disease. 16 abdomen pelvis reveals mild enteritis. No obstruction or acute pathology otherwise. HPI: 79 year old Male arrives for evaluation of syncope. This started this morning abruptly. Patient states he went up to go to the bathroom and was feeling sweaty and lightheaded. He passed out. EMS was summoned. His initial blood pressure was in the 50s. He received half a liter bolus and his pressure improved into the 70s. Patient finished the second half of that bolus and blood pressure normalized. Patient notes recently he was at the [facility] secondary to upper abdominal discomfort. He states he had an ultrasound done and he was told it was his medications and anxiety. The patient also notes the following associated symptoms, none. Patient denies any flulike symptoms. The patient has been given no medication for relieving factors. Current pain is rated as 0/10. Pt denies trauma or injury, headache, fevers, chills, diaphoresis, visual changes, neck pain, chest pain, breathing difficulties, nausea, vomiting, back pain, melena, hematochezia, urinary symptoms, numbness, weakness, lymphadenopathy, rash, or other complaints. PAST MEDICAL HISTORY: See Below, CAD PAST SURGICAL HISTORY: See Below, SOCIAL HISTORY: See Below, former smoker HOME MEDICATIONS: See Below ALLERGIES: See Below VITALS: See Below PHYSICAL EXAMINATION: GENERAL: Awake, alert, well-appearing, in no distress HENT: Normocephalic, atraumatic. Oropharynx unremarkable. EYES: Normal conjunctiva. Sclera non-icteric. PERRLA. EOMI. NECK: Inspection normal. Non-tender. Supple. No nuchal rigidity. FROM. No masses. RESPIRATORY: Clear to auscultation. No wheezes. No rales. Normal respiratory effort. CARDIAC: Normal rate. Normal rhythm. Systolic murmur present. Extremities warm and well perfused. Pulses equal. No JVD. GI: Soft, non-distended. Very mild epigastric tenderness to palpation. No rebound or guarding. No masses. RECTAL: Deferred. MUSCULOSKELETAL: Atraumatic. Chest examination reveals no tenderness. The back is symmetrical on inspection without obvious abnormality. There is no CVA tenderness to palpation. No joint edema. LOWER EXTREMITIES: Calves are equal size bilaterally and non-tender. No edema. No discoloration. NEURO: Normal sensorium. No sensory or motor deficits noted. SKIN: No rash or jaundice noted. PROCEDURES: none CRITICAL CARE: none OBSERVATION NOTE: none Past Med/Surg History Problem List (Updated 11/17/24 @ 10:48 by Moshe Hernandez MD) Acute upper abdominal pain (Acute) Syncope and collapse (Acute) Loss of height Hyperparathyroidism H/O left inguinal hernia repair Acute hyponatremia (Acute) Fatigue (Acute) Hypertension (Acute) Abdominal discomfort (Acute) Abdominal pain Vitamin D deficiency Skin lesion of left leg Syncope and collapse Arthritis Hypercalcemia Hyponatremia Pre-diabetes Abnormal ECG (Acute) Genitofemoral neuralgia of left side Labile hypertension Anxiety Bilateral sensorineural hearing loss Left groin pain B12 deficiency (Chronic) CAD (coronary artery disease) (Acute) Iron deficiency anemia (Chronic) S/P triple vessel bypass Anxiety state, unspecified (Acute) Encounter for pre-operative examination Acute venous stasis dermatitis (Acute) Anemia (Acute) Benign prostatic hyperplasia with elevated prostate specific antigen (PSA) (Acute) Dermatitis (Acute) Dyslipidemia (Acute) Enlarged prostate with lower urinary tract symptoms (LUTS) (Acute) GERD (gastroesophageal reflux disease) (Acute) Hydronephrosis (Acute) HTN (hypertension) (Acute) Near syncope (Acute) Nephrolithiasis (Acute) Seasonal affective disorder (Acute) Sjogrens syndrome (Acute) Weight disorder (Acute) Medical History Acute hyponatremia Scoliosis BPH (benign prostatic hyperplasia) Anxiety Hepatitis C Hearing problem History of heart attack Celiac disease GERD (gastroesophageal reflux disease) (12/15/12) HTN (hypertension) (12/15/12) BPH w urinary obs/LUTS (12/15/12) Panic disorder without agoraphobia (12/15/12) Depression Surgical History History of hernia repair History of cataract surgery History of prostate surgery History of heart bypass surgery (1998) History of colonoscopy Family History Mother Family history of diabetes mellitus Heart disease Son Family history of diabetes mellitus Sister Family history of diabetes mellitus Hypertension Denies family history of Hearing loss Allergies Bleeding disorder Cancer Stroke Asthma Social History Smoking Status: Never smoker Tobacco Type: Cigarettes Cigarettes Per Day: Pt states "few"; Second Hand Exposure: No; Do You Dip or Chew Tobacco: No; Hx Alcohol Use: No Hx Substance Use: No Preferred Language: Greenlandic Communication Ability: Effective Communication Ability Comment: HARD OF HEARING Visual Impairment: No Limitations Hearing Ability: Normal Milling Operator Required: No Beliefs That Will Affect Care: None marital status: Current Living Situation: Spouse current occupational status: retired Other Information That Helps Us Care for You: No Feels Safe at Home: Yes Safety Concerns: Feels Safe At This Time Assistive Devices: Glasses Allergies Allergies Allergy/AdvReac Type Severity Reaction Status Date / Time gluten Allergy Unknown CELIAC Verified 11/01/24 10:54 DISEASE spironolactone AdvReac Intermediate Verified 11/01/24 10:54 heparin AdvReac Unknown BURNING Verified 11/01/24 10:54 SENSATION sertraline [From Zoloft] AdvReac Unknown SUICIDAL Verified 11/01/24 10:54 THOUGHTS-FELT WEIRD Home Meds Home Medications Medication Instructions Recorded Confirmed melatonin 5 mg tablet 10 mg PO HS 02/01/19 11/17/24 garlic 300 mg capsule 400 mg PO DAILY 08/08/22 11/17/24 cyanocobalamin (vitamin B-12) 500 mcg PO QAM 11/09/23 11/17/24 1,000 mcg tablet (Vitamin B-12) aspirin 81 mg tablet,delayed 81 mg PO DAILY 05/09/24 11/17/24 release albuterol sulfate 90 mcg/actuation 1 puff inhalation Q6H PRN Nausea 11/17/24 11/17/24 aerosol inhaler And Vomiting clonidine HCl 0.1 mg tablet 0 mg PO BID 11/17/24 11/17/24 furosemide 40 mg tablet 0 mg PO QAM 11/17/24 11/17/24 Previous Rx's Medication Instructions Recorded nitroglycerin 0.4 mg sublingual 0.4 mg sublingual UD PRN Chest 05/18/22 tablet Pain #15 tabs isosorbide mononitrate 60 mg 60 mg PO QAM #90 tabs 11/16/23 tablet,extended release 24 hr pantoprazole 40 mg tablet,delayed 40 mg PO DAILYBB #90 tabs 05/21/24 release valsartan 320 mg tablet 320 mg PO QAM #90 tabs 08/16/24 atorvastatin 20 mg tablet 20 mg PO HS #90 tabs 09/12/24 minoxidil 2.5 mg tablet 7.5 mg (3 x 2.5 mg) PO DAILY #180 10/30/24 tabs clonidine 0.1 mg/24 hr weekly 1 patch transdermal WK #12 ea 11/04/24 transdermal patch metoprolol succinate 25 mg 12.5 mg (1/2 x 25 mg) PO DAILY #90 11/14/24 tablet,extended release 24 hr tabs Results & Data (ED) Vital Signs Vital Signs - 24 hr 11/17/24 08:50 11/17/24 08:54 11/17/24 08:59 Temperature 36.3 C L Temperature Source Oral Pulse Rate 62 62 62 Pulse Rate [Right Finger] Respiratory Rate 22 22 Respiratory Effort / Characteristics Non-Labored Spontaneous Respiratory Depth Normal Respiratory Pattern Regular Blood Pressure 157/68 H Blood Pressure [Right Arm] Blood Pressure Mean 97 Blood Pressure Mean [Right Arm] Pulse Oximetry 99 99 Oxygen Delivery Method Room Air Room Air Sepsis Recent Fever Within 48 Hours No Sepsis New/Unexplained Change in Mental Status N/A Sepsis Action Taken by Nursing No Action Required 11/17/24 09:55 11/17/24 11:19 11/17/24 12:07 Temperature Temperature Source Pulse Rate Pulse Rate [Right Finger] 62 72 78 Respiratory Rate 18 22 16 Respiratory Effort / Characteristics Non-Labored Spontaneous Non-Labored Spontaneous Non-Labored Spontaneous Respiratory Depth Normal Normal Normal Respiratory Pattern Regular Regular Regular Blood Pressure Blood Pressure [Right Arm] 124/57 L 170/82 H 119/64 Blood Pressure Mean Blood Pressure Mean [Right Arm] 79 111 82 Pulse Oximetry 96 99 100 Oxygen Delivery Method Room Air Room Air Room Air Sepsis Recent Fever Within 48 Hours Sepsis New/Unexplained Change in Mental Status Sepsis Action Taken by Nursing Laboratory Data 11/17/24 09:14 11/17/24 09:14 Lab Results 11/17/24 11/17/24 11/17/24 Range/Units 09:14 10:00 10:36 WBC 5.82 (4.8-10.8) K/ul RBC 3.62 L (4.70-6.10) M/uL Hgb 11.1 L (14.0-18.0) g/dl Hct 31.5 L (42.0-52.0) % MCV 87.0 (80.0-100.0) fL MCH 30.7 (25.0-34.0) pg MCHC 35.2 (32.0-36.0) g/dL RDW Std Deviation 39.8 (36.4-46.3) fL RDW Coeff of Gurvinder 12.4 (11.5-14.5) % Plt Count 234 (130-400) K/uL MPV 9.6 (9.4-12.4) fL Immature Gran % (Auto) 0.3 % Neut % (Auto) 61.9 % Lymph % (Auto) 20.4 % [place] % (Auto) 15.3 % Eos % (Auto) 1.2 % Baso % (Auto) 0.9 % Neut # (Auto) 3.60 (1.40-6.50) K/uL Lymph # (Auto) 1.19 L (1.20-3.40) K/uL [place] # (Auto) 0.89 H (0.11-0.59) K/uL Eos # (Auto) 0.07 (0.00-0.50) K/uL Baso # (Auto) 0.05 (0.00-0.20) K/uL Immature Gran # (Auto) 0.02 (0.01-0.20) K/uL Sodium 125 L (136-145) mmol/L Potassium 3.8 (3.5-5.1) mmol/L Chloride 95 L (98-107) mmol/L Carbon Dioxide 25 (21-32) mmol/L Anion Gap 5 (3-11) BUN 19 (6-23) mg/dl Creatinine 0.98 (0.6-1.4) mg/dl Est Cr Clr Drug Dosing 47.2 ml/min eGFR 78.44 BUN/Creatinine Ratio 19.4 (10-20) Glucose 68 L (70-99(Fasting)) mg/dl POC Glucose 110 H (70-99) mg/dl Calcium 9.8 (8.6-10.3) mg/dl Magnesium 1.9 (1.7-2.4) mg/dl Total Bilirubin 0.6 (0.2-1.0) mg/dl AST 27 (13-39) U/L ALT 20 (7-52) U/L Alkaline Phosphatase 100 (34-104) U/L Troponin I High Sens 16.2 (0-20) pg/ml Total Protein 6.5 (6.0-8.3) gm/dl Albumin 4.2 (3.4-5.0) gm/dl Globulin 2.3 L (2.5-4.0) gm/dl Albumin/Globulin Ratio 1.8 (0.9-2) TSH 3.831 (0.300-4.500) uIu/ml Urine Color Yellow Urine Appearance Clear (Clear) Urine pH 7.0 (4.5-7.5) Ur Specific [place] 1.012 (1.000-1.030) Urine Protein Negative (Negative) Urine Glucose (UA) Negative (Negative) Urine Ketones Negative (Negative) Urine Blood Negative (Negative) Urine Nitrite Negative (Negative) Urine Bilirubin Negative (Negative) Urine Urobilinogen Negative (Negative) Ur Leukocyte Esterase Negative (Negative) Administered Medications Sodium Chloride (Nss) 1,000 mls @ 50 mls/hr IV .Q20H NINFA Stop: 11/18/24 10:14 Last Admin: 11/17/24 11:20 Dose: 50 mls/hr Documented By: NRB Miscellaneous (Check Clonidine Patch Placement) 1 each N/A QS NINFA Stop: 12/17/24 15:59 Last Admin: 11/17/24 16:15 Dose: 1 each Documented By: LINDA Discontinued Medications Ioversol (Optiray 320 100ml) 94 ml IV ONCE ONE Stop: 11/17/24 11:12 Last Admin: 11/17/24 11:11 Dose: 94 ml Documented By: EDK Imaging Data Radiologist's Impression: Chest X-Ray 11/17/24 08:54 XR chest 1V portable CLINICAL HISTORY: Dysrhythmia COMPARISON STUDY: 01/27/2024 FINDINGS: Stable CABG. Stable cardiomegaly without pulmonary vascular congestion. No effusion, consolidation, or pneumothorax. IMPRESSION: No acute findings. ACT 112: Negative or not required by law. Electronically signed by: Semaj Schreiber M.D. 11/17/2024 9:21 AM Abdomen/Pelvis CT 11/17/24 10:[address] WITH IV CONTRAST CT DOSE: 427.94 mGy.cm HISTORY: upper abd pain, hyponatremia, hypotension, syncope TECHNIQUE: Multiaxial CT images of the abdomen and pelvis were performed following the IV administration of 90 cc of Optiray, A dose lowering technique was utilized adhering to the principles of ALARA. COMPARISON STUDY: 01/27/2024 FINDINGS: ABDOMEN: Liver, gallbladder, spleen, pancreas, and adrenal glands are unremarkable. Kidneys show no hydronephrosis or calculi. There are scattered atherosclerotic calcifications. No abdominal aortic aneurysm. Pelvis: Prostate is enlarged with a few calcifications. Urinary bladder is nondistended. There is moderate retained stool. There is mild wall thickening and minimal adjacent mesenteric edema at the small bowel consistent with enteritis. No other bowel inflammation or obstruction seen. No free fluid, free air, or abscess. No enlarged adenopathy seen. Osseous structures: There is diffuse lumbar degenerative disc disease. There is stable severe height loss at the T12 vertebral body. 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 IMPRESSION: Findings consistent with enteritis without bowel obstruction. Otherwise as described. ACT 112: Negative or not required by law. The above report was generated using voice recognition software. It may contain grammatical, syntax or spelling errors. Electronically signed by: Semaj Schreiber M.D. 11/17/2024 11:39 AM Discharge Plan Visit Data Chief Complaint: Syncope Stated Complaint: SYNCOPE ED Provider: Moshe Hernandez Discharge Problem: Syncope and collapse, Acute hyponatremia, Acute upper abdominal pain Patient Disposition: Admitted As Inpatient Discharge Instructions Interventions: ED Discharge Assessment Last Done: 11/17/24 13:05
[2024-11-17] MEDS: OPTIRAY 320 100ml IV ONE (11:11)
[2024-11-17] MEDS: SODIUM CHLORIDE 0.9% 1,000 ML IV SCH (11:20)
--- NOTE | 2024-11-17 11:41 | CT Scan Report ---
ABDOMEN AND PELVIS CT WITH IV CONTRAST CT DOSE: 427.94 mGy.cm HISTORY: upper abd pain, hyponatremia, hypotension, syncope TECHNIQUE: Multiaxial CT images of the abdomen and pelvis were performed following the IV administrat ion of 90 cc of Optiray, A dose lowering technique was utilized adhering to the principles of ALARA. COMPARISON STUDY: 01/27/2024 FINDINGS: ABDOMEN: Liver, gallbladder, spleen, pancreas, and adrenal glands are unremarkable. Kidneys show no h ydronephrosis or calculi. There are scattered atherosclerotic calcifications. No abdominal aortic ane urysm. Pelvis: Prostate is enlarged with a few calcifications. Urinary bladder is nondistended. There is mod erate retained stool. There is mild wall thickening and minimal adjacent mesenteric edema at the smal l bowel consistent with enteritis. No other bowel inflammation or obstruction seen. No free fluid, fr ee air, or abscess. No enlarged adenopathy seen. Osseous structures: There is diffuse lumbar degenerative disc disease. There is stable severe height loss at the T12 vertebral body. 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 IMPRESSION: Findings consistent with enteritis without bowel obstruction. Otherwise as described. ACT 112: Negative or not required by law. The above report was generated using voice recognition software. It may contain grammatical, syntax o r spelling errors. Electronically signed by: Semaj Schreiber M.D. 11/17/2024 11:39 AM
[2024-11-17] MEDS ORDERED: ACETAMINOPHEN 325 MG TAB PO PRN (12:17)
--- NOTE | 2024-11-17 12:39 | History & Physical Report ---
Date of Service November 17, 2024 Assessment & Plan (1) Syncope and collapse: (2) Acute hyponatremia: (3) Labile hypertension: Plan This is a 79 year old gentleman with past medical history of GERD, anxiety, triple bypass, HTN, BPH, iron def anemia who presented to the ED on 11/17/2024 with a chief complaint of syncope. #syncope/hyponatremia/labile HTN Patient w/ episode of syncope and collapse at home prior to reporting to hospital. EMS arrived and BP was 59/28. s/p 1L bolus and BP improved to normotensive range. syncope secondary to orthostatic hypotension vs hyponatremia vs vasovagal CXR negative CTAP findings consistent w/ enteritis. CBC w/ stable hgb of 11.1, no leukocytosis BMP w/ Na of 125, stable renal function Urinalysis negative. Check orthostatic vital signs, Monitor BP closely 1L additional NSS ordered. Hold Lasix, Valsartan, and Minoxidil Continue Imdur, Metoprolol and Clonidine. 1200cc fluid restriction - hyponatremia has improved in past w/ fluid restriction educated patient on importance of fluid restriction. #enteritis Patient w/ reported history of abdominal pain has upcoming CN in January w/ GI Zofran prn for N/V if develops Continue PPI Chronic conditions: HLD: statin PT/OT consults DVT prophylaxis: Lovenox Code status: full Case was discussed with Dr. Guzman at time of admission. History of Present Illness Primary Care Provider: John Jones PA-C This is a 79 year old gentleman with past medical history of GERD, anxiety, triple bypass, HTN, BPH, iron def anemia who presented to the ED on 11/17/2024 with a chief complaint of syncope. The patient was seen and examined at bedside. Patient reports that he did take his morning medications this morning. He states that he was laying down in bed and started to feel feverish. He then got out of bed and he collapsed to the floor. EMS was called and patient was found to be profoundly hypotensive with a BP of 59/28. He was given a 500cc bolus of NSS w/ improvement to 71/40. Patient was then given another 500cc bolus of NSS w/ improvement to 157/68. Patient reports in this time frame he did not hit his head. He felt his vision blacken and he could not see the people helping him. Since reporting to the hospital he feels his symptoms have improved. He admits to polydipsia and notes he drinks more in the winter time due to his dry mouth. He is aware he is to cut back on his fluid intake but finds this difficult to do in the winter months. He denied CP, SOB, abdominal pain, nausea, vomiting. Reports he has been having issues with his bowel and has a CN scheduled in January. He had a BM this morning. Denies overt signs of bleeding in stool. Denies lower extremity edema or urinary symptoms. While in the ED the patient underwent a BMP that revealed a sodium of 125. He had a negative CXR and a CTAP findings consistent w/ enteritis. He was given 1L of fluids. Allergies Allergy/AdvReac Type Severity Reaction Status Date / Time gluten Allergy Unknown CELIAC Verified 11/01/24 10:54 DISEASE spironolactone AdvReac Intermediate Verified 11/01/24 10:54 heparin AdvReac Unknown BURNING Verified 11/01/24 10:54 SENSATION sertraline [From Zoloft] AdvReac Unknown SUICIDAL Verified 11/01/24 10:54 THOUGHTS-FELT WEIRD Home Medications Medication Instructions Recorded Confirmed Type melatonin 5 mg tablet 10 mg PO HS 02/01/19 11/17/24 History nitroglycerin 0.4 mg sublingual 0.4 mg sublingual UD PRN Chest 05/18/22 11/17/24 Rx tablet Pain #15 tabs garlic 300 mg capsule 400 mg PO DAILY 08/08/22 11/17/24 History cyanocobalamin (vitamin B-12) 500 mcg PO QAM 11/09/23 11/17/24 History 1,000 mcg tablet (Vitamin B-12) isosorbide mononitrate 60 mg 60 mg PO QAM #90 tabs 11/16/23 11/17/24 Rx tablet,extended release 24 hr aspirin 81 mg tablet,delayed 81 mg PO DAILY 05/09/24 11/17/24 History release pantoprazole 40 mg tablet,delayed 40 mg PO DAILYBB #90 tabs 05/21/24 11/17/24 Rx release valsartan 320 mg tablet 320 mg PO QAM #90 tabs 08/16/24 11/17/24 Rx atorvastatin 20 mg tablet 20 mg PO HS #90 tabs 09/12/24 11/17/24 Rx minoxidil 2.5 mg tablet 7.5 mg (3 x 2.5 mg) PO DAILY #180 10/30/24 11/17/24 Rx tabs clonidine 0.1 mg/24 hr weekly 1 patch transdermal WK #12 ea 11/04/24 11/17/24 Rx transdermal patch metoprolol succinate 25 mg 12.5 mg (1/2 x 25 mg) PO DAILY #90 11/14/24 11/17/24 Rx tablet,extended release 24 hr tabs albuterol sulfate 90 mcg/actuation 1 puff inhalation Q6H PRN Nausea 11/17/24 11/17/24 History aerosol inhaler And Vomiting clonidine HCl 0.1 mg tablet 0 mg PO BID 11/17/24 11/17/24 History furosemide 40 mg tablet 0 mg PO QAM 11/17/24 11/17/24 History Past Med/Surg History Problem List (Updated 11/17/24 @ 10:48 by Moshe Hernandez MD) Acute upper abdominal pain (Acute) Syncope and collapse (Acute) Loss of height Hyperparathyroidism H/O left inguinal hernia repair Acute hyponatremia (Acute) Fatigue (Acute) Hypertension (Acute) Abdominal discomfort (Acute) Abdominal pain Vitamin D deficiency Skin lesion of left leg Syncope and collapse Arthritis Hypercalcemia Hyponatremia Pre-diabetes Abnormal ECG (Acute) Genitofemoral neuralgia of left side Labile hypertension Anxiety Bilateral sensorineural hearing loss Left groin pain B12 deficiency (Chronic) CAD (coronary artery disease) (Acute) Iron deficiency anemia (Chronic) S/P triple vessel bypass Anxiety state, unspecified (Acute) Encounter for pre-operative examination Acute venous stasis dermatitis (Acute) Anemia (Acute) Benign prostatic hyperplasia with elevated prostate specific antigen (PSA) (Acute) Dermatitis (Acute) Dyslipidemia (Acute) Enlarged prostate with lower urinary tract symptoms (LUTS) (Acute) GERD (gastroesophageal reflux disease) (Acute) Hydronephrosis (Acute) HTN (hypertension) (Acute) Near syncope (Acute) Nephrolithiasis (Acute) Seasonal affective disorder (Acute) Sjogrens syndrome (Acute) Weight disorder (Acute) Medical History Acute hyponatremia Scoliosis BPH (benign prostatic hyperplasia) Anxiety Hepatitis C Hearing problem History of heart attack Celiac disease GERD (gastroesophageal reflux disease) (12/15/12) HTN (hypertension) (12/15/12) BPH w urinary obs/LUTS (12/15/12) Panic disorder without agoraphobia (12/15/12) Depression Surgical History History of hernia repair History of cataract surgery History of prostate surgery History of heart bypass surgery (1998) History of colonoscopy Family History Mother Family history of diabetes mellitus Heart disease Son Family history of diabetes mellitus Sister Family history of diabetes mellitus Hypertension Denies family history of Hearing loss Allergies Bleeding disorder Cancer Stroke Asthma Social History Smoking Status: Never smoker Tobacco Type: Cigarettes Cigarettes Per Day: Pt states "few"; Second Hand Exposure: No; Do You Dip or Chew Tobacco: No; Hx Alcohol Use: No Hx Substance Use: No Preferred Language: Belgian Communication Ability: Effective Communication Ability Comment: HARD OF HEARING Visual Impairment: No Limitations Hearing Ability: Normal Ironmolder Required: No Beliefs That Will Affect Care: None marital status: Current Living Situation: Spouse current occupational status: retired Other Information That Helps Us Care for You: No Feels Safe at Home: Yes Safety Concerns: Feels Safe At This Time Assistive Devices: Glasses Physical Exam Constitutional: WD/WN, vitals as above Eyes: PERRL, conjunctivae normal, anicteric sclerae Respiratory: normal respiratory effort, lungs clear to auscultation Cardiovascular: RRR, no murmur, no edema Gastrointestinal (Abdomen): normal bowel sounds, soft, nontender, no hepatosplenomegaly Psychiatric: A+Ox3, euthymic affect Results & Data Results & Data Vital Signs (Past 12 Hours) Vital Signs Temp Pulse Pulse Resp BP BP Pulse Ox 11/17/24 12:07 78 16 119/64 100 11/17/24 11:19 72 22 170/82 H 99 11/17/24 09:55 62 18 124/57 L 96 11/17/24 08:59 62 11/17/24 08:54 62 22 99 11/17/24 08:50 36.3 C L 62 22 157/68 H 99 O2 Del Method 11/17/24 12:07 Room Air 11/17/24 11:19 Room Air 11/17/24 09:55 Room Air 11/17/24 08:59 11/17/24 08:54 Room Air 11/17/24 08:50 Room Air Code Status & VTE Plan VTE Prophylaxis Plan VTE Prophylaxis will be ordered: Yes Supervising Physician Co-Signing Physician Notes I personally saw and examined the patient. I independently reviewed the labs, EKG, imaging, problem list, medication list, past medical history and family history. I verified all villagomez points and agree with Mari Keita PA-C with the following exceptions and/or additions: 79 year old male presents to the ER with a syncopal event. Patient unable to elaborate on this when seen, please see History above. O/E HS RRR, no murmurs, Chest CTAB, Abdo SNT A/P Syncope / hyponatremia - fluid restrict, this is a chronic problem with primary polydipsia and him drinking too much water because his mouth is dry. Syncope due to hypotension ?took additional anti-hypertensives, appears to be doing well now and restarted on his usual regimen (minus valsartan) to assess for possible orthostasis which has been an ongoing issue with his labile BP. No infection signs/symptoms. PG Care Time/CCT Total # of Minutes Spent Total Time Spent with Patient: Total time spent is greater than 50% in coordination of care (as documented) at patient's floor/unit and/or counseling patient: Coding Level of Care Code 63437 INT INP/OBS CARE 2/55MIN Diagnoses Syncope and collapse R55 Acute hyponatremia E87.1 Labile hypertension R09.89
--- NOTE | 2024-11-17 14:10 | Electrocardiogram Report ---
Test Reason : Blood Pressure : */* mmHG Vent. Rate : 63 BPM Atrial Rate : 63 BPM P-R Int : 230 ms QRS Dur : 122 ms QT Int : 398 ms P-R-T Axes : 35 16 -13 degrees QTcB Int : 407 ms Sinus rhythm with 1st degree A-V block with occasional Premature ventricular complexes Possible Left atrial enlargement Left ventricular hypertrophy with QRS widening and repolarization abnormality ( Tony product , Rom hilt-Tan ) Abnormal ECG When compared with ECG of 12-Mar-2024 09:29, RI interval has increased ST depression has replaced ST elevation in Lateral leads T wave inversion now evident in Lateral leads Confirmed by Palak Smith (Harry) on 11/17/2024 2:09:50 PM Referred By: Confirmed By: Palak Smith
[2024-11-17] MEDS: CHECK CLONIDINE PATCH PLACEMENT SCH (16:15)
[2024-11-17] MEDS ORDERED: Nursing to Pharmacy Communication SCH ×2 (19:15→23:00)
[2024-11-17] MEDS: ATORVASTATIN 20 MG TAB PO SCH (20:48)
[2024-11-17] MEDS: ASPIRIN 81 MG ECTAB PO SCH (20:48)
[2024-11-17] MEDS: ENOXAPARIN INJ 40 MG/0.4 ML SYR SQ SCH (20:49)
[2024-11-17] MEDS ORDERED: cloNIDine HCL 0.1 MG TAB PO SCH (21:00)
[2024-11-17] MEDS: MELATONIN 3 MG TAB PO SCH (22:26)
[2024-11-18] MEDS: PANTOprazole 40 MG TAB PO SCH (06:24)
[2024-11-18] MEDS: METOPROLOL SUCC 25MG EXT REL TAB PO SCH (07:23)
[2024-11-18] MEDS: ISOSORBIDE MONO EXTENDED REL 60 MG TABCR PO SCH (07:23)
[2024-11-18 07:27] LABS: Hematocrit (blood only) 31.5 % (42.0-52.0); Hemoglobin 11.3 g/dl (14.0-18.0); Mean Corpuscular Hemoglobin 30.5 pg (25.0-34.0); Mean Corpuscular Hgb Conc 35.9 g/dL (32.0-36.0); Mean Corpuscular Volume 85.1 fL (80.0-100.0); Mean Platelet Volume 9.7 fL (9.4-12.4); Platelet Count 232 K/uL (130-400); RDW Coefficient of Variation 12.5 % (11.5-14.5); RDW Standard Deviation 38.9 fL (36.4-46.3); White Blood Count 4.63 K/ul (4.8-10.8)
[2024-11-18 07:46] LABS: BUN Creatinine Ratio 17.8 (10-20); Calcium 9.9 mg/dl (8.6-10.3); Creatinine Clr Calc Pharmacy 63.4 ml/min; Magnesium 1.8 mg/dl (1.7-2.4); Potassium 4.1 mmol/L (3.5-5.1)
[2024-11-18] MEDS ORDERED: ASPIRIN 81 MG ECTAB PO SCH (09:00)
[2024-11-18] MEDS: VALSARTAN 80 MG TAB PO SCH (09:32)
--- NOTE | 2024-11-18 14:10 | Hospitalist Progress Note ---
Date of Service November 18, 2024 Assessment & Plan (1) Syncope and collapse: (2) Acute hyponatremia: (3) Labile hypertension: Plan This is a 79 year old gentleman with past medical history of GERD, anxiety, triple bypass, HTN, BPH, iron def anemia who presented to the ED on 11/17/2024 with a chief complaint of syncope. #syncope/labile HTN Patient w/ episode of syncope and collapse at home prior to reporting to hospital. EMS arrived and BP was 59/28. s/p 1L bolus and BP improved to normotensive range. syncope secondary to orthostatic hypotension vs vasovagal CXR negative CTAP findings consistent w/ enteritis. CBC w/ stable hgb of 11.1, no leukocytosis BMP w/ Na of 125, stable renal function Urinalysis negative. Orthostatic vital signs are still pending Noted the patient has fairly severe hypertension requiring 6 medications for blood pressure control: Imdur, metoprolol, clonidine, valsartan, minoxidil, Lasix. Off them, Lasix, valsartan, minoxidil were held upon admission Blood pressure was high, thus valsartan was resumed Blood pressure is fairly controlled now Will monitor If continues to be high, will resume minoxidil and consult cardiology who had been actively managing his blood pressure outpatient Hyponatremia Hold Lasix Continue fluid restriction Sodium improved slightly this morning Continue to monitor #enteritis Patient w/ reported history of abdominal pain has upcoming CN in January w/ GI Zofran prn for N/V if develops Continue PPI Chronic conditions: HLD: statin PT/OT consults DVT prophylaxis: Lovenox Code status: full Admission and Anticipated Discharge Date Admission Date: November 17, 2024 Subjective Patient was seen and examined at 10:35 AM. He denies any chest pain, shortness of breath, lightheadedness, dizziness. Review of Systems Review of Systems: All systems reviewed & are unremarkable except as noted in Subjective Physical Exam Physical Exam: General: Awake, conversant Heart: S1, S2/regular rate and rhythm, no murmur rubs or gallops Lungs: Clear to auscultation bilaterally. Normal effort Abdomen: Soft/nontender/nondistended. No hepatosplenomegaly Extremities: No clubbing/cyanosis. No edema Behavior: Appropriate, cooperative Results & Data Results & Data Vital Signs (Past 12 Hours) Vital Signs Temp Pulse Pulse Resp BP Pulse Ox O2 Del Method 11/18/24 13:53 60 11/18/24 11:21 37 C 64 18 168/85 H 99 Room Air 11/18/24 09:49 180/79 H 11/18/24 07:44 36.5 C 69 19 197/87 H 96 Room Air 11/18/24 07:22 Room Air 11/18/24 07:15 62 11/18/24 04:05 36.3 C L 64 20 166/76 H 99 Room Air Laboratory Results Abnormal lab results 11/18/24 Range/Units 07:03 WBC 4.63 L (4.8-10.8) K/ul RBC 3.70 L (4.70-6.10) M/uL Hgb 11.3 L (14.0-18.0) g/dl Hct 31.5 L (42.0-52.0) % Sodium 126 L (136-145) mmol/L Chloride 96 L (98-107) mmol/L Glucose 104 H (70-99(Fasting)) mg/dl PG Care Time/CCT Total # of Minutes Spent Total Time Spent with Patient: Total time spent is greater than 50% in coordination of care (as documented) at patient's floor/unit and/or counseling patient: Coding Level of Care Code 30100 SUB INP/OBS CARE 2/35MIN Diagnoses Syncope and collapse R55 Acute hyponatremia E87.1 Labile hypertension R09.89
[2024-11-18] MEDS: minoxidiL 2.5 MG TAB PO SCH (20:25)
[2024-11-19 07:50] LABS: BUN Creatinine Ratio 17.8 (10-20); Calcium 10.2 mg/dl (8.6-10.3); Creatinine Clr Calc Pharmacy 63.4 ml/min; Potassium 4.1 mmol/L (3.5-5.1)
--- NOTE | 2024-11-19 10:03 | Nephrology Consultation ---
Date of Consultation November 19, 2024 Assessment & Plan (1) Hyponatremia: (2) Hypercalcemia: (3) Syncope and collapse: (4) Hyperparathyroidism: (5) Labile hypertension: Plan 79 -year-old gentleman with history of chronic the patient has history of chronic hyponatremia, serum sodium has been variable from 125 to 130 at least for 10 years or longer. Workup was unremarkable, previous urine osmolality around 250-260. Has been on fluid restriction but it was difficult for him because of chronic dry mouth and generally drinks much more than he supposed to. Other contributing factor could be recent introduction of chlorthalidone as an outpatient. --Resume amlodipine 10 mg daily --Start on Lasix 20 mg daily. --If blood pressure improves and stays stable but sodium remains low low, will consider starting on salt tablet --Liberalize salt in diet, continue fluid restriction less than 1200 mL/day --If blood pressure remains elevated, consider increasing Imdur to 90 mg daily. Thank you for allowing me to participate in your patient's care. It was a pleasure to see Esa. History of Present Illness Reason for Consultation: Hyponatremia, hypertensive urgency. Attending Physician: Clive Rangel MD History of Present Illness Mr. Esa Rolle is a 79 year old gentleman with PMH of chronic hyponatremia, poorly controlled hypertension, CABG, GERD, BPH admitted to the hospital on 11/17/2024 with syncope, hyponatremia and hypertensive urgency. Nephrology consult was requested for management of hyponatremia. EMR records were reviewed in detail with patient during patient's visit. sEa was brought to ER 11/17/2024 after he had a syncope and fall at home and brought to the ER by EMS. EMS found him hypotensive with blood pressure 59/28, improved to 71/40 after bolus of NS 500 cc. By the time he presented to ER he was already feeling better, blood pressure was normal. Lab was notable for hyponatremia, serum sodium was 125 with history of chronic hyponatremia. Kidney function was normal other electrolyte was acceptable. Has history of hyponatremia for almost 10 years or longer, serum sodium generally stays below 130, previously thought to be secondary to polydipsia with history of dry mouth on clonidine. Imaging in hospital including chest x-ray and CT abdomen pelvis was otherwise unremarkable except enteritis. Previously urine osmolality was around 250-260. He was put on fluid restriction to less than 1 L/day. He was on Lasix 40 mg daily before for poorly controlled and labile hypertension but he mentioned that recently he started seeing a new rv technician who stopped furosemide and started him on chlorthalidone which she has been taking at 25 mg daily. Over last 2 days his blood pressure has been running significantly elevated. Non-smoker, no personal history of malignancy, weight has been stable. TSH was normal. No history of adrenal insufficiency. No history of COPD. Denies any history of confusion, headache, dizziness, lightheadedness. Denies history of chronic diarrhea or volume depletion. Denies any history of severe cardiomyopathy or congestive heart failure. Has history of labile hypertension being managed by cardiology, previously had workup including renal ultrasound and renal artery Doppler negative for hemodynamically mediated renal artery stenosis. CT abdomen pelvis showed normal adrenal gland. Has been on clonidine patch, metoprolol, Valsartan, Imdur and Minoxidil. Was also started on amlodipine recently however has not been getting during hospitalization. History of primary hyperparathyroidism, has been following with endocrinology, prior history of nephrolithiasis many years ago but recent imaging showed no remaining stone. Has history of BPH with lower urinary tract symptoms. He reports overall feeling better. Denies headache, visual change, chest pain. Has been voiding normally. Allergies Allergy/AdvReac Type Severity Reaction Status Date / Time gluten Allergy Unknown CELIAC Verified 11/01/24 10:54 DISEASE spironolactone AdvReac Intermediate Verified 11/01/24 10:54 heparin AdvReac Unknown BURNING Verified 11/01/24 10:54 SENSATION sertraline [From Zoloft] AdvReac Unknown SUICIDAL Verified 11/01/24 10:54 THOUGHTS-FELT WEIRD Home Medications Medication Instructions Recorded Confirmed Type melatonin 5 mg tablet 10 mg PO HS 02/01/19 11/17/24 History nitroglycerin 0.4 mg sublingual 0.4 mg sublingual UD PRN Chest 05/18/22 11/17/24 Rx tablet Pain #15 tabs garlic 300 mg capsule 400 mg PO DAILY 08/08/22 11/17/24 History cyanocobalamin (vitamin B-12) 500 mcg PO QAM 11/09/23 11/17/24 History 1,000 mcg tablet (Vitamin B-12) isosorbide mononitrate 60 mg 60 mg PO QAM #90 tabs 11/16/23 11/17/24 Rx tablet,extended release 24 hr aspirin 81 mg tablet,delayed 81 mg PO DAILY 05/09/24 11/17/24 History release pantoprazole 40 mg tablet,delayed 40 mg PO DAILYBB #90 tabs 05/21/24 11/17/24 Rx release valsartan 320 mg tablet 320 mg PO QAM #90 tabs 08/16/24 11/17/24 Rx atorvastatin 20 mg tablet 20 mg PO HS #90 tabs 09/12/24 11/17/24 Rx minoxidil 2.5 mg tablet 7.5 mg (3 x 2.5 mg) PO DAILY #180 10/30/24 11/17/24 Rx tabs clonidine 0.1 mg/24 hr weekly 1 patch transdermal WK #12 ea 11/04/24 11/17/24 Rx transdermal patch metoprolol succinate 25 mg 12.5 mg (1/2 x 25 mg) PO DAILY #90 11/14/24 11/17/24 Rx tablet,extended release 24 hr tabs albuterol sulfate 90 mcg/actuation 1 puff inhalation Q6H PRN Nausea 11/17/24 11/17/24 History aerosol inhaler And Vomiting clonidine HCl 0.1 mg tablet 0 mg PO BID 11/17/24 11/17/24 History furosemide 40 mg tablet 0 mg PO QAM 11/17/24 11/17/24 History Patient History Medical History Acute hyponatremia Scoliosis BPH (benign prostatic hyperplasia) Anxiety Hepatitis C Hearing problem History of heart attack Celiac disease GERD (gastroesophageal reflux disease) (12/15/12) HTN (hypertension) (12/15/12) BPH w urinary obs/LUTS (12/15/12) Panic disorder without agoraphobia (12/15/12) Depression Surgical History History of hernia repair History of cataract surgery History of prostate surgery History of heart bypass surgery (1998) History of colonoscopy Family History Mother Family history of diabetes mellitus Heart disease Son Family history of diabetes mellitus Sister Family history of diabetes mellitus Hypertension Denies family history of Hearing loss Allergies Bleeding disorder Cancer Stroke Asthma Social History Smoking Status: Never smoker Tobacco Type: Cigarettes Cigarettes Per Day: Pt states "few"; Second Hand Exposure: No; Do You Dip or Chew Tobacco: No; Hx Alcohol Use: No Hx Substance Use: No Preferred Language: Tanzanian Communication Ability: Effective Communication Ability Comment: HARD OF HEARING Visual Impairment: No Limitations Hearing Ability: 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 Physical Exam Constitutional: WD/WN, vitals as above no acute distress Eyes: + anicteric sclerae Neck: normal visual inspection Thyroid: no thyromegaly Respiratory: Auscultation: lungs clear to auscultation bilaterally Cardiovascular: RRR, no murmur, no edema Gastrointestinal (Abdomen): Inspection/Auscultation: abdomen normal to inspection Percussion/Palpation: abdomen soft; abdomen nontender Musculoskeletal: Extremities: extremities normal to inspection Skin: no rashes, warm and dry Neurologic: no focal motor deficits and not confused Psychiatric: Orientation: alert and oriented x 3 Affect: euthymic affect Results & Data Vital Signs (Past 12 Hours) Vital Signs Temp Pulse Pulse Resp BP Pulse Ox O2 Del Method 11/19/24 08:50 Room Air 11/19/24 07:37 36.6 C 73 18 202/98 H 97 Room Air 11/19/24 07:15 53 L 11/19/24 02:51 36.6 C 66 16 193/98 H 94 Room Air 11/18/24 23:08 36.6 C 70 16 206/93 H 96 Room Air 11/18/24 21:56 60 PG Care Time/CCT Total # of Minutes Spent Total Time Spent with Patient: Total time spent is greater than 50% in coordination of care (as documented) at patient's floor/unit and/or counseling patient: Coding Level of Care Code 38582 INT INP/OBS CARE 3/75MIN Diagnoses Hyponatremia E87.1 Hypercalcemia E83.52 Syncope and collapse R55 Hyperparathyroidism E21.3 Labile hypertension R09.89
--- NOTE | 2024-11-19 10:23 | Cardiology Consultation ---
Date of Consultation November 19, 2024 Assessment & Plan (1) HTN (hypertension): -The patient's blood pressure now elevated. -Would restart his outpatient amlodipine at 5 or 10 mg daily. -Consider adding diuretic therapy if the above not successful. (2) Syncope and collapse: -Premorbid symptoms of diaphoresis, nausea, tunnel vision suggests a vasovagal etiology. (3) CAD (coronary artery disease): -s/p CABG x 1998 -Quiescent on medical management. History of Present Illness Attending Physician: Clive Rangel MD History of Present Illness Mr. Rolle is a 79-year-old male admitted on November 17 after an episode of syncope (likely vasovagal). This consultation was ordered to assist in his blood pressure management. Of note, the patient previously seen by Dr. Ramos. He was most recently seen by Dr. Rizo through the [facility]. The patient was in his usual state of health until the morning of presentation. While lying supine in bed, the patient became quite anxious. He then explained that he "did not feel right" and had accompanying diaphoresis, nausea, and tunnel vision. The patient stood up from his bed and then collapsed to the floor. The initial evaluation by EMS noted a blood pressure of 60/30. The patient eventually received 1 L of fluid and his blood pressure normalized. Several of his usual outpatient antihypertensive medications have been on hold. The patient does carry history of coronary artery disease having undergone a three-vessel bypass back in 1998. Details are unknown. He has done well from a cardiac perspective since his bypass surgery. He is able to carry on activity of daily life without exertional anginal factors or limiting dyspnea. He further denies PND, orthopnea, palpitations, lower extremity edema, and claudication. Currently, patient is resting comfortably in bed and without complaints. Past medical and surgical history 1. CABG times -1998 2. Resolved ischemic cardiomyopathy 3. Hypertension 4. Moderate LVH 5. Hypercholesterolemia 6. Hyperglycemia 7. GERD 8. Celiac disease 9. Hepatitis C 10. Nephrolithiasis 11. BPH 12. Sjogren's syndrome 13. Anxiety/depression 14. Vitamin B12 deficiency 15. Vitamin D deficiency 16. Left inguinal hernia repair 17. TURP Social history and lives with his Quit tobacco use 45 years ago No alcohol Family history No early coronary artery disease Review of systems A 10 point review of systems was undertaken and negative except that described above. Allergies Allergy/AdvReac Type Severity Reaction Status Date / Time gluten Allergy Unknown CELIAC Verified 11/01/24 10:54 DISEASE spironolactone AdvReac Intermediate Verified 11/01/24 10:54 heparin AdvReac Unknown BURNING Verified 11/01/24 10:54 SENSATION sertraline [From Zoloft] AdvReac Unknown SUICIDAL Verified 11/01/24 10:54 THOUGHTS-FELT WEIRD Home Medications Medication Instructions Recorded Confirmed Type melatonin 5 mg tablet 10 mg PO HS 02/01/19 11/17/24 History nitroglycerin 0.4 mg sublingual 0.4 mg sublingual UD PRN Chest 05/18/22 11/17/24 Rx tablet Pain #15 tabs garlic 300 mg capsule 400 mg PO DAILY 08/08/22 11/17/24 History cyanocobalamin (vitamin B-12) 500 mcg PO QAM 11/09/23 11/17/24 History 1,000 mcg tablet (Vitamin B-12) isosorbide mononitrate 60 mg 60 mg PO QAM #90 tabs 11/16/23 11/17/24 Rx tablet,extended release 24 hr aspirin 81 mg tablet,delayed 81 mg PO DAILY 05/09/24 11/17/24 History release pantoprazole 40 mg tablet,delayed 40 mg PO DAILYBB #90 tabs 05/21/24 11/17/24 Rx release valsartan 320 mg tablet 320 mg PO QAM #90 tabs 08/16/24 11/17/24 Rx atorvastatin 20 mg tablet 20 mg PO HS #90 tabs 09/12/24 11/17/24 Rx minoxidil 2.5 mg tablet 7.5 mg (3 x 2.5 mg) PO DAILY #180 10/30/24 11/17/24 Rx tabs clonidine 0.1 mg/24 hr weekly 1 patch transdermal WK #12 ea 11/04/24 11/17/24 Rx transdermal patch metoprolol succinate 25 mg 12.5 mg (1/2 x 25 mg) PO DAILY #90 11/14/24 11/17/24 Rx tablet,extended release 24 hr tabs albuterol sulfate 90 mcg/actuation 1 puff inhalation Q6H PRN Nausea 11/17/24 11/17/24 History aerosol inhaler And Vomiting clonidine HCl 0.1 mg tablet 0 mg PO BID 11/17/24 11/17/24 History furosemide 40 mg tablet 0 mg PO QAM 11/17/24 11/17/24 History Patient History Medical History Acute hyponatremia Scoliosis BPH (benign prostatic hyperplasia) Anxiety Hepatitis C Hearing problem History of heart attack Celiac disease GERD (gastroesophageal reflux disease) (12/15/12) HTN (hypertension) (12/15/12) BPH w urinary obs/LUTS (12/15/12) Panic disorder without agoraphobia (12/15/12) Depression Surgical History History of hernia repair History of cataract surgery History of prostate surgery History of heart bypass surgery (1998) History of colonoscopy Family History Mother Family history of diabetes mellitus Heart disease Son Family history of diabetes mellitus Sister Family history of diabetes mellitus Hypertension Denies family history of Hearing loss Allergies Bleeding disorder Cancer Stroke Asthma Social History Smoking Status: Never smoker Tobacco Type: Cigarettes Cigarettes Per Day: Pt states "few"; Second Hand Exposure: No; Do You Dip or Chew Tobacco: No; Hx Alcohol Use: No Hx Substance Use: No Preferred Language: Peruvian Communication Ability: Effective Communication Ability Comment: HARD OF HEARING Visual Impairment: No Limitations Hearing Ability: Normal Share[employer] Developer Required: No Beliefs That Will Affect Care: None marital status: Current Living Situation: Spouse current occupational status: retired Other Information That Helps Us Care for You: No Feels Safe at Home: Yes Safety Concerns: Feels Safe At This Time Assistive Devices: None Physical Exam Physical Exam: In general is a well-developed well-nourished white male in no acute distress. HEENT exam is negative. Neck is supple with full carotid upstrokes. There are no carotid bruits. Jugular venous pressure is flat at 90 degrees. There is no thyromegaly. Cardiovascular exam reveals a regular rhythm with a 1/6 basal systolic ejection murmur. No S3 or S4. Lungs are clear without rales, rhonchi, or wheezes. Abdomen is soft without bruits. Extremities reveal no peripheral edema. Results & Data Vital Signs (Past 12 Hours) Vital Signs Temp Pulse Pulse Resp BP Pulse Ox O2 Del Method 11/19/24 08:50 Room Air 11/19/24 07:37 36.6 C 73 18 202/98 H 97 Room Air 11/19/24 07:15 53 L 11/19/24 02:51 36.6 C 66 16 193/98 H 94 Room Air 11/18/24 23:08 36.6 C 70 16 206/93 H 96 Room Air Laboratory Results CBC notes hemoglobin of 11.3, hematocrit 31.5, white count 4.6, and a platelet count of 232,000. Electrolytes note a sodium of 125, potassium 4.1, chloride 94, bicarb 26, BUN 13, creatinine 0.73, and a glucose of 103. High-sensitivity troponin was normal at 16.2. TSH is normal at 3.83. Diagnostic Findings EKG notes normal sinus rhythm with a first-degree AV block and frequent PVCs. There is left hypertrophy with repolarization changes. Chest x-ray notes cardiomegaly and sternal wires. Echocardiogram performed in June 2023 noted normal left ventricular systolic function with ejection fraction of 55 to 60%. There is moderate LVH along with mild mitral regurgitation. There was moderate tricuspid regurgitation. PG Care Time/CCT Total # of Minutes Spent Total Time Spent with Patient: Total time spent is greater than 50% in coordination of care (as documented) at patient's floor/unit and/or counseling patient: Coding Level of Care Code 42248 INT INP/OBS CARE 3/75MIN Diagnoses HTN (hypertension) I10 Syncope and collapse R55 CAD (coronary artery disease) I25.10
[2024-11-19] MEDS: amLODIPine BESYLATE 5 MG TAB PO SCH (11:08)
[2024-11-19] MEDS: FUROSEMIDE 20 MG TAB PO SCH (11:08)
--- NOTE | 2024-11-19 13:37 | Hospitalist Progress Note ---
Date of Service November 19, 2024 Assessment & Plan (1) Syncope and collapse: (2) Acute hyponatremia: (3) Labile hypertension: Plan This is a 79 year old gentleman with past medical history of GERD, anxiety, triple bypass, HTN, BPH, iron def anemia who presented to the ED on 11/17/2024 with a chief complaint of syncope. #syncope/labile HTN Patient w/ episode of syncope and collapse at home prior to reporting to hospital. EMS arrived and BP was 59/28. s/p 1L bolus and BP improved to normotensive range. syncope secondary to orthostatic hypotension vs vasovagal CXR negative CTAP findings consistent w/ enteritis. CBC w/ stable hgb of 11.1, no leukocytosis BMP w/ Na of 125, stable renal function Urinalysis negative. Orthostatic vital signs are still pending Noted the patient has fairly severe hypertension requiring 6 medications for blood pressure control: Imdur, metoprolol, clonidine, valsartan, minoxidil, Lasix. Of them, Lasix, valsartan, minoxidil were held upon admission Blood pressure was high, thus valsartan was resumed Consulted nephrology and cardiology due to labile hypertension Resumed amlodipine, minoxidil, Lasix today 11/19 Blood pressure is fairly controlled now Will continue to monitor. Hyponatremia Continues to be hyponatremic at 125 today Urine osmolality and urine sodium ordered Nephrology consulted Nephrology started the patient on Lasix. If blood pressure improves but he stays hyponatremic, then will consider starting salt tablet Continue to monitor #enteritis Patient w/ reported history of abdominal pain has upcoming CN in January w/ GI Zofran prn for N/V if develops Continue PPI Chronic conditions: HLD: statin PT/OT consults DVT prophylaxis: Lovenox Code status: full Admission and Anticipated Discharge Date Admission Date: November 17, 2024 Subjective Patient was seen and examined at 10:50 AM. He denied any chest pain or shortness of breath but he is concerned about his blood pressure being "all over the place". Review of Systems Review of Systems: All systems reviewed & are unremarkable except as noted in Subjective Physical Exam Physical Exam: General: Awake, conversant Heart: S1, S2/regular rate and rhythm, no murmur rubs or gallops Lungs: Clear to auscultation bilaterally. Normal effort Abdomen: Soft/nontender/nondistended. No hepatosplenomegaly Extremities: No clubbing/cyanosis. No edema Behavior: Appropriate, cooperative Results & Data Results & Data Vital Signs (Past 12 Hours) Vital Signs Temp Pulse Pulse Resp BP Pulse Ox O2 Del Method 11/19/24 10:46 36.7 C 68 18 162/83 H 97 Room Air 11/19/24 08:50 Room Air 11/19/24 07:37 36.6 C 73 18 202/98 H 97 Room Air 11/19/24 07:15 53 L 11/19/24 02:51 36.6 C 66 16 193/98 H 94 Room Air Laboratory Results Abnormal lab results 11/18/24 11/19/24 11/19/24 Range/Units 20:08 07:10 Unknown Sodium 125 L (136-145) mmol/L Chloride 94 L (98-107) mmol/L Glucose 103 H (70-99(Fasting)) mg/dl POC Glucose 113 H (70-99) mg/dl Urine Osmolality 427 L (500-800) mOsm/kg PG Care Time/CCT Total # of Minutes Spent Total Time Spent with Patient: Total time spent is greater than 50% in coordination of care (as documented) at patient's floor/unit and/or counseling patient: Coding Level of Care Code 78394 SUB INP/OBS CARE 2/35MIN Diagnoses Syncope and collapse R55 Acute hyponatremia E87.1 Labile hypertension R09.89
[2024-11-20 06:05] LABS: Calcium 9.7 mg/dl (8.6-10.3); Creatinine Clr Calc Pharmacy 48.7 ml/min; Potassium 4.2 mmol/L (3.5-5.1)
[2024-11-20] MEDS: minoxidiL 2.5 MG TAB PO SCH (09:50)
--- NOTE | 2024-11-20 10:07 | Nephrology Progress Note ---
Date of Service November 20, 2024 Assessment & Plan (1) Hyponatremia: (2) Hypercalcemia: (3) Syncope and collapse: (4) Hyperparathyroidism: (5) Labile hypertension: Plan 79 -year-old gentleman with history of chronic the patient has history of chronic hyponatremia, serum sodium has been variable from 125 to 130 at least for 10 years or longer. Workup was unremarkable, previous urine osmolality around 250-260. Has been on fluid restriction but it was difficult for him b ecause of chronic dry mouth and generally drinks much more than he supposed to. Other contributing factor could be recent introduction of chlorthalidone as an outpatient. --continue amlodipine 10 mg daily, Lasix 20 mg daily. --Increase minoxidil to 10 mg daily -- repeat serum sodium this afternoon, if sodium remains low low, will consider starting on salt tablet --Liberalize salt in diet, continue fluid restriction less than 1200 mL/day --If blood pressure remains elevated, consider increasing Imdur to 90 mg daily. Admission and Anticipated Discharge Date Admission Date: November 17, 2024 Subjective Esa was seen and evaluated this morning. Overall he reports feeling well, denies any symptoms or concerns. Blood pressure slightly improved but still remained quite elevated. Sodium dropped to 124 this morning, other electrolyte acceptable. On fluid restriction. Review of Systems Review of Systems: Detailed review of system was done and pertinent positives and negatives were mentioned above. Physical Exam Constitutional: WD/WN, vitals as above no acute distress Eyes: + anicteric sclerae Respiratory: Auscultation: lungs clear to auscultation bilaterally Cardiovascular: RRR, no murmur, no edema Musculoskeletal: Extremities: extremities normal to inspection Skin: no rashes, warm and dry Neurologic: no focal motor deficits and not confused Psychiatric: Orientation: alert and oriented x 3 Affect: euthymic affect Results & Data Vital Signs (Past 12 Hours) Vital Signs Temp Pulse Pulse Resp BP Pulse Ox O2 Del Method 11/20/24 08:20 Room Air 11/20/24 07:26 36.7 C 60 18 176/86 H 98 Room Air 11/20/24 06:55 66 11/20/24 02:06 36.4 C L 58 L 16 159/92 H 98 Room Air 11/20/24 00:00 58 L 11/19/24 22:13 36.7 C 57 L 16 130/67 96 Room Air PG Care Time/CCT Total # of Minutes Spent Total Time Spent with Patient: Total time spent is greater than 50% in coordination of care (as documented) at patient's floor/unit and/or counseling patient: Coding Level of Care Code 27807 SUB INP/OBS CARE 2/35MIN Diagnoses Hyponatremia E87.1 Hypercalcemia E83.52 Syncope and collapse R55 Hyperparathyroidism E21.3 Labile hypertension R09.89
--- NOTE | 2024-11-20 12:34 | Hospitalist Progress Note ---
Date of Service November 20, 2024 Assessment & Plan (1) Syncope and collapse: (2) Acute hyponatremia: (3) Labile hypertension: Plan This is a 79 year old gentleman with past medical history of GERD, anxiety, triple bypass, HTN, BPH, iron def anemia who presented to the ED on 11/17/2024 with a chief complaint of syncope. #syncope/labile HTN Patient w/ episode of syncope and collapse at home prior to reporting to hospital. EMS arrived and BP was 59/28. s/p 1L bolus and BP improved to normotensive range. syncope secondary to orthostatic hypotension vs vasovagal CXR negative CTAP findings consistent w/ enteritis. CBC w/ stable hgb of 11.1, no leukocytosis BMP w/ Na of 125, stable renal function Urinalysis negative. Orthostatic vital signs are still pending Noted the patient has fairly severe hypertension requiring 6 medications for blood pressure control: Imdur, metoprolol, clonidine, valsartan, minoxidil, Lasix. Of them, Lasix, valsartan, minoxidil were held upon admission Blood pressure was high, thus valsartan was resumed Consulted nephrology and cardiology due to labile hypertension Resumed amlodipine, minoxidil, Lasix 11/19 Nephrology recommended to increase minoxidil to 10 mg Blood pressure appears to be stable now. If still elevated, may consider increasing Imdur to 90 mg daily -- repeat serum sodium this afternoon, if sodium remains low low, will consider starting on salt tablet --Liberalize salt in diet, continue fluid restriction less than 1200 mL/day --If blood pressure remains elevated, consider increasing Imdur to 90 mg daily. Hyponatremia Continues to be hyponatremic at 124 today Nephrology consulted Per nephrology, repeat BMP. If still low sodium, will consider starting sodium tablets Liberalize salt in diet. Continue fluid restriction less than 1200 mL/day #enteritis Patient w/ reported history of abdominal pain has upcoming CN in January w/ GI Zofran prn for N/V if develops Continue PPI Chronic conditions: HLD: statin PT/OT consults DVT prophylaxis: Lovenox Code status: full Admission and Anticipated Discharge Date Admission Date: November 17, 2024 Subjective Patient was seen and examined at 10:30 AM. He feels well overall. Denies chest pain or shortness of breath. However, he is concerned about the low sodium level. Review of Systems Review of Systems: All systems reviewed & are unremarkable except as noted in Subjective Physical Exam Physical Exam: General: Awake, conversant Heart: S1, S2/regular rate and rhythm, no murmur rubs or gallops Lungs: Clear to auscultation bilaterally. Normal effort Abdomen: Soft/nontender/nondistended. No hepatosplenomegaly Extremities: No clubbing/cyanosis. No edema Behavior: Appropriate, cooperative Results & Data Results & Data Vital Signs (Past 12 Hours) Vital Signs Temp Pulse Pulse Resp BP Pulse Ox O2 Del Method 11/20/24 11:06 36.6 C 65 18 133/57 L 96 Room Air 11/20/24 08:20 Room Air 11/20/24 07:26 36.7 C 60 18 176/86 H 98 Room Air 11/20/24 06:55 66 11/20/24 02:06 36.4 C L 58 L 16 159/92 H 98 Room Air PG Care Time/CCT Total # of Minutes Spent Total Time Spent with Patient: Total time spent is greater than 50% in coordination of care (as documented) at patient's floor/unit and/or counseling patient: Coding Level of Care Code 65630 SUB INP/OBS CARE 2/35MIN Diagnoses Syncope and collapse R55 Acute hyponatremia E87.1 Labile hypertension R09.89
[2024-11-20] MEDS: SODIUM CHLORIDE 1 GM TABLET PO STA (15:57)
[2024-11-20] MEDS: SODIUM CHLORIDE 1 GM TABLET PO SCH (19:59)
[2024-11-21 07:23] LABS: BUN Creatinine Ratio 26.9 (10-20); Creatinine Clr Calc Pharmacy 49.7 ml/min; Potassium 4.2 mmol/L (3.5-5.1)
--- NOTE | 2024-11-21 09:49 | Nephrology Progress Note ---
Date of Service November 21, 2024 Assessment & Plan (1) Hyponatremia: (2) Hypercalcemia: (3) Syncope and collapse: (4) Hyperparathyroidism: (5) Labile hypertension: Plan 79 -year-old gentleman with history of chronic the patient has history of chronic hyponatremia, serum sodium has been variable from 125 to 130 at least for 10 years or longer. Workup was unremarkable, previous urine osmolality around 250-260. Has been on fluid restriction but it was difficult for him b ecause of chronic dry mouth and generally drinks much more than he supposed to. Other contributing factor could be recent introduction of chlorthalidone as an outpatient. Sodium slightly improved to 126. Blood pressure started to improve. --continue amlodipine 10 mg daily, Lasix 20 mg daily. --on minoxidil to 10 mg daily --Continue on salt tablet 1 g twice a day --Liberalize salt in diet, continue fluid restriction less than 1200 mL/day --If blood pressure remains elevated, consider increasing Imdur to 90 mg daily. --Recommend to hold discharge until we see further improvement in sodium and blood pressure Admission and Anticipated Discharge Date Admission Date: November 17, 2024 Subjective Esa was seen and evaluated this morning. He reports overall feeling slightly better but not quite ready for discharge. Sodium slightly improved to 126, blood pressure trending improvement although still elevated. Reports decent appetite. Review of Systems Review of Systems: Detailed review of system was done and pertinent positives and negatives were mentioned above. Physical Exam Constitutional: WD/WN, vitals as above no acute distress Eyes: + anicteric sclerae Respiratory: Auscultation: lungs clear to auscultation bilaterally Cardiovascular: RRR, no murmur, no edema Musculoskeletal: Extremities: extremities normal to inspection Skin: no rashes, warm and dry Neurologic: no focal motor deficits and not confused Psychiatric: Orientation: alert and oriented x 3 Affect: euthymic affect Results & Data Vital Signs (Past 12 Hours) Vital Signs Temp Pulse Pulse Resp BP Pulse Ox O2 Del Method 11/21/24 07:24 36.8 C 70 18 166/85 H 97 Room Air 11/21/24 03:53 36.5 C 57 L 16 151/69 H 97 Room Air 11/21/24 00:06 36.5 C 60 20 151/80 H 97 Room Air PG Care Time/CCT Total # of Minutes Spent Total Time Spent with Patient: Total time spent is greater than 50% in coordination of care (as documented) at patient's floor/unit and/or counseling patient: Coding Level of Care Code 93985 SUB INP/OBS CARE 235MIN Diagnoses Hyponatremia E87.1 Hypercalcemia E83.52 Syncope and collapse R55 Hyperparathyroidism E21.3 Labile hypertension R09.89
--- NOTE | 2024-11-21 12:53 | Hospitalist Progress Note ---
Date of Service November 21, 2024 Assessment & Plan (1) Syncope and collapse: (2) Acute hyponatremia: (3) Labile hypertension: Plan This is a 79 year old gentleman with past medical history of GERD, anxiety, triple bypass, HTN, BPH, iron def anemia who presented to the ED on 11/17/2024 with a chief complaint of syncope. #syncope/labile HTN Patient w/ episode of syncope and collapse at home prior to reporting to hospital. EMS arrived and BP was 59/28. s/p 1L bolus and BP improved to normotensive range. syncope secondary to orthostatic hypotension vs vasovagal CXR negative CTAP findings consistent w/ enteritis. CBC w/ stable hgb of 11.1, no leukocytosis BMP w/ Na of 125, stable renal function Urinalysis negative. Orthostatic vital signs are still pending Noted the patient has fairly severe hypertension requiring 6 medications for blood pressure control: Imdur, metoprolol, clonidine, valsartan, minoxidil, Lasix. Of them, Lasix, valsartan, minoxidil were held upon admission Blood pressure was high, thus valsartan was resumed Consulted nephrology and cardiology due to labile hypertension Resumed amlodipine, minoxidil, Lasix 11/19 Currently on minoxidil 10 mg Blood pressure appears to be stable now. If still elevated, may consider increasing Imdur to 90 mg daily Hyponatremia Continues to be hyponatremic although improved to 126 today. Nephrology on board Dietary salt intake has been liberalized Salt tablets added Monitor sodium #enteritis Patient w/ reported history of abdominal pain has upcoming CN in January w/ GI Zofran prn for N/V if develops Continue PPI Chronic conditions: HLD: statin PT/OT consults DVT prophylaxis: Lovenox Code status: full Admission and Anticipated Discharge Date Admission Date: November 17, 2024 Subjective Patient was seen and examined at 10 AM. He denies chest pain or shortness of breath. He denies dizziness or lightheadedness. Review of Systems Review of Systems: All systems reviewed & are unremarkable except as noted in Subjective Physical Exam Physical Exam: General: Awake, conversant Heart: S1, S2/regular rate and rhythm, no murmur rubs or gallops Lungs: Clear to auscultation bilaterally. Normal effort Abdomen: Soft/nontender/nondistended. No hepatosplenomegaly Extremities: No clubbing/cyanosis. No edema Behavior: Appropriate, cooperative Results & Data Results & Data Vital Signs (Past 12 Hours) Vital Signs Temp Pulse Pulse Resp BP Pulse Ox O2 Del Method 11/21/24 11:28 36.5 C 56 L 18 124/67 97 Room Air 11/21/24 07:24 36.8 C 70 18 166/85 H 97 Room Air 11/21/24 03:53 36.5 C 57 L 16 151/69 H 97 Room Air Laboratory Results Abnormal lab results 11/20/24 11/21/24 Range/Units 14:21 06:08 Sodium 123 L 126 L (136-145) mmol/L Chloride 95 L (98-107) mmol/L BUN 25 H (6-23) mg/dl BUN/Creatinine Ratio 26.9 H (10-20) Glucose 100 H (70-99(Fasting)) mg/dl PG Care Time/CCT Total # of Minutes Spent Total Time Spent with Patient: Total time spent is greater than 50% in coordination of care (as documented) at patient's floor/unit and/or counseling patient: Coding Level of Care Code 28427 SUB INP/OBS CARE 2/35MIN Diagnoses Syncope and collapse R55 Acute hyponatremia E87.1 Labile hypertension R09.89
[2024-11-21] MEDS ORDERED: DICLOFENAC SOD 1% GEL 100 GM TUBE EXT PRN (18:06)
[2024-11-22 06:27] LABS: BUN Creatinine Ratio 27.1 (10-20); Calcium 9.8 mg/dl (8.6-10.3); Creatinine Clr Calc Pharmacy 54.4 ml/min; Potassium 4.4 mmol/L (3.5-5.1)
[2024-11-22 07:50] VITALS: BP 166/84; RESP 14; TEMP 97.7; O2SAT 98
--- NOTE | 2024-11-22 08:29 | Nephrology Progress Note ---
Date of Service November 22, 2024 Assessment & Plan (1) Hyponatremia: (2) Hypercalcemia: (3) Syncope and collapse: (4) Hyperparathyroidism: (5) Labile hypertension: Plan 79 -year-old gentleman with history of chronic the patient has history of chronic hyponatremia, serum sodium has been variable from 125 to 130 at least for 10 years or longer. Workup was unremarkable, previous urine osmolality around 250-260. Has been on fluid restriction but it was difficult for him b ecause of chronic dry mouth and generally drinks much more than he supposed to. Other contributing factor could be recent introduction of chlorthalidone as an outpatient. Sodium improved to 128. Blood pressure improved. --continue amlodipine 10 mg daily, Lasix 20 mg daily. --on minoxidil to 10 mg daily --Continue on salt tablet 1 g twice a day on discharge --Liberalize salt in diet, continue fluid restriction less than 1200 mL/day Admission and Anticipated Discharge Date Admission Date: November 17, 2024 Subjective Esa was seen and evaluated this morning. He reports overall feeling well. Sodium improved to 128, blood pressure improved. Reports decent appetite. Review of Systems Review of Systems: Detailed review of system was done and pertinent positives and negatives were mentioned above. Physical Exam Constitutional: WD/WN, vitals as above no acute distress Eyes: + anicteric sclerae Respiratory: Auscultation: lungs clear to auscultation bilaterally Cardiovascular: RRR, no murmur, no edema Musculoskeletal: Extremities: extremities normal to inspection Skin: no rashes, warm and dry Neurologic: no focal motor deficits and not confused Psychiatric: Orientation: alert and oriented x 3 Affect: euthymic affect Results & Data Vital Signs (Past 12 Hours) Vital Signs Temp Pulse Pulse Resp BP Pulse Ox O2 Del Method 11/22/24 07:49 36.5 C 56 L 14 166/84 H 98 Room Air 11/22/24 05:48 62 11/22/24 02:26 36.8 C 66 18 128/68 96 Room Air 11/21/24 23:30 59 L 11/21/24 21:51 36.6 C 65 18 139/70 97 Room Air PG Care Time/CCT Total # of Minutes Spent Total Time Spent with Patient: Total time spent is greater than 50% in coordination of care (as documented) at patient's floor/unit and/or counseling patient: Coding Level of Care Code 24514 SUB INP/OBS CARE MIN Diagnoses Hyponatremia E87.1 Hypercalcemia E83.52 Syncope and collapse R55 Hyperparathyroidism E21.3 Labile hypertension R09.89
--- NOTE | 2024-11-22 09:13 | Discharge Summary ---
Date of Service November 22, 2024 Admission HPI Per Admitting Provider This is a 79 year old gentleman with past medical history of GERD, anxiety, triple bypass, HTN, BPH, iron def anemia who presented to the ED on 11/17/2024 with a chief complaint of syncope. The patient was seen and examined at bedside. Patient reports that he did take his morning medications this morning. He states that he was laying down in bed and started to feel feverish. He then got out of bed and he collapsed to the floor. EMS was called and patient was found to be profoundly hypotensive with a BP of 59/28. He was given a 500cc bolus of NSS w/ improvement to 71/40. Patient was then given another 500cc bolus of NSS w/ improvement to 157/68. Patient reports in this time frame he did not hit his head. He felt his vision blacken and he could not see the people helping him. Since reporting to the hospital he feels his symptoms have improved. He admits to polydipsia and notes he drinks more in the winter time due to his dry mouth. He is aware he is to cut back on his fluid intake but finds this difficult to do in the winter months. He denied CP, SOB, abdominal pain, nausea, vomiting. Reports he has been having issues with his bowel and has a CN scheduled in January. He had a BM this morning. Denies overt signs of bleeding in stool. Denies lower extremity edema or urinary symptoms. While in the ED the patient underwent a BMP that revealed a sodium of 125. He had a negative CXR and a CTAP findings consistent w/ enteritis. He was given 1L of fluids. Admission Exam Per Admitting Provider Constitutional: WD/WN, vitals as above Eyes: PERRL, conjunctivae normal, anicteric sclerae Respiratory: normal respiratory effort, lungs clear to auscultation Cardiovascular: RRR, no murmur, no edema Gastrointestinal (Abdomen): normal bowel sounds, soft, nontender, no hepatosplenomegaly Psychiatric: A+Ox3, euthymic affect Principal Diagnosis Syncope related to labile hypertension Hyponatremia Discharge Exam General: Awake, conversant Heart: S1, S2/regular rate and rhythm, no murmur rubs or gallops Lungs: Clear to auscultation bilaterally. Normal effort Abdomen: Soft/nontender/nondistended. No hepatosplenomegaly Extremities: No clubbing/cyanosis. No edema Behavior: Appropriate, cooperative Discharge Data Allergies Allergy/AdvReac Type Severity Reaction Status Date / Time gluten Allergy Unknown CELIAC Verified 11/01/24 10:54 DISEASE spironolactone AdvReac Intermediate Verified 11/01/24 10:54 heparin AdvReac Unknown BURNING Verified 11/01/24 10:54 SENSATION sertraline [From Zoloft] AdvReac Unknown SUICIDAL Verified 11/01/24 10:54 THOUGHTS-FELT WEIRD Consultations 11/17/24 12:45 ED Decision to Admit Stat 11/19/24 08:00 Consult Cardiology Routine 11/19/24 08:17 Consult Nephrology Routine Ordered Studies Chest X-Ray 11/17/24 08:54 XR chest 1V portable CLINICAL HISTORY: Dysrhythmia COMPARISON STUDY: 01/27/2024 FINDINGS: Stable CABG. Stable cardiomegaly without pulmonary vascular congestion. No effusion, consolidation, or pneumothorax. IMPRESSION: No acute findings. ACT 112: Negative or not required by law. Electronically signed by: Semaj Schreiber M.D. 11/17/2024 9:21 AM Abdomen/Pelvis CT 11/17/24 10:[address] WITH IV CONTRAST CT DOSE: 427.94 mGy.cm HISTORY: upper abd pain, hyponatremia, hypotension, syncope TECHNIQUE: Multiaxial CT images of the abdomen and pelvis were performed follo wing the IV administration of 90 cc of Optiray, A dose lowering technique was utilized adhering to the principles of ALARA. COMPARISON STUDY: 01/27/2024 FINDINGS: ABDOMEN: Liver, gallbladder, spleen, pancreas, and adrenal glands are unremarkable. Kidneys show no hydronephrosis or calculi. There are scattered atherosclerotic calcifications. No abdominal aortic aneurysm. Pelvis: Prostate is enlarged with a few calcifications. Urinary bladder is nondistended. There is moderate retained stool. There is mild wall thickening and minimal adjacent mesenteric edema at the small bowel consistent with enteritis. No other bowel inflammation or obstruction seen. No free fluid, free air, or abscess. No enlarged adenopathy seen. Osseous structures: There is diffuse lumbar degenerative disc disease. There is stable severe height loss at the T12 vertebral body. 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 IMPRESSION: Findings consistent with enteritis without bowel obstruction. Otherwise as described. ACT 112: Negative or not required by law. The above report was generated using voice recognition software. It may contain grammatical, syntax or spelling errors. Electronically signed by: Semaj Schreiber M.D. 11/17/2024 11:39 AM 11/17/24 10:28 CT Abd and Pelvis [CT abd pelvis IV con only] Stat Hospital Course (1) Syncope and collapse: (2) Acute hyponatremia: (3) Labile hypertension: Plan This is a 79 year old gentleman with past medical history of GERD, anxiety, trip le bypass, HTN, BPH, iron def anemia who presented to the ED on 11/17/2024 with a chief complaint of syncope. #syncope/labile HTN Patient w/ episode of syncope and collapse at home prior to reporting to hospital. EMS arrived and BP was 59/28. s/p 1L bolus and BP improved to normotensive range. syncope secondary to orthostatic hypotension vs vasovagal CXR negative CTAP findings consistent w/ enteritis. CBC w/ stable hgb of 11.1, no leukocytosis BMP w/ Na of 125, stable renal function Urinalysis negative. Orthostatic vital signs not completed during this hospital stay Noted the patient has fairly severe hypertension requiring 6 medications for blood pressure control: Imdur, metoprolol, clonidine, valsartan, minoxidil, Lasix. Of them, Lasix, valsartan, minoxidil were initially held upon admission Blood pressure was high, thus most of the medications were resumed Consulted nephrology and cardiology due to labile hypertension Resumed amlodipine, minoxidil, Lasix 11/19 Currently on minoxidil 10 mg Blood pressure appears to be stable now. Plan to discharge on current regimen Hyponatremia Continues to be hyponatremic although improved to 126 today. Nephrology on board Dietary salt intake has been liberalized Salt tablets added Sodium improved to 128 today Discharge on salt tablets Advised to follow-up with PCP in 1 week and counseling program leader in 2 weeks. He may need lab work done in a week to monitor Na #enteritis Patient w/ reported history of abdominal pain has upcoming CN in January w/ GI Zofran prn for N/V if develops Continue PPI Chronic conditions: HLD: statin PT/OT consults DVT prophylaxis: Lovenox Code status: full Total Time Total Time Spent Total Time Spent (In Minutes): 35 Discharge Plan Discharge Items Patient Disposition: Home - Self-Care Reason For Visit: SYNCOPE Discharge Diagnosis: Syncope related to labile hypertension Hyponatremia Activity: Resume your previous activity Non-emergency contact: Primary Care Provider Call non-emergency contact if: you have any medication questions and your symptoms worsen Follow-up/Referrals: Juliane Rizo M.D. [Family Provider] - John Jones PA-C [Primary Care Provider] - Diet: Low Fat Addtl Attending Provider Instructions: Advised to follow-up with PCP in 1 week Advised to follow-up with glue mixer in 1 week Advised to follow-up with counseling program leader in 2 week Pending Studies at Discharge: No Stand-Alone Forms: [facility] [address] Medications and DC Order Prescriptions: New furosemide 20 mg Tablet 20 mg PO QAM 30 Days Qty: 30 0RF sodium chloride 1,000 mg Tablet,Soluble 1,000 mg PO BID 30 Days Qty: 60 0RF minoxidil 2.5 mg Tablet 10 mg PO QAM 30 Days Qty: 120 0RF amlodipine [Norvasc] 5 mg Tablet 10 mg PO QAM 30 Days Qty: 60 0RF Continued nitroglycerin 0.4 mg tablet, sublingual 0.4 mg sublingual UD PRN (Reason: Chest Pain) Qty: 15 1RF isosorbide mononitrate 60 mg tablet extended release 24 hr 60 mg PO QAM Qty: 90 3RF pantoprazole 40 mg tablet,delayed release (DR/EC) 40 mg PO DAILYBB Qty: 90 3RF valsartan 320 mg tablet 320 mg PO QAM Qty: 90 3RF atorvastatin 20 mg tablet 20 mg PO HS Qty: 90 3RF clonidine 0.1 mg/24 hr patch weekly 1 patch transdermal WK Qty: 12 3RF metoprolol succinate 25 mg tablet extended release 24 hr 12.5 mg PO DAILY Qty: 90 3RF garlic 300 mg capsule 400 mg PO DAILY Rx Instructions: Unable to verify OTC meds at this date/time. aspirin 81 mg tablet,delayed release (DR/EC) 81 mg PO DAILY Rx Instructions: Unable to verify OTC meds at this date/time. melatonin 5 mg Tablet 10 mg PO HS Rx Instructions: Unable to verify OTC meds at this date/time. cyanocobalamin (vitamin B-12) [Vitamin B-12] 1,000 mcg tablet 500 mcg PO QAM Rx Instructions: Unable to verify OTC meds at this date/time. albuterol sulfate 90 mcg/actuation HFA aerosol inhaler 1 puff INHALATION Q6H PRN (Reason: Nausea And Vomiting) Discontinued minoxidil 2.5 mg tablet 7.5 mg PO DAILY Qty: 180 3RF furosemide 40 mg tablet 0 mg PO QAM Rx Instructions: Per pharmacy, the spouse had this d/c on 11/02/24. Original Directions: 40mg by mouth daily clonidine HCl 0.1 mg tablet 0 mg PO BID Rx Instructions: Per pharmacy, they were told this was d/c by spouse on 11/02/24. Original Directions: 0.1mg by mouth twice daily Use if BP is 260/120 or > use once and repeat if necessary in 1/2 hr Discharge Orders: Discharge Order (Routine); Ordered 11/22/24 Ordered By: Clive Rangel Admission Data Admit Date/Time: 11/17/24 12:17 Attending Provider: Clive Rangel Admit Provider: Waqar Guzman Primary Care Provider: John Jones Other Providers: Waqar Guzman; Melchor Gaviria; Manisha Venegas Other Interventions: Discharge Summary Assessment (RN) Last Done: 11/22/24 10:03
[2024-11-22 10:04] VITALS: PULSE 57
[2024-11-23] MEDS ORDERED: cloNIDine HCL 0.1 MG/24 HR TRANSDERM SYS TD SCH (16:00)
== END 2024-11-22 10:58 | disposition home or self-care (01) | DRG 312 ==
LOC: ED 08:49 → SUATTDRO 12:17 → 2N 12:17